=== PATIENT | female | born 1970 | race Caucasian/White ===

== ENCOUNTER → 2017-09-04 13:16 | Outpatient (CLI) | payer OTHER, SELFPAY ==
[2017-09-05 14:29] LABS: HPV Reflexed? NOT INDICATED
== END ==
PROVIDERS: Visit Provider Obstetrics & Gynecology
DX: Z12.4 Encounter for screening for malignant neoplasm of cervix (principal)
CPT/HCPCS: 88175; G0145

== ENCOUNTER → 2017-11-07 07:23 | Outpatient (CLI) | payer OTHER, SELFPAY ==
--- NOTE | 2017-11-07 07:27 | BI_ITS ---
MAMMOGRAPHY - BILATERAL SCREENING REASON FOR EXAM: Female, 47 years old. Routine annual screening examination. PERTINENT HISTORY: Mother with breast cancer. TECHNIQUE: Digital bilateral breast melinda (3D mammographic acquisition) in the CC and MLO projections. 2-D mediolateral oblique (MLO) and craniocaudad (CC) views of both breasts were obtained. CAD: Full Field Digital Mammography with Computer Added Detection was performed. COMPARISON: Comparison is made with prior study dated February 28, 2017 and May 27, 2015. FINDINGS: Breast Composition: The breasts are heterogeneously dense, which may obscure small masses. There are no dominant masses or suspicious calcifications. Stable benign-appearing bilateral axillary lymph nodes. No other significant abnormalities are identified. There has been no significant change since the prior study. BI/SCREENING MAMM (CAD), BILAT IMPRESSION: Stable bilateral screening mammogram. Yearly follow-up mammogram recommended. (A) ASSESSMENT CATEGORY: BIRADS Category 2: Benign. A letter regarding these results will be sent to the patient by the facility within 30 days. Approximately 10% of breast cancers are not detected by mammography. A normal mammogram should not delay biopsy of a clinically suspicious abnormality. [id number] Electronically Signed: Anil Davison MD at 9:08 EDT Tel [phone], Service support ,
== END ==
PROVIDERS: Family Provider Internal Medicine; PCP Internal Medicine; Visit Provider Obstetrics & Gynecology
DX: Z12.31 Encounter for screening mammogram for malignant neoplasm of breast (principal)
CPT/HCPCS: 77063; 77067

== ENCOUNTER 2018-07-05 08:26 | Emergency (ER) | payer OTHER, SELFPAY ==
--- NOTE | 2018-07-05 08:28 | NURSING ---
NO OLD EKGS
[2018-07-05 08:29] VITALS: BP 191/97; PULSE 76; RESP 23; TEMP 36.7; O2SAT 97; BMI 41.1
--- NOTE | 2018-07-05 08:40 | EKG12_ITS ---
Test Reason : PALPATIONS Blood Pressure : / mmHG Vent. Rate : 076 BPM Atrial Rate : 076 BPM P-R Int : 158 ms QRS Dur : 084 ms QT Int : 416 ms P-R-T Axes : 054 008 014 degrees QTc Int : 468 ms Sinus rhythm with occasional Premature ventricular complexes Otherwise normal ECG Confirmed by OSCAR HAYS, ELIUD ([id number]), greeting card editor DEBBY GUTIÉRREZ ([id number]) on 07/09/2018 3:39:04 PM Referred By: JARON Confirmed By:ELIUD MOORE MD
[2018-07-05 09:06] LABS: Anion Gap 9 (5-15); BUN 14 mg/dL (7-18); Calcium,Total 8.5 mg/dL (8.5-10.1); Chloride 104 mmol/L (98-107); Creatinine, Serum 0.78 mg/dL (0.55-1.02); EST Glomerular Filtration Rate 84 mL/min (>60); Est Glom Filt Rate - Afr Amer 102 mL/min (>60); Estimated Creatinine Clearance 76.99 ml/min; Glucose 108 mg/dL (74-106); Sodium Level 140 mmol/L (136-145)
--- NOTE | 2018-07-05 10:16 | ED.DCSUM_ITS ---
- ER Visit Summary Date of Service: 07/05/18 Chief Complaint: Fluttering in chest History of Present Illness: The patient is a 48 F who presents because of fluttering sensation in her chest. There is been present intermittently for the past week. She presents because she is noticing a fluttering more frequently. She reports similar episode 20 years ago and had a Holter monitor at that time which was unremarkable. She has had multiple echocardiograms of her heart which were read as negative. She may drink 1 caffeinated beverage a day. She has no other symptoms i.e. fever, chills or night sweats. She denies weight gain or weight loss. She denies heat or cold intolerance. She denies chest pain, pressure, tightness or heaviness. There is no pleuritic or positional component. This is not related to food. Please read written note for complete detail Physical Examination: Vital signs noted and blood pressure is elevated 191/97 per BMI is 41.2. HEENT exam is unremarkable. Heart tones normal with no murmur, gallop or rub. Occasional ectopic beat noted and monitor reveals a monofocal ventricular premature beat. Patient is aware majority of time she has a premature ventricular beat. There is no runs of bigeminy, trigeminy, couplets triplets etc. Lungs are clear to auscultation with room air bilaterally. There is no reducible chest pain. Abdomen soft nontender. There is no asymmetry, swelling, discoloration, leg vein distention, palpable cords or tenderness along the distribution of the deep venous system. Neuro exam is nonfocal. Test Results: EKG sinus rhythm with occasional premature ventricular complexes noted. MD interval, QRS duration, QT interval and axis are normal. Ventricular rate is 76. Electronic panel is unremarkable. Emergency Department Course and Treatment: Patient was placed on a monitor. No abnormality other than unifocal ventricular premature beats were noted during her 1.5-hour stay. Treatment Plan: Information and premature ventricular beats Disposition: Discharged home with spouse in stable condition Impression: Unifocal premature ventricular beats Hypertension and known hypertensive patient, asymptomatic Anxiousness self-reported This note was generated with [employer] dictation software. It may contain incorrect words, spelling, and punctuation that were not noted in review of the chart prior to signing ED Disposition - Plan for ED Patient: Disposition: Home or Assisted Living Chief Complaint: Palpitations Instructions: Premature Ventricular Contractions Referrals: Noemí,Luiza, DO [Primary Care Provider] - 1-2 Weeks Additional Instructions: Since her blood pressure is higher than normal you should have your blood pressure reassessed in 1-2 weeks by your primary care physician.
[2018-07-05 10:40] VITALS: BP 163/101; PULSE 58; RESP 12; O2SAT 95
--- OUTSIDE RECORDS SUMMARY | 2018-08-30 03:24 | XMS RPT_ITS | Continuity of Care Document ---
:1970 Author Organization [facility] Address [address] [facility] [address] [place] [address] Phone Care Team Providers Name Role Phone Luiza Dowd DO Unavailable Juancarlos Fitzpatrick Unavailable Bobo Mayers Unavailable Micheal Springer MD Unavailable CINDY Holley Unavailable Unavailable Sotero Araya Unavailable Unavailable Shasta PHILLIPS Bella Unavailable Elayne Henry LPN Unavailable Unavailable Abeba Holt Unavailable Unavailable Unavailable Unavailable Problems Name Dates Details Abnormal pulmonary function test (R94.2, 794.2) Comments: ? pulmonary hypertension vs asthma vs allergy Status: Active Abnormal pulmonary function test (R94.2, 794.2) Status: Active Acute bilateral low back pain without sciatica (M54.5, 724.2) Status: Active Acute sinusitis (J01.90, 461.9) Comments: still think viral at this point. will try adding steriod nasal spray to open up and help drain keep on mucinex and netti pot. if not better or signs and symptoms of bacterial by end of week get atb Status: Active ALLERGIC RHINITIS DUE TO OTHER ALLERGEN (J30.89, 477.8) Status: Active Allergic rhinitis due to other allergen (J30.89, 477.8) Comments: stable Status: Active Annual Medicare Physical WITH abnormal findings (Renamed from Encounter for general adult medical examination with abnormal findings) (Z00.01, V70.0) Comments: filled out papers Status: Active Annual physical exam (Z00.00, V70.0) Status: Active Arrhythmia (I49.9, 427.9) Comments: stable Status: Active ARRHYTHMIA, NOS (427.9) Status: Active Benign essential hypertension (I10, 401.1) Status: Active BMI 40.0-44.9, adult (Z68.41, V85.41) Status: Active Bronchitis (J40, 490) Status: Active Bronchitis with bronchospasm (466.0) Status: Active Cough (R05, 786.2) Comments: improved but tickly cough continues Status: Active Cough (R05, 786.2) Status: Active Endometriosis Comments: bx Status: Active GERD (gastroesophageal reflux disease) (K21.9, 530.81) Status: Active Hyperglycemia (R73.9, 790.29) Status: Active Hypertension (I10, 401.9) Status: Active Low HDL (under 40) (E78.6, 272.5) Status: Active Non morbid obesity, unspecified obesity type (E66.9, 278.00) Status: Active Non-smoker (Z78.9, V49.89) Status: Active orthoscopic bilatteral Status: Active Other cardiac sounds (R01.2, 785.3) Status: Active Palpitations (R00.2, 785.1) Status: Active PHARYNGITIS, ACUTE (462.) (462) Status: Active Physical exam (Z00.00, V70.9) Status: Active Pityriasis rosea (L42, 696.3) Status: Active Reflux gastritis (K29.60, 535.40) Comments: on dexilant Status: Active Stress reaction, emotional (F43.9, 308.0) Status: Active tubal occulusion (Renamed from Tubal Ligation) Status: Active Wheezing (R06.2, 786.07) Status: Active Medications Name Dates Details Bystolic 5 MG Oral Tablet 1 (one) Tablet qd for 0 days Quantity: 30 {Tablet} Refills: 5 Ordered:15-Jan-2018 Faby Dowd DO, DO, Kathleen Start : 15-Jan-2018 Active Dexilant 60 MG Oral Capsule Delayed Release [address] daily for 0 days Quantity: 30 {Capsule} Refills: 11 Ordered:26-Mar-2018 Noemí FOSS LuizaNoemí Luiza Start : 26-Mar-2018 Active FLONASE ALLERGY RELIEF, 50MCG/ACT (Nasal Suspension) 1 (one) puff qd for 360 days Quantity: 1 {Container} Refills: 6 Ordered:19-Jan-2016 Noemí FOSS GildaSanti Luiza Start : 19-Jan-2016 Active PROVENTIL HFA, 108 (90 Base)MCG/ACT (Inhalation Aerosol Solution) 2 (two) Puff(s) tid prn for 0 days Quantity: 1 {Inhaler} Refills: 0 Ordered:07-Nov-2016 Abeba Holley LPN Start : 24-Feb-2015 Active JOANN-D ALLERGY & CONGESTION, 180-240MG (Oral Tablet Extended Release 24 Hour) 1 Tablet ER 24HR daily prn for 0 days Quantity: 30 {Tablet_ER_24HR} Refills: 0 Ordered:04-Sep-2012 Abeba Holley LPN Start : 27-Jun-2011 End : 04-Sep-2012 Inactive ASMANEX 14 METERED DOSES, 220MCG/INH (Inhalation Aerosol Powder Breath Activated) 2 (two) Puff bid for 0 days Quantity: 2 {Inhaler} Refills: 0 Ordered:01-Sep-[address] Start : 13-Mar-2014 End : 01-Sep-2014 Inactive AUGMENTIN, 875-125MG (Oral Tablet) 1 Tablet Twice daily for 0 days Quantity: 20 {Tablet} Refills: 0 Ordered:27-Jun-2011 Sena Lester LPN Start : 04-Jan-2011 End : 27-Jun-2011 Inactive BACITRACIN-POLYMYXIN B (Ophthalmic Ointment) 1/2 (one half) Ointment qid for 7 days Quantity: 1 {Ointment} Refills: 0 Ordered:10-Jun-2007 Sena Lester LPN Start : 10-Jun-2007 End : 11-Jul-2007 Inactive Comments:Apply ointment 1/2 inch 2-4 times per day for 5 days both eyes Biaxin XL Pac 500 MG Oral Tablet Extended Release 24 Hour 2 (two) Tablet ER 24HR daily for 10 days Quantity: 20 {Tablet} Refills: 0 Ordered:21-Jun-2016 Zuleyma Vegas CNP Start : 21-Jun-2016 End : 01-Jul-2016 Inactive Comments:will call if need this void after 30 days Bleph-10 10 % Ophthalmic Solution 1-2 Metric Drop q 2-3h until improving then tid for 7 days Quantity: 1 {Bottle} Refills: 0 Ordered:21-Jun-2016 Zuleyma Vegas CNP Start : 21-Jun-2016 End : 28-Jun-2016 Inactive CLARITIN, 10MG (Oral Tablet) 1 (one) Tablet daily for 0 days Quantity: 30 {Tablet} Refills: 0 Ordered:24-Feb-2015 Abeba Holley LPN Start : 01-Sep-2014 End : 24-Feb-2015 Inactive Delsym 30 MG/5ML Oral Suspension Extended Release 1 Liquid ER q12hrs for 0 days Quantity: 6 {Fluid_Ounce} Refills: 0 Ordered:26-Sep-2016 Abeba Holley LPN Start : 21-Jun-2016 End : 26-Sep-2016 Inactive FLONASE, 50MCG/ACT (Nasal Suspension) 2 (two) Puff Puff daily for 0 days Quantity: 1 {Inhaler} Refills: 0 Ordered:01-Sep-[address] Start : 20-Feb-2014 End : 01-Sep-2014 Inactive LEVOFLOXACIN, 500MG (Oral Tablet) 1 (one) Tablet daily for 7 days Quantity: 7 {Tablet} Refills: 0 Ordered:20-Feb-2014 Zuleyma Vegas CNP Start : 20-Feb-2014 End : 27-Feb-2014 Inactive Metaxalone 800 MG Oral Tablet 1 (one) Tablet tid prn for 0 days Quantity: 21 {Tablet} Refills: 0 Ordered:07-Nov-2016 Abeba Holley LPN Start : 26-Sep-2016 End : 07-Nov-2016 Inactive MUCINEX DM, 30-600MG (Oral Tablet Extended Release 12 Hour) tad Tablet ER 12HR BID for 0 days Refills: 0 Ordered:03-Sep-2008 Abeba Holley LPN Start : 03-Sep-2008 End : 30-Sep-2008 Inactive NASACORT AQ, 55MCG/ACT (Nasal Aerosol Solution) 2 (two) Aerosol Soln DAILY for 0 days Quantity: 1 {Aerosol_Soln} Refills: 0 Ordered:03-Apr-2008 Abeba Holley LPN Start : 03-Apr-2008 End : 22-Jun-2009 Inactive OMNARIS, 50MCG/ACT (Nasal Suspension) 2 (two) Suspension qd for 10 days Quantity: 1 {Suspension} Refills: 0 Ordered:07-Dec-2009 Faby Dowd DO, DO, Kathleen Start : 02-Nov-2009 End : 12-Nov-2009 Inactive PredniSONE 10 MG Oral Tablet 1 Tablet bid for 3 days Quantity: 6 {Tablet} Refills: 0 Ordered:24-Nov-2016 Shasta PHILLIPSZuleyma E Start : 24-Nov-2016 End : 27-Nov-2016 Inactive Comments:with food Pyridium 200 MG Oral Tablet 1 (one) Tablet Tablet q8 hr prn for 0 days Quantity: 10 {Tablet} Refills: 0 Ordered:26-Sep-2016 Abeba Holley LPN Start : 18-May-2016 End : 26-Sep-2016 Inactive SYMBICORT, 160-4.5MCG/ACT (Inhalation Aerosol) 1 (one) Aerosol bid for 0 days Quantity: 1 {Each} Refills: 0 Ordered:24-Feb-2015 Abeba Holley LPN Start : 01-Sep-2014 End : 24-Feb-2015 Inactive TESSALON PERLES, 100MG (Oral Capsule) 1 (one) Capsule tid for 0 days Quantity: 30 {Capsule} Refills: 0 Ordered:11-Jul-2007 Abeba Holley LPN Start : 11-Jul-2007 End : 30-Sep-2007 Inactive ATENOLOL, 25MG (Oral Tablet) 1 Tablet BID for 0 days Quantity: 180 {Tablet} Refills: 3 Ordered:14-Oct-2009 Faby Dowd DO, DO, Kathleen Start : 14-Oct-2009 End : 14-Oct-2009 Discontinued Delsym Cgh/Chest Johan DM Child 5-100 MG/5ML Oral Liquid 1 (one) Liquid q12hr for 0 days Quantity: 1 {Bottle} Refills: 0 Ordered:19-Dec-2016 Elayne Henry LPN Start : 24-Nov-2016 End : 19-Dec-2016 Discontinued KAPIDEX, 60MG (Oral Capsule Delayed Release) 1 (one) Capsule DR Daily for 0 days Quantity: 90 {Capsule_DR} Refills: 3 Ordered:19-Jul-2010 Sandie Lorenzo RN Start : 22-Jun-2009 End : 19-Jul-2010 Discontinued Comments:This order discontinued per [facility]. Macrobid 100 MG Oral Capsule 1 (one) Capsule bid for 0 days Quantity: 20 {Capsule} Refills: 0 Ordered:21-Jun-2016 Slarb BIAS CUT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 VERTICAL, Elayne Start : 18-May-2016 End : 21-Jun-2016 Discontinued ProAir HFA 108 (90 Base) MCG/ACT Inhalation Aerosol Solution 2 (two) Puff tid prn for 0 days Quantity: 1 {Inhaler} Refills: 3 Ordered:19-Dec-2016 Slarb BIAS CUT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 VERTICAL, Elayne Start : 24-Nov-2016 End : 19-Dec-2016 Discontinued Zithromax Z-Andrea 250 MG Oral Tablet 1 (one) Tablet TAD for 0 days Quantity: 1 {Package} Refills: 0 Ordered:19-Dec-2016 Slarb BIAS CUT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 VERTICAL, Elayne Start : 24-Nov-2016 End : 19-Dec-2016 Discontinued Allergies and Adverse Reactions Name Dates Details Codeine/Codeine Derivatives (Allergy) Status: Active Comments: Nausea Past Medical History Name Dates Details Abnormal urine (R82.90, 791.9) Status: Inactive as of 07-Nov-2016 Acute conjunctivitis (Renamed from Conjunctivitis, acute) (H10.30, 372.00) Status: Inactive as of 07-Nov-2016 Allergic rhinitis (J30.9, 477.9) Status: Inactive as of 31-Dec-2008 Bronchitis (J40, 490) Status: Inactive as of 31-Dec-2008 Cough (R05, 786.2) Status: Inactive as of 26-Mar-2015 Dry Eye, Unspecified (375.15) Status: Inactive as of 31-Dec-2008 Eye redness (H57.89, 379.93) Status: Inactive as of 07-Nov-2016 Hematuria (R31.9, 599.70) Status: Inactive as of 07-Nov-2016 Hyperglyceridemia (E78.1, 272.1) Status: Resolved as of 14-Aug-2011 Mild persistent asthmatic bronchitis with exacerbation (J45.31, 493.02) Comments: not sound bacterial. will start inhaler and give atb if get into bacterial signs and symptoms short course of predniosne Status: Inactive as of 07-Nov-2016 Muscle spasm of back (M62.830, 724.8) Status: Resolved as of 07-Nov-2016 Palpitations (R00.2, 785.1) Status: Resolved as of 02-Nov-2009 Serous conjunctivitis, unspecified laterality (H10.239, 372.01) Status: Inactive as of 31-Dec-2008 Sinus congestion (R09.81, 478.19) Status: Inactive as of 04-Sep-2012 Sore throat (J02.9, 462) Status: Inactive as of 04-Sep-2012 Tension headache (G44.209, 307.81) Comments: massage rx written Status: Inactive as of 04-Sep-2012 Throat pain (R07.0, 784.1) Status: Inactive as of 31-Dec-2008 Visual changes (H53.9, 368.9) Status: Inactive as of 26-Mar-2015 Procedures Date Value Details 05-Jul-2018 Emergency Department Summary Result: Comments: See Note; NOTES: [facility] Medical Records Department [address] [place] [address] Emergency Department Summary 07/05/18 1012 MR#: [id number] Acct: [id number] Name: TAMAR ROSA Rep #: [id number] : 1970 48 From: Ubaldo Owens MD PCP: Luiza Dowd DO Status: REG ER - ER Visit Summary Date of Service: 07/05/18 Chief Complaint: Fluttering in chest History of Present Illness: The patient is a 48 F who presents because of fluttering sensation in her chest. There is been present intermittently for the past week. She presents because she is noticing a flutt ering more frequently. She reports similar episode 20 years ago and had a Holter monitor at that time which was unremarkable. She has had multiple echocardiograms of her heart which were read as negativ e. She may drink 1 caffeinated beverage a day. She has no other symptoms i.e. fever, chills or night sweats. She denies weight gain or weight loss. She denies heat or cold intolerance. She denies chest pain, pressure, tightness or heaviness. There is no pleuritic or positional component. This is not related to food. Please read written note for complete detail Physical Examination: Vital signs noted and blood pressure is elevated 191/97 per BMI is 41.2. HEENT exam is unremarkable. Heart tones normal with no murmur, gallop or rub. Occasional ectopic beat noted and monitor reveals a monofocal ventric ular premature beat. Patient is aware majority of time she has a premature ventricular beat. There is no runs of bigeminy, trigeminy, couplets triplets etc. Lungs are clear to auscultation with room ai r bilaterally. There is no reducible chest pain. Abdomen soft nontender. There is no asymmetry, swelling, discoloration, leg vein distention, palpable cords or tenderness along the distribution of the d eep venous system. Neuro exam is nonfocal. Test Results: EKG sinus rhythm with occasional premature ventricular complexes noted. DC interval, QRS duration, QT interval and axis are normal. Ventricular rate is 76. Electronic panel is unremarkable. Emergency Department Course and Treatment: Patient was placed on a monitor. No abnormality other than unifocal ventricular premature beats were noted durin g her 1.5-hour stay. Treatment Plan: Information and premature ventricular beats Disposition: Discharged home with spouse in stable condition Impression: Unifocal premature ventricular beats Hyperten kay and known hypertensive patient, asymptomatic Anxiousness self-reported This note was generated with Fanzo dictation software. It may contain incorrect words, spelling, and punctuation that were not noted in review of the chart prior to signing ED Disposition - Plan for ED Patient: Disposition: Home or Assisted Living Chief Complaint: Palpitations Instructions: Premature Ventricular Contrac tions Referrals: Luiza Dowd DO [Primary Care Provider] - 1-2 Weeks Additional Instructions: Since her blood pressure is higher than normal you should have your blood pressure reassessed in 1-2 wee ks by your primary care physician. What to do if you have Problems For any increased pain, shortness of breath, bleeding, nausea or vomiting, chest pain, or any unexpected problems, contact your [facility] Care Provider. Call Doctors [facility] ([phone]) or report to the closest Emergency Room. Call 911 if necessary. 07/05/18 1017 <Electronically signed by Ubaldo Owens MD> Date ____ Ubaldo Diallo Signature (If Indicated): Date CC: Luiza Noemí 07-Nov-2017 SCREENING MAMM (CAD), BILAT Result: Comments: See Note; NOTES: [facility] Imaging Services [address] [place] [address] SCREENING MAMM (CAD), BILAT MR#: [id number] Acct: [id number] Name: TAMAR ROSA Rep #: [id number] : 1970 F 47 From: Anil Davison MD PCP: Luiza Dowd DO Status: REG CLI Study: SCREENING MAMM (CAD), BILAT Date of Exam: 11/07/17 Exam# [id number] Ordering Dr: Bailey Cummins MD MAMMOGRAPHY - BILATERAL SCREENING REASON FOR EXAM: Female, 47 years old. Routine annual screening examination. PERTINENT HISTORY: Mother with breast cancer. TECHNIQUE: Digital bilateral breast allyson o (3D mammographic acquisition) in the CC and MLO projections. 2-D mediolateral oblique (MLO) and craniocaudad (CC) views of both breasts were obtained. CAD: Full Field Digital Mammography with Computer Added Detection was performed. COMPARISON: Comparison is made with prior study dated February 28, 2017 and May 27, 2015. FINDINGS: Breast Composition: The breasts are heterogeneously dense, which may obscure small masses. There are no dominant masses or suspicious calcifications. Stable benign-appearing bilateral axillary lymph nodes. No other significant abnor malities are identified. There has been no significant change since the prior study. BI/SCREENING MAMM (CAD), BILAT IMPRESSION: Stable bilateral screening mammogram. Yearly follow-up mammogram recommended. (A) ASSESSMENT CATEGORY: BIRADS Category 2: Benign. A letter regarding these results will be sent to th e patient by the facility within 30 days. Approximately 10% of breast cancers are not detected by mammography. A normal mammogram should not delay biopsy of a clinically suspicious abnormality. [id number] Electronically Signed: Anil Davison MD at 9:08 EDT Tel [phone], Service support , CC: Bailey Cummins MD; Luiza Dowd DO Innovation Analyst: Signed 04-Sep-2017 Massage Therapy Evaluation Result: Comments: See Note; NOTES: [facility] Physical Therapy [facility] 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 She was referred for massotherapy evaluation with a holden gnosis of tension HAs. She reports the issue is chronic. Stress and work are contributing factors. Activities of daily living are not affected. She also reports occasional low back pain. Medications: B ystolic, Dexilart, FLonase, Asmanex Goals: Decrease RICH Decrease Muscle Tension Decrease Back Pain Her first treatment consisted of a one hour massage to the upper body focusing on the neck shoulders a nd back. The patient did have significant muscle tension throughout the upper body as well as knots in the trapezius and rhomboids. She responded well to treatment and reported a decrease in tension an d muscle ache after therapy. I plan to see her 1 time per month or as needed for a total of 10 one hour sessions of massage. Carmelita Tucker LMT <Electronically signed by Carmelita Tucker &am p;#62; 09/04/17 1258 CC: Luiza Dowd DO JM Signed For Medicare only, by signing this I certify the plan of care. Physicians Signature Date 03-Sep-2017 Discharge Instruction Result: Comments: See Note; NOTES: [facility] Medical Records Department [address] [place] [address] Discharge Instruction 09/03/172034 MR#: [id number] Acct: [id number] Name: Merline ROSA Rep #: [id number] : 1970 47 From: Lance Gutiérrez DO PCP: Luiza Dowd DO Status: PRE ER ED Disposition - Plan for ED Patient: Chief Complaint: Occup Expose Instructions: ED Body Fluid Exp HC Worker Referrals: Luiza Dowd DO [Primary Care Provider] - [facility] [GROUP OF PHYSICIANS] - 3-5 Days What to do if you have Problems For any increased pain, shortness of breath, b leeding, nausea or vomiting, chest pain, or any unexpected problems, contact your Primary Care Provider. Call [facility] ([phone]) or report to the closest Emergency Room. Call 911 if necessa ry. 09/03/172036 <Electronically signed by Lance Gutiérrez DO> Date Lance Gutiérrez DO Cosigner Signature (If Indicated): Date CC: Luiza Dowd DO 03-Sep-2017 Emergency Department Summary Result: Comments: See Note; NOTES: [facility] Medical Records Department [address] [place] [address] Emergency Department Summary 09/03/172031 MR#: [id number] Acct: [id number] Name: TAMAR ROSA Rep #: [id number] : 1970 47 From: Lance Gutiérrez DO PCP: Luiza Dowd DO Status: PRE ER - ER Visit Summary Date of Service: 09/03/17 Chief Complaint: [The fluid exposure] Hist ory of Present Illness: The patient is a 47 F [presents to the emergency department with complaint of possible body fluid exposure. Patient was working with patient going to a stat and had her right hand which was gloved inside the woman's vagina. When the patient pulled the handout it was noted that she had an abrasion to her volar wrist and some vaginal fluid and Betadine adjacent to the a cheyenne as well. Patient denies any other complaints. Patient up-to-date immunizations. The source patient is known. Source patient is not known to have any infectious diseases.] Physical Examination: [ARIAN NT-PERRLA, EOMI. Cranial nerves II through XII grossly intact. TMs clear. Mucous membranes moist. No adenopathy. Cardiovascular-regular rate and rhythm without murmur or ectopy Lungs-clear to ausculta tion, chest wall stable without crepitus or subcu emphysema Abdomen-normoactive bowel sounds, soft, nontender, no rebound or rigidity, no peritoneal signs. Extremities-intact 4, normal range of motion , normal pulses, atraumatic]. Right wrist-over the volar mid wrist patient has a superficial 2 mm abrasion. 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 It may contain incorrect words, spelling, and punctuation that were not noted in review of the chart prior to signing ED Disposition - Plan for ED Patient: Chief Complaint: Occup Expose Referrals: Luiza Dowd DO [Primary Care Provider] - What to do if you have Problems For any increased pain, shortness of breath, bleeding, nausea or vomiting, chest pain, or any unexpected problems, contact your Primary Care Provider. [facility] Doctors Registry ([phone]) or report to the closest Emergency Room. Call 911 if necessary. 09/03/172034 <Electronically signed by Lance Gutiérrez DO> Date Lance Gutiérrez DO Cosigner Signature (If Indicated): Date CC: Luiza Dowd DO 23-Jul-2017 Discharge Summary Result: Comments: See Note; NOTES: [facility] Medical Records Department [address] [place] [address] Discharge Summary 07/19/17 1117 MR#: [id number] Acct: [id number] Name: TAMAR ROSA Rep #: [id number] : 1970 47 From: Carmelita Tucker PCP: Luiza Dowd DO Status: REG RCR Y Location: [facility] Massage Therapy Discharge Summary: This patient was seen for massotherapy evaluation on: 08/31/16 Diagnosis: Tension Headaches The patient had 10 sessions of massotherapy. The goals for treatment were met. She reported decreased headaches and muscle tension. At this time I am disch arging the patient from our care at the [facility]. 07/23/17 1049 <Electronically signed by Carmelita Tucker > Date Carmelita maxwell Cosigner Signature (if applicable): Date CC: Carmelita Dowd DO Signed 14-Dec-2016 Pulmonary Function Report Comp Result: Comments: See Note; NOTES: [facility] Pulmonary Services/Neurology [address] [place] [address] Pulmonary Function Test (Comp) MR#: [id number] Acct: [id number] Name: LUIS ALBERTO ROSA Rep #: [id number] : 1970 46 From: Lauro Calderon DO Referring Dr: Zuleyma Vegas Status: REG CLI Ordering Dr: Zuleyma Vegas Date: 12/12/16 Location: [facility] Sex: F C DATE OF SERVICE: 12/12/2016 INTR ODUCTION: The patient is a 46-year-old female currently being seen by Samaria Vegas NP that presents for pulmonary function testing secondary to a diagnosis of wheezing. Respiratory therapy report s good patient effort and reports no other concerns. Bronchodilators were used during testing. INTERPRETATION: Forced expiration spirometry demonstrates no evidence of a large airways obstructive venti latory defect. There was no significant response to aerosolized bronchodilators, based on strict ATS criteria. Spirograms are of good quality and plateau normally. The respiratory flow volume loop revea ls decreased expiratory flow rates at high lung volumes consistent with small airways obstruction. Body plethysmography was performed and revealed that the patient's TLC is at the lower limits of normal . There is a corresponding decrease in ERV, which may be secondary to a body habitus effect. Airway resistance is normal. Diffusing capacity by single breath CO is mildly reduced at 69% of predicted. I MPRESSION: These pulmonary function studies demonstrate the presence of an isolated mild reduction in diffusing capacity, which may be reflective of an underlying pulmonary vascular disorder, such as pu lmonary hypertension. If there is a clinical concern for asthma, a methacholine challenge can be ordered. There are no previous pulmonary function studies available for comparison. Clinical correlation is recommended. DO Davon Lagunas C: Referring Provider T: YAW JOB: [id number] 12/14/16 0829 <Electronically signed by Lauro Calderon DO> Date Lauro Calderon DO CC: Zuleyma Vegas; Lauro Calderon D.O.; Luiza Noemí FOSS Date Dictated: 12/13/16846 Date Transcribed: 12/13/16846 Innovation Analyst: Signed 31-Aug-2016 SCREENING MAMM (CAD), BILAT Result: Comments: See Note; NOTES: [facility] Imaging Services [address] [place] [address] Verdana 4d SCREENING MAMM (CAD), BILAT MR#: [id number] Acct: [id number] Name: TAMAR ROSA Rep #: [id number] : 1970 F 46 From: Anil Davison MD PCP: Luiza Dowd DO Status: REG CLI Study: SCREENING MAMM (CAD), BILAT Date of Exam: 08/31/16 Exam# [id number] Ordering Dr: Bailey Barrientos MD MAMMOGRAPHY - BILATERAL SCREENING REASON FOR EXAM: Female, 46 years old. Routine annual screening examination. PERTINENT HISTORY: Mother with breast cancer. TECHNIQUE: Digital bilateral breast melinda (3D mammographic acquisition) in the CC and MLO projections. 2-D mediolateral oblique (MLO) and craniocaudad (CC) views of both breasts were obtained. CAD: Full Field Digital Mammography wi th Computer Added Detection was performed. COMPARISON: Comparison is made with prior examination dated May 21, 2015 and May 20, 2014. FINDINGS: Breast Twilight sition: The breasts are heterogeneously dense, which may obscure small masses. There are no dominant masses or suspicious calcifications. No other significant abnormalities are identified. There has b een no significant change since the prior study. HPBI/SCREENING MAMM (CAD), BILAT IMPRESSION: Stable bilateral screening mammogram. Yearly follow -up mammogram recommended. (A) ASSESSMENT CATEGORY: BIRADS Category 1: Negative. A letter regarding these results will be sent to the patient by the facility within 30 days. Approximately 10% of breast cancers are not detected by mammography. A normal mammogram should not delay biopsy of a clinically suspicious abnormality. [id number] Electronically Signed: Carlos Davison MD at 10:16 EST Tel [phone], Service support [phone], CC: Bailey Cummins MD; Luiza Dowd DO Innovation Analyst: Signed 03-Sep-2015 Inital Evaluation - PT Result: Comments: See Note; NOTES: [facility] 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 Dowd with a diagnosis of tension headaches. She presents today with symptoms of pain in the back of her neck. She reports that the pain is at a level 4 of 10. The symptoms have been present for a while, duration with 1-2 headaches per week. The symptoms commence d due to stress work related. Tamar rates her overall health to be in good condition with no limitations during her daily activities. She is currently taking Bystolic and Dexilant medications. OBJEC TIVE: Upon palpation, the muscle tissue was very hard. The first treatment consisted of upper body deep tissue massage. I focused on the temporalis, suboccipital, levator, scalene, upper trapezium, r homboid, cervical and thoracic paraspinals and pectorals. Trigger point therapy and neck stretches were performed. ASSESSMENT: Muscle tension was very high when starting massage, the left side was w orse than the right. The most tenderness point is where the neck and shoulders come together. The stress level can be very high at times. It took a while for the muscle to release but once the trigge r points in the left upper trapezium released, the pain decreased. I feel Tamar is a great candidate for massotherapy at this time. PLAN: The plan of care was reviewed with the patient. The patient is to be seen on a regular basis for a 1-hour sessions of massotherapy combined with heat or cold packs and neck stretches at home. Elayne Kauffman LMT T: YAW JOB: [id number] <Electronic ally signed by Elayne Kauffman > 09/03/15 1032 CC: Signed For Medicare only, by signing this I certify the plan of care. Physicians Signature Date 05-Aug-2015 PT Discharge Summary Result: Comments: See Note; NOTES: [facility] [address] [place] [address] Fax [facility] MR#: [id number] Acct: [id number] Name: TAMAR ROSA Rep #: [id number] : 1970 45 From: Carmelita Tucker Referring Dr.: Luiza Dowd DO Status: DIS RCR Eval Da te: Discharge Date: 07/21/15 DATE OF SERVICE: REFERRING PHYSICIAN: Luiza Dowd D.O. This patient was seen for massotherapy evaluation on August 26, 2014 with a diagnosis of muscle tensi on and headaches. She was treated with 10 sessions of deep tissue massage to the upper body, focusing on the neck and shoulders. Throughout treatment, she reported decrease in pain and muscle tension. At this time, I am discharging the patient from our care at the [facility] facility. Carmelita Tucker LMT T: YAW JOB: [id number] <Electronically signed by Carmelita Tucker > 0739 CC: Luiza Dowd DO Signed 27-May-2015 Breast Limited Unilateral Result: Comments: See Note; NOTES: [facility] Imaging Services [address] [place] [address] Kaitlin 4d Breast Limited Unilateral MR#: [id number] Acct: [id number] Name: TAMAR DAVIS Rep #: [id number] : 1970 F 45 From: Anil Davison MD PCP: Luiza Dowd DO Status: REG CLI Study: Breast Limited Unilateral Date of Exam: 05/27/15 Exam# [id number] [facility] Dr: Bailey Cummins MD STUDY: ULTRASOUND BREAST - LEFT REASON FOR EXAM: Female, 45 years old. Abnormal screening mammogram. TECHNIQUE: Axial and longitudinal images of the LEFT breast were pe rformed with a high resolution ultrasound transducer. COMPARISON: Comparison is made with prior mammogram dated May 27, 2015 and May 21, 2015. FINDINGS: LEFT Breast: The upper outer quadrant of the left breast was examined. There is homogeneous fibroglandular tissue. No solid or cystic mass lesion is seen. IMP RESSION: Unremarkable ultrasound of the upper outer quadrant of the left breast. ASSESSMENT CATEGORY: BIRADS Category 1: Negative. A letter regarding these resul ts will be sent to the patient by the facility within 30 days. Electronically Signed: Anil Davison MD at 15:03 EST Tel [phone], Service support [phone], CC: Bailey Cummins MD; Luiza Dowd DO Innovation Analyst: Signed 27-May-2015 Unilat Lt Diag Digital AND CAD Result: Comments: See Note; NOTES: [facility] Imaging Services [address] [place] [address] Verdana 4d Unilat Lt Diag Digital AND CAD MR#: [id number] Acct: [id number] Na me: TAMAR ROSA Rep #: [id number] : 1970 F 45 From: Dre Hoffman MD PCP: Luiza Dowd DO Status: REG CLI Study: Unilat Lt Diag Digital AND CAD Date of Exam: 05/27/15 Exam# [id number] O rdering Dr: Bailey Cummins MD MAMMOGRAPHY - UNILATERAL DIAGNOSTIC: LEFT BREAST REASON FOR EXAM: Female, 45 years old. Asymmetric density in the superior aspect of the left breast PERTINENT HIST ORY: FAM HX CA IN MOTHER AGE 60 TECHNIQUE: Digital examination. Mediolateral oblique (MLO) and craniocaudad (CC) views of the breast were obtained. CAD: CAD was not performed on this study. COMPAR DELMER: May 20, 2014. FINDINGS: Breast Composition: The described density in the left breast dispersed with compression. There is no abnormal mass. No othe r significant abnormalities are identified. IMPRESSION: Stable unilateral diagnostic mammogram. One year follow-up recommended. (A) ASSESSMENT CATEGORY: BIRADS Category 2: Benign. A letter regarding these results will be sent to the patient by the facility within 30 days. Approximately 10% of breast cancers are not de tected by mammography. A normal mammogram should not delay biopsy of a clinically suspicious abnormality. Electronically Signed: Memo Hoffman MD at 15:04 EDT Tel , Servi ce support [phone], CC: Bailey Cummins MD; Luiza Dowd DO Innovation Analyst: Signed 27-May-2015 Unilat Lt Diag Digital AND CAD Result: Comments: See Note; NOTES: [facility] Imaging Services [address] [place] [address] Verdana 4d Unilat Lt Diag Digital AND CAD MR#: [id number] Acct: [id number] Na me: TAMAR ROSA Rep #: [id number] : 1970 F 45 From: Dre Hoffman MD PCP: Luiza Dowd DO Status: REG CLI Study: Unilat Lt Diag Digital AND CAD Date of Exam: 05/27/15 Exam# [id number] O ering Dr: Bailey Cummins MD MAMMOGRAPHY - UNILATERAL DIAGNOSTIC: LEFT BREAST REASON FOR EXAM: Female, 45 years old. Asymmetric density in the superior aspect of the left breast PERTINENT HIST ORY: FAM HX CA IN MOTHER AGE 60 TECHNIQUE: Digital examination. Mediolateral oblique (MLO) and craniocaudad (CC) views of the breast were obtained. CAD: CAD was not performed on this study. COMPAR DELMER: May 20, 2014. FINDINGS: Breast Composition: The described density in the left breast dispersed with compression. There is no abnormal mass. No othe r significant abnormalities are identified. IMPRESSION: Stable unilateral diagnostic mammogram. One year follow-up recommended. (A) ASSESSMENT CATEGORY: BIRADS Category 2: Benign. A letter regarding these results will be sent to the patient by the facility within 30 days. Approximately 10% of breast cancers are not de tected by mammography. A normal mammogram should not delay biopsy of a clinically suspicious abnormality. Electronically Signed: Memo Hoffman MD at 15:04 EDT Tel , Servi ce support [phone], CC: Bailey Cummins MD; Luiza Dowd DO Innovation Analyst: Signed 27-May-2015 Unilat Lt Diag Digital AND CAD Result: Comments: See Note; NOTES: [facility] Imaging Services [address] [address] Verdana 4d Unilat Lt Diag Digital AND CAD MR#: [id number] Acct: [id number] Na me: TAMAR ROSA Rep #: [id number] : 1970 F 45 From: Dre Hoffman MD PCP: Luiza Dowd DO Status: REG CLI Study: Unilat Lt Diag Digital AND CAD Date of Exam: 05/27/15 Exam# [id number] [facility] Dr: Bailey Cummins MD MAMMOGRAPHY - UNILATERAL DIAGNOSTIC: LEFT BREAST REASON FOR EXAM: Female, 45 years old. Asymmetric density in the superior aspect of the left breast PERTINENT HIST ORY: FAM HX CA IN MOTHER AGE 60 TECHNIQUE: Digital examination. Mediolateral oblique (MLO) and craniocaudad (CC) views of the breast were obtained. CAD: CAD was not performed on this study. COMPAR DELMER: May 20, 2014. FINDINGS: Breast Composition: The described density in the left breast dispersed with compression. There is no abnormal mass. No othe r significant abnormalities are identified. IMPRESSION: Stable unilateral diagnostic mammogram. One year follow-up recommended. (A) ASSESSMENT CATEGORY: BIRADS Category 2: Benign. A letter regarding these results will be sent to the patient by the facility within 30 days. Approximately 10% of breast cancers are not de tected by mammography. A normal mammogram should not delay biopsy of a clinically suspicious abnormality. Electronically Signed: Memo Hoffman MD at 15:04 EDT Tel , Servi ce support [phone], CC: Bailey Cummins MD; Luiza Dowd DO Innovation Analyst: Signed 27-May-2015 Unilat Lt Diag Digital AND CAD Result: Comments: See Note; NOTES: [facility] Imaging Services [address] [place] [address] Verdana 4d Unilat Lt Diag Digital AND CAD MR#: [id number] Acct: [id number] Na me: SHELLEYTAMAR Galicia Rep #: [id number] : 1970 F 45 From: Dre Hoffman MD PCP: Luiza Dowd DO Status: REG CLI Study: Unilat Lt Diag Digital AND CAD Date of Exam: 05/27/15 Exam# [id number] O rdering Dr: Bailey Cummins MD MAMMOGRAPHY - UNILATERAL DIAGNOSTIC: LEFT BREAST REASON FOR EXAM: Female, 45 years old. Asymmetric density in the superior aspect of the left breast PERTINENT HIST ORY: FAM HX CA IN MOTHER AGE 60 TECHNIQUE: Digital examination. Mediolateral oblique (MLO) and craniocaudad (CC) views of the breast were obtained. CAD: CAD was not performed on this study. COMPAR DELMER: May 20, 2014. FINDINGS: Breast Composition: The described density in the left breast dispersed with compression. There is no abnormal mass. No othe r significant abnormalities are identified. IMPRESSION: Stable unilateral diagnostic mammogram. One year follow-up recommended. (A) ASSESSMENT CATEGORY: BIRADS Category 2: Benign. A letter regarding these results will be sent to the patient by the facility within 30 days. Approximately 10% of breast cancers are not de tected by mammography. A normal mammogram should not delay biopsy of a clinically suspicious abnormality. Electronically Signed: Memo Hoffman MD at 15:04 EDT Tel , Servi ce support [phone], CC: Bailey Cummins MD; Luiza Dowd DO Innovation Analyst: Signed 27-May-2015 Unilat Lt Diag Digital AND CAD Result: Comments: See Note; NOTES: [facility] Imaging Services [address] [place] [address] Verdana 4d Unilat Lt Diag Digital AND CAD MR#: [id number] Acct: [id number] Na me: TAMAR ROSA Rep #: [id number] : 1970 F 45 From: Dre Hoffman MD PCP: Luiza Dowd DO Status: REG CLI Study: Unilat Lt Diag Digital AND CAD Date of Exam: 05/27/15 Exam# [id number] [facility] Dr: Bailey Cummins MD MAMMOGRAPHY - UNILATERAL DIAGNOSTIC: LEFT BREAST REASON FOR EXAM: Female, 45 years old. Asymmetric density in the superior aspect of the left breast PERTINENT HIST ORY: FAM HX CA IN MOTHER AGE 60 TECHNIQUE: Digital examination. Mediolateral oblique (MLO) and craniocaudad (CC) views of the breast were obtained. CAD: CAD was not performed on this study. COMPAR DELMER: May 20, 2014. FINDINGS: Breast Composition: The described density in the left breast dispersed with compression. There is no abnormal mass. No othe r significant abnormalities are identified. IMPRESSION: Stable unilateral diagnostic mammogram. One year follow-up recommended. (A) ASSESSMENT CATEGORY: BIRADS Category 2: Benign. A letter regarding these results will be sent to the patient by the facility within 30 days. Approximately 10% of breast cancers are not de tected by mammography. A normal mammogram should not delay biopsy of a clinically suspicious abnormality. Electronically Signed: Memo Hoffman MD at 15:04 EDT Tel , Servi ce support [phone], CC: Bailey Cummins MD; Luiza Dowd DO Innovation Analyst: Signed 21-May-2015 Bilat Scrn Digital AND CAD Result: Comments: See Note; NOTES: [facility] Imaging Services [address] [address] Verdana 4d Bilat Scrn Digital AND CAD MR#: [id number] Acct: [id number] Name: TAMAR ROSA Rep #: [id number] : 1970 F 45 From: Dre Hoffman MD PCP: Luiza Dowd DO Status: REG CLI Study: Bilat Scrn Digital AND CAD Date of Exam: 05/21/15 Exam# [id number] Ordering Dr: Bailey Cummins MD MAMMOGRAPHY - BILATERAL SCREENING REASON FOR EXAM: Female, 45 years old. Routine annual screening examination. PERTINENT HISTORY: NO PROBLEMS, NO MOLES, FAM HX CA IN MOTHE R AGE 60 TECHNIQUE: Digital examination. Mediolateral oblique (MLO) and craniocaudad (CC) views of both breasts were obtained. CAD: CAD was performed on this study. COMPARISON: May 20, 2014 an d May 14, 2013 and May 06, 2012. FINDINGS: Breast Composition: The breasts are heterogeneously dense, which may obscure small masses. There is an asymmet dinh density in the superior aspect of the left breast was tagged by the CAD system for which further evaluation by spot compression views and ultrasound would be recommended. No other significant ab normalities are identified. IMPRESSION: Further imaging evaluation recommended, as described above. (E) ASSESSMENT CATEGOR Y: BIRADS Category 0: Incomplete. Need additional imaging evaluation. A letter regarding these results will be sent to the patient by the facility within 30 days. Approximately 10% of breast cancer s are not detected by mammography. A normal mammogram should not delay biopsy of a clinically suspicious abnormality. Electronically Signed: Memo Hoffman MD at 14:42 EDT Tel , Service support [phone], CC: Bailey Cummins MD; Luiza Dowd DO Innovation Analyst: Signed 02-Sep-2014 Inital Evaluation - PT Result: Comments: See Note; NOTES: [facility] [address] [place] [address]. [address] [place], [place] [address] Fax REHABILITATION SERVICES INITIAL EVALUATION MR#: [id number] Acct: [id number] Name: TAMAR ROSA Rep #: [id number] : 1970 44 From: Carmelita Tucker Referring Dr.: Luiza Dowd DO Status: REG RCR Insurance: [facility] [employer] Eval Date: DATE OF SERVICE: 08/26/2014 REFERRING PHYSICIAN: Dr. Dowd. 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 She was referred to [facility] facility for massotherapy evaluation by Dr. Dowd with a diagnosis of muscle tension and headache. She presents today with symptoms of tensio n and aching throughout her neck and shoulders. She reports experiencing 3-5 tension headaches per week. She describes the pain as a tension or aching. The symptoms have been present for many years a nd are fairly constant. They commenced due to no apparent reasons. She rates her overall health to be in good condition with no limitations during daily living activities. MEDICATIONS: Bystolic an d Dexilant. Her goals for treatment are to decrease the frequency and intensity of her headaches, decreased muscle tension and promote relaxation. OBJECTIVE: Upon examination, I found moderate te nsion throughout the neck, shoulders and interscapular areas with knots throughout the paraspinals, trapezius and rhomboids. Her first treatment consisted of a 1-hour deep tissue massage to the upper body. ASSESSMENT: I was able to achieve moderate releases and the patient reported a decrease in muscle tension after treatment. I feel that she is a good candidate for massage at this time. We have had much success treating her symptoms in the past. PLAN: The plan of care was reviewed with the patient. She is to be seen on an as- needed basis for a total of 10 one-hour sessions of deep ti ssue massage focusing on her neck , shoulders and upper back. Carmelita Tucker LMT T: YAW JOB: [id number] <Electronically signed by Carmelita Tucker > 09/02/14 1307 CC: DD: Signed For Medicare only, by signing this I certify the plan of care. Physicians Signature Date 20-May-2014 Bilat Scrn Digital & CAD Result: Comments: See Note; NOTES: [facility] Services [address] [place] [address] Breast Imaging Report MR#: [id number] Acct: [id number] Name: TAMAR ROSA Rep #: [id number] : 1970 F 44 From: Dontae Durbin PCP: Luiza Dowd DO Status: REG CLI Exam# [id number] Ordering Dr: Bailey Cummins MD MAMMOGRAPHY - BILATERAL SCREENING REASON FOR EXAM: Female , 44 years old. Routine annual screening examination. PERTINENT HISTORY: Mother with breast cancer. TECHNIQUE: Digital examination. Mediolateral oblique (MLO) and craniocaudad (CC) views of both b reasts were obtained. CAD: CAD was performed on this study. COMPARISON: 05/14/2013 FINDINGS: Breast Composition: The breasts are heterogeneously dense, which m ay obscure small masses. There is a stable density in outer right breast. There are no dominant masses or suspicious calcifications. No other significant abnormalities are identified. There has bee n no significant change since the prior study. IMPRESSION: Stable bilateral screening mammogram. Yearly follow-up recommended. (A) ASSESSMENT CATEGORY: BIRADS Category 2: Benign finding(s). A letter regarding these results will be sent to the patient by the facility within 30 days. Approximately 10% of breast cancers a re not detected by mammography. A normal mammogram should not delay biopsy of a clinically suspicious abnormality. Electronically Signed: Mandy Durbin MD at 20:20 EDT Tel , Service support [phone], CC: Bailey Cummins MD; Luiza Dowd DO Innovation Analyst: Signed 20-Feb-2014 Spirometry ([id number]) Result: 05-Aug-2013 PT Discharge Summary Result: Comments: See Note; NOTES: [facility] [address] [place], [place] [address] Fax REHABILITATION SERVICES DISCHARGE SUMMARY MR#: [id number] Acct: [id number] Name: TAMAR ROSA Rep #: [id number] : 1970 43 From: Lori Christopher Referring : Luiza Dowd DO Status: DIS RCR Eval Date: Discha rge Date: 06/05/13 DATE OF SERVICE: REFERRING PHYSICIAN: Dr. Luiza Dowd This patient was seen for massotherapy evaluation on September 30, 2012 with a diagnosis of headaches and muscle t ension. She was treated with 7 sessions of deep tissue massage to the upper body. She did report a decrease in frequency and intensity of headaches as well as a decrease in muscle tension throughout therapy. At this time, I am discharging the patient from our care at the [facility] facility. Carmelita Christopher LMT T: [facility] JOB: [id number] <Electronically signed by Lori Christopher &#62 ; 08/05/13 0736 CC: * Signed Family History Unknown Family Member Name Dates Details Breast Cancer Comments: Mother 10-11 Status: Active Social History Name Dates Details No Drug Use Status: Active Non Drinker/No Alcohol Use Status: Active Non Smoker/No Tobacco Use Status: Active Tobacco use: Never smoker. Status: Active Smoking Status Name Dates Details Never smoker Vital Signs Date Test Result Details :07 Temperature 96.8 f Pulse 70 /min Comments: Pattern: Regular Respiration Rate 18 /min Comments: Pattern: Unlabored O2 SAT 97 % Comments: Room air BP Systolic 156 mm[Hg] Comments: Patient Position: Sitting; Cuff Location: Left Arm; Cuff Size: Standard BP Diastolic 86 mm[Hg] Comments: Patient Position: Sitting; Cuff Location: Left Arm; Cuff Size: Standard Weight 249.125 lb Height 64 in Body Mass Index Calculated 42.76 kg/m2 Body Surface Area Calculated 2.15 m2 [id number] Pulse 72 /min Comments: Pattern: Regular Respiration Rate 18 /min Comments: Pattern: Unlabored O2 SAT 98 % Comments: Room air BP Systolic 120 mm[Hg] Comments: Patient Position: Sitting; Cuff Location: Left Arm; Cuff Size: Large BP Diastolic 78 mm[Hg] Comments: Patient Position: Sitting; Cuff Location: Left Arm; Cuff Size: Large Weight 249.125 lb Height 64 in Body Mass Index Calculated 42.76 kg/m2 Body Surface Area Calculated 2.15 m2 :05 Temperature 97.7 f Pulse 88 /min Comments: Pattern: Regular Respiration Rate 16 /min Comments: Pattern: Unlabored O2 SAT 96 % Comments: Room air BP Systolic 124 mm[Hg] Comments: Patient Position: Sitting; Cuff Location: Left Arm; Cuff Size: Standard BP Diastolic 82 mm[Hg] Comments: Patient Position: Sitting; Cuff Location: Left Arm; Cuff Size: Standard Weight 253 lb Height 64 in Body Mass Index Calculated 43.43 kg/m2 Body Surface Area Calculated 2.16 m2 [id number]:15 Temperature 97.1 f Comments: Method: Oral Pulse 79 /min Comments: Pattern: Regular Respiration Rate 16 /min Comments: Pattern: Unlabored O2 SAT 98 % Comments: Room air BP Systolic 136 mm[Hg] Comments: Patient Position: Sitting; Cuff Location: Left Arm; Cuff Size: Standard BP Diastolic 84 mm[Hg] Comments: Patient Position: Sitting; Cuff Location: Left Arm; Cuff Size: Standard Weight 251.375 lb Height 64 in Body Mass Index Calculated 43.15 kg/m2 Body Surface Area Calculated 2.16 m2 :37 Pulse 78 /min Comments: Pattern: Regular Respiration Rate 18 /min Comments: Pattern: Unlabored O2 SAT 97 % Comments: Room air BP Systolic 136 mm[Hg] Comments: Patient Position: Sitting; Cuff Location: Left Arm; Cuff Size: Large BP Diastolic 82 mm[Hg] Comments: Patient Position: Sitting; Cuff Location: Left Arm; Cuff Size: Large Weight 251.375 lb Height 64 in Body Mass Index Calculated 43.15 kg/m2 Body Surface Area Calculated 2.16 m2 :16 Pulse 76 /min Comments: Pattern: Regular O2 SAT 98 % Comments: Room air BP Systolic 138 mm[Hg] Comments: Patient Position: Sitting; Cuff Location: Left Arm; Cuff Size: Large BP Diastolic 84 mm[Hg] Comments: Patient Position: Sitting; Cuff Location: Left Arm; Cuff Size: Large Weight 251 lb Height 64 in Body Mass Index Calculated 43.08 kg/m2 Body Surface Area Calculated 2.15 m2 :13 Temperature 98.2 f Pulse 76 /min Comments: Pattern: Regular Respiration Rate 16 /min Comments: Pattern: Unlabored O2 SAT 98 % Comments: Room air BP Systolic 126 mm[Hg] Comments: Patient Position: Sitting; Cuff Location: Left Arm; Cuff Size: Standard BP Diastolic 82 mm[Hg] Comments: Patient Position: Sitting; Cuff Location: Left Arm; Cuff Size: Standard Weight 250.375 lb Height 64 in Body Mass Index Calculated 42.98 kg/m2 Body Surface Area Calculated 2.15 m2 :39 Temperature 98.1 f Pulse 62 /min Comments: Pattern: Regular Respiration Rate 16 /min Comments: Pattern: Unlabored O2 SAT 97 % Comments: Room air BP Systolic 124 mm[Hg] Comments: Patient Position: Sitting; Cuff Location: Left Arm; Cuff Size: Standard BP Diastolic 82 mm[Hg] Comments: Patient Position: Sitting; Cuff Location: Left Arm; Cuff Size: Standard Weight 250.375 lb Height 64 in Body Mass Index Calculated 42.98 kg/m2 Body Surface Area Calculated 2.15 m2 :01 Pulse 66 /min Comments: Pattern: Regular Respiration Rate 18 /min Comments: Pattern: Unlabored O2 SAT 96 % Comments: Room air BP Systolic 128 mm[Hg] Comments: Patient Position: Sitting; Cuff Location: Left Arm; Cuff Size: Large BP Diastolic 82 mm[Hg] Comments: Patient Position: Sitting; Cuff Location: Left Arm; Cuff Size: Large Weight 250.375 lb Height 64 in Body Mass Index Calculated 42.98 kg/m2 Body Surface Area Calculated 2.15 m2 :27 Pulse 77 /min Comments: Pattern: Regular O2 SAT 97 % Comments: Room air BP Systolic 120 mm[Hg] Comments: Patient Position: Sitting; Cuff Location: Left Arm; Cuff Size: Large BP Diastolic 80 mm[Hg] Comments: Patient Position: Sitting; Cuff Location: Left Arm; Cuff Size: Large Weight 245.375 lb Height 64 in Body Mass Index Calculated 42.12 kg/m2 Body Surface Area Calculated 2.13 m2 :52 Pulse 68 /min Comments: Pattern: Regular Respiration Rate 18 /min Comments: Pattern: Unlabored O2 SAT 98 % Comments: Room air BP Systolic 138 mm[Hg] Comments: Patient Position: Sitting; Cuff Location: Left Arm; Cuff Size: Large BP Diastolic 86 mm[Hg] Comments: Patient Position: Sitting; Cuff Location: Left Arm; Cuff Size: Large Weight 244.25 lb Height 64 in Body Mass Index Calculated 41.92 kg/m2 Body Surface Area Calculated 2.13 m2 :46 Temperature 98.1 f Comments: Method: Temporal Pulse 65 /min Comments: Pattern: Regular Respiration Rate 16 /min Comments: Pattern: Unlabored O2 SAT 97 % Comments: Room air BP Systolic 136 mm[Hg] Comments: Patient Position: Sitting; Cuff Location: Left Arm; Cuff Size: Standard BP Diastolic 88 mm[Hg] Comments: Patient Position: Sitting; Cuff Location: Left Arm; Cuff Size: Standard Weight 244 lb Height 64 in Body Mass Index Calculated 41.88 kg/m2 Body Surface Area Calculated 2.13 m2 :22 Temperature 97.2 f Comments: Method: Oral Pulse 74 /min Comments: Pattern: Regular Respiration Rate 16 /min O2 SAT 98 % Comments: Room air BP Systolic 142 mm[Hg] Comments: Patient Position: Sitting; Cuff Location: Left Arm; Cuff Size: Standard BP Diastolic 74 mm[Hg] Comments: Patient Position: Sitting; Cuff Location: Left Arm; Cuff Size: Standard Weight 244 lb Height 64 in Body Mass Index Calculated 41.88 kg/m2 Body Surface Area Calculated 2.13 m2 :45 Temperature 98.2 f Comments: Method: Temporal Pulse 72 /min Comments: Pattern: Regular Respiration Rate 16 /min Comments: Pattern: Unlabored O2 SAT 98 % Comments: Room air BP Systolic 128 mm[Hg] Comments: Patient Position: Sitting; Cuff Location: Left Arm; Cuff Size: Standard BP Diastolic 76 mm[Hg] Comments: Patient Position: Sitting; Cuff Location: Left Arm; Cuff Size: Standard Weight 240.1875 lb Height 64 in Body Mass Index Calculated 41.23 kg/m2 Body Surface Area Calculated 2.11 m2 :35 Temperature 98.1 f Pulse 72 /min Comments: Pattern: Regular Respiration Rate 18 /min Comments: Pattern: Unlabored BP Systolic 126 mm[Hg] Comments: Patient Position: Sitting; Cuff Location: Left Arm; Cuff Size: Standard BP Diastolic 78 mm[Hg] Comments: Patient Position: Sitting; Cuff Location: Left Arm; Cuff Size: Standard Weight 240.1875 lb Height 64 in Body Mass Index Calculated 41.23 kg/m2 Body Surface Area Calculated 2.11 m2 :35 Temperature 98.9 f Comments: Method: Oral Pulse 72 /min Comments: Pattern: Regular Respiration Rate 20 /min Comments: Pattern: Unlabored BP Systolic 122 mm[Hg] Comments: Patient Position: Sitting; Cuff Location: Left Arm; Cuff Size: Large BP Diastolic 80 mm[Hg] Comments: Patient Position: Sitting; Cuff Location: Left Arm; Cuff Size: Large Weight 240.1875 lb Height 64 in Body Mass Index Calculated 41.23 kg/m2 Body Surface Area Calculated 2.11 m2 :45 Temperature 98.2 f Comments: Method: Oral Pulse 68 /min Comments: Pattern: Regular Respiration Rate 16 /min Comments: Pattern: Unlabored BP Systolic 122 mm[Hg] Comments: Patient Position: Sitting; Cuff Location: Left Arm; Cuff Size: Large BP Diastolic 82 mm[Hg] Comments: Patient Position: Sitting; Cuff Location: Left Arm; Cuff Size: Large Weight 227 lb Height 64 in Body Mass Index Calculated 38.96 kg/m2 Body Surface Area Calculated 2.06 m2 :47 Temperature 97.8 f Comments: Method: Oral Pulse 76 /min Comments: Pattern: Regular O2 SAT 98 % Comments: Room air BP Systolic 118 mm[Hg] Comments: Patient Position: Sitting; Cuff Location: Left Arm; Cuff Size: Standard BP Diastolic 80 mm[Hg] Comments: Patient Position: Sitting; Cuff Location: Left Arm; Cuff Size: Standard Weight 221 lb Height 64 in Body Mass Index Calculated 37.93 kg/m2 Body Surface Area Calculated 2.04 m2 :28 Weight 221 lb Height 64 in Body Mass Index Calculated 37.93 kg/m2 Body Surface Area Calculated 2.04 m2 :24 Temperature 96.9 f Comments: Method: Oral Pulse 66 /min Comments: Pattern: Regular Respiration Rate 16 /min Comments: Pattern: Unlabored BP Systolic 124 mm[Hg] Comments: Patient Position: Sitting; Cuff Location: Left Arm; Cuff Size: Standard BP Diastolic 80 mm[Hg] Comments: Patient Position: Sitting; Cuff Location: Left Arm; Cuff Size: Standard :55 Temperature 100 f Comments: Method: Oral Pulse 80 /min Comments: Pattern: Regular Respiration Rate 18 /min Comments: Pattern: Unlabored BP Systolic 122 mm[Hg] Comments: Patient Position: Sitting; Cuff Location: Left Arm; Cuff Size: Large BP Diastolic 84 mm[Hg] Comments: Patient Position: Sitting; Cuff Location: Left Arm; Cuff Size: Large Weight 227.1875 lb Height 64 in Body Mass Index Calculated 39 kg/m2 Body Surface Area Calculated 2.07 m2 :10 Pulse 60 /min Comments: Pattern: Regular Respiration Rate 20 /min Comments: Pattern: Unlabored BP Systolic 132 mm[Hg] Comments: Patient Position: Sitting; Cuff Location: Left Arm; Cuff Size: Large BP Diastolic 80 mm[Hg] Comments: Patient Position: Sitting; Cuff Location: Left Arm; Cuff Size: Large Weight 227.1875 lb Height 64 in Body Mass Index Calculated 39 kg/m2 Body Surface Area Calculated 2.07 m2 :09 BP Systolic 122 mm[Hg] Comments: Patient Position: Sitting; Cuff Location: Right Arm; Cuff Size: Standard BP Diastolic 80 mm[Hg] Comments: Patient Position: Sitting; Cuff Location: Right Arm; Cuff Size: Standard :59 Pulse 72 /min Comments: Pattern: Regular Respiration Rate 20 /min Comments: Pattern: Unlabored BP Systolic 136 mm[Hg] Comments: Patient Position: Sitting; Cuff Location: Left Arm; Cuff Size: Large BP Diastolic 78 mm[Hg] Comments: Patient Position: Sitting; Cuff Location: Left Arm; Cuff Size: Large Weight 228.375 lb Height 64 in Body Mass Index Calculated 39.2 kg/m2 Body Surface Area Calculated 2.07 m2 :24 Pulse 64 /min Comments: Pattern: Regular Respiration Rate 20 /min Comments: Pattern: Unlabored BP Systolic 122 mm[Hg] Comments: Patient Position: Sitting; Cuff Location: Left Arm; Cuff Size: Large BP Diastolic 80 mm[Hg] Comments: Patient Position: Sitting; Cuff Location: Left Arm; Cuff Size: Large Weight 227 lb Height 64 in Body Mass Index Calculated 38.96 kg/m2 Body Surface Area Calculated 2.06 m2 :36 Pulse 64 /min Comments: Pattern: Regular Respiration Rate 18 /min Comments: Pattern: Unlabored BP Systolic 126 mm[Hg] Comments: Patient Position: Sitting; Cuff Location: Left Arm; Cuff Size: Large BP Diastolic 78 mm[Hg] Comments: Patient Position: Sitting; Cuff Location: Left Arm; Cuff Size: Large :33 Pulse 64 /min Comments: Pattern: Regular Respiration Rate 20 /min Comments: Pattern: Unlabored BP Systolic 120 mm[Hg] Comments: Patient Position: Sitting; Cuff Location: Left Arm; Cuff Size: Large BP Diastolic 88 mm[Hg] Comments: Patient Position: Sitting; Cuff Location: Left Arm; Cuff Size: Large Weight 227 lb Height 64 in Body Mass Index Calculated 38.96 kg/m2 Body Surface Area Calculated 2.06 m2 Head Circumference 0.00 cm :51 Pulse 60 /min Comments: Pattern: Regular Respiration Rate 18 /min Comments: Pattern: Unlabored BP Systolic 122 mm[Hg] Comments: Patient Position: Sitting; Cuff Location: Left Arm; Cuff Size: Large BP Diastolic 80 mm[Hg] Comments: Patient Position: Sitting; Cuff Location: Left Arm; Cuff Size: Large Weight 227.5625 lb Height 64 in Body Mass Index Calculated 39.06 kg/m2 Body Surface Area Calculated 2.07 m2 Head Circumference 0.00 cm :26 Pulse 72 /min Comments: Pattern: Regular Respiration Rate 20 /min Comments: Pattern: Unlabored BP Systolic 128 mm[Hg] Comments: Patient Position: Sitting; Cuff Location: Left Arm; Cuff Size: Large BP Diastolic 78 mm[Hg] Comments: Patient Position: Sitting; Cuff Location: Left Arm; Cuff Size: Large Weight 227.5625 lb Height 64 in Body Mass Index Calculated 39.06 kg/m2 Body Surface Area Calculated 2.07 m2 Head Circumference 0.00 cm :55 Temperature 98.1 f Comments: Method: Oral Pulse 72 /min Comments: Pattern: Regular Respiration Rate 18 /min Comments: Pattern: Unlabored BP Systolic 124 mm[Hg] Comments: Patient Position: Sitting; Cuff Location: Left Arm; Cuff Size: Large BP Diastolic 86 mm[Hg] Comments: Patient Position: Sitting; Cuff Location: Left Arm; Cuff Size: Large Weight 220.0625 lb Height 64 in Body Mass Index Calculated 37.77 kg/m2 Body Surface Area Calculated 2.04 m2 Head Circumference 0.00 cm :00 Pulse 60 /min Comments: Pattern: Regular Respiration Rate 20 /min Comments: Pattern: Unlabored BP Systolic 118 mm[Hg] Comments: Patient Position: Sitting; Cuff Location: Left Arm; Cuff Size: Standard BP Diastolic 68 mm[Hg] Comments: Patient Position: Sitting; Cuff Location: Left Arm; Cuff Size: Standard Weight 220.0625 lb Height 64 in Body Mass Index Calculated 37.77 kg/m2 Body Surface Area Calculated 2.04 m2 Head Circumference 0.00 cm :29 Temperature 97.4 f Comments: Method: Oral Pulse 80 /min Comments: Pattern: Regular Respiration Rate 20 /min Comments: Pattern: Unlabored BP Systolic 122 mm[Hg] Comments: Patient Position: Sitting; Cuff Location: Right Arm; Cuff Size: Large BP Diastolic 80 mm[Hg] Comments: Patient Position: Sitting; Cuff Location: Right Arm; Cuff Size: Large Weight 224.0625 lb Height 64 in Body Mass Index Calculated 38.46 kg/m2 Body Surface Area Calculated 2.05 m2 Head Circumference 0.00 cm :08 BP Systolic 122 mm[Hg] Comments: Patient Position: Sitting; Cuff Location: Left Arm; Cuff Size: Standard BP Diastolic 84 mm[Hg] Comments: Patient Position: Sitting; Cuff Location: Left Arm; Cuff Size: Standard Weight 0 lb Height 0 in Head Circumference 0.00 cm :11 Pulse 64 /min Comments: Pattern: Regular Respiration Rate 20 /min Comments: Pattern: Unlabored BP Systolic 142 mm[Hg] Comments: Patient Position: Sitting; Cuff Location: Left Arm; Cuff Size: Large BP Diastolic 88 mm[Hg] Comments: Patient Position: Sitting; Cuff Location: Left Arm; Cuff Size: Large Weight 224.0625 lb Height 64 in Body Mass Index Calculated 38.46 kg/m2 Body Surface Area Calculated 2.05 m2 Head Circumference 0.00 cm :05 Temperature 98.3 f Comments: Method: Oral Pulse 77 /min Comments: Pattern: Regular Respiration Rate 18 /min Comments: Pattern: Unlabored O2 SAT 98 % Comments: Room air BP Systolic 142 mm[Hg] Comments: Patient Position: Sitting; Cuff Location: Left Arm; Cuff Size: Standard BP Diastolic 82 mm[Hg] Comments: Patient Position: Sitting; Cuff Location: Left Arm; Cuff Size: Standard Weight 226.3125 lb Height 64 in Body Mass Index Calculated 38.85 kg/m2 Body Surface Area Calculated 2.06 m2 Head Circumference 0.00 cm :11 Temperature 97.8 f Comments: Method: Oral Pulse 70 /min Comments: Pattern: Regular Respiration Rate 17 /min Comments: Pattern: Unlabored BP Systolic 132 mm[Hg] Comments: Patient Position: Sitting; Cuff Location: Left Arm; Cuff Size: Standard BP Diastolic 80 mm[Hg] Comments: Patient Position: Sitting; Cuff Location: Left Arm; Cuff Size: Standard Weight 226.3125 lb Height 64 in Body Mass Index Calculated 38.85 kg/m2 Body Surface Area Calculated 2.06 m2 Head Circumference 0.00 cm :05 Temperature 98.1 f Comments: Method: Oral Pulse 72 /min Comments: Pattern: Regular Respiration Rate 18 /min Comments: Pattern: Unlabored BP Systolic 140 mm[Hg] Comments: Patient Position: Sitting; Cuff Location: Left Arm; Cuff Size: Large BP Diastolic 88 mm[Hg] Comments: Patient Position: Sitting; Cuff Location: Left Arm; Cuff Size: Large Weight 0 lb Height 0 in Head Circumference 0.00 cm :35 Temperature 98.4 f Comments: Method: Oral Respiration Rate 16 /min Comments: Pattern: Unlabored BP Systolic 126 mm[Hg] Comments: Patient Position: Sitting; Cuff Location: Left Arm; Cuff Size: Standard BP Diastolic 82 mm[Hg] Comments: Patient Position: Sitting; Cuff Location: Left Arm; Cuff Size: Standard Weight 226.3125 lb Height 64 in Body Mass Index Calculated 38.85 kg/m2 Body Surface Area Calculated 2.06 m2 Head Circumference 0.00 cm Results Date Description Value Details [id number] Basic Metabolic Profile (BMP) Comments: [facility] [id number] [place], [place], [id number] GAP 9 (Normal) Range: 5-15 CO2 27.0 mmol/L (Normal) Range: 21.0-32.0 CL 104 mmol/L (Normal) Range: 98-107 K 4.0 mmol/L (Normal) Range: 3.5-5.1 NA 140 mmol/L (Normal) Range: 136-145 CA 8.5 mg/dL (Normal) Range: 8.5-10.1 BUN/CRE 18.0 {RATIO} (Normal) Range: 10-20 Estimated CRCL 76.99 ml/min (Normal) EST GFR - AA 102 mL/min (Normal) Comments: GFR Calc EST GFR 84 mL/min (Normal) Comments: Non- GFR Calc CREAT,SERUM 0.78 mg/dL (Normal) Range: 0.55-1.02 Comments: The validity of the calculated GFR AND GFRAA in patients over70 years has not been determined. Clinical correlation isessential. BUN 14 mg/dL (Normal) Range: 7-18 GLU 108 mg/dL (Abnormal) Range: 74-106 Comments: Fasting Glucose result from 100 to 125 mg/dLsuggests IMPAIRED HOMEOSTASIS per A.D.A. criteria.Please note revised GLUCOSE reference range [id number]/02/2018. [id number] CBC, Employee Comments: [facility] [id number] [place], [place], [id number] Absolute Lymph 1.64 {X10_3/ul} (Normal) Range: 0.83-4.51 Absolute Neut 4.7 {X10_3/uL} (Normal) Range: 2.0-7.7 BASO% 0.6 % (Normal) Range: 0-1 EO% 1.7 % (Normal) Range: 0-5 MONO% 7.9 % (Normal) Range: 0-10 LY% 23.3 % (Normal) Range: 19-41 NEUT% 66.4 % (Normal) Range: 47-70 MPV 11.2 fL (Normal) Range: 6.2-12.0 PLT 345 K/mm3 (Normal) Range: 150-450 RDW SD 43.1 fL (Normal) Range: 35.1-43.9 RDW CV 13.9 % (Normal) Range: 11.6-14.6 MCHC 31.8 {g/gl} (Abnormal) Range: 32-36 MCH 27.5 pg (Normal) Range: 27.0-32.0 MCV 86.5 fL (Normal) Range: 81-99 HCT 39.0 % (Normal) Range: 37-47 HGB 12.4 g/dL (Normal) Range: 12.0-15.0 RBC 4.51 {M/mm3} (Normal) Range: 4.2-5.4 WBC 7.1 K/mm3 (Normal) Range: 4.4-11.0 [id number] Employee Profile Comments: [facility] [id number] [place], [address] LDH 148 U/L (Normal) Range: 84-246 VLDL 30 mg/dL (Normal) Range: 5-40 LDL 86 mg/dL (Normal) Range: 0-130 CHOL:HDL 3.80 (Normal) HDL 42 mg/dL (Normal) Comments: The drugs N-Acetylcysteine and Metamizole may falselydepress this assay. Reference Range HDL <40 mg/dL Low HDL Cholesterol HDL >or= 60 mg/dL High HDL Cholesterol GAP 6 (Normal) Range: 5-15 CO2 28.0 mmol/L (Normal) Range: 21.0-32.0 CL 104 mmol/L (Normal) Range: 98-107 K 4.2 mmol/L (Normal) Range: 3.5-5.1 NA 138 mmol/L (Normal) Range: 136-145 TRIG 150 mg/dL (Normal) Comments: The drugs N-Acetylcysteine and Metamizole may falselydepress this assay.Serum Triglycerides Reference Interval Normal <150 mg/dL Borderline high 150 - 199 mg/dL High 200 - 499 mg/dL Very High > or = 500 mg/dL CHOL 158 mg/dL (Normal) Comments: <200 mg/dL Desirable 200-240 mg/dL Borderline >240 mg/dL High Risk D BILI 0.08 mg/dL (Normal) Range: 0.00-0.30 T BILI 0.40 mg/dL (Normal) Range: 0.20-1.00 ALT 36 U/L (Normal) Range: 13-56 ALK P 95 U/L (Normal) Range: 45-117 AST 26 U/L (Normal) Range: 15-37 PHOS 2.3 mg/dL (Abnormal) Range: 2.5-4.9 CA 8.5 mg/dL (Normal) Range: 8.5-10.1 A/G 0.8 {RATIO} (Abnormal) Range: 0.9-2.4 GLOB 4.0 g/dL (Normal) Range: 2.2-4.2 ALB 3.4 g/dL (Normal) Range: 3.2-5.0 T PROT 7.4 g/dL (Normal) Range: 6.4-8.2 URIC 4.7 mg/dL (Normal) Range: 2.6-6.0 Comments: The drugs N-Acetylcysteine and Metamizole may falselydepress this assay. BUN/CRE 12.3 {RATIO} (Normal) Range: 10-20 EST GFR - AA 110 mL/min (Normal) Comments: GFR Calc EST GFR 91 mL/min (Normal) Comments: Non- GFR Calc CREAT,SERUM 0.73 mg/dL (Normal) Range: 0.55-1.02 Comments: The validity of the calculated GFR AND GFRAA in patients over70 years has not been determined. Clinical correlation isessential. BUN 9 mg/dL (Normal) Range: 7-18 GLU 76 mg/dL (Normal) Range: 74-106 Comments: Please note revised GLUCOSE reference range /02/2018. [id number] Nicotine Urine Drug Screen Comments: [facility] [id number] [place], [place], [id number] COT DRG SCREEN Negative (Normal) Comments: Cotinine is the first-stage metabolite of Nicotine. TO BE CONFIRMED (Normal) Comments: CONFIRMATORY TESTING FOR ALL POSITIVE URINE DRUG SCREENRESULTS WILL ONLY BE SENT OUT UPON PHYSICIAN ORDER.The results of Urine Drug Screen methods provide onlypreliminary analytical test results. A more specificalternate chemical method must be used in order to obtain aconfirmed analytical result. Gas chromatography/massspectrometery (GC/MS) is the preferred confirmatory method.Clinical consideration and professional judgement should beapplied to any drug of abuse test result, particularly whenpreliminary positive results are used. [id number] Urinalysis, Employee Comments: [facility] [id number] [place], [place], [id number] LEUK ESTERASE Negative /ul (Normal) OCCULT BLOOD-UR Negative /ul (Normal) NITRITE UR Negative (Normal) UROBILI Normal mg/dL (Normal) PROT DIPSTX Negative mg/dL (Normal) pH UR 7.0 (Normal) Range: 5.0 - 8.0 SP.GR. DIPSTX 1.010 (Normal) Range: 1.002-1.030 KETONE UR Negative mg/dL (Normal) BILIRUBIN URINE Negative mg/dL (Normal) GLUCOSE, UR Normal mg/dL (Normal) CLARITY Clear (Normal) COLOR Yellow (Normal) [id number] Hep B Surface Antibodies EMP Comments: [facility] (refer to report for specific site)refer to report for address and phone number Hep B Oleg AB Reactive (Normal) Comments: Non Reactive: Inconsistent with immunity, less than 10 mIU/mL Reactive: Consistent with immunity, greater than 9.9 mIU/mL [id number] Hepatitis B Surface Ag Comments: [facility] (refer to report for specific site)refer to report for address and phone number HB SURF AG Negative (Normal) Comments: Performed at: [address] [id number] Director: Alejo Andre PhD, Phone: [phone] [id number] Hepatitis C Antibodies Comments: [facility] (refer to report for specific site)refer to report for address and phone number HEP C AB <0.1 {s/co_ratio} (Normal) Range: 0.0-0.9 Comments: Negative: < 0.8 Indeterminate: 0.8 - 0.9 Positive: > 0.9 The CDC recommends that a positive HCV antibody result be followed up with a HCV Nucleic Acid Amplification test (722529). [id number] HIV - [facility] Non-Reactive (Normal) Comments: [facility] [id number] [place], [place], [phone] CBC-Complete Blood Cnt No Diff Comments: [facility] [id number] [place], [place], [address] MPV 10.7 fL (Normal) Range: 6.2-12.0 PLT 363 K/mm3 (Normal) Range: 150-450 RDW SD 44.3 fL (Abnormal) Range: 35.1-43.9 RDW CV 13.8 % (Normal) Range: 11.6-14.6 MCHC 31.6 {g/gl} (Abnormal) Range: 32-36 MCH 27.9 pg (Normal) Range: 27.0-32.0 MCV 88.1 fL (Normal) Range: 81-99 HCT 37.0 % (Normal) Range: 37-47 HGB 11.7 g/dL (Abnormal) Range: 12.0-15.0 RBC 4.20 {M/mm3} (Normal) Range: 4.2-5.4 WBC 7.8 K/mm3 (Normal) Range: 4.4-11.0 :07 HgA1C , Office ([id number]) HgA1C , Office 5.2 % (Normal) Range: 4.6 - 7.1 [id number] CBC, Employee Comments: [facility] [id number] [place], [place], [id number] Absolute Lymph 1.64 {X10_3/ul} (Normal) Range: 0.83-4.51 Absolute Neut 5.5 {X10_3/uL} (Normal) Range: 2.0-7.7 BASO% 0.5 % (Normal) Range: 0-1 EO% 1.4 % (Normal) Range: 0-5 MONO% 7.1 % (Normal) Range: 0-10 LY% 20.8 % (Normal) Range: 19-41 NEUT% 70.1 % (Abnormal) Range: 47-70 MPV 11.2 fL (Normal) Range: 6.2-12.0 PLT 304 K/mm3 (Normal) Range: 150-450 RDW SD 44.2 fL (Abnormal) Range: 35.1-43.9 RDW CV 14.1 % (Normal) Range: 11.6-14.6 MCHC 31.7 {g/gl} (Abnormal) Range: 32-36 MCH 27.6 pg (Normal) Range: 27.0-32.0 MCV 87.2 fL (Normal) Range: 81-99 HCT 38.2 % (Normal) Range: 37-47 HGB 12.1 g/dL (Normal) Range: 12.0-15.0 RBC 4.38 {M/mm3} (Normal) Range: 4.2-5.4 WBC 7.9 K/mm3 (Normal) Range: 4.4-11.0 [id number] Employee Profile Comments: [facility] [id number] [place], [address] LDH 104 U/L (Normal) Range: 84-246 VLDL 28 mg/dL (Normal) Range: 5-40 LDL 86 mg/dL (Normal) Range: 0-130 CHOL:HDL 3.80 (Normal) HDL 40 mg/dL (Normal) Comments: The drugs N-Acetylcysteine and Metamizole may falsely deressthis assay. Reference Range HDL <40 mg/dL Low HDL Cholesterol HDL >or= 60 mg/dL High HDL Cholesterol GAP 8 (Normal) Range: 5-15 CO2 27.0 mmol/L (Normal) Range: 21.0-32.0 CL 101 mmol/L (Normal) Range: 98-107 K 4.1 mmol/L (Normal) Range: 3.5-5.1 NA 136 mmol/L (Normal) Range: 136-145 TRIG 138 mg/dL (Normal) Comments: The drugs N-Acetylcysteine and Metamizole may falsely deressthis assay.Serum Triglycerides Reference Interval Normal <150 mg/dL Borderline high 150 - 199 mg/dL High 200 - 499 mg/dL Very High > or = 500 mg/dL CHOL 154 mg/dL (Normal) Comments: <200 mg/dL Desirable 200-240 mg/dL Borderline >240 mg/dL High Risk D BILI 0.07 mg/dL (Normal) Range: 0.00-0.30 T BILI 0.50 mg/dL (Normal) Range: 0.20-1.00 ALT 23 U/L (Normal) Range: 12-78 ALK P 100 U/L (Normal) Range: 45-117 AST 16 U/L (Normal) Range: 15-37 PHOS 2.4 mg/dL (Abnormal) Range: 2.5-4.9 CA 8.7 mg/dL (Normal) Range: 8.5-10.1 A/G 1.0 {RATIO} (Normal) Range: 0.9-2.4 GLOB 3.7 g/dL (Abnormal) Range: 2.3-3.5 ALB 3.7 g/dL (Normal) Range: 3.4-5.0 T PROT 7.4 g/dL (Normal) Range: 6.4-8.2 URIC 4.7 mg/dL (Normal) Range: 2.6-6.0 Comments: The drugs N-Acetylcysteine and Metamizole may falsely deressthis assay. BUN/CRE 16.8 {RATIO} (Normal) Range: 10-20 EST GFR - AA 126 mL/min (Normal) Comments: GFR Calc EST GFR 104 mL/min (Normal) Comments: Non- GFR Calc CREAT,SERUM 0.65 mg/dL (Normal) Range: 0.55-1.02 Comments: The validity of the calculated GFR AND GFRAA in patients over70 years has not been determined. Clinical correlation isessential. BUN 11 mg/dL (Normal) Range: 7-18 GLU 81 mg/dL (Normal) Range: 70-110 [id number] Microalb:Creat Ratio,Random UR Comments: [facility] [id number] [place], [address] MALB:CREAT 4.0 {mg/g_CRE} (Normal) MICROALBUMIN,UR 10.7 mg/L (Normal) UR CREAT 265.00 mg/dL (Normal) [id number] Nicotine Urine Drug Screen Comments: [facility] [id number] [place] [address], [id number] COT DRG SCREEN Negative (Normal) Comments: Cotinine is the first-stage metabolite of Nicotine. TO BE CONFIRMED (Normal) Comments: CONFIRMATORY TESTING FOR ALL POSITIVE URINE DRUG SCREENRESULTS WILL ONLY BE SENT OUT UPON PHYSICIAN ORDER.The results of Urine Drug Screen methods provide onlypreliminary analytical test results. A more specificalternate chemical method must be used in order to obtain aconfirmed analytical result. Gas chromatography/massspectrometery (GC/MS) is the preferred confirmatory method.Clinical consideration and professional judgement should beapplied to any drug of abuse test result, particularly whenpreliminary positive results are used. [id number]-Mma-[id number]:32 Thyroid Stim Hormone (TSH) Comments: [address], [id number] TSH 3.17 {uIU/mL} (Normal) Range: 0.358-3.74 :32 Urinalysis, Employee Comments: How was Urine Obtained? CLEAN [facility] [id number] [place] [address], [id number] LEUK ESTERASE 25 /ul (Abnormal) OCCULT BLOOD-UR 10 /ul (Abnormal) NITRITE UR Negative (Normal) UROBILI Normal mg/dL (Normal) PROT DIPSTX Negative mg/dL (Normal) pH UR 5.0 (Normal) Range: 5.0 - 8.0 SP.GR. DIPSTX 1.020 (Normal) Range: 1.002-1.030 KETONE UR Negative mg/dL (Normal) BILIRUBIN URINE Negative mg/dL (Normal) GLUCOSE, UR Normal mg/dL (Normal) CLARITY Sl. Cloudy (Normal) COLOR Yellow (Normal) 57-Lhj-015614:03 URINE OLIVIA CULTURE-LORY COL Comments: PATIENT NOT FASTINGPERFORMED BY: LabCoMat[facility] Medical and Educational CenterHeyryi2454 [facility] [id number] Information: SRC:UR COUNT (02405) Antimicrobial MIHEAD (Normal) Comments: S = Susceptible; I = Intermediate; R = Resistant P = Positive; N = Negative MICS are expressed in micrograms per mL Antibiotic RSLT#1 RSLT#2 RS Susceptibility LT#3 RSLT#4Amoxicillin/Clavulanic Acid SAmpicillin SCefepime SCeftriaxone SCefuroxime SCephalothin SCiprofloxacin SErtapenem SGentamicin SImipenem SLevofloxacin SNitrofurantoin SPipera cillin STetracycline STobramycin STrimethoprim/Sulfa S Result 1 Escherichia coli Comments: 25,000-50,000 colony forming units per mL (Abnormal) Urine Final report Culture,Comprehensive (Abnormal) 46-Hdg-[id number]:39 Urinalysis, Office (60315) UA - LEUKOCYTE ESTERASE Moderate (Abnormal) UA - NITRITE Negative (Normal) URINE UROBILINGN LORY TIMED Normal mg/dL (Normal) UA - PROTEIN 100 mg/dL (Normal) UA - PH 7.0 (Normal) UA - BLOOD ++ (Abnormal) UA - SPECIFIC GRAVITY 1.010 (Normal) UA - KETONES Negative mg/dL (Normal) UA - BILIRUBIN Negative (Normal) UA - GLUCOSE Negative (Normal) 53-Rgt-084310:10 CBC, Employee Comments: [facility] [address] [place], [address] Absolute Lymph 1.56 {X10_3/ul} (Normal) Range: 0.83-4.51 Absolute Neut 4.2 {X10_3/uL} (Normal) Range: 2.0-7.7 BASO% 0.5 % (Normal) Range: 0-1 EO% 1.4 % (Normal) Range: 0-5 MONO% 7.5 % (Normal) Range: 0-10 LY% 24.4 % (Normal) Range: 19-41 NEUT% 66.0 % (Normal) Range: 47-70 MPV 11.4 fL (Normal) Range: 6.2-12.0 PLT 311 K/mm3 (Normal) Range: 150-450 RDW SD 42.8 fL (Normal) Range: 35.1-43.9 RDW CV 13.8 % (Normal) Range: 11.6-14.6 MCHC 32.5 {g/gl} (Normal) Range: 32-36 MCH 28.3 pg (Normal) Range: 27.0-32.0 MCV 87.0 fL (Normal) Range: 81-99 HCT 38.1 % (Normal) Range: 37-47 HGB 12.4 g/dL (Normal) Range: 12.0-15.0 RBC 4.38 {M/mm3} (Normal) Range: 4.2-5.4 WBC 6.4 K/mm3 (Normal) Range: 4.4-11.0 46-Yts-126995:10 Employee Profile Comments: [facility] [address] [place], [place], [id number] LDH 130 U/L (Normal) Range: 84-246 VLDL 24 mg/dL (Normal) Range: 5-40 LDL 105 mg/dL (Normal) Range: 0-130 CHOL:HDL 4.10 (Normal) HDL 41 mg/dL (Normal) Comments: Reference Range HDL <40 mg/dL Low HDL Cholesterol HDL >or= 60 mg/dL High HDL Cholesterol GAP 9 (Normal) Range: 5-15 CO2 25.0 mmol/L (Normal) Range: 21.0-32.0 CL 106 mmol/L (Normal) Range: 98-107 K 3.9 mmol/L (Normal) Range: 3.5-5.1 NA 140 mmol/L (Normal) Range: 136-145 TRIG 120 mg/dL (Normal) Comments: Serum Triglycerides Reference Interval Normal <150 mg/dL Borderline high 150 - 199 mg/dL High 200 - 499 mg/dL Very High > or = 500 mg/dL CHOL 170 mg/dL (Normal) Comments: <200 mg/dL Desirable 200-240 mg/dL Borderline >240 mg/dL High Risk D BILI 0.08 mg/dL (Normal) Range: 0.00-0.30 T BILI 0.40 mg/dL (Normal) Range: 0.20-1.00 ALT 27 U/L (Normal) Range: 12-78 ALK P 101 U/L (Normal) Range: 50-136 AST 16 U/L (Normal) Range: 15-37 PHOS 2.4 mg/dL (Abnormal) Range: 2.5-4.9 CA 8.2 mg/dL (Abnormal) Range: 8.5-10.1 A/G 1.0 {RATIO} (Normal) Range: 0.9-2.4 GLOB 3.5 g/dL (Normal) Range: 2.3-3.5 ALB 3.6 g/dL (Normal) Range: 3.4-5.0 T PROT 7.1 g/dL (Normal) Range: 6.4-8.2 URIC 4.0 mg/dL (Normal) Range: 2.6-6.0 BUN/CRE 16.4 {RATIO} (Normal) Range: 10-20 EST GFR - AA 122 mL/min (Normal) Comments: GFR Calc EST GFR 101 mL/min (Normal) Comments: Non- GFR Calc CREAT,SERUM 0.67 mg/dL (Normal) Range: 0.55-1.20 Comments: The validity of the calculated GFR AND GFRAA in patients over70 years has not been determined. Clinical correlation isessential. BUN 11 mg/dL (Normal) Range: 7-18 GLU 76 mg/dL (Normal) Range: 70-110 82-Kia-087390:10 Nicotine Urine Drug Screen Comments: [facility] [address] [facility]. [place], [place], [id number] COT DRG SCREEN Negative (Normal) Comments: Cotinine is the first-stage metabolite of Nicotine. TO BE CONFIRMED (Normal) Comments: CONFIRMATORY TESTING FOR ALL POSITIVE URINE DRUG SCREENRESULTS WILL ONLY BE SENT OUT UPON PHYSICIAN ORDER.The results of Urine Drug Screen methods provide onlypreliminary analytical test results. A more specificalternate chemical method must be used in order to obtain aconfirmed analytical result. Gas chromatography/massspectrometery (GC/MS) is the preferred confirmatory method.Clinical consideration and professional judgement should beapplied to any drug of abuse test result, particularly whenpreliminary positive results are used. 90-Jji-601224:10 Urinalysis, Employee Comments: [facility] [address] [facility]. [place], [place], [id number] LEUK ESTERASE 25 /ul (Abnormal) OCCULT BLOOD-UR Negative /ul (Normal) NITRITE UR Negative (Normal) UROBILI Normal mg/dL (Normal) PROT DIPSTX Negative mg/dL (Normal) pH UR 6.0 (Normal) Range: 5.0 - 8.0 SP.GR. DIPSTX 1.015 (Normal) Range: 1.002-1.030 KETONE UR Negative mg/dL (Normal) BILIRUBIN URINE Negative mg/dL (Normal) GLUCOSE, UR Normal mg/dL (Normal) CLARITY Clear (Normal) COLOR Yellow (Normal) 5-Byx-923586:13 CBC, Employee Comments: Test performed at:[facility] [address] [place] [address] Absolute Lymph 1.37 {X10_3/ul} (Normal) Range: 0.83-4.51 Absolute Neut 4.1 {X10_3/uL} (Normal) Range: 2.0-7.7 BASO% 0.6 % (Normal) Range: 0-1 EO% 1.8 % (Normal) Range: 0-5 MONO% 8.8 % (Normal) Range: 0-10 LY% 22.2 % (Normal) Range: 19-41 NEUT% 66.6 % (Normal) Range: 47-70 MPV 11.3 fL (Normal) Range: 6.2-12.0 PLT 352 K/mm3 (Normal) Range: 150-450 RDW SD 43.8 fL (Normal) Range: 35.1-43.9 RDW CV 13.6 % (Normal) Range: 11.6-14.6 MCHC 31.3 {g/gl} (Abnormal) Range: 32-36 MCH 27.5 pg (Normal) Range: 27.0-32.0 MCV 87.9 fL (Normal) Range: 81-99 HCT 39.3 % (Normal) Range: 37-47 HGB 12.3 g/dL (Normal) Range: 12.0-15.0 RBC 4.47 {M/mm3} (Normal) Range: 4.2-5.4 WBC 6.2 K/mm3 (Normal) Range: 4.4-11.0 7-Cij-184056:13 Employee Profile Comments: Test performed at:[facility] [address] [place], [place] [address] ; ordered by ina stoll LDH 111 U/L (Normal) Range: 87-241 VLDL 28 mg/dL (Normal) Range: 5-40 LDL 102 mg/dL (Normal) Range: 0-130 HDLEMP 32 mg/dL (Abnormal) Comments: Reference Range HDL <40 mg/dL Low HDL Cholesterol HDL >or= 60 mg/dL High HDL Cholesterol HDL 32 mg/dL (Abnormal) Comments: Reference Range HDL <40 mg/dL Low HDL Cholesterol HDL >or= 60 mg/dL High HDL Cholesterol GAP 7 (Normal) Range: 5-15 CO2 27.0 mmol/L (Normal) Range: 21.0-32.0 CL 105 mmol/L (Normal) Range: 98-107 K 4.0 mmol/L (Normal) Range: 3.5-5.1 NA 139 mmol/L (Normal) Range: 136-145 TRIG 142 mg/dL (Normal) Range: 0-199 Comments: Serum Triglycerides Reference Interval Normal <150 mg/dL Borderline high 150 - 199 mg/dL High 200 - 499 mg/dL Very High > or = 500 mg/dL CHOL 162 mg/dL (Normal) Comments: <200 mg/dL Desirable 200-240 mg/dL Borderline >240 mg/dL High Risk D BILI < 0.05 mg/dL (Normal) Range: 0.00-0.30 T BILI 0.30 mg/dL (Normal) Range: 0.20-1.00 ALT 27 U/L (Normal) Range: 12-78 ALK P 101 U/L (Normal) Range: 50-136 AST 15 U/L (Normal) Range: 15-37 PHOS 2.3 mg/dL (Abnormal) Range: 2.5-4.9 CA 8.4 mg/dL (Abnormal) Range: 8.5-10.1 A/G 1.0 {RATIO} (Normal) Range: 0.9-2.4 GLOB 3.7 g/dL (Normal) Range: 2.7-4.2 ALB 3.6 g/dL (Normal) Range: 3.4-5.0 T PROT 7.3 g/dL (Normal) Range: 6.4-8.2 URIC 4.3 mg/dL (Normal) Range: 2.6-6.0 BUN/CRE 16.3 {RATIO} (Normal) Range: 10-20 EST GFR - AA 101 mL/min (Normal) EST GFR 83 mL/min (Normal) CREAT,SERUM 0.8 mg/dL (Normal) Range: 0.6-1.0 BUN 13 mg/dL (Normal) Range: 7-18 GLU 78 mg/dL (Normal) Range: 70-110 4-Gep-833013:13 Urinalysis, Employee Comments: Test performed at:[facility] [address] [place] [address] LEUK ESTERASE Negative /ul (Normal) OCCULT BLOOD-UR Negative /ul (Normal) NITRITE UR Negative (Normal) UROBILI Normal mg/dL (Normal) PROT DIPSTX Negative mg/dL (Normal) pH UR 6.0 (Normal) Range: 5.0 - 8.0 SP.GR. DIPSTX 1.015 (Normal) Range: 1.002-1.030 KETONE UR Negative mg/dL (Normal) BILIRUBIN URINE Negative mg/dL (Normal) GLUCOSE, UR Normal mg/dL (Normal) CLARITY Clear (Normal) COLOR Yellow (Normal) 6-Uow-515131:05 PAPIG5 Comments: CYTOLOGY INFORMATION:- CLINICAL INFORMATION:- DATE LMP/MENOPAUSE: 2011- COLLECTION VIAL: Thin Prep Vial- VINEYARDIST SOURCE: CERVICAL/ENDOCERVICAL- COLLECTION TECHNIQUE: BRUSH/SPATULASpecimen Comment: [id number] Comment: No. of containers..01 CYTYC Thin Prep Vial tHPVRFLX Comment (Normal) Comments: The HPV DNA reflex criteria were not met with this specimenresult therefore, no HPV testing was performed.Performed at: [address] [id number] Director: Yassine Mathews MD, Phone: [phone] [facility] Comment (Normal) Comments: The Pap smear is a screening test designed to aid in thedetection of premalignant and malignant conditions of theuterine cervix. It is not a diagnostic procedure andshould not be used as the sole means of detecting cervicalcancer. Both false-positive and false-negative reports dooccur. tCOM2 . (Normal) tPAPIGTM Comment (Normal) Comments: This liquid based ThinPrep(R) pap test was screened withthe use of an image guided system. tPERFORM Comment (Normal) Comments: Ariana Victoria, Reconsignment Clerk (ASCP) tADEQ Comment (Normal) Comments: Satisfactory for evaluation. Endocervical and/or squamous metaplasticcells (endocervical component) are present. tDIAG Comment (Normal) Comments: NEGATIVE FOR INTRAEPITHELIAL LESION AND MALIGNANCY. 10-Mar-20149:32 CBCEM ALC 1.27 {X10_3/ul} (Normal) Range: 0.83-4.51 ANC 4.5 {X10_3/uL} (Normal) Range: 2.0-7.7 tB% 0.6 % (Normal) Range: 0-1 tE% 0.9 % (Normal) Range: 0-5 tM% 9.1 % (Normal) Range: 0-10 tL% 19.6 % (Normal) Range: 19-41 tN% 69.6 % (Normal) Range: 47-70 MPV 11.4 fL (Normal) Range: 6.2-12.0 PLT 271 K/mm3 (Normal) Range: 150-450 RDWSD 44.0 fL (Abnormal) Range: 35.1-43.9 RDWCV 13.8 % (Normal) Range: 11.6-14.6 MCHC 32.1 {g/gl} (Normal) Range: 32-36 MCH 27.9 pg (Normal) Range: 27.0-32.0 MCV 87.0 fL (Normal) Range: 81-99 HCT 37.4 % (Normal) Range: 37-47 HGB 12.0 g/dL (Normal) Range: 12.0-15.0 RBC 4.30 {M/mm3} (Normal) Range: 4.2-5.4 WBC 6.5 K/mm3 (Normal) Range: 4.4-11.0 10-Mar-20149:32 EMP Comments: CC: LDH 172 U/L (Normal) Range: 87-241 VLDL 34 mg/dL (Normal) Range: 5-40 LDL 84 mg/dL (Normal) Range: 0-130 HDLEMP 32 mg/dL (Abnormal) Comments: Reference RangeHDL <40 mg/dL Low HDL CholesterolHDL >or= 60 mg/dL High HDL Cholesterol HDL 32 mg/dL (Abnormal) Comments: Reference RangeHDL <40 mg/dL Low HDL CholesterolHDL >or= 60 mg/dL High HDL Cholesterol GAP 6 (Normal) Range: 5-15 CO2 28.0 mmol/L (Normal) Range: 21.0-32.0 CL 103 mmol/L (Normal) Range: 98-107 K 3.8 mmol/L (Normal) Range: 3.5-5.1 NA 137 mmol/L (Normal) Range: 136-145 TRIG 168 mg/dL (Normal) Range: 0-199 Comments: Serum Triglycerides Reference IntervalNormal <150 mg/dLBorderline high 150 - 199 mg/dLHigh 200 - 499 mg/ dLVery High > or = 500 mg/dL CHOL 150 mg/dL (Normal) Comments: <200 mg/dL [id number] mg/dL Borderline>240 mg/dL High Risk BID 0.08 mg/dL (Normal) Range: 0.00-0.30 BIT 0.50 mg/dL (Normal) Range: 0.00-1.00 ALT 30 U/L (Normal) Range: 12-78 ALK 90 U/L (Normal) Range: 45-117 AST 21 U/L (Normal) Range: 15-37 PHOS 2.3 mg/dL (Abnormal) Range: 2.5-4.9 CA 8.8 mg/dL (Normal) Range: 8.5-10.1 AG 0.9 {RATIO} (Normal) Range: 0.9-2.4 GLOB 3.7 g/dL (Normal) Range: 2.7-4.2 ALB 3.5 g/dL (Normal) Range: 3.4-5.0 TPROT 7.2 g/dL (Normal) Range: 6.4-8.2 URIC 4.2 mg/dL (Normal) Range: 2.6-6.0 BC 14.3 {RATIO} (Normal) Range: 10-20 GFRAA 119 mL/min (Normal) GFR 98 mL/min (Normal) CREAT 0.7 mg/dL (Normal) Range: 0.6-1.0 BUN 10 mg/dL (Normal) Range: 7-18 GLU 75 mg/dL (Normal) Range: 70-110 10-Mar-20149:32 UAEM EILEEN Negative /ul (Normal) CLEOPATRA Negative (Normal) UOB Negative /ul (Normal) uPROTU Negative mg/dL (Normal) UROBU Normal mg/dL (Normal) RANDA 6.0 (Normal) Range: 5.0 - 8.0 KETU Negative mg/dL (Normal) SGU 1.010 (Normal) Range: 1.002-1.030 BILIU Negative mg/dL (Normal) GLUR Normal mg/dL (Normal) UCLAR Clear (Normal) UCOL Yellow (Normal) 8-Dkc-907072:44 Rapid Strep Test, Office (26649) Comments: positive Rapid Strep Test, Office Positive (Normal) 24-Lqn-61553:40 LQDPAP [id number] Comments: CYTOLOGY INFORMATION:- CLINICAL INFORMATION:- DATE LMP/MENOPAUSE: 169027 LMP- COLLECTION VIAL: Thin Prep Vial- VINEYARDIST SOURCE: CERVICAL/ENDOCERVICAL- COLLECTION TECHNIQUE: BRUSH/SPATULA COMM . (Normal) PAPSMR Comment (Normal) Comments: The Pap smear is a screening test designed to aid in thedetection of premalignant and malignant conditions of theuterine cervix. It is not a diagnostic procedure andshould not be used as the sole means of detecting cervicalcancer. Both false-positive and false-negative reports dooccur..The HPV DNA reflex criteria were not met with this specimenresult therefore, no HPV testing was performed..Performe d at: [facility] [id number] Director: Trevor Mathews MD DIAGN Comment (Normal) Comments: NEGATIVE FOR INTRAEPITHELIAL LESION AND MALIGNANCY.Satisfactory for evaluation. Endocervical and/or squamous metaplasticcells (endocervical component) are present.Catina Hill, Reconsignment Clerk (ASCP)T his liquid based ThinPrep(R) pap test was screened withthe use of an image guided system. 15-Hpq-173935:09 TSH (89626) Comments: PATIENT NOT FASTINGClinical Information: [id number] PERFORMED BY: [facility]CoMat[facility] Educational CenterHfbnte7198 [facility] [id number] TSH 2.700 {uIU/mL} (Normal) Range: 0.450-4.500 45-Ioy-64111:32 CBC, EMPLOYEE HCT 39.6 % (Normal) Range: 37-47 HGB 13.8 g/dL (Normal) Range: 12.0-16.0 MCH 31.0 pg (Normal) Range: 27.0-32.0 MCHC 34.9 g/dL (Normal) Range: 32-36 MCV 89.0 fL (Normal) Range: 81-99 MPV 9.6 fL (Normal) Range: 6.5-12.0 PLT 288 K/mm3 (Normal) Range: 150-450 RBC 4.45 {M/mm3} (Normal) Range: 4.2-5.4 RDW 13.4 % (Normal) Range: 11.6-14.6 WBC 6.1 K/mm3 (Normal) Range: 4.4-11.0 :32 EMP PROF A/G 1.1 {RATIO} (Normal) Range: 0.9-2.4 ALB 3.9 g/dL (Normal) Range: 3.4-5.0 ALK P 98 U/L (Normal) Range: 50-136 AST 17 U/L (Normal) Range: 15-37 BUN 12 mg/dL (Normal) Range: 7-18 BUN/CRE 15.0 {RATIO} (Normal) Range: 10-20 CA 8.5 mg/dL (Normal) Range: 8.5-10.1 CHOL 156 mg/dL (Normal) Comments: <200 mg/dL Desirable 200-240 mg/dL Borderline >240 mg/dL High Risk CREAT,SERUM 0.8 mg/dL (Normal) Range: 0.6-1.0 EST GFR 86 mL/min (Normal) EST GFR - AA 104 mL/min (Normal) Comments: ESTIMATED GLOMERULAR FILTRATION RATE The National Kidney Foundation (NKF) guidelines forChronic kidney disease (CKD) recommends all laboratoriesestimate the level of glomerular filtration ra te (GFR)in p atients from age 18 - 70 years of age.The eGFR for patient's is the eGFRmultiplied by 1.212. [facility] Laboratory uses the abbreviated Modification of Diet inRenal Disease (MDRD) study equati on to calculate the eGFR.The Estimated GFR equation is not applicable for patients<18 years of age or patients >70 years of age.The following conditions may alter the eGFR calculationresult: extre mes in body size, severe malnutrition orobesity, skeletal muscle disease, paraplegia, quadriplegia,vegetarian diet, , certain drug therapy and rapidlychanging kidney function. Association o f GFR and Staging of Kidney Disease*GFR (mL/min) With Kidney Disease W/O Kidney Disease>/= 90 Stage One Afkxfr26 - 89 Stage Two Suspect Decreased GFR30 - 59 Stage Three Stage Three15 - 29 Stage Four Stage Four< 15 or Dialysis Stage Five Stage Five *Each stage assumes the associ ated GFR level has been ineffect for at least three months.Additional studies & clinical assessments are indicated toconclude diagnosis of Chronic Kidney Disease (CKD). GLOB 3.6 g/dL (Normal) Range: 2.7-4.2 GLU 78 mg/dL (Normal) Range: 70-110 HDL 34 mg/dL (Abnormal) Comments: Reference Range HDL <40 mg/dL Low HDL Cholesterol HDL >or= 60 mg/dL High HDL Cholesterol LDH 94 U/L (Abnormal) Range: 100-190 LDL 96 mg/dL (Normal) Range: 0-130 PHOS 2.4 mg/dL (Abnormal) Range: 2.5-4.9 T BILI 0.40 mg/dL (Normal) Range: 0.00-1.00 T PROT 7.5 g/dL (Normal) Range: 6.4-8.2 TRIG 129 mg/dL (Normal) Comments: Serum Triglycerides Reference Interval Normal <150 mg/dL Borderline high 150 - 199 mg/dL High 200 - 499 mg/dL Very High > or = 500 mg/dL URIC 4.9 mg/dL (Normal) Range: 2.6-6.0 VLDL 26 mg/dL (Normal) Range: 5-40 :32 EMP URINALYSIS BILIRUBIN URINE SeeNote (Normal) Comments: Result: NEGATIVE CLARITY CLOUDY (Normal) COLOR SeeNote (Normal) Comments: Result: DARK YELLOW GLUCOSE, UR SeeNote (Normal) Comments: Result: NEGATIVE KETONE UR SeeNote mg/dL (Normal) Comments: Result: NEGATIVE LEUK ESTERASE SeeNote (Normal) Comments: Result: NEGATIVE NITRITE UR SeeNote (Normal) Comments: Result: NEGATIVE OCCULT BLOOD-UR SeeNote (Normal) Comments: Result: NEGATIVE pH UR 5.5 (Normal) Range: 5.0-8.0 PROT DIPSTX TRACE (Normal) SP.GR. DIPSTX >=1.030 (Normal) Range: 1.002-1.030 UROBILI 0.2 EU/dl (Normal) Range: 0.2 - 1.0 :20 HDL 34 mg/dL (Abnormal) Comments: Reference Range HDL <40 mg/dL Low HDL Cholesterol HDL >or= 60 mg/dL High HDL Cholesterol :20 TRIG 112 mg/dL (Normal) Comments: Serum Triglycerides Reference Interval Normal <150 mg/dL Borderline high 150 - 199 mg/dL High 200 - 499 mg/dL Very High > or = 500 mg/dL 20-Aph-071627:45 Upper Respiratory Culture Comments: Clinical Information: SRC:TH PERFORMED BY: [facility] [address] [place] [id number] Result 1 BETAGA (Normal) Comments: Beta hemolytic Streptococcus, group AHeavy growthPenicillin continues to be the drug of choice for infectionscaused by beta hemolytic streptococci in groups A,B,C and G.No penicillin resistance has been described among theseorganisms and surveillance for emerging resistance is notrecommended. (JOB Haney. Clinical Microbiology Newsletter,1993; RAAD Avila et al. Diagnostic Microbiology andInfectious Disease, January,.) Upper Respiratory Culture Final report (Normal) :31 Rapid Strep Test, Office (70173) Rapid Strep Test, Office Negative (Normal) :22 CBC, EMPLOYEE HCT 40.9 % (Normal) Range: 37-47 HGB 14.1 g/dL (Normal) Range: 12.0-16.0 MCH 30.9 pg (Normal) Range: 27.0-32.0 MCHC 34.6 g/dL (Normal) Range: 32-36 MCV 89.5 fL (Normal) Range: 81-99 MPV 9.2 fL (Normal) Range: 6.5-12.0 PLT 330 K/mm3 (Normal) Range: 150-450 RBC 4.57 {M/mm3} (Normal) Range: 4.2-5.4 RDW 13.1 % (Normal) Range: 11.6-14.6 WBC 8.3 K/mm3 (Normal) Range: 4.4-11.0 :22 EMP PROF A/G 1.1 {RATIO} (Normal) Range: 0.9-2.4 ALB 4.0 g/dL (Normal) Range: 3.4-5.0 ALK P 85 U/L (Normal) Range: 50-136 AST 20 U/L (Normal) Range: 15-37 BUN 12 mg/dL (Normal) Range: 7-18 BUN/CRE 13.3 {RATIO} (Normal) Range: 10-20 CA 8.8 mg/dL (Normal) Range: 8.5-10.1 CHOL 162 mg/dL (Normal) Comments: <200 mg/dL Desirable 200-240 mg/dL Borderline >240 mg/dL High Risk CREAT,SERUM 0.9 mg/dL (Normal) Range: 0.6-1.0 GLOB 3.6 g/dL (Normal) Range: 2.7-4.2 Comments: Please Note Reference Interval Change GLU 78 mg/dL (Normal) Range: 70-110 HDL 36 mg/dL (Normal) Comments: Reference Range HDL <40 mg/dL Low HDL Cholesterol HDL >or= 60 mg/dL High HDL Cholesterol LDH 111 U/L (Normal) Range: 100-190 LDL 88 mg/dL (Normal) Range: 0-130 PHOS 2.8 mg/dL (Normal) Range: 2.5-4.9 T BILI 0.43 mg/dL (Normal) Range: 0.00-1.00 T PROT 7.6 g/dL (Normal) Range: 6.4-8.2 TRIG 192 mg/dL (Normal) Comments: Serum Triglycerides Reference Interval Normal <150 mg/dL Borderline high 150 - 199 mg/dL High 200 - 499 mg/dL Very High > or = 500 mg/dL URIC 5.5 mg/dL (Normal) Range: 2.6-6.0 VLDL 38 mg/dL (Normal) Range: 5-40 11-Sep-20079:22 EMP URINALYSIS BILIRUBIN URINE SeeNote (Normal) Comments: Result: NEGATIVE CLARITY SeeNote (Normal) Comments: Result: SL CLOUDY COLOR YELLOW (Normal) GLUCOSE, UR SeeNote (Normal) Comments: Result: NEGATIVE KETONE UR SeeNote mg/dL (Normal) Comments: Result: NEGATIVE LEUK ESTERASE SeeNote (Normal) Comments: Result: NEGATIVE NITRITE UR SeeNote (Normal) Comments: Result: NEGATIVE OCCULT BLOOD-UR SeeNote (Normal) Comments: Result: NEGATIVE pH UR 6.5 (Normal) Range: 5.0-8.0 PROT DIPSTX SeeNote (Normal) Comments: Result: NEGATIVE SP.GR. DIPSTX 1.015 (Normal) Range: 1.002-1.030 UROBILI 0.2 EU/dl (Normal) Range: 0.2 - 1.0 Plan of Care Name Dates Details Instructions Benign essential hypertension : Follow up in 2 weeks Indication: Benign essential hypertension Benign essential hypertension : Diet, Exercise, and Wt loss Indication: Benign essential hypertension Benign essential hypertension : HTN/CAD Red Flags Indication: Benign essential hypertension Palpitations : *palpitation discusssion Indication: Palpitations Non-smoker : Eprescribed prescriptions (G8553) Indication: Non-smoker Physical exam : Reviewed Lab Indication: Physical exam Non-smoker : Follow up if no improvement or if symptoms worsen Indication: Non-smoker Abnormal pulmonary function test : Reviewed Diagnostic Tests Indication: Abnormal pulmonary function test Cough : Eprescribed prescriptions (G8553) Indication: Cough BMI 40.0-44.9, adult : Follow up if no improvement or if symptoms worsen Indication: BMI 40.0-44.9, adult ALLERGIC RHINITIS DUE TO OTHER ALLERGEN : Allergy proofing Indication: ALLERGIC RHINITIS DUE TO OTHER ALLERGEN ALLERGIC RHINITIS DUE TO OTHER ALLERGEN : Allergy control Indication: ALLERGIC RHINITIS DUE TO OTHER ALLERGEN ALLERGIC RHINITIS DUE TO OTHER ALLERGEN : *URI Symptoms Indication: ALLERGIC RHINITIS DUE TO OTHER ALLERGEN BMI 40.0-44.9, adult : Eprescribed prescriptions (G8553) Indication: BMI 40.0-44.9, adult Benign essential hypertension : Follow up in 6 months Indication: Benign essential hypertension GERD (gastroesophageal reflux disease) : GERD Education Indication: GERD (gastroesophageal reflux disease) Benign essential hypertension : HTN/CAD Red Flags Indication: Benign essential hypertension Benign essential hypertension : Diet, Exercise, and Wt loss Indication: Benign essential hypertension GERD (gastroesophageal reflux disease) : Follow up in 4 weeks- fu on acv and gen med Indication: GERD (gastroesophageal reflux disease) GERD (gastroesophageal reflux disease) : GERD Education Indication: GERD (gastroesophageal reflux disease) BMI 40.0-44.9, adult : Eprescribed prescriptions (G8553) Indication: BMI 40.0-44.9, adult Acute conjunctivitis (Renamed from Conjunctivitis, acute) : Follow up if no improvement or if symptoms worsen Indication: Acute conjunctivitis (Renamed from Conjunctivitis, acute) Acute conjunctivitis (Renamed from Conjunctivitis, acute) : *Conjunctivitis Education Indication: Acute conjunctivitis (Renamed from Conjunctivitis, acute) Cough : Eprescribed prescriptions (G8553) Indication: Cough Hematuria : Eprescribed prescriptions (G8553) Indication: Hematuria Benign essential hypertension : Follow up in 5-6 months- gen med Indication: Benign essential hypertension Low HDL (under 40) : Eprescribed prescriptions (G8553) Indication: Low HDL (under 40) Annual Medicare Physical WITH abnormal findings (Renamed from Encounter for general adult medical examination with abnormal findings) : Reviewed Lab Indication: Annual Medicare Physical WITH abnormal findings (Renamed from Encounter for general adult medical examination with abnormal findings) Benign essential hypertension : Eprescribed prescriptions (G8553) Indication: Benign essential hypertension Benign essential hypertension : HTN/CAD Red Flags Indication: Benign essential hypertension Benign essential hypertension : Reviewed Lab Indication: Benign essential hypertension Benign essential hypertension : Follow up in 6 months Indication: Benign essential hypertension GERD (gastroesophageal reflux disease) : GERD Education Indication: GERD (gastroesophageal reflux disease) Benign essential hypertension : Reviewed Lab:from employee lab Indication: Benign essential hypertension Benign essential hypertension : High Blood Pressure (Essential Hypertension) *: cardiovascular health Indication: Benign essential hypertension ALLERGIC RHINITIS DUE TO OTHER ALLERGEN : Eprescribed prescriptions (G8553) Indication: ALLERGIC RHINITIS DUE TO OTHER ALLERGEN Annual physical exam : Reviewed Lab Indication: Annual physical exam Cough : Cough Medicines, Nonprescription: cough up mucous Indication: Cough Cough : Eprescribed prescriptions (G8553) Indication: Cough ALLERGIC RHINITIS DUE TO OTHER ALLERGEN : Follow up if no improvement or if symptoms worsen Indication: ALLERGIC RHINITIS DUE TO OTHER ALLERGEN ALLERGIC RHINITIS DUE TO OTHER ALLERGEN : Allergy proofing Indication: ALLERGIC RHINITIS DUE TO OTHER ALLERGEN ALLERGIC RHINITIS DUE TO OTHER ALLERGEN : Allergy control Indication: ALLERGIC RHINITIS DUE TO OTHER ALLERGEN ALLERGIC RHINITIS DUE TO OTHER ALLERGEN : *URI Symptoms Indication: ALLERGIC RHINITIS DUE TO OTHER ALLERGEN Wheezing : Follow up in 3 weeks Indication: Wheezing Mild persistent asthmatic bronchitis with exacerbation : Eprescribed prescriptions (G8553) Indication: Mild persistent asthmatic bronchitis with exacerbation Benign essential hypertension : HTN/CAD Red Flags Indication: Benign essential hypertension Non morbid obesity, unspecified obesity type : Diet, Exercise, and Wt loss Indication: Non morbid obesity, unspecified obesity type Benign essential hypertension : Follow up in 6 months Indication: Benign essential hypertension Benign essential hypertension : Continue Current Prescription(s) Indication: Benign essential hypertension GERD (gastroesophageal reflux disease) : GERD Education Indication: GERD (gastroesophageal reflux disease) Benign essential hypertension : Reviewed Lab Indication: Benign essential hypertension Benign essential hypertension : Follow up in 6 months Indication: Benign essential hypertension Non morbid obesity, unspecified obesity type : Diet, Exercise, and Wt loss Indication: Non morbid obesity, unspecified obesity type Hyperglyceridemia : Cholesterol mgmt Indication: Hyperglyceridemia Hyperglyceridemia : *Cholesterol - Nonprescription Treatment Indication: Hyperglyceridemia GERD (gastroesophageal reflux disease) : GERD Education Indication: GERD (gastroesophageal reflux disease) Benign essential hypertension : HTN/CAD Red Flags Indication: Benign essential hypertension Benign essential hypertension : Diet, Exercise, and Wt loss Indication: Benign essential hypertension Wheezing : Follow up as needed Indication: Wheezing Allergic rhinitis due to other allergen : Allergy proofing Indication: Allergic rhinitis due to other allergen Allergic rhinitis due to other allergen : Allergy control Indication: Allergic rhinitis due to other allergen Allergic rhinitis due to other allergen : *URI Symptoms Indication: Allergic rhinitis due to other allergen Acute sinusitis : *URI Treatment Indication: Acute sinusitis Acute sinusitis : *URI Symptoms Indication: Acute sinusitis Acute sinusitis : *Antibiotic Usage Education - Female Indication: Acute sinusitis Benign essential hypertension : Continue Current Prescription(s) Indication: Benign essential hypertension Benign essential hypertension : Diet, Exercise, and Wt loss Indication: Benign essential hypertension Benign essential hypertension : HTN/CAD Red Flags Indication: Benign essential hypertension Benign essential hypertension : HTN/CAD Red Flags Indication: Benign essential hypertension Benign essential hypertension : Diet, Exercise, and Wt loss Indication: Benign essential hypertension Benign essential hypertension : FOLLOW UP IN 19-20 days Indication: Benign essential hypertension Non morbid obesity, unspecified obesity type : Diet, Exercise, and Wt loss Indication: Non morbid obesity, unspecified obesity type GERD (gastroesophageal reflux disease) : GERD Education Indication: GERD (gastroesophageal reflux disease) Palpitations : Reviewed Lab Indication: Palpitations Palpitations : Reviewed Diagnostic Tests Indication: Palpitations Palpitations : *palpitation discusssion Indication: Palpitations GERD (gastroesophageal reflux disease) : GERD Education Indication: GERD (gastroesophageal reflux disease) Hyperglyceridemia : Diet, Exercise, and Wt loss Indication: Hyperglyceridemia Benign essential hypertension : Reviewed Lab Indication: Benign essential hypertension Benign essential hypertension : Continue Current Prescription(s) Indication: Benign essential hypertension Hyperglyceridemia : CHOLESTEROL MGMT. Indication: Hyperglyceridemia Hyperglyceridemia : Cholesterol - Nonprescription Treatment Indication: Hyperglyceridemia Benign essential hypertension : Diet, Exercise, and Wt loss Indication: Benign essential hypertension Benign essential hypertension : HTN/CAD Red Flags Indication: Benign essential hypertension Benign essential hypertension : Diet, Exercise, and Wt loss Indication: Benign essential hypertension Low HDL (under 40) : Diet and Exercise Indication: Low HDL (under 40) Benign essential hypertension : Continue Current Prescription(s) Indication: Benign essential hypertension Benign essential hypertension : Continue Current Prescription(s) Indication: Benign essential hypertension Benign essential hypertension : HTN/CAD Red Flags Indication: Benign essential hypertension Hyperglyceridemia : Diet, Exercise, and Wt loss Indication: Hyperglyceridemia Throat pain : Sore throat: diagnosis and treatment Indication: Throat pain Hypertension : FOLLOW UP IN 6 MONTHS Indication: Hypertension Hypertension : Reviewed Lab Indication: Hypertension Hypertension : HTN/CAD Red Flags Indication: Hypertension Hyperglyceridemia : Diet, Exercise, and Wt loss Indication: Hyperglyceridemia Low HDL (under 40) : Diet, Exercise, and Wt loss Indication: Low HDL (under 40) Hypertension : FOLLOW UP NEEDED Indication: Hypertension Bronchitis : *Antibiotic Usage Education - Female Indication: Bronchitis Bronchitis : *URI Symptoms Indication: Bronchitis Bronchitis : *URI Treatment Indication: Bronchitis Hypertension : HTN/CAD Red Flags Indication: Hypertension Planned Observations CBC W/AUTO DIFF WBC ([id number])Indication: Benign essential hypertension On: [id number] Request METABOLIC PANEL, COMPREHENSIVE ([id number])Indication: Palpitations On: 2-Wiz-754677:22 Request TSH ([id number])Indication: Palpitations On: 3-Mne-092627:22 Request MICROALBUMIN: CREATININE RATIO ([id number]) AND ([id number])Indication: Benign essential hypertension On: 03-Pdy-370708:53 Request TSH (THYROID STIMULATING HORMONE) ([id number])Indication: Arrhythmia On: 75-Yvx-511592:52 Request Sputum Culture ([id number])Indication: Cough On: 27-Zvd-82115:53 Request OLIVIA CULTURE-OTHER ([id number])Indication: Sore throat On: 4-Zkd-794092:43 Request OLIVIA CULTURE-OTHER ([id number])Indication: Throat pain On: 74-Gal-71785:31 Request Comments: throat cx Triglycerides ([id number])Indication: Hyperglyceridemia On: 96-Owo-097365:00 Request HDL Cholesterol-Direct ([id number])Indication: Low HDL (under 40) On: 07-Rsq-493266:00 Request Planned Procedures EXERCISE STRESS TEST ([id number])By: On: 08-Jul-2018 Intent Abeba Holt Holter Moniter ([id number])By: Jonathon On: 08-Jul-2018 Intent Abeba Comments: 24 Hour EKG ([id number])By: Abeba Holt On: 08-Jul-2018 Intent Comments: Sinus Rhythm- HR 68 PFT - CompleteBy: Zuleyma Vegas CNP On: 24-Nov-2016 Intent Spirometry ([id number])By: Shasta PHILLIPS, On: 24-Nov-2016 Intent Zuleyma Tamayo Comments: normal Aerosol Treatment ([id number])By: Shasta On: 24-Nov-2016 Intent Zuleyma PHILLIPS ELECTROCARDIOGRAM, COMPLETE (ECG) On: 07-Nov-2016 Intent ([id number])By: Luiza Dowd DO Comments: nsr no acute chg Luiza Dowd DO COMP EYE EXAMINATION, ESTAB PATIENT On: 21-Jun-2016 Intent ([id number])By: Zuleyma Vegas CNP EKG ([id number])By: Luiza Dowd DO On: 26-Mar-2015 Intent Luiza Dowd DO Comments: nsr no acute chg Solu -Medrol Injection, 125 mg On: 04-Aug-2013 Intent ([id number])By: Zuleyma Vegas CNP Comments: Lot: [id number]: 12/2015Amt: 125mgRoute: IMSite: RUOQ GlutealGiven by: CINDY Kerr Aerosol Treatment ([id number])By: Shasta On: 04-Aug-2013 Intent Zuleyma PHILLIPS Eprescribed prescriptions On: 04-Aug-2013 Intent (G8553)By: Zuleyma Vegas CNP EKG ([id number])By: Luiza Dowd DO On: 14-Aug-2011 Intent Luiza Dowd DO Comments: no acute chg nsr - good Aerosol Treatment ([id number])By: Shasta On: 27-Jun-2011 Intent Zuleyma PHILLIPS EKG ([id number])By: Abeba Holley On: 14-Oct-2009 Intent [employer]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 [employer] Comments: nsr no acute changes Echo CompleteBy: Noemí FOSS, On: 22-Jun-2009 Intent Luiza Marinelli DO Holter Moniter ([id number])By: Noemí On: 22-Jun-2009 Intent Luiza FOSS DO, Kathleen Comments: 48 hour EKG ([id number])By: Luiza Dowd DO On: 22-Jun-2009 Intent Luiza Dowd DO Comments: nsr no acute changesno pvc EKG ([id number])By: Luiza Dowd DO On: 30-Sep-2008 Intent Luiza Dowd DO Comments: stable EKG ([id number])By: Luiza Dowd DO On: 30-Sep-2007 Intent Luiza Dowd DO Comments: done-awnsr noacute ischemic changes Aerosol Treatment ([id number])By: Shasta On: 11-Jul-2007 Intent Zuleyma PHILLIPS COMP EYE EXAMINATION, ESTAB PATIENT On: 10-Jun-2007 Intent ([id number])By: Sena Lester LPN Comments: [facility] Crx- 20/30 OD 20/40 OS 20/25 OU EKG ([id number])By: Luiza Dowd DO On: 14-Sep-2006 Intent Luiza Dowd DO Comments: nsr no acute ischemic changes Planned Medications INJECTION, METHYLPREDNISOLONE SODIUM SUCCINATE, UP TO 125 MG Ordered: 04-Aug-2013 Pending Zuleyma Vegas CNP Instructions Name Dates Details Non-smoker : How to access health information online Indication: Non-smoker Non-smoker : How to access health information online - Detail Indication: Non-smoker Palpitations : Patient Instructions Indication: Palpitations Non-smoker : How to access health information online Indication: Non-smoker Non-smoker : How to access health information online - Detail Indication: Non-smoker Non-smoker : Patient Instructions Indication: Non-smoker Cough : How to access health information online Indication: Cough Cough : How to access health information online - Detail Indication: Cough Cough : How to access health information online - Detail Indication: Cough Cough : Patient Instructions Indication: Cough BMI 40.0-44.9, adult : How to access health information online Indication: BMI 40.0-44.9, adult BMI 40.0-44.9, adult : How to access health information online - Detail Indication: BMI 40.0-44.9, adult BMI 40.0-44.9, adult : Patient Instructions Indication: BMI 40.0-44.9, adult Non-smoker : How to access health information online Indication: Non-smoker Non-smoker : How to access health information online - Detail Indication: Non-smoker Non-smoker : Patient Instructions Indication: Non-smoker BMI 40.0-44.9, adult : How to access health information online Indication: BMI 40.0-44.9, adult BMI 40.0-44.9, adult : Patient Instructions Indication: BMI 40.0-44.9, adult Cough : How to access health information online Indication: Cough Cough : How to access health information online - Detail Indication: Cough Cough : Patient Instructions Indication: Cough Hematuria : How to access health information online Indication: Hematuria Hematuria : How to access health information online - Detail Indication: Hematuria Hematuria : Patient Instructions Indication: Hematuria Low HDL (under 40) : How to access health information online Indication: Low HDL (under 40) Low HDL (under 40) : How to access health information online - Detail Indication: Low HDL (under 40) Low HDL (under 40) : Patient Instructions Indication: Low HDL (under 40) Benign essential hypertension : How to access health information online Indication: Benign essential hypertension Benign essential hypertension : How to access health information online - Detail Indication: Benign essential hypertension Benign essential hypertension : Patient Instructions Indication: Benign essential hypertension Annual physical exam : Patient Instructions Indication: Annual physical exam Cough : How to access health information online Indication: Cough Cough : How to access health information online - Detail Indication: Cough Cough : Patient Instructions Indication: Cough Mild persistent asthmatic bronchitis with exacerbation : Patient Instructions Indication: Mild persistent asthmatic bronchitis with exacerbation Bronchitis with bronchospasm : Patient Instructions Indication: Bronchitis with bronchospasm Encounters Office Visit On: 08-Jul-2018 14:07 Encounter Reason: Follow up ER - Reason for hospitalization note: (heart palps and high BP). Patient has been compliant with instructions. Current medication use: no side effects. The patient does not feel well. Patient End: 08-Jul-2018 14:59 sleeps 7 hours per night. Note for Follow up ER: Symptoms started about 1 week ago with heart palpiations and elevated blood pressure. ??Heart palpitations were more frequent. [place] them more frequentl y and didn't feel right-so went to ER 4 days ago. Blood pressure has also been elevated. BP during the weekend was 150-160's/90's. Feel the heart palpitations usually when sitting or lying down. No CP, SOB, extreme thirst, urination, cold or hot sensitivites. ?Has had heart palpitations before and wore holter monitor and echo-which all came back negative. May be due to stress with the holidays, an d homelife. Maybe 1 coke a day, occassional claribel throughout the day.Encounter Diagnosis: BMI 40.0-44.9, adult, Non-smoker, Benign essential hypertension (401.1), Palpitations [facility] Office Visit On: 27-Dec-2017 10:23 Encounter Reason: Physical female exam - Last seen more than 1 year ago. General health: feels well with minor complaints, has good energy level and is sleeping well. The patient's appetite is normal. Nutrition: normal/a End: 27-Dec-2017 11:07 dequate. Sleeps on average 6 hours per night. Normal bowel and bladder habits. Safety measures include appropriate use of safety belts and home smoke detectors. There are no current emotional problems. screening, mammography (spring) and screening, Pap smear (Aug 23).Encounter Diagnosis: BMI 40.0-44.9, adult, Non-smoker, Physical exam [facility] Phone Encounter On: 06-Dec-2017 10:07 Encounter Diagnosis: Abnormal pulmonary function test End: 06-Dec-2017 11:07 [facility] Phone Encounter On: 22-Dec-2016 10:20 Encounter Diagnosis: Abnormal pulmonary function test End: 22-Dec-2016 10:21 [facility] Office Visit On: 19-Dec-2016 7:31 Encounter Reason: Follow up, Diagnostic Procedure Results - Diagnostic tests include PFTS. Date: (12/14/16).Encounter Diagnosis: BMI 40.0-44.9, adult, Non-smoker, Cough, Abnormal pulmonary function test, Reflux gastritis End: 19-Dec-2016 8:35 [facility] Office Visit On: 24-Nov-2016 13:14 Encounter Reason: Cough - Symptoms include cough, wheezing and runny nose, while symptoms do not include stuffy nose or sore throat (in the beginning but has since resolved). The cough is described as moist and non-produ End: 24-Nov-2016 14:20 ctive. Cough onset was week(s) ago. The cough occurs constantly. Symptoms are described as unchanged. Associated symptoms include postnasal drainage, noisy breathing and headache. Current treatment incl udes beta-agonist bronchodilators. Note for Cough: Coughing more feeling better, more uri symtoms Encounter Diagnosis: Non-smoker, BMI 40.0-44.9, adult, Cough, Wheezing (786.07), ALLERGIC RHINITIS DUE TO OTHER ALLERGEN, Bronchitis [facility] Office Visit On: 07-Nov-2016 8:36 Encounter Reason: Follow up tests - Date: (10/13/16 labs)., [ADDITIONAL REASON] Follow up for chronic medical issues - The patient feels well with minor complai End: 07-Nov-2016 9:36 nts, has good energy level and is sleeping well. Patient has been compliant with instructions. Current medication use: no side effects and compliant with dosing regimen. Patient sleeps 7 hours per night . Nutrition: balanced diet and supplemental vitamins. The medical issues the patient is following up for include All identified problems below, gastric reflux and high blood pressure. Encounter Diagnosis: BMI 40.0-44.9, adult, Non-smoker, Benign essential hypertension (401.1), GERD (gastroesophageal reflux disease), Muscle spasm of back, Arrhythmia, Hyperglycemia [facility] Lab Order On: 13-Oct-2016 15:51 Encounter Diagnosis: Arrhythmia, Benign essential hypertension (401.1) End: 13-Oct-2016 15:54 [facility] Office Visit On: 26-Sep-2016 10:15 Encounter Reason: Back Pain - This condition occurred without any known injury. The injury involved the mid back. This occurred 2 week(s) ago. Symptoms include back pain.Encounter Diagnosis: Non-smoker, BMI 40.0-44.9, adult, Muscle spasm of back, End: 26-Sep-2016 12:38 GERD (gastroesophageal reflux disease), Stress reaction, emotional [facility] Office Visit On: 21-Jun-2016 8:08 Encounter Reason: Eye Discharge - Symptoms include eye pain, eye redness, eye itching, eye irritation and lid crusting. Symptoms are located in the left eye. The symptoms occur intermittently., End: 21-Jun-2016 8:30 [ADDITIONAL REASON] Cold Symptoms - Symptoms include dry cough and headache. The patient describes this as worsening. Note for Cold symptoms: 5 days of cold symptoms, drainage cough Encounter Diagnosis: Non-smoker, BMI 40.0-44.9, adult, Cough, Eye redness, Acute conjunctivitis (Renamed from Conjunctivitis, acute) [facility] Office Visit On: 18-May-2016 11:37 Encounter Reason: Hematuria - Symptoms include bright red urine, urgency, frequency and flank pain. Onset was sudden 1 day(s) ago (hematuria started today). The episodes last for 1 week. The patient describes this as worsening.Encounter Diagnosis: End: 18-May-2016 12:04 Hematuria, Abnormal urine, Acute bilateral low back pain without sciatica [facility] Office Visit On: 19-Jan-2016 7:57 Encounter Reason: Physical female exam - Last seen between 6-12 months ago. General health: feels well with no complaints, has good energy level and is sleeping well. The patient's appetite is normal. Nutrition: normal/a End: 19-Jan-2016 13:20 dequate. Sleeps on average 6 hours per night. Normal bowel and bladder habits. Safety measures include appropriate use of safety belts and home smoke detectors. There are no current emotional problems.Encounter Diagnosis: Non-smoker, BMI 40.0-44.9, adult, GERD (gastroesophageal reflux disease), Benign essential hypertension (401.1), ALLERGIC RHINITIS DUE TO OTHER ALLERGEN, Annual Medicare Physical WITH abnormal findings (Renamed from Encounter for general adult medical ex amination with abnormal findings), Low HDL (under 40) [facility] Office Visit On: 26-Mar-2015 10:23 Encounter Reason: Follow up for chronic medical issues - The patient feels well with minor complaints, has good energy level and is sleeping well. Patient has been compliant with instructions. Current medication use: no End: 26-Mar-2015 13:12 side effects and compliant with dosing regimen. Patient sleeps 7 hours per night. Nutrition: balanced diet and no supplemental vitamins & iron. The medical issues the patient is following up for inc lude All identified problems below, gastric reflux and high blood pressure.Encounter Diagnosis: Gerd (530.81), Benign essential hypertension (401.1), Allergic rhinitis due to other allergen (477.8) [facility] Office Visit On: 24-Feb-2015 11:46 Encounter Reason: Physical female exam - Last seen between 6-12 months ago. General health: feels well with minor complaints, has good energy level and is sleeping well. The patient's appetite is normal. Nutrition: seth End: 24-Feb-2015 12:28 l/adequate. Exercises 2 days per week. Sleeps on average 6 hours per night. Normal bowel and bladder habits. Safety measures include appropriate use of safety belts and home smoke detectors. There are n o current emotional problems. screening, mammography (05/19) and screening, Pap smear (04/19).Encounter Diagnosis: ALLERGIC RHINITIS DUE TO OTHER ALLERGEN, Annual physical exam [facility] Office Visit On: 01-Sep-2014 10:43 Encounter Reason: Cough - The onset of the cough has been 1 weeks. The cough is characterized as dry. The cough occurs all the time. The symptoms have been associated with runny nose and wheezing.Encounter Diagnosis: Cough, End: 01-Sep-2014 11:19 Mild persistent asthmatic bronchitis with exacerbation [facility] Office Visit On: 13-Mar-2014 10:04 Encounter Reason: Follow up acute care visit - The patient feeling better since last seen and improving. Patient has been compliant with instructions. Current medication use: no side effects, compliant with dosing regime End: 13-Mar-2014 10:51 n and considered effective by patient. The medical issues the patient is following up for include All identified problems below and other (wheezing, cough).Encounter Diagnosis: Mild persistent asthmatic bronchitis with exacerbation, Gerd (530.81), ALLERGIC RHINITIS DUE TO OTHER ALLERGEN [facility] Office Visit On: 20-Feb-2014 13:44 Encounter Diagnosis: Cough (786.2), Wheezing (786.07), Mild persistent asthmatic bronchitis with exacerbation End: 20-Feb-2014 14:20 [facility] Office Visit On: 04-Aug-2013 9:29 Encounter Reason: Cough - Symptoms include cough, wheezing and myalgias, while symptoms do not include fever or runny nose. The cough is described as moist. Cough onset was sudden 5 week(s) ago. There is no known event t End: 04-Aug-2013 12:15 hat preceded symptom onset. The cough occurs constantly. The episodes last for 5 days. Symptoms are described as moderate in severity and worsening.Encounter Diagnosis: Bronchitis with bronchospasm (466.0), Cough (786.2), Wheezing (786.07) [facility] Office Visit On: 04-Sep-2012 13:31 Encounter Reason: Follow up for chronic medical issues - The patient feels well with minor complaints, has good energy level and is sleeping poorly. Patient has been compliant with instructions. Current medication use: n End: 04-Sep-2012 17:14 o side effects and compliant with dosing regimen. Patient sleeps 6 hours per night. Nutrition: balanced diet and supplemental vitamins. The medical issues the patient is following up for include All identified problems below and high blood pressure. Encounter Diagnosis: Benign essential hypertension (401.1), Gerd (530.81), Low HDL (272.5), Obesity, unspecified (278.00) [facility] Office Visit On: 14-Aug-2011 9:43 Encounter Reason: Follow up for chronic medical issues - The patient feels well with minor complaints (wheezing). Patient has been compliant with instructions. Current medication use: no side effects, compliant with dosi End: 14-Aug-2011 11:33 ng regimen and considered effective by patient. Patient sleeps 6 hours per night. Impact of disease: emotional impact-mild. Nutrition: balanced diet and supplemental vitamins. The medical issues the pat ient is following up for include gastric reflux, high blood pressure and high cholesterol.Encounter Diagnosis: Benign essential hypertension (401.1), Gerd (530.81), Hypertriglycerides (272.1), Obesity, unspecified (278.00), Headache, tension (307.81) [facility] Office Visit On: 27-Jun-2011 10:34 Encounter Reason: Cough - The onset of the cough has been sudden. The cough is characterized as dry. The cough occurs all the time. The symptoms are aggravated by supine posture. The symptoms have been associated with h End: 27-Jun-2011 11:00 oarseness, sore throat and wheezing.Encounter Diagnosis: Cough (786.2), Wheezing (786.07), Allergic rhinitis due to other allergen (477.8) [facility] Office Visit On: 04-Jan-2011 11:24 Encounter Reason: Sinus pain - The pain has been occurring in a persistent pattern for 5 days. The course has been constant.Encounter Diagnosis: Acute sinusitis (461.9) End: 04-Jan-2011 11:49 [facility] Office Visit On: 12-Oct-2010 11:43 Encounter Reason: Sore throat - The onset of the sore throat has been sudden and has been occurring in a persistent pattern for 5 days. The course has been unchanged. The symptoms have been associated with difficulty in End: 12-Oct-2010 12:08 swallowing, ear pain, fever, post-nasal drip and swelling of neck glands, while the symptoms have not been associated with cough.Encounter Diagnosis: SORE THROAT, STREPTOCOCCAL (034.0) [facility] Office Visit On: 19-Jul-2010 10:44 Encounter Diagnosis: Gerd (530.81) End: 19-Jul-2010 10:48 [facility] Office Visit On: 13-Dec-2009 11:05 Encounter Reason: Follow up Hypertension - The symptoms have been associated with hypertension w/ prior and obesity, while the symptoms have not been associated with excessive caffeine intake or family history of hypertension. End: 13-Dec-2009 11:43 Encounter Diagnosis: Benign essential hypertension (401.1) [facility] Office Visit On: 02-Nov-2009 8:59 Encounter Reason: Follow up Meds - The patient feels well with minor complaints ,has good energy level and is sleeping well. Patient has been compliant with instructions. Current medication use: no side effects and compl End: 02-Nov-2009 10:43 iant with dosing regimen. Patient sleeps 7 hours per night. Nutrition: balanced diet. Encounter Diagnosis: Benign essential hypertension (401.1), Palpitations (785.1), Sinus congestion (478.19) [facility] Office Visit On: 14-Oct-2009 11:22 Encounter Reason: Palpitations - Initial presentation was month(s) ago. Presentation included a rapid heartbeat. This problem has not been previously treated. The last clinic visit was 1 day(s) ago (this am). No changes End: 14-Oct-2009 11:51 in management were made at the last visit. Symptoms include palpitations and rapid heartbeat. Onset was sudden. Encounter Diagnosis: Palpitations (785.1), Benign essential hypertension (401.1) [facility] Visit On: 31-Aug-2009 11:32 Encounter Reason: Rash - The onset of the rash has been gradual and has been occurring in an intermittent pattern for months. The course has been recurrent. The rash is characterized as red and raised above the skin. The End: 31-Aug-2009 11:48 rash was first seen on the abdomen (left upper abdomen and 1 lower left abdomen). It spread to the trunk and the upper extremity. There has been no associated alopecia ,anorexia ,chills ,fatigue ,fever ,itching ,kidney disease ,liver disease ,loss of sensation ,lymphadenopathy ,malaise ,mucous membrane lesions ,nail changes ,pain or weight loss. Encounter Diagnosis: Pityriasis rosea (696.3) [facility] Visit On: 15-Jul-2009 9:32 Encounter Reason: Follow up, Diagnostic Procedure Results - Diagnostic tests include other (holotr 07-06-09) and ECHO (07-07-09). Encounter Diagnosis: Palpitations (785.1), ARRHYTHMIA, NOS (427.9), Gerd (530.81), Headache, tension (307.81), End: 15-Jul-2009 10:21 Obesity, unspecified (278.00) [facility] Office Visit On: 22-Jun-2009 9:39 Encounter Reason: Follow up for chronic medical issues - The patient feels well with minor complaints. Patient has been compliant with instructions. Current medication use: no side effects. Patient sleeps 8 hours per nig End: 22-Jun-2009 11:35 ht. Impact of disease: emotional impact-mild. Nutrition: inappropriate diet. The medical issues the patient is following up for include gastric reflux (worse lately -- doiing otc zantac this summer then prilosec it worked but package said only do fof 14 day ). , [ADDITIONAL REASON] Heartburn - The onset of the heartburn has been sudden and has been occurring in a persistent pattern for 3 months. The course has been constant. The heartburn is characterized as burning ,pressure and pain. The heartburn is described as being located in the upper epigastrium. The heartburn does not radiate. The symptoms are not aggravated by large meals. The symptoms are relieved by antacids. The symptoms have been associated with indigestion, while the symptoms have not been as sociated with excessive smoking ,nausea or vomiting. , [ADDITIONAL REASON] Palpitations - The onset of the palpitations has been sudden and they have been occurring in an intermittent (heart racing then done -- yesterday it was off and on all day) pattern for 2 weeks. The course has been recurrent. The palpitations are characterized as short bursts of rap id beating. There have been no precipitating factors. The symptoms have no aggravating factors. The symptoms are relieved by rest. The symptoms have been associated with dyspnea, while the symptoms have not been associated with chest pain or fever. , [ADDITIONAL REASON] Follow up, Laboratory Test Results - Date: (06-10-09 scanned in). Encounter Diagnosis: Benign essential hypertension (401.1), Palpitations (785.1), SYMPTOMS INVOLVING CARDIOVASCULAR SYSTEM; OTHER ABNORMAL HEART SOUNDS (785.3), Gerd (530.81), Low HDL (272.5), Hypertriglycerides (272.1) [facility] Office Visit On: 30-Sep-2008 9:12 Encounter Reason: Follow up for chronic medical issues - The patient feels well with minor complaints ,has good energy level and is sleeping well. Patient has been compliant with instructions. Current medication use: no End: 30-Sep-2008 13:22 side effects and compliant with dosing regimen. Patient sleeps 7 hours per night. Nutrition: balanced diet and supplemental vitamins. The medical issues the patient is following up for include All identified problems below and high blood pressure. Encounter Diagnosis: Benign essential hypertension (401.1), Low HDL (272.5), Hypertriglycerides (272.1), Headache, tension (307.81) [facility] Visit On: 03-Sep-2008 8:55 Encounter Reason: Cough - The onset of the cough has been sudden and 1 weeks. The cough is characterized as dry. The amount of sputum produced is scanty. The cough occurs all the time. The symptoms are aggravated by supi End: 03-Sep-2008 9:17 ne posture and particular position, but not by meals. The symptoms have been associated with headache ,hoarseness ,runny nose and wheezing. Encounter Diagnosis: BRONCHITIS, NOT SPECIFIED ACUTE OR CHRONIC (490.), Low HDL (272.5), Benign essential hypertension (401.1) [facility] Office Visit On: 03-Apr-2008 9:58 Encounter Reason: Follow up for chronic medical issues - The patient feels well with no complaints ,has good energy level and is sleeping well. Patient has been compliant with instructions. Current medication use: no jess End: 03-Apr-2008 10:38 e effects and compliant with dosing regimen. Patient sleeps 7 hours per night. Nutrition: balanced diet and supplemental vitamins. The medical issues the patient is following up for include All identifi ed problems below and high blood pressure. blood pressure range :. Encounter Diagnosis: Benign essential hypertension (401.1), Hypertriglycerides (272.1), Low HDL (272.5), Allergic rhinitis (477.9) [facility] Visit On: 01-Jan-2008 9:27 Encounter Reason: Sore throat - The onset of the sore throat has been sudden and has been occurring in a persistent pattern for 3 days. The course has been unchanged. The symptoms have been associated with foreign body s End: 01-Jan-2008 10:09 ensation in throat ,chills ,cough ,difficulty in swallowing ,ear pain ,fever and swelling of neck glands, while the symptoms have not been associated with runny nose or sinus pain. Encounter Diagnosis: SYMPTOMS INVOLVING HEAD AND NECK; THROAT PAIN (784.1) [facility] Office Visit On: 30-Sep-2007 9:58 Encounter Reason: Follow up for chronic medical issues - The patient feels well with minor complaints (some h/a) ,has good energy level and is sleeping well. Patient has been compliant with instructions. Current medicati End: 30-Sep-2007 11:23 on use: no side effects and compliant with dosing regimen. Patient sleeps 7 hours per night. Nutrition: balanced diet and supplemental vitamins. The medical issues the patient is following up for includ e All identified problems below ,high blood pressure and other (h/a). Encounter Diagnosis: Hypertension (401.0), Headache, tension (307.81), Hypertriglycerides (272.1), Low HDL (272.5) [facility] Visit On: 11-Jul-2007 8:02 Encounter Reason: Sinusitis/ - The duration of the symptoms are 2 weeks The course has been worsening. The sinusitis/ has no relieving factors. Associated features include The symptoms have been associated with cough and End: 11-Jul-2007 9:39 sore throat (resolved), while the symptoms have not been associated with ear pain ,nasal discharge/stuffy nose ,purulent discharge from ear ,purulent nasal discharge ,red eyes ,sinus pain ,swollen lymp h glands or teeth pain. No previous evaluations were reported. none reported. Encounter Diagnosis: BRONCHITIS, NOT SPECIFIED ACUTE OR CHRONIC (490.), Hypertension (401.0) [facility] Office Visit On: 10-Jun-2007 9:34 Encounter Reason: Eye pain - The onset of the pain has been sudden and has been occurring in an intermittent pattern for 1 weeks. The course has been recurrent. The pain is described as moderate. Note for Eye pain: did End: 10-Jun-2007 11:20 see (OD)- feels sensitive- no releif with glasses- was given [place] with contacts, does see objects one on top of another- does have blurry vision, denies itching, d oes have redness OU - did also get FLU shot, did have another recation to inj before, is photophobicFeels like double vision. Her eye doctor saw her last Sunday, with minimal changes. He gave her eye d rops. Rodriguez. New contacts today. Still with dry cloudy vision.Encounter Diagnosis: Acute Conjuctivitis (372.01), Unspecified Diagnosis, Dry Eye, Unspecified (375.15), Visual Change (443.9) [facility] Office Visit On: 25-Sep-2006 10:05 [facility] End: 25-Sep-2006 10:40 Office Visit On: 14-Sep-2006 8:27 Encounter Reason: Follow up Meds - The patient feels well with minor complaints (cold). Patient has been compliant with instructions. Current medication use: no side effects ,compliant with dosing regimen and considered End: 14-Sep-2006 12:04 effective by patient. Patient sleeps 7 hours per night. Nutrition: balanced diet. , [ADDITIONAL REASON] Follow up Hypertension - The patient has experienced follow up hypertension for 3 years. The symptoms have been associated with hypertension w/ prior and use of nasal decongestants (took a cold pill yesterday), while the symptoms have not been associated with anxiety ,exc essive caffeine intake ,family history of hypertension ,kidney disease ,sleep apnea symptoms ,use of oral contraceptives or use of steroids. blood pressure range :. , [ADDITIONAL REASON] Headache/ - The onset of the headache/ has been variable and has been occurring in an intermittent pattern for days. The course has been recurrent. The headache/ is characterized as tightness (back of head and up head aroun front and tight--massage therapy helps alot last yr --requesting order for massage again). Encounter Diagnosis: Hypertension (401.0), Headache, tension (307.81) [facility] Jose Rosa; yassine guarantor
--- OUTSIDE RECORDS SUMMARY | 2018-08-30 03:25 | XMS RPT_ITS | Continuity of Care Document ---
:1970 Author Organization [facility] Address [address] [facility] [address] [place] [address] Phone Care Team Providers Name Role Phone Luiza Dowd DO Unavailable Juancarlos Fitzpatrick Unavailable Bobo Mayers Unavailable Micheal Springer MD Unavailable CINDY Holley Unavailable Unavailable Sotero Araya Unavailable Unavailable Shasta PHILLIPSZuleyma E Unavailable Elayne Henry LPN Unavailable Unavailable Unavailable Unavailable Problems Name Dates [...] Quantity: 30 {Capsule} Refills: 11 Ordered:26-Mar-2018 Noemí DOFaby DO Luiza Start : 26-Mar-2018 Active FLONASE ALLERGY RELIEF, 50MCG/ACT (Nasal Suspension) 1 (one) puff qd for 360 days Quantity: 1 {Container} Refills: 6 Ordered:19-Jan-2016 Noemí FOSSFaby DO Luiza Start : 19-Jan-2016 Active PROVENTIL HFA, [...] days Quantity: 6 {Tablet} Refills: 0 Ordered:24-Nov-2016 Francescahanna ALANZuleyma Start : 24-Nov-2016 End : 27-Nov-2016 Inactive [...] days Quantity: 90 {Capsule_DR} Refills: 3 Ordered:19-Jul-2010 Mast Sandie SOLER Start : 22-Jun-2009 End : 19-Jul-2010 Discontinued Comments:This order discontinued per [employer]. Macrobid 100 MG Oral Capsule 1 (one) Capsule bid for 0 days Quantity: 20 {Capsule} Refills: 0 Ordered:21-Jun-2016 Elaine ADMITTING MANAGERDarian Matiasa Start : 18-May-2016 End : 21-Jun-2016 Discontinued ProAir HFA 108 (90 Base) MCG/ACT Inhalation Aerosol Solution 2 (two) Puff tid prn for 0 days Quantity: 1 {Inhaler} Refills: 3 Ordered:19-Dec-2016 Slarb ADMITTING MANAGERDariana Start : 24-Nov-2016 End : 19-Dec-2016 Discontinued Zithromax Z-Andrea 250 MG Oral Tablet 1 (one) Tablet TAD for 0 days Quantity: 1 {Package} Refills: 0 Ordered:19-Dec-2016 Darian Henry LPNa Start : 24-Nov-2016 End : 19-Dec-2016 Discontinued [...] as of 26-Mar-2015 Procedures Date Value Details 09-Jul-2018 12 Lead Electrocardiogram Result: Comments: See Note; NOTES: [facility] Cardiovascular Services [address] [place] [address] 12 Lead EKG 07/05/18 0831 MR#: [id number] Acct: [id number] Name: TAMAR ROSA Rep #: [id number] : 1970 48 From: Corona Moore MD Attending Dr: Status: DEP ER Ordering Dr: Ubaldo wOens MD Date: 07/05/18 Location: ED Sex: F C Admitted: Test Reason : PALPATIONS Blood Pressure : / mmHG Vent. Rate : 076 BPM Atrial Rate : 076 BPM P-R Int : 158 ms QRS Dur : 084 ms QT Int : 416 ms P-R-T Axes : 054 008 014 degrees QTc Int : 468 ms Sinus rhythm with occasional Premature ventri cular complexes Otherwise normal ECG Confirmed by OSCAR HAYS, CORONA ([id number]), newspaper photo editor DEBBY GUTIÉRREZ ([id number]) on 07/09/2018 3:39:04 PM Referred By: Confirmed By:CORONA MOORE MD 07/09/18 1539 Date ____ Corona Moore MD CC: Luiza Dowd DO; Ubaldo Owens MD Signed 05-Jul-2018 Emergency Department Summary Result: Comments: See Note; NOTES: [facility] Medical Records Department [address] [place] [address] Emergency Department Summary 07/05/18 1012 MR#: [id number] Acct: [id number] Name: TAMAR ROSA Rep #: [id number] : 1970 48 From: Ubaldo Owens MD [...] rhythm with occasional premature ventricular complexes noted. NE interval, QRS duration, QT interval and axis are normal. Ventricular rate is 76. Electronic panel is unremarkable. Emergency Department Course and Treatment: Patient was placed on a monitor. No abnormality other than unifocal ventricular premature beats were noted susana g her 1.5-hour stay. Treatment Plan: Information and premature ventricular beats Disposition: Discharged home with spouse in stable condition Impression: Unifocal premature ventricular beats Hyperten kay and known hypertensive patient, asymptomatic Anxiousness self-reported This note was generated with Sellsy dictation software. It may contain incorrect words, [...] pain, or any unexpected problems, contact your [facility] Care Provider. Call Doctors Registry ([phone]) or report to the closest Emergency Room. Call 911 if necessary. 07/05/18 1017 <Electronically signed by Ubaldo Owens MD> Date ____ Ubaldo Owens MD Cosigner Signature (If Indicated): Date CC: Luiza Dowd DO 07-Nov-2017 SCREENING MAMM (CAD), BILAT Result: Comments: See Note; NOTES: [facility] Imaging Services [address] [place] [address] SCREENING MAMM (CAD), BILAT MR#: [id number] Acct: [id number] Name: TAMAR ROSA Frida Rep #: [id number] : 1970 F 47 From: Anil Davison MD PCP: Luiza Dowd DO Status: REG CLI Study: SCREENING MAMM (CAD), BILAT Date of Exam: 11/07/17 Exam# [id number] Ordering Dr: Bailey Cummins MD MAMMOGRAPHY - [...] delay biopsy of a clinically suspicious abnormality. [id number] Electronically Signed: Anil Davison MD at 9:08 EDT Tel [phone], Service support , CC: Bailey Cummins MD; Luiza Dowd DO Supervisor Steffen House: Signed 04-Sep-2017 Massage Therapy Evaluation Result: Comments: See Note; NOTES: [facility] 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 She was [...] p;#62; 09/04/17 1258 CC: Luiza Dowd DO Signed For Medicare only, by signing this I certify the plan of care. Physicians Signature Date 03-Sep-2017 Discharge Instruction Result: Comments: See Note; NOTES: [facility] Medical Records Department [address] [place] [address] Discharge Instruction 09/03/172034 MR#: [id number] Acct: [id number] Name: Merline ROSA Rep #: [id number] : 1970 47 From: Lacne Gutiérrez DO PCP: Luiza Dowd DO Status: [...] your Primary Care Provider. Call [facility] ([phone]) or report to the closest Emergency Room. Call 911 if necessa ry. 09/03/172036 <Electronically signed by Lance Gutiérrez DO> Date Lance Gutiérrez DO Cosigner Signature (If Indicated): Date CC: Luiza Dowd DO 03-Sep-2017 Emergency Department Summary Result: Comments: See Note; NOTES: [facility] Medical Records Department [address] [place] [address] Emergency Department Summary 09/03/172031 MR#: [id number] Acct: [id number] Name: TAMAR ROSA Rep #: [id number] : 1970 47 From: Lnace Gutiérrez DO PCP: Luiza Dowd DO Status: [...] healthcare worker] This note was generated with Sellsy dictation software. It may contain incorrect words, [...] unexpected problems, contact your Primary Care Provider. [facility] Doctors [facility] ([phone]) or report to the closest Emergency Room. Call 911 if necessary. 09/03/172034 <Electronically signed by Lance Gutiérrez DO> Date Lance Gutiérrez DO Cosigner Signature (If Indicated): Date CC: Luiza Dowd DO 23-Jul-2017 Discharge Summary Result: Comments: See Note; NOTES: [facility] Medical Records Department [address] [place] [address] Discharge Summary 07/19/17 1117 MR#: [id number] Acct: [id number] Name: TAMAR ROSA Rep #: [id number] : 1970 47 From: Carmelita Tucker PCP: Luiza Dodw DO Status: REG RCR Y Location: [facility] Massage Therapy Discharge Summary: This patient was seen for massotherapy evaluation on: 08/31/16 Diagnosis: Tension Headaches The patient had 10 sessions of massotherapy. The goals for treatment were met. She reported decreased headaches and muscle tension. At this time I am disch arging the patient from our care at the [facility]. 07/23/17 1049 <Electronically signed by Carmelita Tucker > Date Carmelita maxwell Cosigner Signature (if applicable): Date CC: Carmelita Tucker; Luiza Dowd DO Signed 14-Dec-2016 Pulmonary Function Report Comp Result: Comments: See Note; NOTES: [facility] Pulmonary Services/Neurology [address] [place] [address] Pulmonary Function Test (Comp) MR#: [id number] Acct: [id number] Name: LUIS ALBERTO ROSA Rep #: [id number] : 1970 46 From: Lauro Calderon DO Referring Dr: Zuleyma Vegas Status: REG CLI Ordering Dr: Zuleyma Vegas Date: 12/12/16 Location: [facility] Sex: F C DATE OF SERVICE: 12/12/2016 [...] [place] C: Referring Provider T: YAW JOB: [id number] 12/14/16 0829 <Electronically signed by Lauro Calderon DO> Date Lauro Calderon DO CC: Zuleyma Vegas; Lauro Calderon D.O.; Luiza Dowd DO Date Dictated: 12/13/1647 Date Transcribed: 12/13/16846 Supervisor Steffen House: Signed 31-Aug-2016 SCREENING MAMM (CAD), BILAT Result: Comments: See Note; NOTES: [facility] Imaging Services [address] [place] [address] Verdana 4d SCREENING MAMM (CAD), BILAT MR#: [id number] Acct: [id number] Name: TAMAR ROSA Rep #: [id number] : 1970 F 46 From: Anil Davison MD PCP: Luiza Dowd DO Status: [facility] CLI Study: SCREENING MAMM (CAD), BILAT Date of Exam: 08/31/16 Exam# [id number] Ordering Dr: Bailey Barrientos MD MAMMOGRAPHY - [...] 2015 and May 20, 2014. FINDINGS: Breast [facility] sition: The breasts are heterogeneously dense, which [...] delay biopsy of a clinically suspicious abnormality. [id number] Electronically Signed: Carlos Davison MD at 10:16 EST Tel [phone], Service support [phone], CC: Bailey Cummins MD; Luiza Dowd DO Supervisor Ste[facility] House: Signed 03-Sep-2015 Inital Evaluation - PT Result: Comments: See Note; NOTES: [facility] [address] [place] [address]. 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 Elayne Kauffman LMT T: YAW JOB: [id number] <Electronic ally signed by Elayne Kauffman > 09/03/15 1032 CC: Signed For Medicare only, by signing this I certify the plan of care. Physicians Signature Date 05-Aug-2015 PT Discharge Summary Result: Comments: See Note; NOTES: [facility] [address] [place] [address] Fax REHABILITATION SE RVICES DISCHARGE SUMMARY MR#: [id number] Acct: [id number] Name: TAMAR ROSA Rep #: [id number] : 1970 45 From: Carmelita Tucker Referring [...] the patient from our care at the [facility] facility. Carmelita Tucker LMT T: NTS JOB: [id number] <Electronically signed by Carmelita Tucker > 0739 CC: Luiza Dowd DO Signed 27-May-2015 Breast Limited Unilateral Result: Comments: See Note; NOTES: [facility] Imaging Services [address] [place] [address] Verdana 4d Breast Limited Unilateral MR#: [id number] Acct: [id number] Name: TAMAR DAVIS Rep #: [id number] : 1970 F 45 From: Anil Davison MD PCP: Luiza Dowd DO Status: REG CLI Study: Breast Limited Unilateral Date of Exam: 05/27/15 Exam# [id number] Jose Manuel hilton Dr: Bailey Cummins MD STUDY: ULTRASOUND BREAST [...] Anil Davison MD at 15:03 EST Tel [phone], Service support [phone], CC: Bailey Cummins MD; Luiza Dowd DO Supervisor [facility] House: Signed 27-May-2015 Unilat Lt Diag Digital AND CAD Result: Comments: See Note; NOTES: [facility] Imaging Services [address] [place] [address] Verdana 4d Unilat Lt Diag Digital AND CAD MR#: [id number] Acct: [id number] Na me: TAMAR ROSA Rep #: [id number] : 1970 F 45 From: Dre Hoffman MD PCP: Luiza Dowd DO Status: REG CLI Study: Unilat Lt Diag Digital AND CAD Date of Exam: 05/27/15 Exam# [id number] O rdering Dr: Bailey Cummins MD MAMMOGRAPHY [...] 15:04 EDT Tel , Servi ce support [phone], CC: Bailey Cummins MD; Luiza Dowd DO Supervisor [facility]: Signed 27-May-2015 Unilat Lt Diag Digital AND CAD Result: Comments: See Note; NOTES: [facility] Imaging Services [address] [place] [address] Verdana 4d Unilat Lt Diag Digital AND CAD MR#: [id number] Acct: [id number] Na me: TAMAR ROSA Rep #: [id number] : 1970 F 45 From: Dre Hoffman MD PCP: Luiza Dowd DO Status: REG CLI Study: Unilat Lt Diag Digital AND CAD Date of Exam: 05/27/15 Exam# [id number] O rdering Dr: Bailey Cummins MD MAMMOGRAPHY [...] 15:04 EDT Tel , Servi ce support [phone], CC: Bailey Cummins MD; Luiza Dowd DO Supervisor Ste[facility] House: Signed 27-May-2015 Unilat Lt Diag Digital AND CAD Result: Comments: See Note; NOTES: [facility] Imaging Services [address] [place] [address] Verdana 4d Unilat Lt Diag Digital AND CAD MR#: [id number] Acct: [id number] Na me: TAMAR ROSA Rep #: [id number] : 1970 F 45 From: Dre Hoffman MD PCP: Luiza Dowd DO Status: REG CLI Study: Unilat Lt Diag Digital AND CAD Date of Exam: 05/27/15 Exam# [id number] [facility] Dr: Bailey Cummins MD MAMMOGRAPHY - UNILATERAL [...] 15:04 EDT Tel , Servi ce support [phone], CC: Bailey Cummins MD; Luiza Dowd DO Supervisor [facility]: Signed 27-May-2015 Unilat Lt Diag Digital AND CAD Result: Comments: See Note; NOTES: [facility] Imaging Services [address] [place] [address] Verdana 4d Unilat Lt Diag Digital AND CAD MR#: [id number] Acct: [id number] Na me: TAMAR ROSA Rep #: [id number] : 1970 F 45 From: Dre Hoffman MD PCP: Luiza Dowd DO Status: REG CLI Study: Unilat Lt Diag Digital AND CAD Date of Exam: 05/27/15 Exam# [id number] O ering Dr: Bailey Cummins MD MAMMOGRAPHY [...] 15:04 EDT Tel , Servi ce support [phone], CC: Bailey Cummins MD; Luiza Dowd DO Supervisor [facility] House: Signed 27-May-2015 Unilat Lt Diag Digital AND CAD Result: Comments: See Note; NOTES: [facility] Imaging Services [address] [place] [address] Verdana 4d Unilat Lt Diag Digital AND CAD MR#: [id number] Acct: [id number] Na me: TAMAR ROSA Rep #: [id number] : 1970 F 45 From: Dre Hoffman MD PCP: Luiza Dowd DO Status: REG CLI Study: Unilat Lt Diag Digital AND CAD Date of Exam: 05/27/15 Exam# [id number] O [facility] Dr: Bailey Cummins MD MAMMOGRAPHY - UNILATERAL [...] 15:04 EDT Tel , Servi ce support [phone], CC: Bailey Cummins MD; Luiza Dowd DO Supervisor Steffen House: Signed 21-May-2015 Bilat Scrn Digital AND CAD Result: Comments: See Note; NOTES: [facility] Imaging Services [address] [place] [address] Verdana 4d Bilat Scrn Digital AND CAD MR#: [id number] Acct: [id number] Name: TAMAR ROSA Rep #: [id number] : 1970 F 45 From: Dre Hoffman MD PCP: Luiza Dowd DO Status: REG CLI Study: [place] Digital AND CAD Date of Exam: 05/21/15 Exam# [id number] Ordering Dr: Bailey Cummins MD MAMMOGRAPHY - [...] at 14:42 EDT Tel , Service support [phone], CC: Bailey Cummins MD; Luiza Dowd DO Supervisor Ste[facility] House: Signed 02-Sep-2014 Inital Evaluation - PT Result: Comments: See Note; NOTES: [facility] [address] [place] [address] Fax REHABILITATION SERVICES INITIAL EVALUATION MR#: [id number] Acct: [id number] Name: TAMAR ROSA Rep #: [id number] : 1970 44 From: Carmelita Tucker Referring Dr.: Luiza Dowd DO Status: REG RCR Insurance: [facility] Eval Date: DATE OF SERVICE: 08/26/2014 REFERRING PHYSICIAN: Dr. Dowd. 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 She was referred to [facility] facility for massotherapy evaluation by Dr. Dowd [...] back. Carmelita Tucker LMT T: YAW JOB: [id number] <Electronically signed by Carmelita Tucker > 09/02/14 1307 CC: DD: Signed For Medicare only, by signing this I certify the plan of care. Physicians Signature Date 20-May-2014 [place] Digital & CAD Result: Comments: See Note; NOTES: [facility] Imaging Services [address] [place] [address] Breast Imaging Report MR#: [id number] Acct: [id number] Name: TAMAR ROSA Rep #: [id number] : 1970 F 44 From: Dontae Durbin PCP: Luiza Dowd DO Status: REG CLI Exam# [id number] Ordering Dr: Bailey Cummins MD MAMMOGRAPHY - [...] at 20:20 EDT Tel , Service support [phone], CC: Bailey Cummins MD; Luiza Dowd DO Supervisor Steffen House: Signed 20-Feb-2014 Spirometry ([id number]) Result: 05-Aug-2013 PT Discharge Summary Result: Comments: See Note; NOTES: [facility] Physical Therapy [address] [place] [address] Fax REHABILITATION SERVICES DISCHARGE SUMMARY MR#: [id number] Acct: [id number] Name: TAMAR ROSA Rep #: [id number] : 1970 43 From: Lori Christopher Referring Dr.: Luiza Dowd DO Status: DIS [...] the patient from our care at the [facility] facility. Carmelita Christopher, BENI T: NTS JOB: [id number] <Electronically signed by Lori Christopher &#62 ; 08/05/13 0736 CC: * Signed Family History Unknown Family Member Name Dates Details Breast Cancer Comments: Mother 308 Status: Active Social History Name Dates Details No Drug Use Status: Active Non Drinker/No Alcohol Use Status: Active Non Smoker/No Tobacco Use Status: Active Tobacco use: Never smoker. Status: Active Smoking Status Name Dates Details Never smoker Vital Signs Date Test Result Details 0-Aiu-019463:07 Temperature 96.8 f Pulse 70 /min Comments: [...] kg/m2 Body Surface Area Calculated 2.15 m2 37-Vuy-953160:23 Pulse 72 /min Comments: Pattern: Regular Respiration [...] kg/m2 Body Surface Area Calculated 2.16 m2 32-Aku-021838:15 Temperature 97.1 f Comments: Method: Oral Pulse [...] kg/m2 Body Surface Area Calculated 2.16 m2 76-Mrk-343535:16 Pulse 76 /min Comments: Pattern: Regular O2 [...] Calculated 2.04 m2 Head Circumference 0.00 cm 56-Olm-591031:00 Pulse 60 /min Comments: Pattern: Regular Respiration [...] Calculated 2.04 m2 Head Circumference 0.00 cm : Temperature 97.4 f Comments: Method: Oral Pulse [...] Calculated 2.05 m2 Head Circumference 0.00 cm : Temperature 98.3 f Comments: Method: Oral Pulse [...] 0.00 cm Results Date Description Value Details :43 CBC W/Diff, Automated Comments: [facility] [address] [place], [place], [id number] Absolute Lymph 2.01 {X10_3/ul} (Normal) Range: 0.83-4.51 Absolute Neut 6.9 {X10_3/uL} (Normal) Range: 2.0-7.7 IM GRAN % 0.100 % (Normal) Range: 0.0-0.9 Comments: IG% - Immature Granulocytes (promyelocytes, myelocytes andmetamyelocytes) > 1% indicates that a LEFT SHIFT is Present. BASO% 0.4 % (Normal) Range: 0-1 EO% 1.3 % (Normal) Range: 0-5 MONO% 6.7 % (Normal) Range: 0-10 LY% 20.7 % (Normal) Range: 19-41 NEUT% 70.8 % (Abnormal) Range: 47-70 MPV 10.9 fL (Normal) Range: 6.2-12.0 PLT 333 K/mm3 (Normal) Range: 150-450 RDW SD 42.5 fL (Normal) Range: 35.1-43.9 RDW CV 13.7 % (Normal) Range: 11.6-14.6 MCHC 31.9 {g/gl} (Abnormal) Range: 32-36 MCH 27.6 pg (Normal) Range: 27.0-32.0 MCV 86.7 fL (Normal) Range: 81-99 HCT 38.6 % (Normal) Range: 37-47 HGB 12.3 g/dL (Normal) Range: 12.0-15.0 RBC 4.45 {M/mm3} (Normal) Range: 4.2-5.4 WBC 9.7 K/mm3 (Normal) Range: 4.4-11.0 9-Evq-359371:43 Comprehensive Metabolic Profil Comments: [facility] [address] [place], [address] GAP 8 (Normal) Range: 5-15 CO2 28.0 mmol/L (Normal) Range: 21.0-32.0 CL 106 mmol/L (Normal) Range: 98-107 K 4.1 mmol/L (Normal) Range: 3.5-5.1 NA 142 mmol/L (Normal) Range: 136-145 T BILI 0.20 mg/dL (Normal) Range: 0.20-1.00 ALT 24 U/L (Normal) Range: 13-56 ALK P 121 U/L (Abnormal) Range: 45-117 AST 15 U/L (Normal) Range: 15-37 CA 8.7 mg/dL (Normal) Range: 8.5-10.1 A/G 0.9 {RATIO} (Normal) Range: 0.9-2.4 GLOB 3.9 g/dL (Normal) Range: 2.2-4.2 ALB 3.6 g/dL (Normal) Range: 3.2-5.0 T PROT 7.5 g/dL (Normal) Range: 6.4-8.2 BUN/CRE 18.3 {RATIO} (Normal) Range: 10-20 EST GFR - AA 89 mL/min (Normal) Comments: GFR Calc EST GFR 74 mL/min (Normal) Comments: Non- GFR Calc CREAT,SERUM 0.87 mg/dL (Normal) Range: 0.55-1.02 Comments: The validity of the calculated GFR AND GFRAA in patients over70 years has not been determined. Clinical correlation isessential. BUN 16 mg/dL (Normal) Range: 7-18 GLU 98 mg/dL (Normal) Range: 74-106 Comments: Please note revised GLUCOSE reference range hbyktppwy43/02/2018. 0-Vdd-493999:43 Thyroid Stim Hormone (TSH) Comments: [facility] [address] [place], [address] TSH 3.56 {uIU/mL} (Normal) Range: 0.358-3.74 08-Zoz-45003:48 Basic Metabolic Profile (BMP) Comments: [facility] [address] [place], [address] GAP 9 (Normal) Range: 5-15 CO2 27.0 [...] A.D.A. criteria.Please note revised GLUCOSE reference range aaoluxnvn62/02/2018. 9-Dyr-839976:02 CBC, Employee Comments: [facility] [address] [place], [place], [id number] Absolute Lymph 1.64 {X10_3/ul} (Normal) Range: 0.83-4.51 [...] 4.2-5.4 WBC 7.1 K/mm3 (Normal) Range: 4.4-11.0 6-Qnr-534580:02 Employee Profile Comments: [facility] [address] [place], [place], [id number] LDH 148 U/L (Normal) Range: 84-246 VLDL [...] Comments: Please note revised GLUCOSE reference range obdxfsvsu42/02/2018. 7-Fcr-516964:02 Nicotine Urine Drug Screen Comments: [facility] [address] [place], [place], [id number] COT DRG SCREEN Negative (Normal) Comments: Cotinine [...] result, particularly whenpreliminary positive results are used. 6-Dfu-458164:02 Urinalysis, Employee Comments: [facility] [address] [place], [place], [id number] LEUK ESTERASE Negative /ul (Normal) OCCULT BLOOD-UR Negative /ul (Normal) NITRITE UR Negative (Normal) UROBILI Normal mg/dL (Normal) PROT DIPSTX Negative mg/dL (Normal) pH UR 7.0 (Normal) Range: 5.0 - 8.0 SP.GR. DIPSTX 1.010 (Normal) Range: 1.002-1.030 KETONE UR Negative mg/dL (Normal) BILIRUBIN URINE Negative mg/dL (Normal) GLUCOSE, UR Normal mg/dL (Normal) CLARITY Clear (Normal) COLOR Yellow (Normal) 40-Pkf-938240:15 Hep B Surface Antibodies EMP Comments: [facility] (refer to report for specific site)refer to report for address and phone number Hep B Oleg AB Reactive (Normal) Comments: Non Reactive: Inconsistent with immunity, less than 10 mIU/mL Reactive: Consistent with immunity, greater than 9.9 mIU/mL 88-Vye-391825:15 Hepatitis B Surface Ag Comments: [facility] (refer to report for specific site)refer to report for address and phone number HB SURF AG Negative (Normal) Comments: Performed at: - [facility] [address] [id number] Director: Alejo Andre PhD, Phone: [phone] 25-Jmi-309264:15 Hepatitis C Antibodies Comments: [facility] (refer to report for specific site)refer to report for address and phone number HEP C AB <0.1 {s/co_ratio} (Normal) Range: 0.0-0.9 Comments: Negative: < 0.8 Indeterminate: 0.8 - 0.9 Positive: > 0.9 The CDC recommends that a positive HCV antibody result be followed up with a HCV Nucleic Acid Amplification test (140063). 51-Led-232209:15 HIV - [facility] Non-Reactive (Normal) Comments: [facility] [address] [place] [address], [phone] 91-Tzn-766879:48 CBC-Complete Blood Cnt No Diff Comments: [facility] [address] [place], [place], [address] MPV 10.7 fL (Normal) Range: 6.2-12.0 PLT [...] (Normal) Range: 4.4-11.0 :07 HgA1C , Office (69972) HgA1C , Office 5.2 % (Normal) Range: 4.6 - 7.1 59-Inn-702528:32 CBC, Employee Comments: [facility] [address] [place], [place], [address] Absolute Lymph 1.64 {X10_3/ul} (Normal) Range: 0.83-4.51 [...] 4.2-5.4 WBC 7.9 K/mm3 (Normal) Range: 4.4-11.0 53-Exm-937133:32 Employee Profile Comments: [facility] [address] [place], [place], [id number] LDH 104 U/L (Normal) Range: 84-246 VLDL [...] 7-18 GLU 81 mg/dL (Normal) Range: 70-110 82-Zbq-356116:32 Microalb:Creat Ratio,Random UR Comments: [facility] [address] [facility] [place], [address] MALB:CREAT 4.0 {mg/g_CRE} (Normal) MICROALBUMIN,UR 10.7 mg/L (Normal) UR CREAT 265.00 mg/dL (Normal) :32 Nicotine Urine Drug Screen Comments: [address] [place], [place], [id number] COT DRG SCREEN Negative (Normal) Comments: Cotinine [...] result, particularly whenpreliminary positive results are used. :32 Thyroid Stim Hormone (TSH) Comments: [facility] [address] [place], [place], [id number] TSH 3.17 {uIU/mL} (Normal) Range: 0.358-3.74 :32 Urinalysis, Employee Comments: How was Urine Obtained? CLEAN [facility] [address] [facility] [address]. [place], [place], [id number] LEUK ESTERASE 25 /ul (Abnormal) OCCULT BLOOD-UR 10 /ul (Abnormal) NITRITE UR Negative (Normal) UROBILI Normal mg/dL (Normal) PROT DIPSTX Negative mg/dL (Normal) pH UR 5.0 (Normal) Range: 5.0 - 8.0 SP.GR. DIPSTX 1.020 (Normal) Range: 1.002-1.030 KETONE UR Negative mg/dL (Normal) BILIRUBIN URINE Negative mg/dL (Normal) GLUCOSE, UR Normal mg/dL (Normal) CLARITY Sl. Cloudy (Normal) COLOR Yellow (Normal) 40-Tkj-821877:03 URINE OLIVIA CULTURE-LORY COL Comments: PATIENT NOT FASTINGPERFORMED BY: [facility] [id number] [facility] [id number] Information: SRC:UR COUNT (16360) Antimicrobial MIHEAD (Normal) Comments: S = Susceptible; [...] mL (Abnormal) Urine Final report Culture,Comprehensive (Abnormal) 16-Jjt-966642:39 Urinalysis, Office (32647) UA - LEUKOCYTE ESTERASE Moderate (Abnormal) UA - NITRITE Negative (Normal) URINE UROBILINGN LORY TIMED Normal mg/dL (Normal) UA - PROTEIN 100 mg/dL (Normal) UA - PH 7.0 (Normal) UA - BLOOD ++ (Abnormal) UA - SPECIFIC GRAVITY 1.010 (Normal) UA - KETONES Negative mg/dL (Normal) UA - BILIRUBIN Negative (Normal) UA - GLUCOSE Negative (Normal) 03-Axc-295259:10 CBC, Employee Comments: [facility] [address] [place], [place], [id number] Absolute Lymph 1.56 {X10_3/ul} (Normal) Range: 0.83-4.51 [...] 4.2-5.4 WBC 6.4 K/mm3 (Normal) Range: 4.4-11.0 17-Znb-508011:10 Employee Profile Comments: [facility] [address] [place], [place], [address] LDH 130 U/L (Normal) Range: 84-246 VLDL [...] 7-18 GLU 76 mg/dL (Normal) Range: 70-110 16-Vsz-552183:10 Nicotine Urine Drug Screen Comments: [facility] [address] [place], [place], [address] COT DRG SCREEN Negative (Normal) Comments: Cotinine [...] result, particularly whenpreliminary positive results are used. 59-Gya-004552:10 Urinalysis, Employee Comments: [facility] [address] [place], [address] LEUK ESTERASE 25 /ul (Abnormal) OCCULT BLOOD-UR Negative /ul (Normal) NITRITE UR Negative (Normal) UROBILI Normal mg/dL (Normal) PROT DIPSTX Negative mg/dL (Normal) pH UR 6.0 (Normal) Range: 5.0 - 8.0 SP.GR. DIPSTX 1.015 (Normal) Range: 1.002-1.030 KETONE UR Negative mg/dL (Normal) BILIRUBIN URINE Negative mg/dL (Normal) GLUCOSE, UR Normal mg/dL (Normal) CLARITY Clear (Normal) COLOR Yellow (Normal) 9-Tzj-754561:13 CBC, Employee Comments: Test performed at:[facility] [address] [place], [place] [address] Absolute Lymph 1.37 {X10_3/ul} (Normal) Range: 0.83-4.51 [...] 4.2-5.4 WBC 6.2 K/mm3 (Normal) Range: 4.4-11.0 3-Gac-421190:13 Employee Profile Comments: Test performed at:[facility] [address] [place], [place] [address] ; ordered by ina stoll LDH 111 [...] 7-18 GLU 78 mg/dL (Normal) Range: 70-110 2-Izw-968503:13 Urinalysis, Employee Comments: Test performed at:[facility] [address]izz[address] [place], [place] [id number] LEUK ESTERASE Negative /ul (Normal) OCCULT BLOOD-UR Negative /ul (Normal) NITRITE UR Negative (Normal) UROBILI Normal mg/dL (Normal) PROT DIPSTX Negative mg/dL (Normal) pH UR 6.0 (Normal) Range: 5.0 - 8.0 SP.GR. DIPSTX 1.015 (Normal) Range: 1.002-1.030 KETONE UR Negative mg/dL (Normal) BILIRUBIN URINE Negative mg/dL (Normal) GLUCOSE, UR Normal mg/dL (Normal) CLARITY Clear (Normal) COLOR Yellow (Normal) 5-Auv-558538:05 PAPIG5 Comments: CYTOLOGY INFORMATION:- CLINICAL INFORMATION:- DATE LMP/MENOPAUSE: ABLATION 2011- COLLECTION VIAL: Thin Prep Vial- PROFESSIONAL PROGRAMMER ANALYST SOURCE: CERVICAL/ENDOCERVICAL- COLLECTION TECHNIQUE: BRUSH/SPATULASpecimen Comment: [id number] Comment: No. of containers..01 CYTYC Thin Prep Vial tHPVRFLX Comment (Normal) Comments: The HPV DNA reflex criteria were not met with this specimenresult therefore, no HPV testing was performed.Performed at: [address] [place] [id number] Director: Yassine Mathews MD, Phone: [phone] [facility] Comment (Normal) Comments: The Pap [...] system. tPERFORM Comment (Normal) Comments: Ariana Victoria, Military Technician (ASCP) tADEQ Comment (Normal) Comments: Satisfactory for [...] CHOL 150 mg/dL (Normal) Comments: <200 mg/dL Dslyukwxu102-510 mg/dL Borderline>240 mg/dL High Risk BID 0.08 [...] 7-18 GLU 75 mg/dL (Normal) Range: 70-110 :32 UAEM EILEEN Negative /ul (Normal) CLEOPATRA Negative (Normal) UOB Negative /ul (Normal) uPROTU Negative mg/dL (Normal) UROBU Normal mg/dL (Normal) RANDA 6.0 (Normal) Range: 5.0 - 8.0 KETU Negative mg/dL (Normal) SGU 1.010 (Normal) Range: 1.002-1.030 BILIU Negative mg/dL (Normal) GLUR Normal mg/dL (Normal) UCLAR Clear (Normal) UCOL Yellow (Normal) 1-Pom-239211:44 Rapid Strep Test, Office (05971) Comments: positive Rapid Strep Test, Office Positive (Normal) 17-Lgd-95555:40 LQDPAP [id number] Comments: CYTOLOGY INFORMATION:- CLINICAL INFORMATION:- DATE LMP/MENOPAUSE: 271227 LMP- COLLECTION VIAL: Thin Prep Vial- PROFESSIONAL PROGRAMMER ANALYST SOURCE: CERVICAL/ENDOCERVICAL- COLLECTION TECHNIQUE: BRUSH/SPATULA COMM . [...] no HPV testing was performed..Performe d at: [facility] - [facility] [id number] Director: Trevor Mathews MD DIAGN Comment (Normal) Comments: NEGATIVE FOR INTRAEPITHELIAL LESION AND MALIGNANCY.Satisfactory for evaluation. Endocervical and/or squamous metaplasticcells (endocervical component) are present.Catina Hill, Military Technician (ASCP)T his liquid based ThinPrep(R) pap test was screened withthe use of an image guided system. :09 TSH (45283) Comments: PATIENT NOT FASTINGClinical Information: [id number] PERFORMED BY: [facility] [place] [id number] [facility] [id number] TSH 2.700 {uIU/mL} (Normal) Range: 0.450-4.500 :32 CBC, EMPLOYEE HCT 39.6 % (Normal) Range: [...] for patient's is the eGFRmultiplied by 1.212. [facility] Laboratory uses the abbreviated Modification of [...] Disease W/O Kidney Disease>/= 90 Stage One Citiaq23 - 89 Stage Two Suspect Decreased GFR30 [...] 2.6-6.0 VLDL 26 mg/dL (Normal) Range: 5-40 13-Rvu-82300:32 EMP URINALYSIS BILIRUBIN URINE SeeNote (Normal) Comments: [...] Very High > or = 500 mg/dL 22-Bpt-974398:45 Upper Respiratory Culture Comments: Clinical Information: SRC:TH PERFORMED BY: [facility]99 [facility] [id number] Result 1 BETAGA (Normal) Comments: Beta hemolytic [...] report (Normal) :31 Rapid Strep Test, Office (41719) Rapid Strep Test, Office Negative (Normal) :22 [...] 2.6-6.0 VLDL 38 mg/dL (Normal) Range: 5-40 :22 EMP URINALYSIS BILIRUBIN URINE SeeNote (Normal) Comments: [...] Hypertension Planned Observations CBC W/AUTO DIFF WBC (15490)Indication: Benign essential hypertension On: :24 Request METABOLIC PANEL, COMPREHENSIVE (09134)Indication: Palpitations On: 4-Giy-184804:22 Request TSH (94792)Indication: Palpitations On: 7-Cpa-936292:22 Request MICROALBUMIN: CREATININE RATIO (61503) AND (13585)Indication: Benign essential hypertension On: 46-Vnw-912847:53 Request TSH (THYROID STIMULATING HORMONE) (25691)Indication: Arrhythmia On: 26-Cfp-302459:52 Request Sputum Culture (84235)Indication: Cough On: 32-Zko-03983:53 Request OLIVIA CULTURE-OTHER (00074)Indication: Sore throat On: 1-Lfr-800772:43 Request OLIVIA CULTURE-OTHER (88178)Indication: Throat pain On: 68-Neh-10618:31 Request Comments: throat cx Triglycerides (73911)Indication: Hyperglyceridemia On: 95-Dvg-053101:00 Request HDL Cholesterol-Direct (30669)Indication: Low HDL (under 40) On: 72-Ywn-750839:00 Request Planned Encounters Medical; 1 Week FU - On: 22-Jul-2018 9:00 [facility] Abeba Holt Planned Procedures APPLICATION OF 24 HOUR HOLTER On: 09-Jul-2018 Intent MONITOR (68215)By: Abeba Holt EXERCISE STRESS TEST (11653)By: On: 08-Jul-2018 Intent Abeba Holt Holter Moniter (19811)By: Jonathon, On: 08-Jul-2018 Intent Abeba Comments: 24 Hour EKG (85682)By: Abeba Holt On: 08-Jul-2018 Intent Comments: Sinus Rhythm- HR 68 PFT - CompleteBy: Zuleyma Vegas CNP On: 24-Nov-2016 Intent Spirometry (63131)By: Shasta PHILLIPS, On: 24-Nov-2016 Intent Zuleyma Tamayo Comments: normal Aerosol Treatment (89070)By: Shasta On: 24-Nov-2016 Intent Zuleyma PHILLIPS ELECTROCARDIOGRAM, COMPLETE (ECG) On: 07-Nov-2016 Intent (10095)By: Luiza Dowd DO Comments: nsr no acute chg Luiza Dowd DO COMP EYE EXAMINATION, ESTAB PATIENT On: 21-Jun-2016 Intent (14053)By: Zuleyma Vegas CNP EKG (90787)By: Luiza Dowd DO On: 26-Mar-2015 Intent Luiza Dowd DO Comments: nsr no acute chg Solu -Medrol Injection, 125 mg On: 04-Aug-2013 Intent (J2930)By: Zuleyma Vegas CNP Comments: Lot: [id number]: 12/2015Amt: 125mgRoute: IMSite: RUOQ GlutealGiven by: CINDY Kerr Aerosol Treatment (86591)By: Shasta On: 04-Aug-2013 Intent Zuleyma PHILLIPS Eprescribed prescriptions On: 04-Aug-2013 Intent (G8553)By: Zuleyma Vegas CNP EKG (05140)By: Luiza Dowd DO On: 14-Aug-2011 Intent Luiza Dowd DO Comments: no acute chg nsr - good Aerosol Treatment (72329)By: Shasta On: 27-Jun-2011 Intent Zuleyma PHILLIPS EKG (06229)By: Abeba Holley On: 14-Oct-2009 Intent CINDY Comments: nsr no acute changes Echo CompleteBy: Noemí FOSS, On: 22-Jun-2009 Intent Luiza Marinelli DO Holter Moniter (24137)By: Noemí On: 22-Jun-2009 Intent Luiza FOSS DO, Kathleen Comments: 48 hour EKG (72366)By: Luiza Dowd DO On: 22-Jun-2009 Intent Luiza Dowd DO Comments: nsr no acute changesno pvc EKG (18742)By: Luiza Dowd DO On: 30-Sep-2008 Intent Luiza Dowd DO Comments: stable EKG (74406)By: Luiza Dowd DO On: 30-Sep-2007 Intent Luiza Dowd DO Comments: done-awnsr noacute ischemic changes Aerosol Treatment (14152)By: Shasta On: 11-Jul-2007 Intent Zuleyma PHILLIPS COMP EYE EXAMINATION, ESTAB PATIENT On: 10-Jun-2007 Intent (58199)By: Sena Lester LPN Comments: VA Crx- 20/30 OD 20/40 OS 20/25 OU EKG (05185)By: Luiza Dowd DO On: 14-Sep-2006 Intent Luiza [...] Patient Instructions Indication: Bronchitis with bronchospasm Encounters Annotation/Addendum On: 09-Jul-2018 13:32 Encounter Diagnosis: Palpitations End: 09-Jul-2018 13:36 [facility] Office Visit On: 08-Jul-2018 14:07 Encounter Reason: [...] blood pressure. ??Heart palpitations were more frequent. [place] them more frequentl y and didn't feel [...] changes. He gave her eye d rops. Jennifer. New contacts today. Still with dry cloudy [...] tension (307.81) [facility] RehabilitationTamar Rosa; a guarantor
--- OUTSIDE RECORDS SUMMARY | 2018-08-30 03:26 | XMS RPT_ITS | Continuity of Care Document ---
:1970 Author Organization [facility] Address [address] [place] [address] Phone Care Team Providers Name Role Phone [...] Quantity: 1 {Ointment} Refills: 0 Ordered:10-Jun-2007 Sena Lesetr LPN Start : 10-Jun-2007 End : 11-Jul-2007 [...] Quantity: 20 {Capsule} Refills: 0 Ordered:21-Jun-2016 Elaine MANAGER ALLIANCEDarian Matiasa Start : 18-May-2016 End : 21-Jun-2016 Discontinued ProAir HFA 108 (90 Base) MCG/ACT Inhalation Aerosol Solution 2 (two) Puff tid prn for 0 days Quantity: 1 {Inhaler} Refills: 3 Ordered:19-Dec-2016 Slarb MANAGER ALLIANCEDariana Start : 24-Nov-2016 End : 19-Dec-2016 Discontinued [...] Lead Electrocardiogram Result: Comments: See Note; NOTES: [facility] Cardiovascular Services [address] [place] [address] 12 Lead EKG 07/05/18 0831 MR#: [id number] Acct: [id number] Name: TAMAR ROSA Rep #: [id number] : 1970 48 From: Corona Moore MD Attending Dr: Status: DEP ER Ordering Dr: Ubaldo Owens MD Date: 07/05/18 Location: ED Sex: F [...] normal ECG Confirmed by [employer], CORONA ([id number]), desk editor DEBBY GUTIRÉREZ ([id number]) on 07/09/2018 3:39:04 PM Referred By: Confirmed By:CORONA MOORE MD 07/09/18 1539 Date ____ Corona Moore MD CC: Luiza Dowd DO; Ubaldo Owens MD Signed 05-Jul-2018 Emergency Department Summary Result: Comments: See Note; NOTES: [facility] Medical Records Department [address] [place] [address] Emergency Department Summary 07/05/18 1012 MR#: [id number] Acct: [id number] Name: TAMAR ROSA Rep #: [id number] : 1970 48 From: Ubaldo Owens MD [...] rhythm with occasional premature ventricular complexes noted. SD interval, QRS duration, QT interval and axis [...] Anxiousness self-reported This note was generated with Remitly dictation software. It may contain incorrect words, [...] pain, or any unexpected problems, contact your [facility] Care Provider. Call [facility] ([phone]) or report to the closest Emergency Room. Call 911 if necessary. 07/05/18 1017 <Electronically signed by Ubaldo Owens MD> Date ____ Ubaldo Owens MD Cosigner Signature (If Indicated): Date CC: Luiza Dowd DO 07-Nov-2017 SCREENING MAMM (CAD), BILAT Result: Comments: See Note; NOTES: [facility] Imaging Services [address] [place] [address] SCREENING MAMM (CAD), BILAT MR#: [id number] Acct: [id number] Name: TAMAR ROSA Frida Rep #: [id number] : 1970 F 47 From: Anil Davison MD PCP: Luiza Dowd DO Status: REG CLI Study: SCREENING MAMM (CAD), BILAT Date of Exam: 11/07/17 Exam# [id number] Ordering Dr: Bailey Cummins MD MAMMOGRAPHY - [...] delay biopsy of a clinically suspicious abnormality. [id number] Electronically Signed: Anil Davison MD at 9:08 EDT Tel [phone], Service support , CC: Bailey Cummins MD; Luiza Dowd DO Client Services Representative: Signed 04-Sep-2017 Massage Therapy Evaluation Result: Comments: See Note; NOTES: [facility] 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 She was referred [...] Discharge Instruction Result: Comments: See Note; NOTES: [facility] Medical Records Department [address] [place] [address] Discharge Instruction 09/03/172034 MR#: [id number] Acct: [id number] Name: Merline ROSA Rep #: [id number] : 1970 47 From: Lance Gutiérrez DO [...] your Primary Care Provider. Call [facility] ([phone]) or report to the closest Emergency Room. Call 911 if necessa ry. 09/03/172036 <Electronically signed by Lance Gutiérrez DO> Date Lance Gutiérrez DO Cosigner Signature (If Indicated): Date CC: Luiza Dowd DO 03-Sep-2017 Emergency Department Summary Result: Comments: See Note; NOTES: [facility] Medical Records Department [address] [place] [address] Emergency Department Summary 09/03/172031 MR#: [id number] Acct: [id number] Name: TAMAR ROSA Rep #: [id number] : 1970 47 From: Lance Gutiérrez DO [...] healthcare worker] This note was generated with Remitly dictation software. It may contain incorrect words, [...] unexpected problems, contact your Primary Care Provider. [facility] Doctors Registry ([phone]) or report to the closest Emergency Room. Call 911 if necessary. 09/03/172034 <Electronically signed by Lance Gutiérrez DO> Date Lance Gutiérrez DO Cosigner Signature (If Indicated): Date CC: Luiza Dowd DO 23-Jul-2017 Discharge Summary Result: Comments: See Note; NOTES: [facility] Medical Records Department [address] [place] [address] Discharge Summary 07/19/17 1117 MR#: [id number] Acct: [id number] Name: TAMAR ROSA Rep #: [id number] : 1970 47 From: Carmelita Tucker PCP: [...] the patient from our care at the [facility]. 07/23/17 1049 <Electronically signed by Carmelita Tucker > Date Carmelita maxwell Cosigner Signature (if applicable): Date CC: Carmelita Tucker; Luiza Dowd DO Signed 14-Dec-2016 Pulmonary Function Report Comp Result: Comments: See Note; NOTES: [facility] Pulmonary Services/Neurology [address] [place] [address] Pulmonary Function Test (Comp) MR#: [id number] Acct: [id number] Name: LUIS ALBERTO ROSA Rep #: [id number] : 1970 46 From: Lauro Calderon DO Referring Dr: Zuleyma Vegas Status: REG CLI Ordering Dr: Zuleyma Vegas Date: 12/12/16 Location: [facility] Sex: F C DATE OF SERVICE: 12/12/2016 [...] [place] C: Referring Provider T: YAW JOB: [id number] 12/14/16 0829 <Electronically signed by Lauro Calderon DO> Date Lauro Calderon DO CC: Zuleyma Vegas; Lauro Calderon D.O.; Luiza Dowd DO Date Dictated: 12/13/1647 Date Transcribed: 12/13/16846 Client Services Representative: Signed 31-Aug-2016 SCREENING MAMM (CAD), BILAT Result: Comments: See Note; NOTES: [facility] Imaging Services [address] [place] [address] Verdana 4d SCREENING MAMM (CAD), BILAT MR#: [id number] Acct: [id number] Name: TAMAR ROSA Rep #: [id number] : 1970 F 46 From: Anil Davison MD PCP: Luiza Dowd DO Status: [facility] CLI Study: SCREENING MAMM (CAD), BILAT Date of Exam: 08/31/16 Exam# [id number] Ordering Dr: Bailey Barrientos MD MAMMOGRAPHY - BILATERAL SCREENING REASON FOR EXAM: Female, 46 years old. Routine annual screening examination. PERTINENT HISTORY: Mother with breast cancer. TECHNIQUE: Digital bilateral breast melinad (3D mammographic acquisition) in the CC and MLO projections. 2-D mediolateral oblique (MLO) and craniocaudad (CC) views of both breasts were obtained. CAD: Full Field Digital Mammography wi th Computer Added Detection was performed. COMPARISON: Comparison is made with prior examination dated May 21, 2015 and May 20, 2014. FINDINGS: Breast [place] sition: The breasts are heterogeneously dense, which [...] delay biopsy of a clinically suspicious abnormality. [id number] Electronically Signed: Carlos Davison MD at 10:16 EST Tel [phone], Service support [phone], CC: Bailey Cummins MD; Luiza Dowd DO Client Services Representative: Signed 03-Sep-2015 Inital Evaluation - PT Result: Comments: See Note; NOTES: [facility] [address] [place] [address]. 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 Elayne Kauffman LMT T: YAW JOB: [id number] <Electronic ally signed by Elayne Kauffman > 09/03/15 1032 CC: Signed For Medicare only, by signing this I certify the plan of care. Physicians Signature Date 05-Aug-2015 PT Discharge Summary Result: Comments: See Note; NOTES: [facility] [address] [place] [address] Fax REHABILITATION SE RVICES DISCHARGE SUMMARY MR#: [id number] Acct: [id number] Name: TAMAR ROSA Rep #: [id number] : 1970 45 From: Carmelita Tucker Referring [...] from our care at the [facility] facility. Carmelita Tucker LMT T: NTS JOB: [id number] <Electronically signed by Carmelita Tucker > 0739 CC: Luiza Dowd DO Signed 27-May-2015 Breast Limited Unilateral Result: Comments: See Note; NOTES: [facility] Imaging Services [address] [place] [address] Verdana 4d Breast Limited Unilateral MR#: [id number] Acct: [id number] Name: TAMAR DAVIS Rep #: [id number] : 1970 F 45 From: Anil Davison MD PCP: Luiza Dowd DO Status: REG CLI Study: Breast Limited Unilateral Date of Exam: 05/27/15 Exam# [id number] Jose Manuel hilton Dr: Bailey Cummins MD [...] Anil Davison MD at 15:03 EST Tel [phone], Service support [phone], CC: Bailey Cummins MD; Luiza Dowd DO Client Services Representative: Signed 27-May-2015 Unilat Lt Diag Digital AND CAD Result: Comments: See Note; NOTES: [facility] Imaging Services [address] [place] [address] Verdana 4d Unilat Lt Diag Digital AND CAD MR#: [id number] Acct: [id number] Na me: TAMAR ROSA Rep #: [id number] : 1970 F 45 From: Dre Hoffman MD PCP: Luiza Dowd DO Status: REG CLI Study: Unilat Lt Diag Digital AND CAD Date of Exam: 05/27/15 Exam# [id number] O rdering Dr: Bailey Cummins MD MAMMOGRAPHY [...] 15:04 EDT Tel , Servi ce support [phone], CC: Bailey Cummins MD; Luiza Dowd DO Client Services Representative: Signed 27-May-2015 Unilat Lt Diag Digital AND CAD Result: Comments: See Note; NOTES: [facility] Imaging Services [address] [place] [address] Verdana 4d Unilat Lt Diag Digital AND CAD MR#: [id number] Acct: [id number] Na me: TAMAR ROSA Rep #: [id number] : 1970 F 45 From: Dre Hoffman MD PCP: Luiza Dowd DO Status: REG CLI Study: Unilat Lt Diag Digital AND CAD Date of Exam: 05/27/15 Exam# [id number] O rdering Dr: Bailey Cummins MD MAMMOGRAPHY [...] 15:04 EDT Tel , Servi ce support [phone], CC: Bailey Cummins MD; Luiza Dowd DO Client Services Representative: Signed 27-May-2015 Unilat Lt Diag Digital AND CAD Result: Comments: See Note; NOTES: [facility] Imaging Services [address] [place] [address] Verdana 4d Unilat Lt Diag Digital AND CAD MR#: [id number] Acct: [id number] Na me: TAMAR ROSA Rep #: [id number] : 1970 F 45 From: Dre Hoffman MD PCP: Luiza Dowd DO Status: REG CLI Study: Unilat Lt Diag Digital AND CAD Date of Exam: 05/27/15 Exam# [id number] [facility] Dr: Bailey Cummins MD MAMMOGRAPHY - [...] 15:04 EDT Tel , Servi ce support [phone], CC: Bailey Cummins MD; Luiza Dowd DO Client Services Representative: Signed 27-May-2015 Unilat Lt Diag Digital AND CAD Result: Comments: See Note; NOTES: [facility] Imaging Services [address] [place] [address] Verdana 4d Unilat Lt Diag Digital AND CAD MR#: [id number] Acct: [id number] Na me: TAMAR ROSA Rep #: [id number] : 1970 F 45 From: Dre Hoffman MD PCP: Luiza Dowd DO Status: REG CLI Study: Unilat Lt Diag Digital AND CAD Date of Exam: 05/27/15 Exam# [id number] O ering Dr: Bailey Cummins MD MAMMOGRAPHY [...] 15:04 EDT Tel , Servi ce support [phone], CC: Bailey Cummins MD; Luiza Dowd DO Client Services Representative: Signed 27-May-2015 Unilat Lt Diag Digital AND CAD Result: Comments: See Note; NOTES: [facility] Imaging Services [address] [place] [address] Verdana 4d Unilat Lt Diag Digital AND CAD MR#: [id number] Acct: [id number] Na me: TAMAR ROSA Rep #: [id number] : 1970 F 45 From: Dre Hoffman MD PCP: Luiza Dowd DO Status: REG CLI Study: Unilat Lt Diag Digital AND CAD Date of Exam: 05/27/15 Exam# [id number] O [facility] Dr: Bailey Cummins MD MAMMOGRAPHY - [...] 15:04 EDT Tel , Servi ce support [phone], CC: Bailey Cummins MD; Luiza Dowd DO Client Services Representative: Signed 21-May-2015 Bilat Scrn Digital AND CAD Result: Comments: See Note; NOTES: [facility] Imaging Services [address] [place] [address] Verdana 4d Bilat Scrn Digital AND CAD MR#: [id number] Acct: [id number] Name: TAMAR ROSA Rep #: [id number] : 1970 F 45 From: Dre Hoffman MD PCP: Luiza Dowd DO Status: REG CLI Study: [place] Digital AND CAD Date of Exam: 05/21/15 Exam# [id number] Ordering Dr: Bailey Cummins MD MAMMOGRAPHY - [...] at 14:42 EDT Tel , Service support [phone], CC: Bailey Cummins MD; Luiza Dowd DO Client Services Representative: Signed 02-Sep-2014 Inital Evaluation - PT Result: Comments: See Note; NOTES: [facility] [address] [place] [address] Fax REHABILITATION SERVICES INITIAL EVALUATION MR#: [id number] Acct: [id number] Name: TAMAR ROSA Rep #: [id number] : 1970 44 From: Carmelita Tucker Referring Dr.: Luiza Dowd DO Status: REG RCR Insurance: [facility] Eval Date: DATE OF SERVICE: 08/26/2014 REFERRING PHYSICIAN: Dr. Dowd. 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 She was referred to [facility] facility for massotherapy evaluation by Dr. Dowd [...] back. Carmelita Tucker LMT T: YAW JOB: [id number] <Electronically signed by Carmelita Tucker > 09/02/14 1307 CC: DD: Signed For Medicare only, by signing this I certify the plan of care. Physicians Signature Date 20-May-2014 [place] Digital & CAD Result: Comments: See Note; NOTES: [facility] Imaging Services [address] [place] [address] Breast Imaging Report MR#: [id number] Acct: [id number] Name: TAMAR ROSA Rep #: [id number] : 1970 F 44 From: Dontae Durbin PCP: Luiza Dowd DO Status: REG CLI Exam# [id number] Ordering Dr: Bailey Cummins MD MAMMOGRAPHY - [...] at 20:20 EDT Tel , Service support [phone], CC: Bailey Cummins MD; Luiza Dowd DO Client Services Representative: Signed 20-Feb-2014 Spirometry (61123) Result: 05-Aug-2013 PT Discharge Summary Result: Comments: See Note; NOTES: [facility] [address] [place] [address] Fax REHABILITATION SERVICES DISCHARGE SUMMARY MR#: [id number] Acct: [id number] Name: TAMAR ROSA Rep #: [id number] : 1970 43 From: Lori Christopher Referring [...] from our care at the [facility] facility. Carmelita Christopher, BENI T: NTS JOB: [id number] <Electronically signed by Lori Christopher &#62 ; [...] smoker Vital Signs Date Test Result Details 1-Wbf-538391:07 Temperature 96.8 f Pulse 70 /min Comments: [...] kg/m2 Body Surface Area Calculated 2.15 m2 38-Lzm-334407:23 Pulse 72 /min Comments: Pattern: Regular Respiration [...] kg/m2 Body Surface Area Calculated 2.16 m2 49-Jxa-346261:15 Temperature 97.1 f Comments: Method: Oral Pulse [...] kg/m2 Body Surface Area Calculated 2.16 m2 92-Qtr-435439:16 Pulse 76 /min Comments: Pattern: Regular O2 [...] Calculated 2.04 m2 Head Circumference 0.00 cm 74-Dup-448762:00 Pulse 60 /min Comments: Pattern: Regular Respiration [...] Value Details :43 CBC W/Diff, Automated Comments: [facility] [address] [place], [place], [address] Absolute Lymph 2.01 {X10_3/ul} (Normal) Range: 0.83-4.51 [...] 4.2-5.4 WBC 9.7 K/mm3 (Normal) Range: 4.4-11.0 6-Pxe-207148:43 Comprehensive Metabolic Profil Comments: [facility] [address] [place], [address] GAP 8 (Normal) Range: 5-15 CO2 28.0 [...] Comments: Please note revised GLUCOSE reference range wdjmlazie20/02/2018. 9-Bvz-002812:43 Thyroid Stim Hormone (TSH) Comments: [facility] [address] [place], [address] TSH 3.56 {uIU/mL} (Normal) Range: 0.358-3.74 88-Vxd-96956:48 Basic Metabolic Profile (BMP) Comments: [facility] [address] [place], [address] GAP 9 (Normal) Range: 5-15 CO2 27.0 [...] A.D.A. criteria.Please note revised GLUCOSE reference range /02/2018. 7-Bes-063038:02 CBC, Employee Comments: [facility] [address] [place], [place], [address] Absolute Lymph 1.64 {X10_3/ul} (Normal) Range: 0.83-4.51 [...] 4.2-5.4 WBC 7.1 K/mm3 (Normal) Range: 4.4-11.0 4-Jab-578482:02 Employee Profile Comments: [facility] [address] [place], [place], [address] LDH 148 U/L (Normal) Range: 84-246 VLDL [...] Comments: Please note revised GLUCOSE reference range rstbmqzzu17/02/2018. 2-Scy-186283:02 Nicotine Urine Drug Screen Comments: [facility] [address] [place], [place], [address] COT DRG SCREEN Negative (Normal) Comments: Cotinine [...] result, particularly whenpreliminary positive results are used. 4-Fjh-167665:02 Urinalysis, Employee Comments: [facility] [address] [place], [place], [address] LEUK ESTERASE Negative /ul (Normal) OCCULT BLOOD-UR Negative /ul (Normal) NITRITE UR Negative (Normal) UROBILI Normal mg/dL (Normal) PROT DIPSTX Negative mg/dL (Normal) pH UR 7.0 (Normal) Range: 5.0 - 8.0 SP.GR. DIPSTX 1.010 (Normal) Range: 1.002-1.030 KETONE UR Negative mg/dL (Normal) BILIRUBIN URINE Negative mg/dL (Normal) GLUCOSE, UR Normal mg/dL (Normal) CLARITY Clear (Normal) COLOR Yellow (Normal) 16-Wzb-575880:15 Hep B Surface Antibodies EMP Comments: [facility] (refer to report for specific site)refer to report for address and phone number Hep B Oleg AB Reactive (Normal) Comments: Non Reactive: Inconsistent with immunity, less than 10 mIU/mL Reactive: Consistent with immunity, greater than 9.9 mIU/mL 95-Ons-215799:15 Hepatitis B Surface Ag Comments: [facility] (refer to report for specific site)refer to report for address and phone number HB SURF AG Negative (Normal) Comments: Performed at: - [facility] [address] [id number] Director: Alejo Andre PhD, Phone: [phone] 79-Pkb-367304:15 Hepatitis C Antibodies Comments: [facility] (refer to report for specific site)refer to report for address and phone number HEP C AB <0.1 {s/co_ratio} (Normal) Range: 0.0-0.9 Comments: Negative: < 0.8 Indeterminate: 0.8 - 0.9 Positive: > 0.9 The CDC recommends that a positive HCV antibody result be followed up with a HCV Nucleic Acid Amplification test (706908). 83-Sla-934577:15 HIV - [facility] Non-Reactive (Normal) Comments: [facility] [address] [place] [address], [id number] 76-Otp-579073:48 CBC-Complete Blood Cnt No Diff Comments: [facility] [address] [place], [place], [address] MPV 10.7 fL (Normal) Range: 6.2-12.0 PLT [...] (Normal) Range: 4.4-11.0 :07 HgA1C , Office (02216) HgA1C , Office 5.2 % (Normal) Range: 4.6 - 7.1 72-Cmw-929926:32 CBC, Employee Comments: [facility] [address] [place], [place], [address] Absolute Lymph 1.64 {X10_3/ul} (Normal) Range: 0.83-4.51 [...] 4.2-5.4 WBC 7.9 K/mm3 (Normal) Range: 4.4-11.0 00-Bgp-579809:32 Employee Profile Comments: [facility] [address] [place], [place], [address] LDH 104 U/L (Normal) Range: 84-246 VLDL [...] 7-18 GLU 81 mg/dL (Normal) Range: 70-110 78-Zqh-650424:32 Microalb:Creat Ratio,Random UR Comments: [facility] [address] [facility] [place], [address] MALB:CREAT 4.0 {mg/g_CRE} (Normal) MICROALBUMIN,UR 10.7 mg/L (Normal) UR CREAT 265.00 mg/dL (Normal) :32 Nicotine Urine Drug Screen Comments: [address] [place], [place], [address] COT DRG SCREEN Negative (Normal) Comments: Cotinine [...] used. :32 Thyroid Stim Hormone (TSH) Comments: [facility] [address] [place], [place], [address] TSH 3.17 {uIU/mL} (Normal) Range: 0.358-3.74 :32 Urinalysis, Employee Comments: How was Urine Obtained? CLEAN [facility] [address] [facility] [address] [place], [place], [address] LEUK ESTERASE 25 /ul (Abnormal) OCCULT BLOOD-UR 10 /ul (Abnormal) NITRITE UR Negative (Normal) UROBILI Normal mg/dL (Normal) PROT DIPSTX Negative mg/dL (Normal) pH UR 5.0 (Normal) Range: 5.0 - 8.0 SP.GR. DIPSTX 1.020 (Normal) Range: 1.002-1.030 KETONE UR Negative mg/dL (Normal) BILIRUBIN URINE Negative mg/dL (Normal) GLUCOSE, UR Normal mg/dL (Normal) CLARITY Sl. Cloudy (Normal) COLOR Yellow (Normal) 95-Mbb-656024:03 URINE OLIVIA CULTURE-LORY COL Comments: PATIENT NOT FASTINGPERFORMED BY: [facility] [address] [facility] [id number] Information: SRC:UR COUNT (05551) Antimicrobial MIHEAD (Normal) Comments: S = Susceptible; [...] mL (Abnormal) Urine Final report Culture,Comprehensive (Abnormal) 39-Ygm-933592:39 Urinalysis, Office (53205) UA - LEUKOCYTE ESTERASE Moderate (Abnormal) UA - NITRITE Negative (Normal) URINE UROBILINGN LORY TIMED Normal mg/dL (Normal) UA - PROTEIN 100 mg/dL (Normal) UA - PH 7.0 (Normal) UA - BLOOD ++ (Abnormal) UA - SPECIFIC GRAVITY 1.010 (Normal) UA - KETONES Negative mg/dL (Normal) UA - BILIRUBIN Negative (Normal) UA - GLUCOSE Negative (Normal) 94-Ggh-318599:10 CBC, Employee Comments: [facility] [address] [place], [place], [address] Absolute Lymph 1.56 {X10_3/ul} (Normal) Range: 0.83-4.51 [...] 4.2-5.4 WBC 6.4 K/mm3 (Normal) Range: 4.4-11.0 12-Eos-842133:10 Employee Profile Comments: [facility] [address] [place], [place], [address] LDH 130 U/L (Normal) Range: 84-246 VLDL [...] 7-18 GLU 76 mg/dL (Normal) Range: 70-110 75-Vaq-763285:10 Nicotine Urine Drug Screen Comments: [facility] [address] [place], [place], [address] COT DRG SCREEN Negative (Normal) Comments: Cotinine [...] result, particularly whenpreliminary positive results are used. 42-Fhm-554415:10 Urinalysis, Employee Comments: [facility] [address] [place], [address] LEUK ESTERASE 25 /ul (Abnormal) OCCULT BLOOD-UR Negative /ul (Normal) NITRITE UR Negative (Normal) UROBILI Normal mg/dL (Normal) PROT DIPSTX Negative mg/dL (Normal) pH UR 6.0 (Normal) Range: 5.0 - 8.0 SP.GR. DIPSTX 1.015 (Normal) Range: 1.002-1.030 KETONE UR Negative mg/dL (Normal) BILIRUBIN URINE Negative mg/dL (Normal) GLUCOSE, UR Normal mg/dL (Normal) CLARITY Clear (Normal) COLOR Yellow (Normal) 0-Asw-245963:13 CBC, Employee Comments: Test performed at:[facility] [address] [place], [place] [address] Absolute Lymph 1.37 {X10_3/ul} (Normal) Range: 0.83-4.51 [...] 4.2-5.4 WBC 6.2 K/mm3 (Normal) Range: 4.4-11.0 0-Cpr-609439:13 Employee Profile Comments: Test performed at:[facility] [address] [place], [place] [address] ; ordered by ina stoll LDH 111 [...] 7-18 GLU 78 mg/dL (Normal) Range: 70-110 9-Gmm-690961:13 Urinalysis, Employee Comments: Test performed at:[facility] [address] [place], [place] [address] LEUK ESTERASE Negative /ul (Normal) OCCULT BLOOD-UR Negative /ul (Normal) NITRITE UR Negative (Normal) UROBILI Normal mg/dL (Normal) PROT DIPSTX Negative mg/dL (Normal) pH UR 6.0 (Normal) Range: 5.0 - 8.0 SP.GR. DIPSTX 1.015 (Normal) Range: 1.002-1.030 KETONE UR Negative mg/dL (Normal) BILIRUBIN URINE Negative mg/dL (Normal) GLUCOSE, UR Normal mg/dL (Normal) CLARITY Clear (Normal) COLOR Yellow (Normal) 6-Oeg-194525:05 PAPIG5 Comments: CYTOLOGY INFORMATION:- CLINICAL INFORMATION:- DATE LMP/MENOPAUSE: ABLATION 2011- COLLECTION VIAL: Thin Prep Vial- RESEARCH ASSOCIATE SOURCE: CERVICAL/ENDOCERVICAL- COLLECTION TECHNIQUE: BRUSH/SPATULASpecimen Comment: [id number] Comment: No. of containers..01 CYTYC Thin Prep Vial tHPVRFLX Comment (Normal) Comments: The HPV DNA reflex criteria were not met with this specimenresult therefore, no HPV testing was performed.Performed at: [address] [place] [id number] Director: Yassine Mathews MD, Phone: [phone] [facility] Comment (Normal) Comments: The Pap [...] system. tPERFORM Comment (Normal) Comments: Ariana Victoria, Reading Teacher (ASCP) tADEQ Comment (Normal) Comments: Satisfactory for [...] CHOL 150 mg/dL (Normal) Comments: <200 mg/dL Gpuoodfpi548-897 mg/dL Borderline>240 mg/dL High Risk BID 0.08 [...] (Normal) UCLAR Clear (Normal) UCOL Yellow (Normal) 8-Nop-468154:44 Rapid Strep Test, Office (80064) Comments: positive Rapid Strep Test, Office Positive (Normal) 97-Cnc-63325:40 LQDPAP [id number] Comments: CYTOLOGY INFORMATION:- CLINICAL INFORMATION:- DATE LMP/MENOPAUSE: 950358 LMP- COLLECTION VIAL: Thin Prep Vial- RESEARCH ASSOCIATE SOURCE: CERVICAL/ENDOCERVICAL- COLLECTION TECHNIQUE: BRUSH/SPATULA COMM . [...] testing was performed..Performe d at: WB - [facility] [id number] Director: Trevor Mathews MD DIAGN Comment (Normal) Comments: NEGATIVE FOR INTRAEPITHELIAL LESION AND MALIGNANCY.Satisfactory for evaluation. Endocervical and/or squamous metaplasticcells (endocervical component) are present.Catina Hill, Reading Teacher (ASCP)T his liquid based ThinPrep(R) pap test was screened withthe use of an image guided system. :09 TSH (31171) Comments: PATIENT NOT FASTINGClinical Information: [id number] PERFORMED BY: [facility] [id number] [facility] [id number] TSH 2.700 {uIU/mL} (Normal) Range: 0.450-4.500 :32 [...] for patient's is the eGFRmultiplied by 1.212. [facility] Laboratory uses the abbreviated Modification of Diet [...] Disease W/O Kidney Disease>/= 90 Stage One Zyeqoa24 - 89 Stage Two Suspect Decreased GFR30 [...] 2.6-6.0 VLDL 26 mg/dL (Normal) Range: 5-40 91-Ppu-14597:32 EMP URINALYSIS BILIRUBIN URINE SeeNote (Normal) Comments: [...] Very High > or = 500 mg/dL 15-Rjr-145720:45 Upper Respiratory Culture Comments: Clinical Information: SRC:TH PERFORMED BY: [id number] [id number] Result 1 BETAGA (Normal) Comments: Beta hemolytic [...] report (Normal) :31 Rapid Strep Test, Office (03776) Rapid Strep Test, Office Negative (Normal) :22 [...] Hypertension Planned Observations CBC W/AUTO DIFF WBC (57689)Indication: Benign essential hypertension On: :24 Request METABOLIC PANEL, COMPREHENSIVE (04528)Indication: Palpitations On: 6-Gwx-995170:22 Request TSH (88077)Indication: Palpitations On: 2-Kku-101154:22 Request MICROALBUMIN: CREATININE RATIO (77292) AND (93338)Indication: Benign essential hypertension On: 38-Ldo-369625:53 Request TSH (THYROID STIMULATING HORMONE) ([id number])Indication: Arrhythmia On: 84-Nbb-944395:52 Request Sputum Culture (60263)Indication: Cough On: 60-Ism-57543:53 Request OLIVIA CULTURE-OTHER (18553)Indication: Sore throat On: 8-Gsx-147913:43 Request OLIVIA CULTURE-OTHER ([id number])Indication: Throat pain On: 63-Wyx-07309:31 Request Comments: throat cx Triglycerides (61993)Indication: Hyperglyceridemia On: 40-Szp-074709:00 Request HDL Cholesterol-Direct (17464)Indication: Low HDL (under 40) On: 96-Spz-722768:00 Request Planned Encounters Medical; 1 Week FU - On: 22-Jul-2018 9:00 [facility] Abeba Holt Planned Procedures APPLICATION OF 24 HOUR HOLTER On: 09-Jul-2018 Intent MONITOR ([id number])By: Abeba Holt EXERCISE STRESS TEST (68889)By: On: 08-Jul-2018 Intent Abeba Holt Holter Moniter (56451)By: Jonathon, On: 08-Jul-2018 Intent Abeba Comments: 24 Hour EKG (82421)By: Abeba Holt On: 08-Jul-2018 Intent Comments: Sinus Rhythm- HR 68 PFT - CompleteBy: Zuleyma Vegas CNP On: 24-Nov-2016 Intent Spirometry (78649)By: Shasta PHILLIPS, On: 24-Nov-2016 Intent Zuleyma Tamayo Comments: normal Aerosol Treatment (48999)By: Shasta On: 24-Nov-2016 Intent Zuleyma PHILLIPS ELECTROCARDIOGRAM, COMPLETE (ECG) On: 07-Nov-2016 Intent (28936)By: Luiza Dowd DO Comments: nsr no acute chg Luiza Dowd DO COMP EYE EXAMINATION, ESTAB PATIENT On: 21-Jun-2016 Intent (87997)By: Zuleyma Vegas CNP EKG (09062)By: Luiza Dowd DO On: 26-Mar-2015 Intent Luiza Dowd DO Comments: nsr no acute chg Solu -Medrol Injection, 125 mg On: 04-Aug-2013 Intent ([id number])By: Zuleyma Vegas CNP Comments: Lot: [id number]: 12/2015Amt: 125mgRoute: IMSite: RUOQ GlutealGiven by: CINDY Kerr Aerosol Treatment (85933)By: Shasta On: 04-Aug-2013 Intent Zuleyma PHILLIPS Eprescribed prescriptions On: 04-Aug-2013 Intent (G8553)By: Zuleyma Vegas CNP EKG (52239)By: Luiza Dowd DO On: 14-Aug-2011 Intent Luiza Dowd DO Comments: no acute chg nsr - good Aerosol Treatment (60457)By: Shasta On: 27-Jun-2011 Intent Zuleyma PHILLIPS EKG (64767)By: Abeba Holley On: 14-Oct-2009 Intent CINDY Comments: nsr no acute changes Echo CompleteBy: Noemí FOSS, On: 22-Jun-2009 Intent Luiza Marinelli DO Holter Moniter (54763)By: Noemí On: 22-Jun-2009 Intent Luiza FOSS DO, Kathleen Comments: 48 hour EKG (15831)By: Luiza Dowd DO On: 22-Jun-2009 Intent Luiza Dowd DO Comments: nsr no acute changesno pvc EKG (98212)By: Luiza Dowd DO On: 30-Sep-2008 Intent Luiza Dowd DO Comments: stable EKG (80317)By: Luiza Dowd DO On: 30-Sep-2007 Intent Luiza Dowd DO Comments: done-awnsr noacute ischemic changes Aerosol Treatment (35465)By: Shasta On: 11-Jul-2007 Intent Zuleyma PHILLIPS COMP EYE EXAMINATION, ESTAB PATIENT On: 10-Jun-2007 Intent (34889)By: Sena Lester LPN Comments: VA Crx- 20/30 OD 20/40 OS 20/25 OU EKG (31859)By: Luiza Dowd DO On: 14-Sep-2006 Intent Luiza [...] blood pressure. ??Heart palpitations were more frequent. [place] them more frequentl y and didn't feel [...] tension (307.81) [facility]Care [facility] SystemTamar Rosa; a guarantor
--- OUTSIDE RECORDS SUMMARY | 2018-08-30 03:27 | XMS RPT_ITS | Continuity of Care Document ---
:1970 Author Organization [facility] Address [address] [place] [address] Phone Care Team Providers Name Role Phone [...] Oral Tablet 1 (one) Tablet qd for 30 days Quantity: 30 {Tablet} Refills: 5 Ordered:15-Jul-2018 Faby Dowd DO, DO, Kathleen Start : 15-Jul-2018 Active Dexilant 60 MG Oral Capsule Delayed [...] Quantity: 20 {Capsule} Refills: 0 Ordered:21-Jun-2016 Elaine TROUT FARMERDarian Matiasa Start : 18-May-2016 End : 21-Jun-2016 Discontinued ProAir HFA 108 (90 Base) MCG/ACT Inhalation Aerosol Solution 2 (two) Puff tid prn for 0 days Quantity: 1 {Inhaler} Refills: 3 Ordered:19-Dec-2016 Slarb TROUT FARMERDariana Start : 24-Nov-2016 End : 19-Dec-2016 Discontinued [...] Lead Electrocardiogram Result: Comments: See Note; NOTES: [facility] Cardiovascular Services [address] [place] [address] 12 Lead EKG 07/05/18 0831 MR#: [id number] Acct: [id number] Name: TAMAR ROSA Rep #: [id number] : 1970 48 From: Corona Moore MD [...] normal ECG Confirmed by [place] [place], CORONA ([id number]), sound editor DEBBY GUTIÉRREZ ([id number]) on 07/09/2018 3:39:04 PM Referred By: Confirmed By:CORONA MOORE MD 07/09/18 1539 Date ____ Corona Moore MD CC: Luiza Dowd DO; Ubaldo Owens MD Signed 05-Jul-2018 Emergency Department Summary Result: Comments: See Note; NOTES: [facility] Medical Records Department [address] [place] [address] Emergency Department Summary 07/05/18 1012 MR#: [id number] Acct: [id number] Name: TAMAR ROSA Rep #: [id number] : 1970 48 From: Ubaldo Owens MD [...] rhythm with occasional premature ventricular complexes noted. OK interval, QRS duration, QT interval and axis [...] Anxiousness self-reported This note was generated with SurgeryEdu dictation software. It may contain incorrect words, [...] pain, or any unexpected problems, contact your [facility] Care Provider. Call [facility] ([phone]) or report to the closest Emergency Room. Call 911 if necessary. 07/05/18 1017 <Electronically signed by Ubaldo Owens MD> Date ____ Ubaldo Owens MD Cosigner Signature (If Indicated): Date CC: Luiza Dowd DO 07-Nov-2017 SCREENING MAMM (CAD), BILAT Result: Comments: See Note; NOTES: [facility] Imaging Services [address] [place] [address] SCREENING MAMM (CAD), BILAT MR#: [id number] Acct: [id number] Name: TAMAR ROSA Frida Rep #: [id number] : 1970 F 47 From: Anil Davison MD PCP: Luiza Dowd DO Status: REG CLI Study: SCREENING MAMM (CAD), BILAT Date of Exam: 11/07/17 Exam# [id number] Ordering Dr: Bailey Cummins MD MAMMOGRAPHY - [...] delay biopsy of a clinically suspicious abnormality. [id number] Electronically Signed: Anil Davison MD at 9:08 EDT Tel [phone], Service support , CC: Bailey Cummins MD; Luiza Dowd DO Automated Process Operator: Signed 04-Sep-2017 Massage Therapy Evaluation Result: Comments: See Note; NOTES: [facility] 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 She was [...] Discharge Instruction Result: Comments: See Note; NOTES: [facility] Medical Records Department [address] [place] [address] Discharge Instruction 09/03/172034 MR#: [id number] Acct: [id number] Name: Merline ROSA Rep #: [id number] : 1970 47 From: Lance Gutiérrez DO [...] your Primary Care Provider. Call [facility] ([phone]) or report to the closest Emergency Room. Call 911 if necessa ry. 09/03/172036 <Electronically signed by Lance Gutiérrez DO> Date Lance Gutiérrez DO Cosigner Signature (If Indicated): Date CC: Luiza Dowd DO 03-Sep-2017 Emergency Department Summary Result: Comments: See Note; NOTES: [facility] Medical Records Department [address] [place] [address] Emergency Department Summary 09/03/172031 MR#: [id number] Acct: [id number] Name: TAMAR ROSA Rep #: [id number] : 1970 47 From: Lance Gutiérrez DO [...] healthcare worker] This note was generated with SurgeryEdu dictation software. It may contain incorrect words, [...] unexpected problems, contact your Primary Care Provider. [facility] Doctors Registry ([phone]) or report to the closest Emergency Room. Call 911 if necessary. 09/03/172034 <Electronically signed by Lance Gutiérrez DO> Date Lance Gutiérrez DO Cosigner Signature (If Indicated): Date CC: Luiza Dowd DO 23-Jul-2017 Discharge Summary Result: Comments: See Note; NOTES: [facility] Medical Records Department [address] [place] [address] Discharge Summary 07/19/17 1117 MR#: [id number] Acct: [id number] Name: TAMAR ROSA Rep #: [id number] : 1970 47 From: Carmelita Tucker PCP: [...] the patient from our care at the [facility]. 07/23/17 1049 <Electronically signed by Carmelita Tucker > Date Carmelita maxwell Cosigner Signature (if applicable): Date CC: Carmelita Tucker; Luiza Dowd DO Signed 14-Dec-2016 Pulmonary Function Report Comp Result: Comments: See Note; NOTES: [facility] Pulmonary Services/Neurology [address] [place] [address] Pulmonary Function Test (Comp) MR#: [id number] Acct: [id number] Name: LUIS ALBERTO ROSA Rep #: [id number] : 1970 46 From: Lauro Calderon DO Referring Dr: Zuleyma Vegas Status: REG CLI Ordering Dr: Zuleyma Vegas Date: 12/12/16 Location: [facility] Sex: F C DATE OF SERVICE: [...] [place] C: Referring Provider T: YAW JOB: [id number] 12/14/16 0829 <Electronically signed by Lauro Calderon DO> Date Lauro Calderon DO CC: Zuleyma Vegas; Lauro Calderon D.O.; Luiza Dowd DO Date Dictated: 12/13/1647 Date Transcribed: 12/13/16846 Automated Process Operator: Signed 31-Aug-2016 SCREENING MAMM (CAD), BILAT Result: Comments: See Note; NOTES: [facility] Imaging Services [address] [place] [address] Verdana 4d SCREENING MAMM (CAD), BILAT MR#: [id number] Acct: [id number] Name: TAMAR ROSA Rep #: [id number] : 1970 F 46 From: Anil Davison MD PCP: Luiza Dowd DO Status: [facility] CLI Study: SCREENING MAMM (CAD), BILAT Date of Exam: 08/31/16 Exam# [id number] Ordering Dr: Bailey Barrientos MD MAMMOGRAPHY - [...] 2015 and May 20, 2014. FINDINGS: Breast [place] sition: The breasts are heterogeneously dense, which [...] delay biopsy of a clinically suspicious abnormality. [id number] Electronically Signed: Carlos Davison MD at 10:16 EST Tel [phone], Service support [phone], CC: Bailey Cummins MD; Luiza Dowd DO Automated Process Operator: Signed 03-Sep-2015 Inital Evaluation - PT Result: Comments: See Note; NOTES: [facility] [address] [place] [address]. 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, and was referred to [facility] for a massotherapy [...] home. Elayne Kauffman LMT T: YAW JOB: [id number] <Electronic ally signed by Elayne Kauffman > 09/03/15 1032 CC: Signed For Medicare only, by signing this I certify the plan of care. Physicians Signature Date 05-Aug-2015 PT Discharge Summary Result: Comments: See Note; NOTES: [facility] [address] [place] [address] Fax REHABILITATION SE RVICES DISCHARGE SUMMARY MR#: [id number] Acct: [id number] Name: TAMAR ROSA Rep #: [id number] : 1970 45 From: Carmelita Tucker Referring [...] the patient from our care at the [facility] facility. Carmelita Tucker LMT T: NTS JOB: [id number] <Electronically signed by Carmelita Tucker > 0739 CC: Luiza Dowd DO Signed 27-May-2015 Breast Limited Unilateral Result: Comments: See Note; NOTES: [facility] Imaging Services [address] [place] [address] Verdana 4d Breast Limited Unilateral MR#: [id number] Acct: [id number] Name: TAMAR DAVIS Rep #: [id number] : 1970 F 45 From: Anil Davison MD PCP: Luiza Dowd DO Status: REG CLI Study: Breast Limited Unilateral Date of Exam: 05/27/15 Exam# [id number] Jose Manuel hilton Dr: Bailey Cummins MD [...] Anil Davison MD at 15:03 EST Tel [phone], Service support [phone], CC: Bailey Cummins MD; Luiza Dowd DO Automated Process Operator: Signed 27-May-2015 Unilat Lt Diag Digital AND CAD Result: Comments: See Note; NOTES: [facility] Imaging Services [address] [place] [address] Verdana 4d Unilat Lt Diag Digital AND CAD MR#: [id number] Acct: [id number] Na me: TAMAR ROSA Rep #: [id number] : 1970 F 45 From: Dre Hoffman MD PCP: Luiza Dowd DO Status: REG CLI Study: Unilat Lt Diag Digital AND CAD Date of Exam: 05/27/15 Exam# [id number] O rdering Dr: Bailey Cummins MD MAMMOGRAPHY [...] 15:04 EDT Tel , Servi ce support [phone], CC: Bailey Cummins MD; Luiza Dowd DO Automated Process Operator: Signed 27-May-2015 Unilat Lt Diag Digital AND CAD Result: Comments: See Note; NOTES: [facility] Imaging Services [address] [place] [address] Verdana 4d Unilat Lt Diag Digital AND CAD MR#: [id number] Acct: [id number] Na me: TAMAR ROSA Rep #: [id number] : 1970 F 45 From: Dre Hoffman MD PCP: Luiza Dowd DO Status: REG CLI Study: Unilat Lt Diag Digital AND CAD Date of Exam: 05/27/15 Exam# [id number] O rdering Dr: Bailey Cummins MD MAMMOGRAPHY [...] 15:04 EDT Tel , Servi ce support [phone], CC: Bailey Cummins MD; Luiza Dowd DO Automated Process Operator: Signed 27-May-2015 Unilat Lt Diag Digital AND CAD Result: Comments: See Note; NOTES: [facility] Imaging Services [address] [place] [address] Verdana 4d Unilat Lt Diag Digital AND CAD MR#: [id number] Acct: [id number] Na me: TAMAR ROSA Rep #: [id number] : 1970 F 45 From: Dre Hoffman MD PCP: Luiza Dowd DO Status: REG CLI Study: Unilat Lt Diag Digital AND CAD Date of Exam: 05/27/15 Exam# [id number] [facility] Dr: Bailey Cummins MD MAMMOGRAPHY - UNILATERAL [...] 15:04 EDT Tel , Servi ce support [phone], CC: Bailey Cummins MD; Luiza Dowd DO Automated Process Operator: Signed 27-May-2015 Unilat Lt Diag Digital AND CAD Result: Comments: See Note; NOTES: [facility] Imaging Services [address] [place] [address] Verdana 4d Unilat Lt Diag Digital AND CAD MR#: [id number] Acct: [id number] Na me: TAMAR ROSA Rep #: [id number] : 1970 F 45 From: Dre Hoffman MD PCP: Luiza Dowd DO Status: REG CLI Study: Unilat Lt Diag Digital AND CAD Date of Exam: 05/27/15 Exam# [id number] O ering Dr: Bailey Cummins MD MAMMOGRAPHY [...] 15:04 EDT Tel , Servi ce support [phone], CC: Bailey Cummins MD; Luiza Dowd DO Automated Process Operator: Signed 27-May-2015 Unilat Lt Diag Digital AND CAD Result: Comments: See Note; NOTES: [facility] Imaging Services [address] [place] [address] Verdana 4d Unilat Lt Diag Digital AND CAD MR#: [id number] Acct: [id number] Na me: TAMAR ROSA Rep #: [id number] : 1970 F 45 From: Dre Hoffman MD PCP: Luiza Dowd DO Status: REG CLI Study: Unilat Lt Diag Digital AND CAD Date of Exam: 05/27/15 Exam# [id number] O [facility] Dr: Bailey Cummins MD MAMMOGRAPHY - [...] 15:04 EDT Tel , Servi ce support [phone], CC: Bailey Cummins MD; Luiza Dowd DO Automated Process Operator: Signed 21-May-2015 Bilat Scrn Digital AND CAD Result: Comments: See Note; NOTES: [facility] Imaging Services [address] [place] [address] Verdana 4d Bilat Scrn Digital AND CAD MR#: [id number] Acct: [id number] Name: TAMAR ROSA Rep #: [id number] : 1970 F 45 From: Dre Hoffman MD PCP: Luiza Dowd DO Status: REG CLI Study: [place] Digital AND CAD Date of Exam: 05/21/15 Exam# [id number] Ordering Dr: Bailey Cummins MD MAMMOGRAPHY - [...] at 14:42 EDT Tel , Service support [phone], CC: Bailey Cummins MD; Luiza Dowd DO Automated Process Operator: Signed 02-Sep-2014 Inital Evaluation - PT Result: Comments: See Note; NOTES: [facility] [address] [place] [address] Fax REHABILITATION SERVICES INITIAL EVALUATION MR#: [id number] Acct: [id number] Name: TAMAR ROSA Rep #: [id number] : 1970 44 From: Carmelita Tucker Referring Dr.: Luiza Dowd DO Status: REG RCR Insurance: [facility] Eval Date: DATE OF SERVICE: 08/26/2014 REFERRING PHYSICIAN: Dr. Dowd. 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 She was referred to [facility] facility for massotherapy evaluation by Dr. Dowd [...] back. Carmelita Tucker LMT T: YAW JOB: [id number] <Electronically signed by Carmelita Tucker > 09/02/14 1307 CC: DD: Signed For Medicare only, by signing this I certify the plan of care. Physicians Signature Date 20-May-2014 [place] Digital & CAD Result: Comments: See Note; NOTES: [facility] Imaging Services [address] [place] [address] Breast Imaging Report MR#: [id number] Acct: [id number] Name: TAMAR ROSA Rep #: [id number] : 1970 F 44 From: Dontae Durbin PCP: Luiza Dowd DO Status: REG CLI Exam# [id number] Ordering Dr: Bailey Cummins MD MAMMOGRAPHY - [...] at 20:20 EDT Tel , Service support [phone], CC: Bailey Cummins MD; Luiza Dowd DO Automated Process Operator: Signed 20-Feb-2014 Spirometry (24367) Result: 05-Aug-2013 PT Discharge Summary Result: Comments: See Note; NOTES: [facility] [address] [place] [address] Fax REHABILITATION SERVICES DISCHARGE SUMMARY MR#: [id number] Acct: [id number] Name: TAMAR ROSA Rep #: [id number] : 1970 43 From: Lori Christopher Referring [...] the patient from our care at the [facility] facility. Carmelita Christopher, BENI T: NTS JOB: [id number] <Electronically signed by Lori Christopher &#62 ; [...] smoker Vital Signs Date Test Result Details 7-Wyd-417752:07 Temperature 96.8 f Pulse 70 /min Comments: [...] kg/m2 Body Surface Area Calculated 2.15 m2 82-Yxp-567110:23 Pulse 72 /min Comments: Pattern: Regular Respiration [...] kg/m2 Body Surface Area Calculated 2.16 m2 04-Qak-546100:15 Temperature 97.1 f Comments: Method: Oral Pulse [...] kg/m2 Body Surface Area Calculated 2.16 m2 12-Tfv-908663:16 Pulse 76 /min Comments: Pattern: Regular O2 [...] Calculated 2.04 m2 Head Circumference 0.00 cm 33-Rtr-172310:00 Pulse 60 /min Comments: Pattern: Regular Respiration [...] Value Details :43 CBC W/Diff, Automated Comments: [facility] [address] [place], [place], [address] Absolute Lymph 2.01 {X10_3/ul} (Normal) Range: 0.83-4.51 [...] 4.2-5.4 WBC 9.7 K/mm3 (Normal) Range: 4.4-11.0 7-Dbe-681952:43 Comprehensive Metabolic Profil Comments: [facility] [address] [place], [address] GAP 8 (Normal) Range: 5-15 CO2 28.0 [...] Comments: Please note revised GLUCOSE reference range ikwzbutks53/02/2018. 1-Ygw-152512:43 Thyroid Stim Hormone (TSH) Comments: [facility] [address] [place], [address] TSH 3.56 {uIU/mL} (Normal) Range: 0.358-3.74 58-Uun-91876:48 Basic Metabolic Profile (BMP) Comments: [facility] [address] [place], [address] GAP 9 (Normal) Range: 5-15 CO2 27.0 [...] criteria.Please note revised GLUCOSE reference range /02/2018. 0-Jjf-137501:02 CBC, Employee Comments: [facility] [address] [place], [place], [address] Absolute Lymph 1.64 {X10_3/ul} (Normal) Range: 0.83-4.51 [...] 4.2-5.4 WBC 7.1 K/mm3 (Normal) Range: 4.4-11.0 8-Qso-030881:02 Employee Profile Comments: [facility] [address] [place], [place], [address] LDH 148 U/L (Normal) Range: 84-246 VLDL [...] Comments: Please note revised GLUCOSE reference range gmkxilbjk33/02/2018. 8-Nox-431127:02 Nicotine Urine Drug Screen Comments: [facility] [address] [place], [place], [address] COT DRG SCREEN Negative (Normal) Comments: Cotinine [...] result, particularly whenpreliminary positive results are used. 3-Akq-367731:02 Urinalysis, Employee Comments: [facility] [address] [place], [place], [address] LEUK ESTERASE Negative /ul (Normal) OCCULT BLOOD-UR Negative /ul (Normal) NITRITE UR Negative (Normal) UROBILI Normal mg/dL (Normal) PROT DIPSTX Negative mg/dL (Normal) pH UR 7.0 (Normal) Range: 5.0 - 8.0 SP.GR. DIPSTX 1.010 (Normal) Range: 1.002-1.030 KETONE UR Negative mg/dL (Normal) BILIRUBIN URINE Negative mg/dL (Normal) GLUCOSE, UR Normal mg/dL (Normal) CLARITY Clear (Normal) COLOR Yellow (Normal) 78-Xrs-265065:15 Hep B Surface Antibodies EMP Comments: [facility] (refer to report for specific site)refer to report for address and phone number Hep B Oleg AB Reactive (Normal) Comments: Non Reactive: Inconsistent with immunity, less than 10 mIU/mL Reactive: Consistent with immunity, greater than 9.9 mIU/mL 18-Fga-511458:15 Hepatitis B Surface Ag Comments: [facility] (refer to report for specific site)refer to report for address and phone number HB SURF AG Negative (Normal) Comments: Performed at: - [facility] [address] [id number] Director: Alejo Andre PhD, Phone: [phone] 49-Lck-257004:15 Hepatitis C Antibodies Comments: [facility] (refer to report for specific site)refer to report for address and phone number HEP C AB <0.1 {s/co_ratio} (Normal) Range: 0.0-0.9 Comments: Negative: < 0.8 Indeterminate: 0.8 - 0.9 Positive: > 0.9 The CDC recommends that a positive HCV antibody result be followed up with a HCV Nucleic Acid Amplification test (984812). 74-Hku-234268:15 HIV - [facility] Non-Reactive (Normal) Comments: [facility] [address] [place] [address], [id number] 04-Kfr-286472:48 CBC-Complete Blood Cnt No Diff Comments: [facility] [address] [place], [place], [address] MPV 10.7 fL (Normal) Range: 6.2-12.0 PLT [...] (Normal) Range: 4.4-11.0 :07 HgA1C , Office (86529) HgA1C , Office 5.2 % (Normal) Range: 4.6 - 7.1 29-Vki-186480:32 CBC, Employee Comments: [facility] [address] [place], [place], [address] Absolute Lymph 1.64 {X10_3/ul} (Normal) Range: 0.83-4.51 [...] 4.2-5.4 WBC 7.9 K/mm3 (Normal) Range: 4.4-11.0 94-Kys-339819:32 Employee Profile Comments: [facility] [address] [place], [place], [address] LDH 104 U/L (Normal) Range: 84-246 VLDL [...] 7-18 GLU 81 mg/dL (Normal) Range: 70-110 64-Php-187809:32 Microalb:Creat Ratio,Random UR Comments: [facility] [address] [facility], [address] MALB:CREAT 4.0 {mg/g_CRE} (Normal) MICROALBUMIN,UR 10.7 mg/L (Normal) UR CREAT 265.00 mg/dL (Normal) :32 Nicotine Urine Drug Screen Comments: [address] [place], [place], [address] COT DRG SCREEN Negative (Normal) Comments: Cotinine [...] used. :32 Thyroid Stim Hormone (TSH) Comments: [facility] [address] [place], [place], [address] TSH 3.17 {uIU/mL} (Normal) Range: 0.358-3.74 :32 Urinalysis, Employee Comments: How was Urine Obtained? CLEAN [facility] [address] [facility] [address] [place], [place], [address] LEUK ESTERASE 25 /ul (Abnormal) OCCULT BLOOD-UR 10 /ul (Abnormal) NITRITE UR Negative (Normal) UROBILI Normal mg/dL (Normal) PROT DIPSTX Negative mg/dL (Normal) pH UR 5.0 (Normal) Range: 5.0 - 8.0 SP.GR. DIPSTX 1.020 (Normal) Range: 1.002-1.030 KETONE UR Negative mg/dL (Normal) BILIRUBIN URINE Negative mg/dL (Normal) GLUCOSE, UR Normal mg/dL (Normal) CLARITY Sl. Cloudy (Normal) COLOR Yellow (Normal) 54-Upw-051065:03 URINE OLIVIA CULTURE-LORY COL Comments: PATIENT NOT FASTINGPERFORMED BY: [facility] [address] [facility] [id number] Information: SRC:UR COUNT (36352) Antimicrobial MIHEAD (Normal) Comments: S = Susceptible; [...] mL (Abnormal) Urine Final report Culture,Comprehensive (Abnormal) 37-Duy-215495:39 Urinalysis, Office (68123) UA - LEUKOCYTE ESTERASE Moderate (Abnormal) UA - NITRITE Negative (Normal) URINE UROBILINGN LORY TIMED Normal mg/dL (Normal) UA - PROTEIN 100 mg/dL (Normal) UA - PH 7.0 (Normal) UA - BLOOD ++ (Abnormal) UA - SPECIFIC GRAVITY 1.010 (Normal) UA - KETONES Negative mg/dL (Normal) UA - BILIRUBIN Negative (Normal) UA - GLUCOSE Negative (Normal) 59-Qmd-632464:10 CBC, Employee Comments: [facility] [address] [place], [place], [address] Absolute Lymph 1.56 {X10_3/ul} (Normal) Range: 0.83-4.51 [...] 4.2-5.4 WBC 6.4 K/mm3 (Normal) Range: 4.4-11.0 02-Tjd-693367:10 Employee Profile Comments: [facility] [address], [place], [address] LDH 130 U/L (Normal) Range: 84-246 VLDL [...] 7-18 GLU 76 mg/dL (Normal) Range: 70-110 04-Drs-932214:10 Nicotine Urine Drug Screen Comments: [facility] [address] [place], [place], [address] COT DRG SCREEN Negative (Normal) Comments: Cotinine [...] result, particularly whenpreliminary positive results are used. 12-Bnx-127923:10 Urinalysis, Employee Comments: [facility] [address] [place], [address] LEUK ESTERASE 25 /ul (Abnormal) OCCULT BLOOD-UR Negative /ul (Normal) NITRITE UR Negative (Normal) UROBILI Normal mg/dL (Normal) PROT DIPSTX Negative mg/dL (Normal) pH UR 6.0 (Normal) Range: 5.0 - 8.0 SP.GR. DIPSTX 1.015 (Normal) Range: 1.002-1.030 KETONE UR Negative mg/dL (Normal) BILIRUBIN URINE Negative mg/dL (Normal) GLUCOSE, UR Normal mg/dL (Normal) CLARITY Clear (Normal) COLOR Yellow (Normal) 9-Ccm-248420:13 CBC, Employee Comments: Test performed at:[facility] [address] [place], [place] [address] Absolute Lymph 1.37 {X10_3/ul} (Normal) Range: 0.83-4.51 [...] 4.2-5.4 WBC 6.2 K/mm3 (Normal) Range: 4.4-11.0 5-Npu-379450:13 Employee Profile Comments: Test performed at:[facility] [address] [place], [place] [address] ; ordered by ina stoll LDH 111 [...] 7-18 GLU 78 mg/dL (Normal) Range: 70-110 7-Uhl-472106:13 Urinalysis, Employee Comments: Test performed at:[facility] [address] [place], [place] [address] LEUK ESTERASE Negative /ul (Normal) OCCULT BLOOD-UR Negative /ul (Normal) NITRITE UR Negative (Normal) UROBILI Normal mg/dL (Normal) PROT DIPSTX Negative mg/dL (Normal) pH UR 6.0 (Normal) Range: 5.0 - 8.0 SP.GR. DIPSTX 1.015 (Normal) Range: 1.002-1.030 KETONE UR Negative mg/dL (Normal) BILIRUBIN URINE Negative mg/dL (Normal) GLUCOSE, UR Normal mg/dL (Normal) CLARITY Clear (Normal) COLOR Yellow (Normal) 4-Yoy-379103:05 PAPIG5 Comments: CYTOLOGY INFORMATION:- CLINICAL INFORMATION:- DATE LMP/MENOPAUSE: ABLATION 2011- COLLECTION VIAL: Thin Prep Vial- SALES OPERATIONS SPECIALIST SOURCE: CERVICAL/ENDOCERVICAL- COLLECTION TECHNIQUE: BRUSH/SPATULASpecimen Comment: [id number] Comment: No. of containers..01 CYTYC Thin Prep Vial tHPVRFLX Comment (Normal) Comments: The HPV DNA reflex criteria were not met with this specimenresult therefore, no HPV testing was performed.Performed at: [address] [place] [id number] Director: Yassine Mathews MD, Phone: [phone] [facility] Comment (Normal) Comments: The Pap smear is [...] system. tPERFORM Comment (Normal) Comments: Ariana Victoria, Auto Mechanic Supervisor (ASCP) tADEQ Comment (Normal) Comments: Satisfactory for [...] CHOL 150 mg/dL (Normal) Comments: <200 mg/dL Agprnxcrf894-047 mg/dL Borderline>240 mg/dL High Risk BID 0.08 [...] (Normal) UCLAR Clear (Normal) UCOL Yellow (Normal) 9-Tnf-857396:44 Rapid Strep Test, Office (16053) Comments: positive Rapid Strep Test, Office Positive (Normal) 78-Juh-08629:40 LQDPAP [id number] Comments: CYTOLOGY INFORMATION:- CLINICAL INFORMATION:- DATE LMP/MENOPAUSE: [id number] LMP- COLLECTION VIAL: Thin Prep Vial- SALES OPERATIONS SPECIALIST SOURCE: CERVICAL/ENDOCERVICAL- COLLECTION TECHNIQUE: BRUSH/SPATULA COMM . [...] testing was performed..Performe d at: [facility] - [facility] [id number] Director: Trevor Mathews MD DIAGN Comment (Normal) Comments: NEGATIVE FOR INTRAEPITHELIAL LESION AND MALIGNANCY.Satisfactory for evaluation. Endocervical and/or squamous metaplasticcells (endocervical component) are present.Catina Hill, Auto Mechanic Supervisor (ASCP)T his liquid based ThinPrep(R) pap test was screened withthe use of an image guided system. :09 TSH ([id number]) Comments: PATIENT NOT FASTINGClinical Information: [id number] PERFORMED BY: [facility] [id number] [facility] [id number] TSH 2.700 {uIU/mL} (Normal) Range: 0.450-4.500 :32 [...] for patient's is the eGFRmultiplied by 1.212. [facility] Laboratory uses the abbreviated Modification of [...] Disease W/O Kidney Disease>/= 90 Stage One Flzsce28 - 89 Stage Two Suspect Decreased GFR30 [...] 2.6-6.0 VLDL 26 mg/dL (Normal) Range: 5-40 36-Qup-74804:32 EMP URINALYSIS BILIRUBIN URINE SeeNote (Normal) Comments: [...] Very High > or = 500 mg/dL 65-Rgy-538512:45 Upper Respiratory Culture Comments: Clinical Information: SRC:TH [facility]FORMED BY: [facility] [id number] Result 1 BETAGA (Normal) Comments: Beta hemolytic [...] report (Normal) :31 Rapid Strep Test, Office (74779) Rapid Strep Test, Office Negative (Normal) :22 [...] Hypertension Planned Observations CBC W/AUTO DIFF WBC (02696)Indication: Benign essential hypertension On: :24 Request METABOLIC PANEL, COMPREHENSIVE (19486)Indication: Palpitations On: 3-Nuo-632624:22 Request TSH (20872)Indication: Palpitations On: 7-Otv-486181:22 Request MICROALBUMIN: CREATININE RATIO (65647) AND (55057)Indication: Benign essential hypertension On: 67-Tib-459376:53 Request TSH (THYROID STIMULATING HORMONE) (53805)Indication: Arrhythmia On: 30-Wai-591647:52 Request Sputum Culture ([id number])Indication: Cough On: 99-Ryf-81865:53 Request OLIVIA CULTURE-OTHER ([id number])Indication: Sore throat On: 4-Bnv-357991:43 Request OLIVIA CULTURE-OTHER ([id number])Indication: Throat pain On: 55-Bjc-85898:31 Request Comments: throat cx Triglycerides (28633)Indication: Hyperglyceridemia On: 36-Fgp-293473:00 Request HDL Cholesterol-Direct (42471)Indication: Low HDL (under 40) On: 61-Cqx-628146:00 Request Planned Encounters Medical; 1 Week FU - On: 22-Jul-2018 9:00 [facility] Abeba Holt Planned Procedures APPLICATION OF 24 HOUR HOLTER On: 09-Jul-2018 Intent MONITOR (44519)By: Abeba Holt EXERCISE STRESS TEST (16884)By: On: 08-Jul-2018 Intent Abeba Holt Holter Moniter (49650)By: Jonathon, On: 08-Jul-2018 Intent Abeba Comments: 24 Hour EKG (51942)By: Abeba Holt On: 08-Jul-2018 Intent Comments: Sinus Rhythm- HR 68 PFT - CompleteBy: Zuleyma Vegas CNP On: 24-Nov-2016 Intent Spirometry (03685)By: Shasta PHILLIPS, On: 24-Nov-2016 Intent Zuleyma Tamayo Comments: normal Aerosol Treatment (22373)By: Shasta On: 24-Nov-2016 Intent Zuleyma PHILLIPS ELECTROCARDIOGRAM, COMPLETE (ECG) On: 07-Nov-2016 Intent (29700)By: Luiza Dowd DO Comments: nsr no acute chg Luiza Dowd DO COMP EYE EXAMINATION, ESTAB PATIENT On: 21-Jun-2016 Intent (35875)By: Zuleyma Vegas CNP EKG (42917)By: Luiza Dowd DO On: 26-Mar-2015 Intent Luiza Dowd DO Comments: nsr no acute chg Solu -Medrol Injection, 125 mg On: 04-Aug-2013 Intent (J2930)By: Zuleyma Vegas CNP Comments: Lot: [id number]: 12/2015Amt: 125mgRoute: IMSite: RUOQ GlutealGiven by: CINDY Kerr Aerosol Treatment (24158)By: Shasta On: 04-Aug-2013 Intent Zuleyma PHILLIPS Eprescribed prescriptions On: 04-Aug-2013 Intent (G8553)By: Zuleyma Vegas CNP EKG (06034)By: Luiza Dowd DO On: 14-Aug-2011 Intent Luiza Dowd DO Comments: no acute chg nsr - good Aerosol Treatment (98931)By: Shasta On: 27-Jun-2011 Intent Zuleyma PHILLIPS EKG (88833)By: Abeba Holley On: 14-Oct-2009 Intent CINDY Comments: nsr no acute changes Echo CompleteBy: Noemí FOSS, On: 22-Jun-2009 Intent uLiza Marinelli DO Holter Moniter ([id number])By: Noemí On: 22-Jun-2009 Intent Luiza FOSS DO, Kathleen Comments: 48 hour EKG (58715)By: Luiza Dowd DO On: 22-Jun-2009 Intent Luiza Dowd DO Comments: nsr no acute changesno pvc EKG (92274)By: Luiza Dowd DO On: 30-Sep-2008 Intent Luiza Dowd DO Comments: stable EKG (60437)By: Luiza Dowd DO On: 30-Sep-2007 Intent Luiza Dowd DO Comments: done-awnsr noacute ischemic changes Aerosol Treatment (30875)By: Shasta On: 11-Jul-2007 Intent Zuleyma PHILLIPS COMP EYE EXAMINATION, ESTAB PATIENT On: 10-Jun-2007 Intent (45268)By: Sena Lester LPN Comments: VA Crx- 20/30 OD 20/40 OS 20/25 OU EKG (99254)By: Luiza Dowd DO On: 14-Sep-2006 Intent Luiza [...] blood pressure. ??Heart palpitations were more frequent. Stanton them more frequentl y and didn't feel [...] tension (307.81) [facility] VinelandTamar Rosa; a guarantor
--- OUTSIDE RECORDS SUMMARY | 2018-08-30 03:28 | XMS RPT_ITS | Continuity of Care Document ---
:1970 Author Organization [facility] Address [address] [facility] [address] [place] [address] Phone Care Team Providers Name Role Phone Luiza Dowd DO Unavailable Juancarlos Fitzpatrick Unavailable Bobo Mayers Unavailable Micheal Springer MD Unavailable CINDY Holley Unavailable Unavailable Sotero Araya Unavailable Unavailable Shasta PHILLIPSZuleyma E Unavailable Abeba Holt Unavailable Unavailable Sladl WHITE, Elayne Unavailable Unavailable Unavailable Unavailable Problems Name Dates [...] 30 days Quantity: 30 {Tablet} Refills: 5 Ordered:22-Jul-2018 Abeba Holt Start : 22-Jul-2018 Active Dexilant 60 MG Oral Capsule Delayed Release [address] daily for 0 days Quantity: 30 {Capsule} Refills: 11 Ordered:26-Mar-2018 Noemí Faby FOSS DO, Kathleen Start : 26-Mar-2018 Active FLONASE ALLERGY RELIEF, 50MCG/ACT (Nasal Suspension) 1 (one) puff qd for 360 days Quantity: 1 {Container} Refills: 6 Ordered:19-Jan-2016 Noemí Faby FOSS DO, Kathleen Start : 19-Jan-2016 Active PROVENTIL HFA, 108 [...] days Quantity: 1 {Bottle} Refills: 0 Ordered:21-Jun-2016 Shasta PHILLIPSZuleyma Start : 21-Jun-2016 End : 28-Jun-2016 Inactive [...] days Quantity: 7 {Tablet} Refills: 0 Ordered:20-Feb-2014 Shasta PHILLIPSZuleyma Start : 20-Feb-2014 End : 27-Feb-2014 Inactive [...] Quantity: 20 {Capsule} Refills: 0 Ordered:21-Jun-2016 Elaine WHITEElayne Start : 18-May-2016 End : 21-Jun-2016 Discontinued ProAir HFA 108 (90 Base) MCG/ACT Inhalation Aerosol Solution 2 (two) Puff tid prn for 0 days Quantity: 1 {Inhaler} Refills: 3 Ordered:19-Dec-2016 Elaine WHITEElayne Start : 24-Nov-2016 End : 19-Dec-2016 Discontinued Zithromax Z-Andrea 250 MG Oral Tablet 1 (one) Tablet TAD for 0 days Quantity: 1 {Package} Refills: 0 Ordered:19-Dec-2016 Elaine WHITE Elayne Start : 24-Nov-2016 End : 19-Dec-2016 [...] as of 26-Mar-2015 Procedures Date Value Details 17-Jul-2018 Stress Report Result: Comments: See Note; NOTES: [facility] Cardiovascular Services [address] [place] [address] MR#: [id number] Acct: [id number] Name: TAMAR ROSA Frida Rep #: [id number] : 1969 48 From: Sree King MD Primary Care: Luiza Dowd DO Status: REG CLI Ordering Dr: Sex: F C Stress Test Report Treadmill EKG results: Resting EKG: Normal sinus rhythm, normal axis, seth l intervals, poor R wave progression across the precordium which may be secondary to lead misplacement. Treadmill EKG: The patient exercise according to a Juancarlos protocol for 3 minutes and 54 seconds ac hieving a maximum workload of 5.60 mets. Patient's heart rate was originally 64 beats a minute and kamari to maximum of 151 bpm which represents 87% of the maximal age-predicted heart rate. Resting blood pressure was 164/100, and kamari to maximum of 220/70. Exercise was stopped due to target heart rate achieved and dyspnea. During exercise the patient's heart rate increased as expected. During exercise the patient had subtle upsloping ST segment depression along the inferior lateral leads at peak exercise which resolved by about 1 minute into recovery. No arrhythmias noted. No anginal symptoms noted. Conclusions: Normal adequate treadmill EKG. Negative for ischemia by EKG criteria. No anginal symptoms noted. No arrhythmias noted. Baseline hypertension with hypertensive blood pressure response to ex ercise. Below average exercise capacity for age. Patient tolerated the procedure well. No complications. 07/17/18 1350 <Electronically signed by Sree King MD> Date Sree King MD CC: MOISE Hlot; Luiza Dowd DO Date Dictated: 07/17/18 1348 Date Transcribed: 07/17/18 1348 Refrigerator Cabinetmaker: Signed 09-Jul-2018 12 Lead Electrocardiogram Result: Comments: See Note; NOTES: [facility] Cardiovascular Services [address] [place] [address] 12 Lead EKG 07/05/18 0831 MR#: [id number] Acct: [id number] Name: TAMAR ROSA Rep #: [id number] : 1970 48 From: Corona Moore MD [...] normal ECG Confirmed by OSCAR HAYS, CORONA ([id number]), editorial writer DEBBY GUTIÉRREZ ([id number]) on 07/09/2018 3:39:04 PM Referred By: Confirmed By:CORONA MOORE MD 07/09/18 1539 Date ____ Corona Moore MD CC: Luiza Dowd DO; Ubaldo Owens MD Signed 05-Jul-2018 Emergency Department Summary Result: Comments: See Note; NOTES: [facility] Medical Records Department [address] [place] [address] Emergency Department Summary 07/05/18 1012 MR#: [id number] Acct: [id number] Name: TAMAR ROSA Rep #: [id number] : 1970 48 From: Ubaldo Owens MD [...] rhythm with occasional premature ventricular complexes noted. KY interval, QRS duration, QT interval and axis are normal. Ventricular rate is 76. Electronic panel is unremarkable. Emergency Department Course and Treatment: Patient was placed on a monitor. No abnormality other than unifocal ventricular premature beats were noted susana dean her 1.5-hour stay. Treatment Plan: Information and premature ventricular beats Disposition: Discharged home with spouse in stable condition Impression: Unifocal premature ventricular beats Hyperten kay and known hypertensive patient, asymptomatic Anxiousness self-reported This note was generated with Realius dictation software. It may contain incorrect words, [...] [facility] Care Provider. Call Doctors Registry ([phone]) or report to the closest Emergency Room. Call 911 if necessary. 07/05/18 1017 <Electronically signed by Ubaldo Owens MD> Date ____ Ubaldo Owens MD Cosigner Signature (If Indicated): Date CC: Luiza Dowd DO 07-Nov-2017 SCREENING MAMM (CAD), BILAT Result: Comments: See Note; NOTES: [facility] Imaging Services [address] [place] [address] SCREENING MAMM (CAD), BILAT MR#: [id number] Acct: [id number] Name: TAMAR ROSA Rep #: [id number] : 1970 F 47 From: Anil Davison MD PCP: Luiza Dowd DO Status: [facility] Study: SCREENING MAMM (CAD), BILAT Date of Exam: 11/07/17 Exam# [id number] Ordering Dr: Bailey Cummins MD MAMMOGRAPHY - [...] delay biopsy of a clinically suspicious abnormality. [id number] Electronically Signed: Anil Davison MD at 9:08 EDT Tel [phone], Service support , CC: Bailey Cummins MD; Luiza Dowd DO Refrigerator Cabinetmaker: Signed 04-Sep-2017 Massage Therapy Evaluation Result: Comments: See Note; NOTES: [facility] 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 She [...] Discharge Instruction Result: Comments: See Note; NOTES: [facility] Medical Records Department [address] [place] [address] Discharge Instruction 09/03/172034 MR#: [id number] Acct: [id number] Name: Merline ROSA Rep #: [id number] : 1970 47 From: Lance Gutiérrez DO PCP: Luiza Dowd DO Status: PRE ER ED Disposition - Plan for ED Patient: Chief Complaint: Occup Expose Instructions: ED Body Fluid Exp HC Worker Referrals: Noemí,Luiza, DO [Primary Care Provider] - [facility] [GROUP OF PHYSICIANS] - 3-5 Days What to do if you have Problems For any increased pain, shortness of breath, b leeding, nausea or vomiting, chest pain, or any unexpected problems, contact your Primary Care Provider. Call [facility] ([phone]) or report to the closest Emergency Room. Call 911 if necessa ry. 09/03/172036 <Electronically signed by Lance Gutiérrez DO> Date Lance Gutiérrez DO Cosigner Signature (If Indicated): Date CC: Luiza Dowd DO 03-Sep-2017 Emergency Department Summary Result: Comments: See Note; NOTES: [facility] Medical Records Department [address] [place] [address] Emergency Department Summary 09/03/172031 MR#: [id number] Acct: [id number] Name: TAMAR ROSA Rep #: [id number] : 1970 47 From: Lance Gutiérrez DO [...] healthcare worker] This note was generated with Realius dictation software. It may contain incorrect words, [...] unexpected problems, contact your Primary Care Provider. [facility] Doctors Registry ([phone]) or report to the closest Emergency Room. Call 911 if necessary. 09/03/172034 <Electronically signed by Lance Gutiérrez DO> Date Lance Gutiérrez DO Cosigner Signature (If Indicated): Date CC: Luiza Dowd DO 23-Jul-2017 Discharge Summary Result: Comments: See Note; NOTES: [facility] Medical Records Department [address] [place] [address] Discharge Summary 07/19/17 1117 MR#: [id number] Acct: [id number] Name: TAMAR ROSA Rep #: [id number] : 1970 47 From: Carmelita Tucker PCP: Luiza Dowd DO Status: REG RCR Y Location: [facility] Massage Therapy Discharge Summary: This patient was seen for massotherapy evaluation on: 08/31/16 Diagnosis: Tension Headaches The patient had 10 sessions of massotherapy. The goals for treatment were met. She reported decreased headaches and muscle tension. At this time I am disch arging the patient from our care at the [facility]. 07/23/17 1049 <Electronically signed by Carmelita Tucker > Date Carmelita maxwell Cosigner Signature (if applicable): Date CC: Carmelita Tucker; Luiza Dowd DO Signed 14-Dec-2016 Pulmonary Function Report Comp Result: Comments: See Note; NOTES: [facility] Pulmonary Services/Neurology [address] [place] [address] Pulmonary Function Test (Comp) MR#: [id number] Acct: [id number] Name: LUIS ALBERTO ROSA Rep #: [id number] : 1970 46 From: Lauro Calderon DO Referring Dr: Zuleyma Vegas Status: REG CLI Ordering Dr: Zuleyma Vegas Date: 12/12/16 Location: [facility] Sex: F C DATE OF [...] [place] C: Referring Provider T: YAW JOB: [id number] 12/14/16 0829 <Electronically signed by Lauro Calderon DO> Date Lauro Calderon DO CC: Zuleyma Vegas; Lauro Calderon D.O.; Luiza Dowd DO Date Dictated: 12/13/16846 Date Transcribed: 12/13/16846 Refrigerator Cabinetmaker: Signed 31-Aug-2016 SCREENING MAMM (CAD), BILAT Result: Comments: See Note; NOTES: [facility] Imaging Services [address] [place] [address] Verdana 4d SCREENING MAMM (CAD), BILAT MR#: [id number] Acct: [id number] Name: TAMAR ROSA Rep #: [id number] : 1970 F 46 From: Anil Davison MD PCP: Luiza Dowd DO Status: REG CLI Study: SCREENING MAMM (CAD), BILAT Date of Exam: 08/31/16 Exam# [id number] Ordering Dr: Bailey Barrientos MD MAMMOGRAPHY - [...] 2015 and May 20, 2014. FINDINGS: Breast [facility] [place] sition: The breasts are heterogeneously dense, which [...] delay biopsy of a clinically suspicious abnormality. [id number] Electronically Signed: Carlos Davison MD at 10:16 EST Tel [phone], Service support [phone], CC: Bailey Cummins MD; Luiza Dowd DO Refrigerator Cabinetmaker: Signed 03-Sep-2015 Inital Evaluation - PT Result: Comments: See Note; NOTES: [facility] Physical Therapy [facility] [address] [place] [address]. 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 Elayne Kauffman LMT T: YAW JOB: [id number] <Electronic ally signed by Elayne Kauffman > 09/03/15 1032 CC: Signed For Medicare only, by signing this I certify the plan of care. Physicians Signature Date 05-Aug-2015 PT Discharge Summary Result: Comments: See Note; NOTES: [facility] Physical Therapy [facility] [address] [place], [place] [address] Fax REHABILITATION SE RVICES DISCHARGE SUMMARY MR#: [id number] Acct: [id number] Name: TAMAR ROSA Rep #: [id number] : 1970 45 From: Carmelita Tucker Referring [...] the patient from our care at the [facility] facility. Carmelita Tucker LMT T: YAW JOB: [id number] <Electronically signed by Carmelita Tucker > 0739 CC: Luiza Dowd DO Signed 27-May-2015 Breast Limited Unilateral Result: Comments: See Note; NOTES: [facility] Imaging Services [address] [place] [address] Verdana 4d Breast Limited Unilateral MR#: [id number] Acct: [id number] Name: TAMAR DAVIS Rep #: [id number] : 1970 F 45 From: Anil Davison MD PCP: Luiza Dowd DO Status: REG CLI Study: Breast Limited Unilateral Date of Exam: 05/27/15 Exam# [id number] Jose Manuel hilton Dr: Bailey Cummins MD [...] Anil Davison MD at 15:03 EST Tel [phone], Service support [phone], CC: Bailey Cummins MD; Luiza Dowd DO Refrigerator Cabinetmaker: Signed 27-May-2015 Unilat Lt Diag Digital AND CAD Result: Comments: See Note; NOTES: [facility] Imaging Services [address] [place] [address] Verdana 4d Unilat Lt Diag Digital AND CAD MR#: [id number] Acct: [id number] Na me: TAMAR ROSA Rep #: [id number] : 1970 F 45 From: Dre Hoffman MD PCP: Luiza Dowd DO Status: REG CLI Study: Unilat Lt Diag Digital AND CAD Date of Exam: 05/27/15 Exam# [id number] O [facility] Dr: Bailey Cummins MD MAMMOGRAPHY - UNILATERAL [...] 15:04 EDT Tel , Servi ce support [phone], CC: Bailey Cummins MD; Luiza Dowd DO Refrigerator Cabinetmaker: Signed 27-May-2015 Unilat Lt Diag Digital AND CAD Result: Comments: See Note; NOTES: [facility] Imaging Services [address] [place] [address] Verdana 4d Unilat Lt Diag Digital AND CAD MR#: [id number] Acct: [id number] Na me: TAMAR ROSA Rep #: [id number] : 1970 F 45 From: Dre Hoffman MD PCP: Luiza Dowd DO Status: REG CLI Study: Unilat Lt Diag Digital AND CAD Date of Exam: 05/27/15 Exam# [id number] O [facility] Dr: Bailey Cummins MD MAMMOGRAPHY - UNILATERAL [...] 15:04 EDT Tel , Servi ce support [phone], CC: Bailey Cummins MD; Luiza Dowd DO Refrigerator Cabinetmaker: Signed 27-May-2015 Unilat Lt Diag Digital AND CAD Result: Comments: See Note; NOTES: [facility] Imaging Services [address] [place] [address] Verdana 4d Unilat Lt Diag Digital AND CAD MR#: [id number] Acct: [id number] Na me: TAMAR ROSA Rep #: [id number] : 1970 F 45 From: Dre Hoffman MD PCP: Luiza Dowd DO Status: REG CLI Study: Unilat Lt Diag Digital AND CAD Date of Exam: 05/27/15 Exam# [id number] O [facility] Dr: Bailey Cummins MD MAMMOGRAPHY - UNILATERAL [...] 15:04 EDT Tel , Servi ce support [phone], CC: Bailey Cummins MD; Luiza Dowd DO Refrigerator Cabinetmaker: Signed 27-May-2015 Unilat Lt Diag Digital AND CAD Result: Comments: See Note; NOTES: [facility] Imaging Services [address] [place] [address] Verdana 4d Unilat Lt Diag Digital AND CAD MR#: [id number] Acct: [id number] Na me: TAMAR ROSA Rep #: [id number] : 1970 F 45 From: Dre Hoffman MD PCP: Luiza Dowd DO Status: [facility] CLI Study: Unilat Lt Diag Digital AND CAD Date of Exam: 05/27/15 Exam# [id number] O rdering Dr: Bailey Cummins MD MAMMOGRAPHY [...] 15:04 EDT Tel , Servi ce support [phone], CC: Bailey Cummins MD; Luiza Dowd DO Refrigerator Cabinetmaker: Signed 27-May-2015 Unilat Lt Diag Digital AND CAD Result: Comments: See Note; NOTES: [facility] Imaging Services [address] [place] [address] Verdana 4d Unilat Lt Diag Digital AND CAD MR#: [id number] Acct: [id number] Na me: TAMAR ROSA Rep #: [id number] : 1970 F 45 From: Dre Hoffman MD PCP: Luiza Dowd DO Status: REG CLI Study: Unilat Lt Diag Digital AND CAD Date of Exam: 05/27/15 Exam# [id number] O rdering Dr: Bailey Cummins MD MAMMOGRAPHY [...] 15:04 EDT Tel , Servi ce support [phone], CC: Bailey Cummins MD; Luiza Dowd DO Refrigerator Cabinetmaker: Signed 21-May-2015 Bilat Scrn Digital AND CAD Result: Comments: See Note; NOTES: [facility] Imaging Services [address] [place] [address] Verdana 4d Bilat Scrn Digital AND CAD MR#: [id number] Acct: [id number] Name: TAMAR ROSA Rep #: [id number] : 1970 F 45 From: Dre Hoffman MD PCP: Luiza Dowd DO Status: REG CLI Study: Bilat Scrn Digital AND CAD Date of Exam: 05/21/15 Exam# [id number] Ordering Dr: Bailey Cummins MD MAMMOGRAPHY - BILATERAL SCREENING REASON FOR EXAM: Female, 45 years old. Routine annual screening examination. PERTINENT HISTORY: NO PROBLEMS, NO MOLES, FAM HX CA IN SUMMER R AGE 61 TECHNIQUE: Digital examination. Mediolateral [...] at 14:42 EDT Tel , Service support [phone], CC: Bailey Cummins MD; Luiza Dowd DO Refrigerator Cabinetmaker: Signed 02-Sep-2014 Inital Evaluation - PT Result: Comments: See Note; NOTES: [facility] Physical Therapy [facility] [address] [place] [address]. [address] [place], [place] [address] Fax REHABILITATION SERVICES INITIAL EVALUATION MR#: [id number] Acct: [id number] Name: TAMAR ROSA Rep #: [id number] : 1970 44 From: Carmelita Tucker Referring Dr.: Luiza Dowd DO Status: REG RCR Insurance: [facility] Eval Date: DATE OF SERVICE: 08/26/2014 REFERRING PHYSICIAN: Dr. Dowd. 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 She was referred to [facility] facility for massotherapy evaluation by [...] back. Carmelita Tucker LMT T: YAW JOB: [id number] <Electronically signed by Carmelita Tucker > 09/02/14 1307 CC: DD: Signed For Medicare only, by signing this I certify the plan of care. Physicians Signature Date 20-May-2014 Bilkonstantin Mcqueenn Digital & CAD Result: Comments: See Note; NOTES: [facility] Imaging Services [address] [place] [address] Breast Imaging Report MR#: [id number] Acct: [id number] Name: TAMAR ROSA Rep #: [id number] : 1970 F 44 From: Dontae Durbin PCP: Luiza Dowd DO Status: REG CLI Exam# [id number] Ordering Dr: Bailey Cummins MD MAMMOGRAPHY - [...] at 20:20 EDT Tel , Service support [phone], CC: Bailey Cummins MD; Luiza Dowd DO Refrigerator Cabinetmaker: Signed 20-Feb-2014 Spirometry ([id number]) Result: 05-Aug-2013 PT Discharge Summary Result: Comments: See Note; NOTES: [facility] [address] [place] [address] Fax REHABILITATION SERVICES DISCHARGE SUMMARY MR#: [id number] Acct: [id number] Name: TAMAR ROSA Rep #: [id number] : 1970 43 From: Lori Christopher Referring [...] the patient from our care at the [facility] facility. Carmelita Christopher LMT T: NTS JOB: [id number] <Electronically signed by Lori Christopher &#62 ; 08/05/13 0736 CC: * Signed Family History Unknown Family Member Name Dates Details Breast Cancer Comments: Mother 3-08 Status: Active Social History Name Dates Details No Drug Use Status: Active Non Drinker/No Alcohol Use Status: Active Non Smoker/No Tobacco Use Status: Active Tobacco use: Never smoker. Status: Active Smoking Status Name Dates Details Never smoker Vital Signs Date Test Result Details 36-Swp-48261:05 Temperature 97 f Comments: Method: Temporal Pulse 78 /min Comments: Pattern: Regular Respiration Rate 17 /min Comments: Pattern: Unlabored O2 SAT 97 % Comments: Room air BP Systolic 118 mm[Hg] Comments: Patient Position: Sitting; Cuff Location: Left Arm; Cuff Size: Standard BP Diastolic 76 mm[Hg] Comments: Patient Position: Sitting; Cuff Location: Left Arm; Cuff Size: Standard Weight 249.125 lb Height 64 in Body Mass Index Calculated 42.76 kg/m2 Body Surface Area Calculated 2.15 m2 :07 Temperature 96.8 f Pulse 70 /min [...] kg/m2 Body Surface Area Calculated 2.15 m2 54-Czh-049760:23 Pulse 72 /min Comments: Pattern: Regular Respiration [...] kg/m2 Body Surface Area Calculated 2.16 m2 :15 Temperature 97.1 f Comments: Method: Oral Pulse [...] kg/m2 Body Surface Area Calculated 2.07 m2 92-Rjn-424059:24 Pulse 64 /min Comments: Pattern: Regular Respiration [...] Calculated 2.04 m2 Head Circumference 0.00 cm 80-Odc-848686:00 Pulse 60 /min Comments: Pattern: Regular Respiration [...] 0.00 cm Results Date Description Value Details 9-Gkz-312549:43 CBC W/Diff, Automated Comments: [facility] [address] [place], [place], [id number] Absolute Lymph 2.01 {X10_3/ul} (Normal) Range: 0.83-4.51 [...] 4.2-5.4 WBC 9.7 K/mm3 (Normal) Range: 4.4-11.0 4-Vfp-023768:43 Comprehensive Metabolic Profil Comments: [facility] [address] [place], [place], [address] GAP 8 (Normal) Range: 5-15 CO2 28.0 [...] Comments: Please note revised GLUCOSE reference range xdhdgthap61/02/2018. 7-Xxy-421538:43 Thyroid Stim Hormone (TSH) Comments: [facility] [address] [place], [address] TSH 3.56 {uIU/mL} (Normal) Range: 0.358-3.74 63-Suq-45847:48 Basic Metabolic Profile (BMP) Comments: [facility] [address] [place], [address] GAP 9 (Normal) Range: 5-15 CO2 27.0 [...] A.D.A. criteria.Please note revised GLUCOSE reference range myievwtkh88/02/2018. 8-Kds-481504:02 CBC, Employee Comments: [facility] [address] [place], [address] Absolute Lymph 1.64 {X10_3/ul} (Normal) Range: 0.83-4.51 [...] 4.2-5.4 WBC 7.1 K/mm3 (Normal) Range: 4.4-11.0 7-Ujt-802743:02 Employee Profile Comments: [facility] [address] [place], [place], [address] LDH 148 U/L (Normal) Range: 84-246 VLDL [...] Comments: Please note revised GLUCOSE reference range gztiitdpw49/02/2018. 7-Lsn-224434:02 Nicotine Urine Drug Screen Comments: [facility] [address] [place], [place], [address] COT DRG SCREEN Negative (Normal) Comments: Cotinine [...] result, particularly whenpreliminary positive results are used. 6-Qzm-621271:02 Urinalysis, Employee Comments: [facility] [address] [place], [place], [address] LEUK ESTERASE Negative /ul (Normal) OCCULT BLOOD-UR Negative /ul (Normal) NITRITE UR Negative (Normal) UROBILI Normal mg/dL (Normal) PROT DIPSTX Negative mg/dL (Normal) pH UR 7.0 (Normal) Range: 5.0 - 8.0 SP.GR. DIPSTX 1.010 (Normal) Range: 1.002-1.030 KETONE UR Negative mg/dL (Normal) BILIRUBIN URINE Negative mg/dL (Normal) GLUCOSE, UR Normal mg/dL (Normal) CLARITY Clear (Normal) COLOR Yellow (Normal) 85-Nrf-545896:15 Hep B Surface Antibodies EMP Comments: [facility] (refer to report for specific site)refer to report for address and phone number Hep B Oleg AB Reactive (Normal) Comments: Non Reactive: Inconsistent with immunity, less than 10 mIU/mL Reactive: Consistent with immunity, greater than 9.9 mIU/mL 07-Jgu-348784:15 Hepatitis B Surface Ag Comments: [facility] (refer to report for specific site)refer to report for address and phone number HB SURF AG Negative (Normal) Comments: Performed at: [facility] [address] [id number] Director: Alejo Andre PhD, Phone: [phone] 13-Faq-354434:15 Hepatitis C Antibodies Comments: [facility] (refer to report for specific site)refer to report for address and phone number HEP C AB <0.1 {s/co_ratio} (Normal) Range: 0.0-0.9 Comments: Negative: < 0.8 Indeterminate: 0.8 - 0.9 Positive: > 0.9 The CDC recommends that a positive HCV antibody result be followed up with a HCV Nucleic Acid Amplification test (392076). 08-Xlw-870825:15 HIV - [facility] Non-Reactive (Normal) Comments: [facility] [address] [facility] [address] [place], [place], [address] 81-Jdj-963594:48 CBC-Complete Blood Cnt No Diff Comments: [facility] [address] [facility] [place], [place], [address] MPV 10.7 fL (Normal) Range: 6.2-12.0 PLT [...] (Normal) Range: 4.4-11.0 :07 HgA1C , Office (74760) HgA1C , Office 5.2 % (Normal) Range: 4.6 - 7.1 :32 CBC, Employee Comments: [facility] [address] [place], [address] Absolute Lymph 1.64 {X10_3/ul} (Normal) Range: 0.83-4.51 [...] 4.2-5.4 WBC 7.9 K/mm3 (Normal) Range: 4.4-11.0 61-Aax-729507:32 Employee Profile Comments: [facility] [address] [place], [address] LDH 104 U/L (Normal) Range: 84-246 VLDL [...] 7-18 GLU 81 mg/dL (Normal) Range: 70-110 :32 Microalb:Creat Ratio,Random UR Comments: [facility] [address] [facility] [place], [place], [id number] MALB:CREAT 4.0 {mg/g_CRE} (Normal) MICROALBUMIN,UR 10.7 mg/L (Normal) UR CREAT 265.00 mg/dL (Normal) :32 Nicotine Urine Drug Screen Comments: [facility] Irbbagdudq[address] [facility] [place], [place], [id number] COT DRG SCREEN Negative (Normal) Comments: Cotinine [...] used. :32 Thyroid Stim Hormone (TSH) Comments: [facility] F[address] [facility] [address] [place], [place], [id number] TSH 3.17 {uIU/mL} (Normal) Range: 0.358-3.74 :32 Urinalysis, Employee Comments: How was Urine Obtained? CLEAN [facility] [address] [place], [place], [id number] LEUK ESTERASE 25 /ul (Abnormal) OCCULT BLOOD-UR 10 /ul (Abnormal) NITRITE UR Negative (Normal) UROBILI Normal mg/dL (Normal) PROT DIPSTX Negative mg/dL (Normal) pH UR 5.0 (Normal) Range: 5.0 - 8.0 SP.GR. DIPSTX 1.020 (Normal) Range: 1.002-1.030 KETONE UR Negative mg/dL (Normal) BILIRUBIN URINE Negative mg/dL (Normal) GLUCOSE, UR Normal mg/dL (Normal) CLARITY Sl. Cloudy (Normal) COLOR Yellow (Normal) 69-Jkm-817686:03 URINE OLIVIA CULTURE-LORY COL Comments: PATIENT NOT FASTINGPERFORMED BY: [facility] [id number] [facility] [id number] Information: SRC:UR COUNT (19512) Antimicrobial MIHEAD (Normal) Comments: S = Susceptible; [...] mL (Abnormal) Urine Final report Culture,Comprehensive (Abnormal) 09-Xzk-901887:39 Urinalysis, Office (05640) UA - LEUKOCYTE ESTERASE Moderate (Abnormal) UA - NITRITE Negative (Normal) URINE UROBILINGN LORY TIMED Normal mg/dL (Normal) UA - PROTEIN 100 mg/dL (Normal) UA - PH 7.0 (Normal) UA - BLOOD ++ (Abnormal) UA - SPECIFIC GRAVITY 1.010 (Normal) UA - KETONES Negative mg/dL (Normal) UA - BILIRUBIN Negative (Normal) UA - GLUCOSE Negative (Normal) 42-Iki-742714:10 CBC, Employee Comments: [facility] [address] [place], [address] Absolute Lymph 1.56 {X10_3/ul} (Normal) Range: 0.83-4.51 [...] 4.2-5.4 WBC 6.4 K/mm3 (Normal) Range: 4.4-11.0 14-Vjk-114109:10 Employee Profile Comments: [facility] Hgmxdqsewq8646 [facility] [address] [place], [place], [id number] LDH 130 U/L (Normal) Range: 84-246 VLDL [...] 7-18 GLU 76 mg/dL (Normal) Range: 70-110 29-Odv-603621:10 Nicotine Urine Drug Screen Comments: [facility] [address] [place], [place], [id number] COT DRG SCREEN Negative (Normal) Comments: Cotinine [...] result, particularly whenpreliminary positive results are used. 61-Dii-700959:10 Urinalysis, Employee Comments: [facility] [address] [place], [address] LEUK ESTERASE 25 /ul (Abnormal) OCCULT BLOOD-UR Negative /ul (Normal) NITRITE UR Negative (Normal) UROBILI Normal mg/dL (Normal) PROT DIPSTX Negative mg/dL (Normal) pH UR 6.0 (Normal) Range: 5.0 - 8.0 SP.GR. DIPSTX 1.015 (Normal) Range: 1.002-1.030 KETONE UR Negative mg/dL (Normal) BILIRUBIN URINE Negative mg/dL (Normal) GLUCOSE, UR Normal mg/dL (Normal) CLARITY Clear (Normal) COLOR Yellow (Normal) 6-Nqc-584294:13 CBC, Employee Comments: Test performed at:[facility] [address] [place], [place] [address] Absolute Lymph 1.37 {X10_3/ul} (Normal) Range: 0.83-4.51 [...] 4.2-5.4 WBC 6.2 K/mm3 (Normal) Range: 4.4-11.0 7-Dms-980208:13 Employee Profile Comments: Test performed at:[facility] [address] [place], [place] [id number] ; ordered by ina stoll LDH 111 [...] 7-18 GLU 78 mg/dL (Normal) Range: 70-110 2-Aad-103015:13 Urinalysis, Employee Comments: Test performed at:[facility] F[address]seb[address]ette [place], [place] [id number] LEUK ESTERASE Negative /ul (Normal) OCCULT BLOOD-UR Negative /ul (Normal) NITRITE UR Negative (Normal) UROBILI Normal mg/dL (Normal) PROT DIPSTX Negative mg/dL (Normal) pH UR 6.0 (Normal) Range: 5.0 - 8.0 SP.GR. 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 of containers..01 CYTYC Thin Prep Vial tHPVRFLX Comment (Normal) Comments: The HPV DNA reflex criteria were not met with this specimenresult therefore, no HPV testing was performed.Performed at: [address] [place] [id number] Director: Yassine Mathews MD, Phone: [phone] tPAPSMR Comment (Normal) Comments: The Pap smear is [...] system. tPERFORM Comment (Normal) Comments: Ariana Victoria, Hostel Manager (ASCP) tADEQ Comment (Normal) Comments: Satisfactory for [...] CHOL 150 mg/dL (Normal) Comments: <200 mg/dL Enhijjykz594-286 mg/dL Borderline>240 mg/dL High Risk BID 0.08 [...] (Normal) UCLAR Clear (Normal) UCOL Yellow (Normal) 7-Gxq-661370:44 Rapid Strep Test, Office (65533) Comments: positive Rapid Strep Test, Office Positive (Normal) 78-Kgy-13910:40 LQDPAP [id number] Comments: CYTOLOGY INFORMATION:- CLINICAL INFORMATION:- DATE LMP/MENOPAUSE: 687414 LMP- COLLECTION VIAL: Thin Prep Vial- COATING AND EMBOSSING UNIT OPERATOR SOURCE: CERVICAL/ENDOCERVICAL- COLLECTION TECHNIQUE: BRUSH/SPATULA COMM . [...] testing was performed..Performe d at: [facility] - [facility] [address] [id number] Director: Trevor Mathews MD DIAGN Comment (Normal) Comments: NEGATIVE FOR INTRAEPITHELIAL LESION AND MALIGNANCY.Satisfactory for evaluation. Endocervical and/or squamous metaplasticcells (endocervical component) are present.Catina Hill, Hostel Manager (ASCP)T his liquid based ThinPrep(R) pap test was screened withthe use of an image guided system. 74-Dzc-276688:09 TSH (54535) Comments: PATIENT NOT FASTINGClinical Information: [id number] [facility]MED [facility]: [facility] [id number] TSH 2.700 {uIU/mL} (Normal) Range: 0.450-4.500 :32 [...] for patient's is the eGFRmultiplied by 1.212. [facility] Laboratory uses the abbreviated Modification [...] Disease W/O Kidney Disease>/= 90 Stage One Czppjk57 - 89 Stage Two Suspect Decreased GFR30 [...] 2.6-6.0 VLDL 26 mg/dL (Normal) Range: 5-40 64-Tja-93075:32 EMP URINALYSIS BILIRUBIN URINE SeeNote (Normal) Comments: [...] Very High > or = 500 mg/dL 67-Pcc-475468:45 Upper Respiratory Culture Comments: Clinical Information: SRC:TH PERFORMED BY: [facility] [id number] Result 1 BETAGA (Normal) Comments: Beta hemolytic [...] report (Normal) :31 Rapid Strep Test, Office (73690) Rapid Strep Test, Office Negative (Normal) :22 [...] Plan of Care Name Dates Details Instructions Palpitations : Follow up if no improvement or if symptoms worsen Indication: Palpitations Palpitations : Reviewed Lab Indication: Palpitations Palpitations : Reviewed Diagnostic Tests Indication: Palpitations BMI 40.0-44.9, adult : Eprescribed prescriptions (G8553) [...] Hypertension Planned Observations CBC W/AUTO DIFF WBC (48068)Indication: Benign essential hypertension On: 4-Ein-363403:24 Request METABOLIC PANEL, COMPREHENSIVE (79256)Indication: Palpitations On: 6-Vgf-952203:22 Request TSH (79247)Indication: Palpitations On: 3-Rlm-315030:22 Request MICROALBUMIN: CREATININE RATIO (45560) AND (39852)Indication: Benign essential hypertension On: 69-Uhg-151582:53 Request TSH (THYROID STIMULATING HORMONE) (28502)Indication: Arrhythmia On: 21-Jnp-196890:52 Request Sputum Culture (44266)Indication: Cough On: 67-Oum-71949:53 Request OLIVIA CULTURE-OTHER (59671)Indication: Sore throat On: 6-Wra-317501:43 Request OLIVIA CULTURE-OTHER (62315)Indication: Throat pain On: 70-Cwd-69282:31 Request Comments: throat cx Triglycerides (98933)Indication: Hyperglyceridemia On: 44-Wrx-168465:00 Request HDL Cholesterol-Direct (50832)Indication: Low HDL (under 40) On: 59-Boi-098791:00 Request Planned Procedures APPLICATION OF 24 HOUR HOLTER On: 09-Jul-2018 Intent MONITOR (86027)By: Abeba Holt EXERCISE STRESS TEST (85375)By: On: 08-Jul-2018 Intent Abeba Holt Holter Moniter (70546)By: Jonathon, On: 08-Jul-2018 Intent Abeba Comments: 24 Hour EKG (80767)By: Abeba Holt On: 08-Jul-2018 Intent Comments: Sinus Rhythm- HR 68 PFT - CompleteBy: Zuleyma Vegas CNP On: 24-Nov-2016 Intent Spirometry (50462)By: Shasta PHILLIPS, On: 24-Nov-2016 Intent Zuleyma Tamayo Comments: normal Aerosol Treatment (82845)By: Shasta On: 24-Nov-2016 Intent Zuleyma PHILLIPS ELECTROCARDIOGRAM, COMPLETE (ECG) On: 07-Nov-2016 Intent (94822)By: Luiza Dowd DO Comments: nsr no acute chg Luiza Dowd DO COMP EYE EXAMINATION, ESTAB PATIENT On: 21-Jun-2016 Intent (56016)By: Zuleyma Vegas CNP EKG (57685)By: Luiza Dowd DO On: 26-Mar-2015 Intent Luiza Dowd DO Comments: nsr no acute chg Solu -Medrol Injection, 125 mg On: 04-Aug-2013 Intent (J2930)By: Zuleyma Vegas CNP Comments: Lot: [id number]: 12/2015Amt: 125mgRoute: IMSite: RUOQ GlutealGiven by: CINDY Kerr Aerosol Treatment (60579)By: Shasta On: 04-Aug-2013 Intent Zuleyma PHILLIPS Eprescribed prescriptions On: 04-Aug-2013 Intent (G8553)By: Zuleyma Vegas CNP EKG (13598)By: Luiza Dowd DO On: 14-Aug-2011 Intent Luiza Dowd DO Comments: no acute chg nsr - good Aerosol Treatment (36775)By: Shasta On: 27-Jun-2011 Intent Zuleyam PHILLIPS EKG (81669)By: Abeba Holley On: 14-Oct-2009 Intent CINDY Comments: nsr no acute changes Echo CompleteBy: Noemí FOSS, On: 22-Jun-2009 Intent Luiza Marinelli DO Holter Moniter (90725)By: Noemí On: 22-Jun-2009 Luiza Ruano DO, DO, Kathleen Comments: 48 hour EKG (05668)By: Luiza Dowd DO On: 22-Jun-2009 Intent Luiza Dowd DO Comments: nsr no acute changesno pvc EKG (02482)By: Luiza Dowd DO On: 30-Sep-2008 Intent Luiza Dowd DO Comments: stable EKG (96872)By: Luiza Dowd DO On: 30-Sep-2007 Intent Luiza Dowd DO Comments: done-awnsr noacute ischemic changes Aerosol Treatment (41462)By: Shasta On: 11-Jul-2007 Intent Zuleyma PHILLIPS COMP EYE EXAMINATION, ESTAB PATIENT On: 10-Jun-2007 Intent (65383)By: Sena Lester LPN Comments: VA Crx- 20/30 OD 20/40 OS 20/25 OU EKG (06575)By: Luiza Dowd DO On: 14-Sep-2006 Intent Luiza Dowd DO Comments: nsr no acute ischemic changes Planned Medications INJECTION, METHYLPREDNISOLONE SODIUM SUCCINATE, UP TO 125 MG Ordered: 04-Aug-2013 Pending Zuleyma Vegas CNP Instructions Name Dates Details BMI 40.0-44.9, adult : How to access health information online Indication: BMI 40.0-44.9, adult BMI 40.0-44.9, adult : How to access health information online - Detail Indication: BMI 40.0-44.9, adult Benign essential hypertension : Patient Instructions Indication: Benign essential hypertension Non-smoker : How to access health information [...] Bronchitis with bronchospasm Encounters Office Visit On: 22-Jul-2018 9:04 Encounter Reason: Follow up ER - Reason for hospitalization note: (heart palps and high BP). Patient has been compliant with instructions. Current medication use: no side effects. The patient does not feel well. Patient End: 22-Jul-2018 10:30 sleeps 7 hours per night. Note for Follow up ER: Pt here for follow up-palpitations and elevated blood pressures. Has been taking blood pressures with wrist BP Cuff at home. Has been feeling better th e last week and has had a lot of stressors from last week but has not noticed any palpitations. BP has been slighly elevated-still taking 5mg of Bystolic. Pt stated that she thought she may need to do a sleep study that she had talked with Dr. Mayers about last year. She states that with the increase in BP, palpitations, weight, increased reflux-she thinks she should prob go ahead and schedule the sl eep study. Symptoms started about 1 week ago with heart palpiations and elevated blood pressure. ??Heart palpitations were more frequent. [place] them more frequently and didn't feel right-so went to ER 4 days ago. Blood pressure has also been elevated. BP during the weekend was 150-160's/90's. Feel the heart palpitations usually when sitting or lying down. ??No CP, SOB, extreme thirst, urination, cold o r hot sensitivites. ?Has had heart palpitations before and wore holter monitor and echo-which all came back negative. May be due to stress with the holidays, and ??homelife. Maybe 1 coke a day, occassional claribel throughout the day. Encounter Diagnosis: Non-smoker, BMI 40.0-44.9, adult, Benign essential hypertension (401.1), Palpitations [facility] Annotation/Addendum On: 09-Jul-2018 13:32 Encounter Diagnosis: Palpitations [...] blood pressure. ??Heart palpitations were more frequent. 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
--- OUTSIDE RECORDS SUMMARY | 2018-08-30 03:29 | XMS RPT_ITS ---
:1970 Author Organization [place] Support Name Relationship Address Phone PITAOUSER LULY/CODI Unavailable [address] + [place] [address] SHELLEY, DYLON Unavailable [address] + [place] [address] [facility] Unavailable [address] + [place] [address] HUMRICHOUSER, LULY/CODI Unavailable [address] + [place] [address] OPATZ, DYLON Unavailable [address] + [place] [address] [facility] Unavailable [address] + [place] [address] HUMRICHOUSER, LULY/CODI Unavailable [address] + [place] [address] OPAALICIA, DYLON Unavailable [address] + [place] [address] [facility] Unavailable [address] + [place] [address] HUMRICHOUSER, LULY/CODI Unavailable [address] + [place] [address] OPATZ, DYLON Unavailable [address] + [place] [address] [facility] Unavailable [address] + [place] [address] HUMRICHOUSER, LULY/CODI Unavailable [address] + [place] [address] OPAALICIA, DYLON Unavailable [address] + [place] [address] [facility] Unavailable [address] + [place] [address] HUMRICHOUSER, LULY/CODI Unavailable [address] + [place] [address] OPAALICIA, DYLON Unavailable [address] + [place] [address] [facility] Unavailable [address] + [place] [address] HUMRICHOUSER, LULY/CODI Unavailable [address] + [place] [address] OPATZ, DYLON Unavailable [address] + [place] [address] [facility] Unavailable [address] + [place] [address] HUMRICHOUSER, LULY/CODI Unavailable [address] + [place] [address] OPATZ, DYLON Unavailable [address] + [place] [address] [facility] Unavailable [address] + [place] [address] HUMRICHOUSER, LULY/CODI Unavailable [address] + [place] [address] OPATZ, DYLON Unavailable [address] + [place] [address] [facility] Unavailable [address] + [place] [address] Care Team Providers Name Role Phone Noemí DO, Luiza Attending Unavailable Noemí DO, Luiza Referring Unavailable Noemí DO, Luiza Consulting Unavailable Noemí, Luiza Primary Care Unavailable Jayla Gutiérrezus Attending Unavailable Bailey Cummins Attending Unavailable ASSESSMENT, HEALTH RISK Attending Unavailable ASSESSMENT, HEALTH RISK Referring Unavailable Noemí, Luiza Primary Care Unavailable Noemí, Luiza Primary Care Unavailable Ubaldo Owens Attending Unavailable Abeba Holt ANIMAL SHELTER CLERK-C Attending Unavailable Abeba Holt ANIMAL SHELTER CLERK-C Referring Unavailable Noemí, Luiza Primary Care Unavailable Abeba Holt ANIMAL SHELTER CLERK-C Attending Unavailable Abeba Holt ANIMAL SHELTER CLERK-C Referring Unavailable Noemí, Luiza Primary Care Unavailable Abeba Holt ANIMAL SHELTER CLERK-C Attending Unavailable Abeba Holt ANIMAL SHELTER CLERK-C Referring Unavailable Noemí, Luiza Primary Care Unavailable Noemí Luiza Attending Unavailable Noemí, Luiza Referring Unavailable Noemí Luiza Primary Care Unavailable Bailey Cummins Attending Unavailable Riya Dowdeen Primary Care Unavailable PROBLEMS PROBLEMS DATE TYPE CONDITION / CODE ATTENDING STATUS SOURCE 07/08/2018 Unknown G44.209 - Noemí, Active [place] Tension-type Luiza [facility] headache, Hospital unspecified, not Repository intractable / G44.209(ICD-10) 11/07/2017 Unknown Z12.31 - Bailey Cummins Active [place] Encounter for [facility] screening Hospital mammogram for Repository malignant neoplasm of breast / Z12.31(ICD-10) 09/04/2017 Unknown Z12.4 - Encounter Bailey Cummins Active [place] for screening for [facility] malignant Hospital neoplasm of Repository cervix / Z12.4(ICD-10) PROCEDURES PROCEDURES No Procedure Records FoundRESULTS RESULTS STRESS REPORT Observed: 07/17/2018 Status: F Source: [place] 1:50 PM [facility] [place] RE[facility] Cardiovascular Services [address] [place] [address] MR#: [id number] Acct: [id number] Name: GIO ROSA Rep #: [id number] : 1970 48 From: Sree King MD Primary Care: Luiza Dowd DO Status: REG CLI Ordering Dr: Sex: F C Stress Test Report Treadmill EKG results: Resting EKG: Normal sinus rhythm, normal axis, normal intervals, poor R wave progression across the precordium which may be secondary to lead misplacement. Treadmill EKG: The patient exercise according to a Juancarlos protocol for 3 minutes and 54 seconds achieving a maximum workload of 5.60 mets. Patient's [...] hypertension with hypertensive blood pressure response to exercise. Below average exercise capacity for age. Patient tolerated the procedure well. No complications. 07/17/18 1350 <Electronically signed by Sree King MD> Date Sree King MD CC: MOISE Holt; Luiza Dowd DO Date Dictated: 07/17/18 1348 Date Transcribed: 07/17/181347 Sanitor: Signed 12 LEAD ELECTROCARDIOGRAM Observed: 07/09/2018 Status: F Source: [place] 3:39 PM [facility] [place] [facility] Cardiovascular Services [address] [place] [address] 12 Lead EKG 07/05/18 0831 MR#: [id number] Acct: [id number] Name: GIO ROSA Rep #: [id number] : 1970 48 From: Corona Moore MD [...] 468 ms Sinus rhythm with occasional Premature ventricular complexes Otherwise normal ECG Confirmed by OSCAR AHYS, CORONA ([id number]), associate entertainment editor DEBBY GUTIÉRREZ ([id number]) on 07/09/2018 3:39:04 PM Referred By: Confirmed By:CORONA MOORE MD 07/09/18 1539 Date Corona Moore MD CC: Luiza Dowd DO; Ubaldo Owens MD Signed CBC W/DIFF, AUTOMATED Collected: 07/08/2018 Status: F Source: [place] 4:43 PM [facility] [facility]POS[facility] TYPE CODE TESTS RESULT OUT OF RANGE REFERENCE UNITS LAB L100.1000 4.4-11.0 K/mm3 Normal WBC 9.7 LAB L100.1200 4.2-5.4 M/mm3 Normal RBC 4.45 LAB L100.1300 12.0-15.0 g/dl Normal HGB 12.3 LAB L100.1400 37-47 % Normal HCT 38.6 LAB L100.1500 81-99 fL Normal MCV 86.7 LAB L100.1600 27.0-32.0 pg Normal MCH 27.6 LAB L100.1700 32-36 g/gl Low MCHC 31.9 LAB L100.1810 11.6-14.6 % Normal RDW CV 13.7 LAB L100.1820 35.1-43.9 fl Normal RDW SD 42.5 LAB L100.1900 150-450 K/mm3 Normal PLT 333 LAB L100.2000 6.2-12.0 fl Normal MPV 10.9 LAB L100.2100 47-70 % High NEUT% 70.8 LAB L100.2200 19-41 % Normal LY% 20.7 LAB L100.2300 0-10 % Normal MONO% 6.7 LAB L100.2400 0-5 % Normal EO% 1.3 LAB L100.2500 0-1 % Normal BASO% 0.4 LAB L100.2550 0.0-0.9 % Normal IM GRAN % 0.100 Result Comment: IG% - Immature Granulocytes (promyelocytes, myelocytes and metamyelocytes) > 1% indicates that a LEFT SHIFT is Present. LAB L100.2620 2.0-7.7 X10 3/uL Normal Absolute Neut 6.9 LAB L100.2720 0.83-4.51 X10 3/ul Normal Absolute Lymph 2.01 Performed By: #### L100.0100 #### [facility] [address] [place], [place], [address] COMPREHENSIVE METABOLIC Collected: 07/08/2018 Status: F [facility] TYPE CODE TESTS RESULT OUT OF RANGE REFERENCE UNITS LAB L501.0100 74-106 mg/dL Normal GLU 98 Result Comment: Please note revised GLUCOSE reference range effective 2017. LAB L501.1000 7-18 mg/dL Normal BUN 16 LAB L501.1100 0.55-1.02 mg/dL Normal CREAT,SERUM 0.87 Result Comment: The validity of the calculated GFR AND GFRAA in patients over 70 years has not been determined. Clinical correlation is essential. LAB L501.1110 >60 mL/min Normal EST GFR 74 Result Comment: Non- GFR Calc LAB L501.1115 >60 mL/min Normal EST GFR - AA 89 Result Comment: GFR Calc LAB L501.1300 10-20 RATIO Normal BUN/CRE 18.3 LAB L501.1500 6.4-8.2 g/dL T Normal PROT 7.5 LAB L501.1800 3.2-5.0 g/dL Normal ALB 3.6 LAB L501.1950 2.2-4.2 g/dL Normal GLOB 3.9 LAB L501.2000 0.9-2.4 RATIO Normal A/G 0.9 LAB L501.2200 8.5-10.1 mg/dL CA Normal 8.7 LAB L501.4100 15-37 U/L Normal AST 15 LAB L501.4305 45-117 U/L High ALK P 121 LAB L501.4405 13-56 U/L Normal ALT 24 LAB L501.4600 0.20-1.00 mg/dL T Normal BILI 0.20 LAB L501.5300 136-145 mmol/L NA Normal 142 LAB L501.5600 3.5-5.1 mmol/L K Normal 4.1 LAB L501.5900 98-107 mmol/L CL Normal 106 LAB L501.6100 21.0-32.0 mmol/L Normal CO2 28.0 LAB L501.6200 5-15 Normal GAP 8 Performed By: #### L500.4050, L501.9520 #### [facility] [address] [place], [address] THYROID STIM HORMONE Collected: 07/08/2018 Status: F Source: [place] ([place]) 4:43 PM [facility] REPOS[facility] TYPE CODE TESTS RESULT OUT OF RANGE REFERENCE UNITS LAB L501.9520 0.358-3.74 uIU/mL Normal TSH 3.56 Performed By: #### L500.4050, L501.9520 #### [facility] [address] [place], [address] EMERGENCY DEPARTMENT Observed: 07/05/2018 Status: F Source: [place] SUMMARY 10:17 AM [facility] [facility] Medical Records Department [address] [place] [address] Emergency Department Summary 07/05/18 1012 MR#: [id number] Acct: [id number] Name: GIO ROSA Rep #: [id number] : 1970 48 From: Ubaldo Oewns MD PCP: Luiza Dowd DO Status: REG ER - ER Visit Summary Date of Service: 07/05/18 Chief Complaint: Fluttering in chest History of Present Illness: The patient is a 48 F who presents because of fluttering sensation in her chest. There is been present intermittently for the past week. She presents because she is noticing a fluttering more frequently. She reports similar episode 20 years ago and had a Holter monitor at that time which was unremarkable. She has had multiple echocardiograms of her heart which were read as negative. She may drink 1 caffeinated beverage a [...] beat noted and monitor reveals a monofocal ventricular premature beat. Patient is aware majority of time she has a premature ventricular beat. There is no runs of bigeminy, trigeminy, couplets triplets etc. Lungs are clear to auscultation with room air bilaterally. There is no reducible chest pain. Abdomen soft nontender. There is no asymmetry, swelling, discoloration, leg vein distention, palpable cords or tenderness along the distribution of the deep venous system. Neuro exam is nonfocal. Test Results: EKG sinus rhythm with occasional premature ventricular complexes noted. WI interval, QRS duration, QT interval and axis are normal. Ventricular rate is 76. Electronic panel is unremarkable. Emergency Department Course and Treatment: Patient was placed on a monitor. No abnormality other than unifocal ventricular premature beats were noted during her 1.5-hour stay. Treatment Plan: Information and premature ventricular beats Disposition: Discharged home with spouse in stable condition Impression: Unifocal premature ventricular beats Hypertension and known hypertensive patient, asymptomatic Anxiousness self-reported This note was generated with Vatler dictation software. It may contain incorrect words, spelling, and punctuation that were not noted in review of the chart prior to signing ED Disposition - Plan for ED Patient: Disposition: Home or Assisted Living Chief Complaint: Palpitations Instructions: Premature Ventricular Contractions Referrals: Luiza Dowd DO [Primary Care Provider] - 1-2 Weeks Additional Instructions: Since her blood pressure is higher than normal you should have your blood pressure reassessed in 1-2 weeks by your primary care physician. What to do if you have Problems For any increased pain, shortness of breath, bleeding, nausea or vomiting, chest pain, or any unexpected problems, contact your Primary Care Provider. Call [facility] ([phone]) or report to the closest Emergency Room. Call 911 if necessary. 07/05/18 1017 <Electronically signed by Ubaldo Owens MD> Date Ubaldo Owens MD Cosigner Signature (If Indicated): Date CC: Luiza Dowd DO BASIC METABOLIC Collected: 07/05/2018 Status: F Source: [place] PROFILE (BMP) 8:48 AM [facility]POS[facility] TYPE CODE TESTS RESULT OUT OF RANGE REFERENCE UNITS LAB L501.0100 74-106 mg/dL High GLU 108 Result Comment: Fasting Glucose result from 100 to 125 mg/dL suggests IMPAIRED HOMEOSTASIS per A.D.A. criteria. Please note revised GLUCOSE reference range effective 2017. LAB L501.1000 7-18 mg/dL Normal BUN 14 LAB L501.1100 0.55-1.02 mg/dL Normal CREAT,SERUM 0.78 Result Comment: The validity of the calculated GFR AND GFRAA in patients over 70 years has not been determined. Clinical correlation is essential. LAB L501.1110 >60 mL/min Normal EST GFR 84 Result Comment: Non- GFR Calc LAB L501.1115 >60 mL/min Normal EST GFR - AA 102 Result Comment: GFR Calc LAB L501.1255 ml/min Normal Estimated CRCL 76.99 LAB L501.1300 10-20 RATIO Normal BUN/CRE 18.0 LAB L501.2200 8.5-10 mg/dL Normal .1 CA 8.5 LAB L501.5300 136-14 mmol/L Normal 5 NA 140 LAB L501.5600 3.5-5. mmol/L Normal 1 K 4.0 LAB L501.5900 98-107 mmol/L Normal CL 104 LAB L501.6100 21.0-3 mmol/L Normal 2.0 CO2 27.0 LAB L501.6200 5-15 Normal GAP 9 Performed By: #### L500.2500 #### [facility] [address] [place], [address] CBC, EMPLOYEE Collected: 12/11/2017 Status: F Source: [place] 10:02 AM [facility] TYPE CODE TESTS RESULT OUT OF RANGE REFERENCE UNITS LAB L100.1000 4.4-11.0 K/mm3 Normal WBC 7.1 LAB L100.1200 4.2-5.4 M/mm3 Normal RBC 4.51 LAB L100.1300 12.0-15.0 g/dl Normal HGB 12.4 LAB L100.1400 37-47 % Normal HCT 39.0 LAB L100.1500 81-99 fL Normal MCV 86.5 LAB L100.1600 27.0-32.0 pg Normal MCH 27.5 LAB L100.1700 32-36 g/gl Low MCHC 31.8 LAB L100.1810 11.6-14.6 % Normal RDW CV 13.9 LAB L100.1820 35.1-43.9 fl Normal RDW SD 43.1 LAB L100.1900 150-450 K/mm3 Normal PLT 345 LAB L100.2000 6.2-12.0 fl Normal MPV 11.2 LAB L100.2110 47-70 % Normal NEUT% 66.4 LAB L100.2210 19-41 % Normal LY% 23.3 LAB L100.2310 0-10 % Normal MONO% 7.9 LAB L100.2410 0-5 % Normal EO% 1.7 LAB L100.2510 0-1 % Normal BASO% 0.6 LAB L100.2620 2.0-7.7 X10 3/uL Normal Absolute Neut 4.7 LAB L100.2720 0.83-4.51 X10 3/ul Normal Absolute Lymph 1.64 Performed By: #### L100.0200 #### [facility] [address] [place], [place], [id number] URINALYSIS, EMPLOYEE Collected: 12/11/2017 Status: F Source: [place] 10:02 [facility] REPOSITORY TYPE CODE TESTS RESULT OUT OF RANGE REFERENCE UNITS LAB L400.3000 Yellow COLOR Normal Yellow LAB L400.3050 Clear Normal CLARITY Clear LAB L400.3200 Normal mg/dl Normal GLUCOSE, UR Normal LAB L400.3300 Negative mg/dL Normal BILIRUBIN URINE Negative LAB L400.3400 Negative mg/dl Normal KETONE UR Negative LAB L400.3465 1.002-1.030 Normal SP.GR. DIPSTX 1.010 LAB L400.3550 5.0 - 8.0 pH UR Normal 7.0 LAB L400.3600 Negative mg/dl PROT Normal DIPSTX Negative LAB L400.3700 Normal mg/dl Normal UROBILI Normal LAB L400.3750 Negative Normal NITRITE UR Negative LAB L400.3780 Negative /ul Normal OCCULT BLOOD-UR Negative LAB L400.3800 Negative /ul LEUK Normal ESTERASE Negative Performed By: #### L400.0100 #### [facility] [address] [facility]. [place], [place], [address] EMPLOYEE PROFILE Collected: 12/11/2017 Status: F Source: [place] 10:02 [facility] REPOSITORY TYPE CODE TESTS RESULT OUT OF RANGE REFERENCE UNITS LAB L501.0100 74-106 mg/dL Normal GLU 76 Result Comment: Please note revised GLUCOSE reference range effective 2017. LAB L501.1000 7-18 mg/dL Normal BUN 9 LAB L501.1100 0.55-1.02 mg/dL Normal CREAT,SERUM 0.73 Result Comment: The validity of the calculated GFR AND GFRAA in patients over 70 years has not been determined. Clinical correlation is essential. LAB L501.1110 >60 mL/min Normal EST GFR 91 Result Comment: Non- GFR Calc LAB L501.1115 >60 mL/min Normal EST GFR - AA 110 Result Comment: GFR Calc LAB L501.1300 10-20 RATIO Normal BUN/CRE 12.3 LAB L501.1400 2.6-6.0 mg/dL Normal URIC 4.7 Result Comment: The drugs N-Acetylcysteine and Metamizole may falsely depress this assay. LAB L501.1500 6.4-8.2 g/dL Normal T PROT 7.4 LAB L501.1800 3.2-5.0 g/dL Normal ALB 3.4 LAB L501.1950 2.2-4.2 g/dL Normal GLOB 4.0 LAB L501.2000 0.9-2.4 RATIO Low A/G 0.8 LAB L501.2200 8.5-10.1 mg/dL Normal CA 8.5 LAB L501.2300 2.5-4.9 mg/dL Low PHOS 2.3 LAB L501.4100 15-37 U/L Normal AST 26 LAB L501.4305 45-117 U/L Normal ALK P 95 LAB L501.4405 13-56 U/L Normal ALT 36 LAB L501.4600 0.20-1.00 mg/dL Normal T BILI 0.40 LAB L501.4700 0.00-0.30 mg/dL Normal D BILI 0.08 LAB L501.4900 200 mg/dL Normal CHOL 158 Result Comment: <200 mg/dL Desirable 200-240 mg/dL Borderline >240 mg/dL High Risk LAB L501.5000 mg/dL Normal TRIG 150 Result Comment: The drugs N-Acetylcysteine and Metamizole may falsely depress this assay. Serum Triglycerides Reference Interval Normal <150 mg/dL Borderline high 150 - 199 mg/dL High 200 - 499 mg/dL Very High > or = 500 mg/dL LAB L501.5300 136-145 mmol/L Normal NA 138 LAB L501.5600 3.5-5.1 mmol/L Normal K 4.2 LAB L501.5900 98-107 mmol/L Normal CL 104 LAB L501.6100 21.0-32.0 mmol/L Normal CO2 28.0 LAB L501.6200 5-15 Normal 6 GAP LAB L501.6400 mg/dL Normal HDL 42 Result Comment: The drugs N-Acetylcysteine and Metamizole may falsely depress this assay. Reference Range HDL <40 mg/dL Low HDL Cholesterol HDL >or= 60 mg/dL High HDL Cholesterol LAB L501.6475 Normal CHOL:HDL 3.80 LAB L501.6500 0-130 mg/dL Normal LDL 86 LAB L501.6600 5-40 mg/dL Normal VLDL 30 LAB L504.2610 84-246 U/L Normal LDH 148 Performed By: #### L500.2900 #### [facility] [address] [place], [address] NICOTINE URINE DRUG Collected: 12/11/2017 Status: F Source: [place] SCREEN 10:02 AM [facility] REPOSIT[facility] TYPE CODE TESTS RESULT OUT OF RANGE REFERENCE UNITS LAB L505.6250 TO BE Normal CONFIRMED Result Comment: CONFIRMATORY TESTING FOR ALL POSITIVE URINE DRUG SCREEN RESULTS WILL ONLY BE SENT OUT UPON PHYSICIAN ORDER. The results of Urine Drug Screen methods provide only preliminary analytical test results. A more specific alternate chemical method must be used in order to obtain a confirmed analytical result. Gas chromatography/mass spectrometery (GC/MS) is the preferred confirmatory method. Clinical consideration and professional judgement should be applied to any drug of abuse test result, particularly when preliminary positive results are used. LAB L505.6270 <200 ng/mL Normal COT DRG Negative SCREEN Result Comment: Cotinine is the first-stage metabolite of Nicotine. Performed By: #### L505.6240 #### [facility] [address] [facility] [place], [address] SCREENING MAMM (CAD), Observed: 11/07/2017 Status: F Source: [place] BILAT 7:27 AM [facility] REPOSIT[facility] Imaging Services [address] [place] [address] SCREENING MAMM (CAD), BILAT MR#: [id number] Acct: [id number] Name: GIO ROSA Rep #: [id number] : 1970 F 47 From: Anil [place] MD PCP: Luiza Dowd DO Status: [facility] Study: SCREENING MAMM (CAD), BILAT Date of Exam: 11/07/17 Exam# [id number] Ordering Dr: Bailey Cummins MD MAMMOGRAPHY - [...] bilateral axillary lymph nodes. No other significant abnormalities are identified. There has been no significant [...] delay biopsy of a clinically suspicious abnormality. [id number] Electronically Signed: Anil [place] MD at 9:08 EDT Tel [phone], Service support , CC: Bailey Cummins MD; Luiza Dowd DO Sanitor: Signed MASSAGE THERAPY Observed: 09/04/2017 Status: F Source: [place] EVALUATION 12:58 PM [facility] REPOSITORY [facility] Physical Therapy [facility] 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 She was referred for massotherapy evaluation with a diagnosis of tension HAs. She reports the issue is chronic. Stress and work are contributing factors. Activities of daily living are not affected. She also reports occasional low back pain. Medications: Bystolic, Dexilart, FLonase, Asmanex Goals: Decrease RICH Decrease Muscle Tension Decrease Back Pain Her first treatment consisted of a one hour massage to the upper body focusing on the neck shoulders and back. The patient did have significant muscle tension throughout the upper body as well as knots in the trapezius and rhomboids. She responded well to treatment and reported a decrease in tension and muscle ache after therapy. I plan to see her 1 time per month or as needed for a total of 10 one hour sessions of massage. Carmelita Tucker LMT <Electronically signed by Carmelita Tucker > 09/04/17 1258 CC: Luiza Dowd DO DANIELLE Signed For Medicare only, by signing this I certify the plan of care. Physicians Signature Date PAP IIraisG W/RFX HRHPV Collected: 09/04/2017 Status: F Source: [place] 9:00 AM [facility] REPOSIT[facility] Order Comment: CYTOLOGY INFORMATION: - CLINICAL INFORMATION: - DATE LMP/MENOPAUSE: 2011 LMP - COLLECTION VIAL: Thin Prep Vial - INSTRUMENT REPAIRER HELPER SOURCE: CERVICAL/ENDOCERVICAL - COLLECTION TECHNIQUE: BRUSH/SPATULA Specimen Comment: [id number] Specimen Comment: No. of containers..01 ThinPrep Vial TYPE CODE TESTS RESULT OUT OF RANGE REFERENCE UNITS LAB L7400.0800 . Normal DIAGN Comment Result Comment: NEGATIVE FOR INTRAEPITHELIAL LESION AND MALIGNANCY. LAB L7400.0900 . Normal ADEQ Comment Result Comment: Satisfactory for evaluation. Endocervical and/or squamous metaplastic cells (endocervical component) are present. LAB L7400.1400 . Normal PERFORM Comment Result Comment: Olayinka Cordero Real Estate Clerk (ASCP) LAB L7400.2575 . Normal TEST METHOD Comment Result Comment: This liquid based ThinPrep(R) pap test was screened with the use of an image guided system. LAB L7400.2600 . Normal . COMM LAB L7400.2700 . Normal PAPSMR Comment Result Comment: The Pap smear is a screening test designed to aid in the detection of premalignant and malignant conditions of the uterine cervix. It is not a diagnostic procedure and should not be used as the sole means of detecting cervical cancer. Both false-positive and false-negative reports do occur. LAB L7400.2800 . Normal HPV RFLX Comment Result Comment: The HPV DNA reflex criteria were not met with this specimen result therefore, no HPV testing was performed. Performed at: [facility] [address] [id number] Insurance Loss Assessor: Claudette Soto MD, Phone: [phone] Performed By: #### L7400.0350 #### [facility] (refer to report for specific site) refer to report for address and phone number DISCHARGE INSTRUCTION Observed: 09/03/2017 Status: F Source: [place] 8:37 PM [facility] RE[facility] Medical Records Department [address] [place] [address] Discharge Instruction 09/03/172034 MR#: [id number] Acct: [id number] Name: GIO ROSA Rep #: [id number] : 1970 47 From: Lance Gutiérrez DO [...] your Primary Care Provider. Call [facility] ([phone]) or report to the closest Emergency Room. Call 911 if necessary. 09/03/172036 <Electronically signed by Lance Gutiérrez DO> Date Lance Gutiérrez DO Cosigner Signature (If Indicated): Date CC: Luiza Dowd DO EMERGENCY DEPARTMENT Observed: 09/03/2017 Status: F Source: [place] SUMMARY 8:35 PM [facility] RE[facility]IT[facility] Medical Records Department [address] [place] [address] Emergency Department Summary 09/03/172031 MR#: [id number] Acct: [id number] Name: GIO ROSA Rep #: [id number] : 1970 47 From: Lance Gutiérrez DO PCP: Luiza Dowd DO Status: PRE ER - ER Visit Summary Date of Service: 09/03/17 Chief Complaint: [The fluid exposure] History of Present Illness: The patient is [...] vaginal fluid and Betadine adjacent to the area as well. Patient denies any other complaints. Patient up-to-date immunizations. The source patient is known. Source patient is not known to have any infectious diseases.] Physical Examination: [HEENT-PERRLA, EOMI. Cranial nerves II through XII grossly intact. TMs clear. Mucous membranes moist. No adenopathy. Cardiovascular-regular rate and rhythm without murmur or ectopy Lungs-clear to auscultation, chest wall stable without crepitus or subcu emphysema Abdomen-normoactive bowel sounds, soft, nontender, no rebound or rigidity, no peritoneal signs. Extremities-intact 4, normal range of motion, normal pulses, atraumatic]. Right wrist-over the volar mid wrist patient has a superficial 2 mm abrasion. 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 It may contain incorrect words, spelling, and punctuation that were not noted in review of the chart prior to signing ED Disposition - Plan for ED Patient: Chief Complaint: Occup Expose Referrals: Luiza Dowd, [Primary Care Provider] - What to do if you have Problems For any increased pain, shortness of breath, bleeding, nausea or vomiting, chest pain, or any unexpected problems, contact your Primary Care Provider. Call [facility] ([phone]) or report to the closest Emergency Room. Call 911 if necessary. 09/03/172034 <Electronically signed by Lance Gutiérrez DO> Date Lance Gutiérrez DO Cosigner Signature (If Indicated): Date CC: Luiza Dowd DO HIV - [facility] Collected: 09/03/2017 Status: F Source: DILSHAD 8:15 PM [facility] REPOSITORY TYPE CODE TESTS RESULT OUT OF RANGE REFERENCE UNITS LAB L3890.6005 Nonreactive Normal HIV - [facility] Non-Reactive Performed By: #### L3890.6005 #### [facility] [address] [place], [address] HEPATITIS B SURFACE Collected: 09/03/2017 Status: F Source: DILSHAD AG 8:15 PM [facility] REPOSITORY TYPE CODE TESTS RESULT OUT OF RANGE REFERENCE UNITS LAB L3100.0400 Negative Normal HB Negative SURF AG Result Comment: Performed at: [facility] [id number] Insurance Loss Assessor: Alejo Andre PhD, Phone: [phone] Performed By: #### L3100.0390, L3100.0537, L3100.0625 #### [facility] (refer to report for specific site) refer to report for address and phone number HEP B SURFACE Collected: 09/03/2017 Status: F Source: DILSHAD ANTIBODIES EMP 8:15 PM [facility] REPOSITORY TYPE CODE TESTS RESULT OUT OF RANGE REFERENCE UNITS LAB L3100.0537 . Normal Hep B Reactive Oleg AB Result Comment: Non Reactive: Inconsistent with immunity, less than 10 mIU/mL Reactive: Consistent with immunity, greater than 9.9 mIU/mL Performed By: #### L3100.0390, L3100.0537, L3100.0625 #### [facility] (refer to report for specific site) refer to report for address and phone number HEPATITIS C ANTIBODIES Collected: 09/03/2017 Status: F Source: DILSHAD 8:15 PM [facility] REPOSITORY TYPE CODE TESTS RESULT OUT OF RANGE REFERENCE UNITS LAB L3100.0650 0.0-0.9 s/co ratio Normal HEP C AB <0.1 Result Comment: Negative: < 0.8 Indeterminate: 0.8 - 0.9 Positive: > 0.9 The CDC recommends that a positive HCV antibody result be followed up with a HCV Nucleic Acid Amplification test (383249). Performed By: #### L3100.0390, L3100.0537, L3100.0625 #### [facility] (refer to report for specific site) refer to report for address and phone number ALLERGIES ALLERGIES DATE TYPE / CODE NAME / CODE REACTION SEVERITY SOURCE 09/03/2017 Drug codeine/F006 Nausea Unknown [facility] Allergy/4160 280605([facility] 38343(SNOMED M) Repository CT) ENCOUNTERS ENCOUNTERS ADMIT/DISCHARGE ACCOUNT ADMITTING ENCOUNTER LOCATION SOURCE NUMBER CLASS 07/17/2018 [id number] Ambulatory Dilshad Dilshad 4 [facility] ing:[facility]S Repository 07/16/2018 [id number] Ambulatory Dilshad Dilshad 5 [facility] ing:PSN Repository 07/09/2018 [id number] Ambulatory Building:[facility] OHIP Practices Repository 07/08/2018 [id number] Ambulatory Dilshad [place] 3 [facility] ing:MTLAB Repository 07/08/2018 [id number] Ambulatory Dilshad [place] 7 [facility] ing:MASS Repository 07/05/2018/ [id number] Emergency Dilshad Dilshad 8 4 [facility] ing:ED Repository 12/11/2017 [id number] Ambulatory Dilshad [place] 4 [facility] ing:MTLAB Repository 11/07/2017 [id number] Ambulatory Dilshad [place] 9 [facility] ing:OPBI Repository 09/04/2017 [id number] Ambulatory [place] Dilshad 3 [facility] ing:LABSPEC Repository 09/03/2017 [id number] Ambulatory Dilshad [place] 5 [facility] ing:EDREF Repository PAYERS PAYERS ENCOUNTER GUARANTOR PAYER SUBSCRIBER SOURCE 07/17/2018 GIO [id number] Primary Insurance:[facility] GIO Yung [facility] OPATZDOB: [facility] [id number] Hospital [address]Bfg: (330) Number: Repository [phone] () [id number] Date:4705-41-32[address] [address], [place] [address]JA: CHECK WEBSITE 07/17/2018 Secondary NOT GIVENUNK Dilshad Insurance:SELF PAY [facility] Number: Effective Repository Date:2018-07-09 07/16/2018 GIO [id number] Primary Insurance:[facility] [id number] Hospital [address]Lwd: (330) Number: Repository [phone] (HP) [id number] Date:9950-51-75JP [address] [address], [place] [address]LE: CHECK WEBSITE 07/16/2018 Secondary [facility] Insurance:SELF PAY [facility] Number: Effective Repository Date:2018-07-09 07/09/2018 Gio Galicia Primary Gio M OHIP Practices OpatzDOB: Insurance:Medical OpatzDOB: Repository [facility] [id number] [facility] Number: [place], [place] [id number] [place], [place] [address]Mqi: (330) Date:4636-44-55Bdrm [address]Hgm: Name:[facility] [phone] () (HP)Tel: [phone], [place] [phone] () [id number]: 07/09/2018 Secondary Gio Galicia OHIP Practices Insurance:CBCA/CCH, OpatzDOB: Repository [facility] Number: [id number] [facility] Date:2005-08-06 [place], [place] 0611-11-07Llhs [address]Jqu: Name:[facility] ~(3 [place], [place] 30 (HP) [address]PE: 07/08/2018 GIO Frida [id number] Primary Insurance:[facility] OPATZDOB: [facility] [id number] Hospital [address]Nsa: (330) Number: Repository [phone] (HP) [id number] Date:9320-74-98BT [address] [address], [place] [address]FP: CHECK WEBSITE 07/08/2018 Secondary NOT GIVENUNK [place] Insurance:SELF PAY [facility] Number: Effective Repository Date:2018-07-08 07/08/2018 GIO Galicia [id number] Primary Insurance:[facility] GIO Yung [facility] OPADOB: [facility] [id number] Hospital [address]Gdg: (330) Number: Repository [phone] () [id number] Date:4268-48-52FB [address] [address]UIRJMB, [place] [address]ZI: CHECK WEBSITE 07/08/2018 Secondary NOT GIVENUNK [place] Insurance:SELF PAY [facility] Number: Effective Repository Date:2017-08-23 07/05/2018 GIO Galicia [id number] Primary Insurance:[facility] [id number] Hospital [address]Tpp: (330) Number: Repository [phone] () [id number] Date:4694-86-35OB [address] [address]VTJXVCPW, [place] [address]WX: CHECK WEBSITE 07/05/2018 Secondary NOT GIVENUNK [place] Insurance:SELF PAY [facility] Number: Effective Repository Date:2018-07-05 12/11/2017 Gio Galicia [id number] Primary NOT GIVENUNK Dilshad Saba Insurance:SELF PAY [facility] [address]Kde: Number: Effective Repository [phone] Date:2017-12-11 () 11/07/2017 Gio M [id number] Primary Insurance:[facility] [id number] Hospital [address]Lcb: Number: Repository [phone] [id number] () Date:9362-04-65[address] [address]MIVDDHLTF, [place] [address]FS: CHECK WEBSITE 11/07/2017 Secondary NOT GIVENUNK Dilshad Insurance:SELF PAY [facility] Number: Effective Repository Date:2017-09-27 09/04/2017 Gio M [id number] Primary Insurance:[facility] Gio [facility]ung [facility] [id number] Hospital [address]Ikw: Number: Repository [phone] [id number] (HP) Date:5263-25-61LK [address] [address]FALCSU, [place] [address]OI: CHECK WEBSITE 09/04/2017 Secondary NOT GIVENCAIN Dilshad Insurance:SELF PAY [facility] Number: Effective Repository Date:2017-09-04 09/03/2017 Gio Galicia [id number] [facility] Dilshadyaneli Gomes Insurance:SELF PAY [facility] [address]Xuw: Number: Effective Repository [phone] Date:2017-09-03 ()
--- OUTSIDE RECORDS SUMMARY | 2018-08-30 03:29 | XMS RPT_ITS | Continuity of Care Document ---
:1970 Author Organization [facility] Address [address] [facility] [address] [place] [address] Phone Care Team Providers Name Role Phone Luiza Dowd DO Unavailable Juancarlos Fitzpatrick Unavailable Bobo Mayers Unavailable Michael Springer MD Unavailable CINDY Holley Unavailable Unavailable [...] days Quantity: 180 {Tablet} Refills: 3 Ordered:14-Oct-2009 Fayb Dowd DO, DO, Kathleen Start : 14-Oct-2009 [...] Stress Report Result: Comments: See Note; NOTES: [facility] Cardiovascular Services [address] [place] [address] MR#: [id number] Acct: [id number] Name: TAMAR ROSA Frida Rep #: [id number] : 1969 48 From: Sree King MD [...] Dictated: 07/17/18 1348 Date Transcribed: 07/17/18 1348 Glue Size Machine Operator: Signed 09-Jul-2018 12 Lead Electrocardiogram Result: Comments: See Note; NOTES: [facility] Cardiovascular Services [address] [place] [address] 12 Lead EKG 07/05/18 0831 MR#: [id number] Acct: [id number] Name: TAMAR ROSA Rep #: [id number] : 1970 48 From: Corona Moore MD [...] normal ECG Confirmed by [employer], CORONA ([id number]), photography editor DEBBY GUTIÉRREZ ([id number]) on 07/09/2018 3:39:04 PM Referred By: Confirmed By:CORONA MOORE MD 07/09/18 1539 Date ____ Corona Moore MD CC: Luiza Dowd DO; Ubaldo Owens MD Signed 05-Jul-2018 Emergency Department Summary Result: Comments: See Note; NOTES: [facility] Medical Records Department [address] [place] [address] Emergency Department Summary 07/05/18 1012 MR#: [id number] Acct: [id number] Name: TAMAR ROSA Rep #: [id number] : 1970 48 From: Ubaldo Owens MD [...] rhythm with occasional premature ventricular complexes noted. AL interval, QRS duration, QT interval and axis [...] Anxiousness self-reported This note was generated with RidePost dictation software. It may contain incorrect words, [...] Medical Center Care Provider. Call Doctors Registry ([phone]) or report to the closest Emergency Room. Call 911 if necessary. 07/05/18 1017 <Electronically signed by Ubaldo Owens MD> Date ____ Ubaldo Owens MD Cosigner Signature (If Indicated): Date CC: Luiza Dowd DO 07-Nov-2017 SCREENING MAMM (CAD), BILAT Result: Comments: See Note; NOTES: [facility] Imaging Services [address] [place] [address] SCREENING MAMM (CAD), BILAT MR#: [id number] Acct: [id number] Name: TAMAR ROSA Rep #: [id number] : 1970 F 47 From: Anil Davison MD PCP: Luiza Dowd DO Status: [facility] Study: SCREENING MAMM (CAD), BILAT Date of Exam: 11/07/17 Exam# [id number] Ordering Dr: Bailey Cummins MD MAMMOGRAPHY - [...] delay biopsy of a clinically suspicious abnormality. [id number] Electronically Signed: Anil Davison MD at 9:08 EDT Tel [phone], Service support , CC: Bailey Cummins MD; Luiza Dowd DO Glue Size Machine Operator: Signed 04-Sep-2017 Massage Therapy Evaluation Result: Comments: See Note; NOTES: 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 She was referred [...] Discharge Instruction Result: Comments: See Note; NOTES: [facility] Medical Records Department [address] [place] [address] Discharge Instruction 09/03/172034 MR#: [id number] Acct: [id number] Name: Merline ROSA Rep #: [id number] : 1970 47 From: Lance Gutiérrez DO [...] your Primary Care Provider. Call [facility] ([phone]) or report to the closest Emergency Room. Call 911 if necessa ry. 09/03/172036 <Electronically signed by Lance Gutiérrez DO> Date Lance Gutiérrez DO Cosigner Signature (If Indicated): Date CC: Luiza Dowd DO 03-Sep-2017 Emergency Department Summary Result: Comments: See Note; NOTES: [facility] Medical Records Department [address] [place] [address] Emergency Department Summary 09/03/172031 MR#: [id number] Acct: [id number] Name: TAMAR ROSA Rep #: [id number] : 1970 47 From: Lance Gutiérrez DO [...] healthcare worker] This note was generated with RidePost dictation software. It may contain incorrect words, [...] unexpected problems, contact your Primary Care Provider. [facility] Doctors Registry ([phone]) or report to the closest Emergency Room. Call 911 if necessary. 09/03/172034 <Electronically signed by Lance Gutiérrez DO> Date Lance Gutiérrez DO Cosigner Signature (If Indicated): Date CC: Luiza Dowd DO 23-Jul-2017 Discharge Summary Result: Comments: See Note; NOTES: [facility] Medical Records Department [address] [place] [address] Discharge Summary 07/19/17 1117 MR#: [id number] Acct: [id number] Name: TAMAR ROSA Rep #: [id number] : 1970 47 From: Caremlita Tucker PCP: Luiza Dowd DO Status: REG RCR Y Location: [facility] Massage Therapy Discharge Summary: This patient was seen for massotherapy evaluation on: 08/31/16 Diagnosis: Tension Headaches The patient had 10 sessions of massotherapy. The goals for treatment were met. She reported decreased headaches and muscle tension. At this time I am disch arging the patient from our care at the [facility]. 07/23/17 1049 <Electronically signed by Carmelita Tucker > Date Carmelita maxwell Cosigner Signature (if applicable): Date CC: Carmelita Tucker; Luiza Dowd DO Signed 14-Dec-2016 Pulmonary Function Report Comp Result: Comments: See Note; NOTES: [facility] Pulmonary Services/Neurology [address] [place] [address] Pulmonary Function Test (Comp) MR#: [id number] Acct: [id number] Name: LUIS ALBERTO ROSA Rep #: [id number] : 1970 46 From: Lauro Calderon DO Referring Dr: Zuleyma Vegas Status: REG CLI Ordering Dr: Zuleyma Vegas Date: 12/12/16 Location: [facility] Sex: F C DATE OF SERVICE: [...] [place] C: Referring Provider T: YAW JOB: [id number] 12/14/16 0829 <Electronically signed by Lauro Calderon DO> Date Lauro Calderon DO CC: Zuleyma Vegas; Lauro Calderon D.O.; Luiza Dowd DO Date Dictated: 12/13/16846 Date Transcribed: 12/13/16846 Glue Size Machine Operator: Signed 31-Aug-2016 SCREENING MAMM (CAD), BILAT Result: Comments: See Note; NOTES: [facility] Imaging Services [address] [place] [address] [address]d SCREENING MAMM (CAD), BILAT MR#: [id number] Acct: [id number] Name: TAMAR ROSA Rep #: [id number] : 1970 F 46 From: Anil Davison MD PCP: Luiza Dowd DO Status: REG CLI Study: SCREENING MAMM (CAD), BILAT Date of Exam: 08/31/16 Exam# [id number] Ordering Dr: Bailey Barrientos MD MAMMOGRAPHY - [...] 2015 and May 20, 2014. FINDINGS: Breast Cementon sition: The breasts are heterogeneously dense, which [...] delay biopsy of a clinically suspicious abnormality. [id number] Electronically Signed: Carlos Davison MD at 10:16 EST Tel [phone], Service support [phone], CC: Bailey Cummins MD; Luiza Dowd DO Glue Size Machine Operator: Signed 03-Sep-2015 Inital Evaluation - PT Result: Comments: See Note; NOTES: [facility] [address] [place] [address]. 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 Elayne Kauffman LMT T: YAW JOB: [id number] <Electronic ally signed by Elayne Kauffman > 09/03/15 1032 CC: Signed For Medicare only, by signing this I certify the plan of care. Physicians Signature Date 05-Aug-2015 PT Discharge Summary Result: Comments: See Note; NOTES: [facility] [address] [place], [place] [address] Fax REHABILITATION SE RVICES DISCHARGE SUMMARY MR#: [id number] Acct: [id number] Name: TAMAR ROSA Rep #: [id number] : 1970 45 From: Carmelita Tucker Referring [...] patient from our care at the [facility] facility. Carmelita Tucker LMT T: YAW JOB: [id number] <Electronically signed by Carmelita Tucker > 0739 CC: Luiza Dowd DO Signed 27-May-2015 Breast Limited Unilateral Result: Comments: See Note; NOTES: [facility] Imaging Services [address] [place] [address] Verdana 4d Breast Limited Unilateral MR#: [id number] Acct: [id number] Name: TAMAR DAVIS Rep #: [id number] : 1970 F 45 From: Anil Davison MD PCP: Luiza Dowd DO Status: REG CLI Study: Breast Limited Unilateral Date of Exam: 05/27/15 Exam# [id number] Jose Manuel hilton Dr: Bailey Cummins MD [...] Anil Davison MD at 15:03 EST Tel [phone], Service support [phone], CC: Bailey Cummins MD; Luiza Dowd DO Glue Size Machine Operator: Signed 27-May-2015 Unilat Lt Diag Digital AND CAD Result: Comments: See Note; NOTES: [facility] Imaging Services [address] [place] [address] Verdana 4d Unilat Lt Diag Digital AND CAD MR#: [id number] Acct: [id number] Na me: TAMAR ROSA Rep #: [id number] : 1970 F 45 From: Dre Hoffman MD PCP: Luiza Dowd DO Status: REG CLI Study: Unilat Lt Diag Digital AND CAD Date of Exam: 05/27/15 Exam# [id number] O [facility] Dr: Bailey Cummins MD MAMMOGRAPHY - [...] 15:04 EDT Tel , Servi ce support [phone], CC: Bailey Cummins MD; Luiza Dowd DO Glue Size Machine Operator: Signed 27-May-2015 Unilat Lt Diag Digital AND CAD Result: Comments: See Note; NOTES: [facility] Imaging Services [address] [place] [address] Verdana 4d Unilat Lt Diag Digital AND CAD MR#: [id number] Acct: [id number] Na me: TAMAR ROSA Rep #: [id number] : 1970 F 45 From: Dre Hoffman MD PCP: Luiza Dowd DO Status: REG CLI Study: Unilat Lt Diag Digital AND CAD Date of Exam: 05/27/15 Exam# [id number] O [facility] Dr: Bailey Cummins MD MAMMOGRAPHY - [...] 15:04 EDT Tel , Servi ce support [phone], CC: Bailey Cummins MD; Luiza Dowd DO Glue Size Machine Operator: Signed 27-May-2015 Unilat Lt Diag Digital AND CAD Result: Comments: See Note; NOTES: [facility] Imaging Services [address] [place] [address] Verdana 4d Unilat Lt Diag Digital AND CAD MR#: [id number] Acct: [id number] Na me: TAMAR ROSA Rep #: [id number] : 1970 F 45 From: Dre Hoffman MD PCP: Luiza Dowd DO Status: REG CLI Study: Unilat Lt Diag Digital AND CAD Date of Exam: 05/27/15 Exam# [id number] O [facility] Dr: Bailey Cummins MD MAMMOGRAPHY - [...] 15:04 EDT Tel , Servi ce support [phone], CC: Bailey Cummins MD; Luiza Dowd DO Glue Size Machine Operator: Signed 27-May-2015 Unilat Lt Diag Digital AND CAD Result: Comments: See Note; NOTES: [facility] Imaging Services [address] [place] [address] Verdana 4d Unilat Lt Diag Digital AND CAD MR#: [id number] Acct: [id number] Na me: TAMAR ROSA Rep #: [id number] : 1970 F 45 From: Dre Hoffman MD PCP: Luiza Dowd DO Status: [facility] CLI Study: Unilat Lt Diag Digital AND CAD Date of Exam: 05/27/15 Exam# [id number] O rdering Dr: Bailey Cummins MD MAMMOGRAPHY [...] 15:04 EDT Tel , Servi ce support [phone], CC: Bailey Cummins MD; Luiza Dowd DO Glue Size Machine Operator: Signed 27-May-2015 Unilat Lt Diag Digital AND CAD Result: Comments: See Note; NOTES: [facility] Imaging Services [address] [place] [address] Verdana 4d Unilat Lt Diag Digital AND CAD MR#: [id number] Acct: [id number] Na me: TAMAR ROSA Rep #: [id number] : 1970 F 45 From: Dre Hoffman MD PCP: Luiza Dowd DO Status: REG CLI Study: Unilat Lt Diag Digital AND CAD Date of Exam: 05/27/15 Exam# [id number] O rdering Dr: Bailey Cummins MD MAMMOGRAPHY [...] 15:04 EDT Tel , Servi ce support [phone], CC: Bailey Cummins MD; Luiza Dowd DO Glue Size Machine Operator: Signed 21-May-2015 Bilat Scrn Digital AND CAD Result: Comments: See Note; NOTES: [facility] Imaging Services [address] [place] [address] Verdana 4d Bilat Scrn Digital AND CAD MR#: [id number] Acct: [id number] Name: TAMAR ROSA Rep #: [id number] : 1970 F 45 From: Dre Hoffman MD PCP: Luiza Dowd DO Status: REG CLI Study: Bilat Scrn Digital AND CAD Date of Exam: 05/21/15 Exam# [id number] Ordering Dr: Bailey Cummins MD MAMMOGRAPHY - [...] at 14:42 EDT Tel , Service support [phone], CC: Bailey Cummins MD; Luiza Dowd DO Glue Size Machine Operator: Signed 02-Sep-2014 Inital Evaluation - PT Result: Comments: See Note; NOTES: [facility] [address] [place] [address]. [address] [place], [place] [address] Fax REHABILITATION SERVICES INITIAL EVALUATION MR#: [id number] Acct: [id number] Name: TAMAR ROSA Rep #: [id number] : 1970 44 From: Carmelita Tucker Referring Dr.: Luiza Dowd DO Status: REG RCR Insurance: ON LICENSE OF [facility] Eval Date: DATE OF SERVICE: 08/26/2014 REFERRING PHYSICIAN: Dr. Dowd. 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 She was referred to [facility] facility for massotherapy evaluation by Dr. Dowd [...] back. Carmelita Tucker LMT T: YAW JOB: [id number] <Electronically signed by Carmelita Tucker > 09/02/14 1307 CC: DD: Signed For Medicare only, by signing this I certify the plan of care. Physicians Signature Date 20-May-2014 Bilkonstantin Mcqueenn Digital & CAD Result: Comments: See Note; NOTES: [facility] Imaging Services [address] [place] [address] Breast Imaging Report MR#: [id number] Acct: [id number] Name: TAMAR ROSA Rep #: [id number] : 1970 F 44 From: Dontae Durbin PCP: Luiza Dowd DO Status: REG CLI Exam# [id number] Ordering Dr: Bailey Cummins MD MAMMOGRAPHY - [...] at 20:20 EDT Tel , Service support [phone], CC: Bailey Cummins MD; Luiza Dowd DO Glue Size Machine Operator: Signed 20-Feb-2014 Spirometry (90834) Result: 05-Aug-2013 PT Discharge Summary Result: Comments: See Note; NOTES: [facility] [address] [place] [address] Fax REHABILITATION SERVICES DISCHARGE SUMMARY MR#: [id number] Acct: [id number] Name: TAMAR ROSA Rep #: [id number] : 1970 43 From: Lori Christopher Referring [...] patient from our care at the [facility] facility. Carmelita Christopher LMT T: NTS JOB: [id number] <Electronically signed by Lori Christopher &#62 ; [...] smoker Vital Signs Date Test Result Details 02-Xie-69862:05 Temperature 97 f Comments: Method: Temporal Pulse [...] kg/m2 Body Surface Area Calculated 2.15 m2 35-Anj-729349:23 Pulse 72 /min Comments: Pattern: Regular Respiration [...] kg/m2 Body Surface Area Calculated 2.07 m2 82-Acb-868868:24 Pulse 64 /min Comments: Pattern: Regular Respiration [...] Calculated 2.04 m2 Head Circumference 0.00 cm 14-Ykf-314295:00 Pulse 60 /min Comments: Pattern: Regular Respiration [...] 0.00 cm Results Date Description Value Details 8-Urf-740828:43 CBC W/Diff, Automated Comments: [facility] [address] [place], [place], [address] Absolute Lymph 2.01 {X10_3/ul} (Normal) Range: 0.83-4.51 [...] 4.2-5.4 WBC 9.7 K/mm3 (Normal) Range: 4.4-11.0 4-Sub-761361:43 Comprehensive Metabolic Profil Comments: [facility] [address] [place], [place], [address] GAP 8 (Normal) Range: 5-15 CO2 28.0 [...] Comments: Please note revised GLUCOSE reference range ibbnnwijl00/02/2018. 6-Pwo-233941:43 Thyroid Stim Hormone (TSH) Comments: [facility] [address] [place], [address] TSH 3.56 {uIU/mL} (Normal) Range: 0.358-3.74 43-Woc-72257:48 Basic Metabolic Profile (BMP) Comments: [facility] [address] [place], [address] GAP 9 (Normal) Range: 5-15 CO2 27.0 [...] A.D.A. criteria.Please note revised GLUCOSE reference range ccessdurp19/02/2018. 7-Yue-779105:02 CBC, Employee Comments: [facility] [address] [place], [address] Absolute Lymph 1.64 {X10_3/ul} (Normal) Range: 0.83-4.51 [...] 4.2-5.4 WBC 7.1 K/mm3 (Normal) Range: 4.4-11.0 5-Kis-630383:02 Employee Profile Comments: [facility] [address] [place], [place], [address] LDH 148 U/L (Normal) Range: 84-246 VLDL [...] Comments: Please note revised GLUCOSE reference range cfmooztyi35/02/2018. 0-Hwu-247815:02 Nicotine Urine Drug Screen Comments: [facility] [address] [place], [place], [address] COT DRG SCREEN Negative (Normal) Comments: Cotinine [...] result, particularly whenpreliminary positive results are used. 6-Xno-428026:02 Urinalysis, Employee Comments: [facility] [address] [place], [place], [address] LEUK ESTERASE Negative /ul (Normal) OCCULT BLOOD-UR Negative /ul (Normal) NITRITE UR Negative (Normal) UROBILI Normal mg/dL (Normal) PROT DIPSTX Negative mg/dL (Normal) pH UR 7.0 (Normal) Range: 5.0 - 8.0 SP.GR. DIPSTX 1.010 (Normal) Range: 1.002-1.030 KETONE UR Negative mg/dL (Normal) BILIRUBIN URINE Negative mg/dL (Normal) GLUCOSE, UR Normal mg/dL (Normal) CLARITY Clear (Normal) COLOR Yellow (Normal) 98-Gpi-506993:15 Hep B Surface Antibodies EMP Comments: [facility] (refer to report for specific site)refer to report for address and phone number Hep B Oleg AB Reactive (Normal) Comments: Non Reactive: Inconsistent with immunity, less than 10 mIU/mL Reactive: Consistent with immunity, greater than 9.9 mIU/mL 03-Fpb-834701:15 Hepatitis B Surface Ag Comments: [facility] (refer to report for specific site)refer to report for address and phone number HB SURF AG Negative (Normal) Comments: Performed at: [facility] [address] [id number] Director: Alejo Andre PhD, Phone: [phone] 12-Rft-614128:15 Hepatitis C Antibodies Comments: [facility] (refer to report for specific site)refer to report for address and phone number HEP C AB <0.1 {s/co_ratio} (Normal) Range: 0.0-0.9 Comments: Negative: < 0.8 Indeterminate: 0.8 - 0.9 Positive: > 0.9 The CDC recommends that a positive HCV antibody result be followed up with a HCV Nucleic Acid Amplification test (962011). 18-Vvt-380839:15 HIV - [facility] Non-Reactive (Normal) Comments: [facility] [address] [place], [place], [address] 77-Pml-030005:48 CBC-Complete Blood Cnt No Diff Comments: [facility] [address] [facility] [address] [place], [place], [address] MPV 10.7 fL (Normal) Range: 6.2-12.0 PLT [...] (Normal) Range: 4.4-11.0 :07 HgA1C , Office (71089) HgA1C , Office 5.2 % (Normal) Range: 4.6 - 7.1 :32 CBC, Employee Comments: [facility] [address] [place], [address] Absolute Lymph 1.64 {X10_3/ul} (Normal) [...] 4.2-5.4 WBC 7.9 K/mm3 (Normal) Range: 4.4-11.0 70-Wzg-569937:32 Employee Profile Comments: [facility] [address] [place], [address] LDH 104 U/L (Normal) Range: 84-246 VLDL [...] Range: 70-110 :32 Microalb:Creat Ratio,Random UR Comments: [facility] [address] [facility] [place], [place], [address] MALB:CREAT 4.0 {mg/g_CRE} (Normal) MICROALBUMIN,UR 10.7 mg/L (Normal) UR CREAT 265.00 mg/dL (Normal) :32 Nicotine Urine Drug Screen Comments: [facility] [address] [facility] [place], [place], [address] COT DRG SCREEN Negative (Normal) Comments: Cotinine [...] used. :32 Thyroid Stim Hormone (TSH) Comments: [facility] [address] [place], [place], [address] TSH 3.17 {uIU/mL} (Normal) Range: 0.358-3.74 :32 Urinalysis, Employee Comments: How was Urine Obtained? CLEAN [facility] [address] [place], [place], [address] LEUK ESTERASE 25 /ul (Abnormal) OCCULT BLOOD-UR 10 /ul (Abnormal) NITRITE UR Negative (Normal) UROBILI Normal mg/dL (Normal) PROT DIPSTX Negative mg/dL (Normal) pH UR 5.0 (Normal) Range: 5.0 - 8.0 SP.GR. DIPSTX 1.020 (Normal) Range: 1.002-1.030 KETONE UR Negative mg/dL (Normal) BILIRUBIN URINE Negative mg/dL (Normal) GLUCOSE, UR Normal mg/dL (Normal) CLARITY Sl. Cloudy (Normal) COLOR Yellow (Normal) 51-Oww-734706:03 URINE OLIVIA CULTURE-LORY COL Comments: PATIENT NOT FASTINGPERFORMED BY: [facility] [address] [facility] [id number] Information: SRC:UR COUNT (64147) Antimicrobial MIHEAD (Normal) Comments: S = Susceptible; [...] mL (Abnormal) Urine Final report Culture,Comprehensive (Abnormal) 57-Phv-626736:39 Urinalysis, Office (17859) UA - LEUKOCYTE ESTERASE Moderate (Abnormal) UA - NITRITE Negative (Normal) URINE UROBILINGN LORY TIMED Normal mg/dL (Normal) UA - PROTEIN 100 mg/dL (Normal) UA - PH 7.0 (Normal) UA - BLOOD ++ (Abnormal) UA - SPECIFIC GRAVITY 1.010 (Normal) UA - KETONES Negative mg/dL (Normal) UA - BILIRUBIN Negative (Normal) UA - GLUCOSE Negative (Normal) 50-Pkm-655962:10 CBC, Employee Comments: [facility] [address] [place], [address] Absolute Lymph 1.56 {X10_3/ul} (Normal) [...] 4.2-5.4 WBC 6.4 K/mm3 (Normal) Range: 4.4-11.0 54-Qpu-586424:10 Employee Profile Comments: [facility] [address] [facility] [address] [place], [place], [address] LDH 130 U/L (Normal) Range: 84-246 VLDL [...] 7-18 GLU 76 mg/dL (Normal) Range: 70-110 36-Dan-087012:10 Nicotine Urine Drug Screen Comments: [facility] [address] [place], [place], [address] COT DRG SCREEN Negative (Normal) Comments: Cotinine [...] result, particularly whenpreliminary positive results are used. 21-Xuk-997183:10 Urinalysis, Employee Comments: [facility] [address] [place], [address] LEUK ESTERASE 25 /ul (Abnormal) OCCULT BLOOD-UR Negative /ul (Normal) NITRITE UR Negative (Normal) UROBILI Normal mg/dL (Normal) PROT DIPSTX Negative mg/dL (Normal) pH UR 6.0 (Normal) Range: 5.0 - 8.0 SP.GR. DIPSTX 1.015 (Normal) Range: 1.002-1.030 KETONE UR Negative mg/dL (Normal) BILIRUBIN URINE Negative mg/dL (Normal) GLUCOSE, UR Normal mg/dL (Normal) CLARITY Clear (Normal) COLOR Yellow (Normal) 5-Obz-074045:13 CBC, Employee Comments: Test performed at:[facility] [address] [place], [place] [address] Absolute Lymph 1.37 {X10_3/ul} (Normal) Range: 0.83-4.51 [...] 4.2-5.4 WBC 6.2 K/mm3 (Normal) Range: 4.4-11.0 0-Mkx-691009:13 Employee Profile Comments: Test performed at:[facility] [address] [place], [place] [address] ; ordered by ina stoll LDH 111 [...] 7-18 GLU 78 mg/dL (Normal) Range: 70-110 9-Tmo-616529:13 Urinalysis, Employee Comments: Test performed at:[facility] [address] [place], [place] [address] LEUK ESTERASE Negative /ul (Normal) OCCULT BLOOD-UR Negative /ul (Normal) NITRITE UR Negative (Normal) UROBILI Normal mg/dL (Normal) PROT DIPSTX Negative mg/dL (Normal) pH UR 6.0 (Normal) Range: 5.0 - 8.0 SP.GR. DIPSTX 1.015 (Normal) Range: 1.002-1.030 KETONE UR Negative mg/dL (Normal) BILIRUBIN URINE Negative mg/dL (Normal) GLUCOSE, UR Normal mg/dL (Normal) CLARITY Clear (Normal) COLOR Yellow (Normal) 2-Boq-427980:05 PAPIG5 Comments: CYTOLOGY INFORMATION:- CLINICAL INFORMATION:- DATE LMP/MENOPAUSE: ABLATION 2011- COLLECTION VIAL: Thin Prep Vial- HUSKER OPERATOR SOURCE: CERVICAL/ENDOCERVICAL- COLLECTION TECHNIQUE: BRUSH/SPATULASpecimen Comment: [id number] Comment: No. of containers..01 CYTYC Thin Prep Vial tHPVRFLX Comment (Normal) Comments: The HPV DNA reflex criteria were not met with this specimenresult therefore, no HPV testing was performed.Performed at: [address] [id number] Director: Yassine Mathews MD, Phone: [phone] tPAPSMR Comment (Normal) Comments: The Pap smear [...] system. tPERFORM Comment (Normal) Comments: Ariana Victoria, Display Director (ASCP) tADEQ Comment (Normal) Comments: Satisfactory for [...] CHOL 150 mg/dL (Normal) Comments: <200 mg/dL [id number] mg/dL Borderline>240 mg/dL High Risk BID 0.08 [...] (Normal) UCLAR Clear (Normal) UCOL Yellow (Normal) 0-Lua-387145:44 Rapid Strep Test, Office (50206) Comments: positive Rapid Strep Test, Office Positive (Normal) 98-Zne-94314:40 LQDPAP [id number] Comments: CYTOLOGY INFORMATION:- CLINICAL INFORMATION:- DATE LMP/MENOPAUSE: 651519 LMP- COLLECTION VIAL: Thin Prep Vial- HUSKER OPERATOR SOURCE: CERVICAL/ENDOCERVICAL- COLLECTION TECHNIQUE: BRUSH/SPATULA COMM [...] was performed..Performe d at: [place] - [facility] [address] [id number] Director: Trevor Mathews MD DIAGN Comment (Normal) Comments: NEGATIVE FOR INTRAEPITHELIAL LESION AND MALIGNANCY.Satisfactory for evaluation. Endocervical and/or squamous metaplasticcells (endocervical component) are present.Catina Hill, Display Director (ASCP)T his liquid based ThinPrep(R) pap test was screened withthe use of an image guided system. 55-Rtg-932364:09 TSH (10071) Comments: PATIENT NOT FASTINGClinical Information: [id number] PERFORMED BY: [facility] [id number] TSH 2.700 {uIU/mL} (Normal) Range: 0.450-4.500 :32 [...] for patient's is the eGFRmultiplied by 1.212. [facility] Laboratory uses the abbreviated Modification of Diet [...] Disease W/O Kidney Disease>/= 90 Stage One Qdsmgi87 - 89 Stage Two Suspect Decreased GFR30 [...] 2.6-6.0 VLDL 26 mg/dL (Normal) Range: 5-40 41-Vxz-00521:32 EMP URINALYSIS BILIRUBIN URINE SeeNote (Normal) Comments: [...] Very High > or = 500 mg/dL 84-Xsp-318746:45 Upper Respiratory Culture Comments: Clinical Information: SRC:TH [facility]FORMED BY: [facility] [id number] Result 1 BETAGA (Normal) Comments: Beta hemolytic [...] report (Normal) :31 Rapid Strep Test, Office (73438) Rapid Strep Test, Office Negative (Normal) :22 [...] Hypertension Planned Observations CBC W/AUTO DIFF WBC (85738)Indication: Benign essential hypertension On: 5-Zgb-818057:24 Request METABOLIC PANEL, COMPREHENSIVE (65988)Indication: Palpitations On: 9-Mjn-499667:22 Request TSH (16194)Indication: Palpitations On: 4-Huz-992555:22 Request MICROALBUMIN: CREATININE RATIO (38734) AND (39059)Indication: Benign essential hypertension On: 03-Ick-403757:53 Request TSH (THYROID STIMULATING HORMONE) (15101)Indication: Arrhythmia On: 17-Fer-767815:52 Request Sputum Culture (15993)Indication: Cough On: 14-Fhh-25904:53 Request OLIVIA CULTURE-OTHER (62578)Indication: Sore throat On: 2-Adi-084788:43 Request OLIVIA CULTURE-OTHER (96188)Indication: Throat pain On: 87-Jtz-47724:31 Request Comments: throat cx Triglycerides (69008)Indication: Hyperglyceridemia On: 24-Jcl-539683:00 Request HDL Cholesterol-Direct (97782)Indication: Low HDL (under 40) On: 23-Lzr-141684:00 Request Planned Procedures APPLICATION OF 24 HOUR HOLTER On: 09-Jul-2018 Intent MONITOR (54352)By: Abeba Holt EXERCISE STRESS TEST (00512)By: On: 08-Jul-2018 Intent Abeba Holt Holter Moniter (89920)By: Jonathon, On: 08-Jul-2018 Intent Abeba Comments: 24 Hour EKG (15473)By: Abeba Holt On: 08-Jul-2018 Intent Comments: Sinus Rhythm- HR 68 PFT - CompleteBy: Zuleyma Vegas CNP On: 24-Nov-2016 Intent Spirometry (86300)By: Shasta PHILLIPS, On: 24-Nov-2016 Intent Zuleyma Tamayo Comments: normal Aerosol Treatment (39685)By: Shasta On: 24-Nov-2016 Intent Zuleyma PHILLIPS ELECTROCARDIOGRAM, COMPLETE (ECG) On: 07-Nov-2016 Intent (66429)By: Luiza Dowd DO Comments: nsr no acute chg Luiza Dowd DO COMP EYE EXAMINATION, ESTAB PATIENT On: 21-Jun-2016 Intent (15434)By: Zuleyma Vegas CNP EKG (95207)By: Luiza Dowd DO On: 26-Mar-2015 Intent Luiza Dowd DO Comments: nsr no acute chg Solu -Medrol Injection, 125 mg On: 04-Aug-2013 Intent (J2930)By: Zuleyma Vegas CNP Comments: Lot: [id number]: 12/2015Amt: 125mgRoute: IMSite: RUOQ GlutealGiven by: CINDY Kerr Aerosol Treatment (31331)By: Shasta On: 04-Aug-2013 Intent Zuleyma PHILLIPS Eprescribed prescriptions On: 04-Aug-2013 Intent (G8553)By: Zuleyma Vegas CNP EKG (88025)By: Luiza Dowd DO On: 14-Aug-2011 Intent Luiza Dowd DO Comments: no acute chg nsr - good Aerosol Treatment (17493)By: Shasta On: 27-Jun-2011 Intent Zuleyma PHILLIPS EKG (11299)By: Abeba Holley On: 14-Oct-2009 Intent CINDY Comments: nsr no acute changes Echo CompleteBy: Noemí FOSS, On: 22-Jun-2009 Intent Luiza Marinelli DO Holter Moniter (77468)By: Noemí On: 22-Jun-2009 Luiza Ruano DO, DO, Kathleen Comments: 48 hour EKG (58270)By: Luiza Dowd DO On: 22-Jun-2009 Intent Luiza Dowd DO Comments: nsr no acute changesno pvc EKG (28223)By: Luiza Dowd DO On: 30-Sep-2008 Intent Luiza Dowd DO Comments: stable EKG (22115)By: Luiza Dowd DO On: 30-Sep-2007 Intent Luiza Dowd DO Comments: done-awnsr noacute ischemic changes Aerosol Treatment (98932)By: Shasta On: 11-Jul-2007 Intent Zuleyma PHILLIPS COMP EYE EXAMINATION, ESTAB PATIENT On: 10-Jun-2007 Intent (57359)By: Sena Lester LPN Comments: VA Crx- 20/30 OD 20/40 OS 20/25 OU EKG (68237)By: Luiza Dowd DO On: 14-Sep-2006 Intent Luiza [...] blood pressure. ??Heart palpitations were more frequent. [place] them more frequently and didn't feel right-so [...] blood pressure. ??Heart palpitations were more frequent. Hadley them more frequentl y and didn't feel [...] tension (307.81) [facility] [employer]; a guarantor
== END 2018-07-05 10:53 | disposition home or self-care (01) ==
PROVIDERS: Emergency Provider Emergency Medicine; Family Provider Internal Medicine; PCP Internal Medicine
DX: I49.3 Ventricular premature depolarization (principal); I10 Essential (primary) hypertension; E66.9 Obesity, unspecified; Z68.41 Body mass index [BMI] 40.0-44.9, adult; Z79.899 Other long term (current) drug therapy
CPT/HCPCS: 80048; 93005; 99284; A4216

== ENCOUNTER → 2018-07-08 16:38 | Outpatient (CLI) | payer OTHER, SELFPAY ==
[2018-07-05 08:29] VITALS: BMI 41.1
[2018-07-08 17:54] LABS: Absolute Lymphocyte Count 2.01 X10^3/ul (0.83-4.51); Absolute Neutrophil Count 6.9 X10^3/uL (2.0-7.7); Basophil# 0.04 X10^3/uL; Basophil% 0.4 % (0-1); Eosinophil# 0.13 X10^3/uL; Eosinophils% 1.3 % (0-5); Hematocrit 38.6 % (37-47); Hemoglobin 12.3 g/dl (12.0-15.0); Lymphocyte # 2.01 X10^3/ul (4.0); Lymphocyte % 20.7 % (19-41); Mean Corp Hgb Conc 31.9 g/gl (32-36); Mean Corpuscular Hgb 27.6 pg (27.0-32.0); Mean Corpuscular Volume 86.7 fL (81-99); Mean Platelet Vol. 10.9 fl (6.2-12.0); Monocyte# 0.65 X10^3/uL; Monocyte% 6.7 % (0-10); Neutrophil # 6.85 X10^3/uL (2.7-7.7); Neutrophil % 70.8 % (47-70); Platelet Count 333 K/mm3 (150-450); RBC Distribution Width CV 13.7 % (11.6-14.6); RBC Distribution Width SD 42.5 fl (35.1-43.9); Red Blood Count 4.45 M/mm3 (4.2-5.4); White Blood Count 9.7 K/mm3 (4.4-11.0)
[2018-07-08 17:55] LABS: POSITIVE COUNT NO; POSITIVE DIFFERENTIAL NO; POSITIVE MORPHOLOGY NO
[2018-07-08 18:12] LABS: ALB/GLOB Ratio 0.9 RATIO (0.9-2.4); AST(SGOT) 15 U/L (15-37); Alanine Aminotransfer ALT/SGPT 24 U/L (13-56); Albumin, Serum 3.6 g/dL (3.2-5.0); Alkaline Phosphatase 121 U/L (45-117); Anion Gap 8 (5-15); BUN 16 mg/dL (7-18); BUN/Creat Ratio 18.3 RATIO (10-20); Calcium,Total 8.7 mg/dL (8.5-10.1); Chloride 106 mmol/L (98-107); Creatinine, Serum 0.87 mg/dL (0.55-1.02); EST Glomerular Filtration Rate 74 mL/min (>60); Est Glom Filt Rate - Afr Amer 89 mL/min (>60); Globulin 3.9 g/dL (2.2-4.2); Glucose 98 mg/dL (74-106); Potassium 4.1 mmol/L (3.5-5.1); Protein, Total 7.5 g/dL (6.4-8.2); Sodium Level 142 mmol/L (136-145); Thyroid Stim Hormone (TSH) 3.56 uIU/mL (0.358-3.74)
== END ==
PROVIDERS: Family Provider Internal Medicine; PCP Internal Medicine; Referring Provider Nurse Practitioner Gerontology; Visit Provider Nurse Practitioner Gerontology
DX: I10 Essential (primary) hypertension (principal); R00.2 Palpitations
CPT/HCPCS: 36415; 80053; 84443; 85025

== ENCOUNTER → 2018-07-16 11:25 | Outpatient (CLI) | payer OTHER, SELFPAY ==
[2018-07-05 08:29] VITALS: BMI 41.1
--- OUTSIDE RECORDS SUMMARY | 2018-09-01 12:29 | XMS RPT_ITS | Continuity of Care Document ---
:1970 Author Organization [facility] Address [address] [place] [address] Phone Care Team Providers Name Role Phone [...] Quantity: 20 {Capsule} Refills: 0 Ordered:21-Jun-2016 Elaine FOOT DOCTORDarian Matiasa Start : 18-May-2016 End : 21-Jun-2016 Discontinued ProAir HFA 108 (90 Base) MCG/ACT Inhalation Aerosol Solution 2 (two) Puff tid prn for 0 days Quantity: 1 {Inhaler} Refills: 3 Ordered:19-Dec-2016 Slarb FOOT DOCTORDariana Start : 24-Nov-2016 End : 19-Dec-2016 Discontinued [...] Lead Electrocardiogram Result: Comments: See Note; NOTES: [facility] Cardiovascular Services [address] [place] [address] 12 Lead EKG 07/05/18 0831 MR#: [id number] Acct: [id number] Name: TAMAR ROSA Rep #: [id number] : 1970 48 From: Corona Moore MD [...] normal ECG Confirmed by OSCAR HAYS, CORONA ([id number]), technical writer and editor DEBBY GUTIÉRREZ ([id number]) on 07/09/2018 3:39:04 PM Referred By: Confirmed By:CORONA MOORE MD 07/09/18 1539 Date ____ Corona Moore MD CC: Luiza Dowd DO; Ubaldo Owens MD Signed 05-Jul-2018 Emergency Department Summary Result: Comments: See Note; NOTES: [facility] Medical Records Department [address] [place] [address] Emergency Department Summary 07/05/18 1012 MR#: [id number] Acct: [id number] Name: TAMAR ROSA Rep #: [id number] : 1970 48 From: Ubaldo Owens MD [...] rhythm with occasional premature ventricular complexes noted. NV interval, QRS duration, QT interval and axis [...] Anxiousness self-reported This note was generated with Ad Summos dictation software. It may contain incorrect words, [...] pain, or any unexpected problems, contact your [facility] Care Provider. Call [facility] ([phone]) or report to the closest Emergency Room. Call 911 if necessary. 07/05/18 1017 <Electronically signed by Ubaldo Owens MD> Date ____ Ubaldo Owens MD Cosigner Signature (If Indicated): Date CC: Luiza Dowd DO 07-Nov-2017 SCREENING MAMM (CAD), BILAT Result: Comments: See Note; NOTES: [facility] Imaging Services [address] [facility] [facility] [address] SCREENING MAMM (CAD), BILAT MR#: [id number] Acct: [id number] Name: TAMAR ROSA Frida Rep #: [id number] : 1970 F 47 From: Anil Davison MD PCP: Luiza Dowd DO Status: REG CLI Study: SCREENING MAMM (CAD), BILAT Date of Exam: 11/07/17 Exam# [id number] Ordering Dr: Bailey Cummins MD MAMMOGRAPHY - [...] delay biopsy of a clinically suspicious abnormality. [id number] Electronically Signed: Anil Davison MD at 9:08 EDT Tel [phone], Service support , CC: Bailey Cummins MD; Luiza Dowd DO Senior Oracle Soa Developer: Signed 04-Sep-2017 Massage Therapy Evaluation Result: Comments: See Note; NOTES: [facility] 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 She was [...] Discharge Instruction Result: Comments: See Note; NOTES: [facility] Medical Records Department [address] [place] [address] Discharge Instruction 09/03/172034 MR#: [id number] Acct: [id number] Name: Merline ROSA Rep #: [id number] : 1970 47 From: Lance Gutiérrez DO [...] your Primary Care Provider. Call [facility] ([phone]) or report to the closest Emergency Room. Call 911 if necessa ry. 09/03/172036 <Electronically signed by Lance Gutiérrez DO> Date Lance Gutiérrez DO Cosigner Signature (If Indicated): Date CC: Luiza Dowd DO 03-Sep-2017 Emergency Department Summary Result: Comments: See Note; NOTES: [facility] Medical Records Department [address] [place] [address] Emergency Department Summary 09/03/172031 MR#: [id number] Acct: [id number] Name: TAMAR ROSA Rep #: [id number] : 1970 47 From: Lance Gutiérrez DO [...] healthcare worker] This note was generated with Ad Summos dictation software. It may contain incorrect words, [...] unexpected problems, contact your Primary Care Provider. [facility] ([phone]) or report to the closest Emergency Room. Call 911 if necessary. 09/03/172034 <Electronically signed by Lance Gutiérrez DO> Date Lance Gutiérrez DO Cosigner Signature (If Indicated): Date CC: Luiza Dowd DO 23-Jul-2017 Discharge Summary Result: Comments: See Note; NOTES: [facility] Medical Records Department [address] [place] [address] Discharge Summary 07/19/17 1117 MR#: [id number] Acct: [id number] Name: TAMAR ROSA Rep #: [id number] : 1970 47 From: Carmelita Tucker PCP: [...] the patient from our care at the [facility]. 07/23/17 1049 <Electronically signed by Carmelita Tucker > Date Carmelita maxwell Cosigner Signature (if applicable): Date CC: Carmelita Tucker; Luiza Dowd DO Signed 14-Dec-2016 Pulmonary Function Report Comp Result: Comments: See Note; NOTES: [facility] Pulmonary Services/Neurology [address] [place] [address] Pulmonary Function Test (Comp) MR#: [id number] Acct: [id number] Name: LUIS ALBERTO ROSA Rep #: [id number] : 1970 46 From: Lauro Calderon DO Referring Dr: Zuleyma Vegas Status: REG CLI Ordering Dr: Zuleyma Vegas Date: 12/12/16 Location: [facility] Sex: F C DATE OF [...] [place] C: Referring Provider T: YAW JOB: [id number] 12/14/16 0829 <Electronically signed by Lauro Calderon DO> Date Lauro Calderon DO CC: Zuleyma Vegas; Lauro Calderon D.O.; Luiza Dowd DO Date Dictated: 12/13/1647 Date Transcribed: 12/13/16846 Senior Oracle Soa Developer: Signed 31-Aug-2016 SCREENING MAMM (CAD), BILAT Result: Comments: See Note; NOTES: [facility] Imaging Services [address] [place] [address] Verdana 4d SCREENING MAMM (CAD), BILAT MR#: [id number] Acct: [id number] Name: TAMAR ROSA Rep #: [id number] : 1970 F 46 From: Anil Davison MD PCP: Luiza Dowd DO Status: [facility] CLI Study: SCREENING MAMM (CAD), BILAT Date of Exam: 08/31/16 Exam# [id number] Ordering Dr: Bailey Barrientos MD MAMMOGRAPHY - [...] 2015 and May 20, 2014. FINDINGS: Breast [place] sition: The breasts are heterogeneously dense, which [...] delay biopsy of a clinically suspicious abnormality. [id number] Electronically Signed: Carlos Davison MD at 10:16 EST Tel [phone], Service support [phone], CC: Bailey Cummins MD; Luiza Dowd DO Senior Oracle Soa Developer: Signed 03-Sep-2015 Inital Evaluation - PT Result: Comments: See Note; NOTES: [facility] [address] [place] [address]. 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 Elayne Kauffman LMT T: YAW JOB: [id number] <Electronic ally signed by Elayne Kauffman > 09/03/15 1032 CC: Signed For Medicare only, by signing this I certify the plan of care. Physicians Signature Date 05-Aug-2015 PT Discharge Summary Result: Comments: See Note; NOTES: [facility] Physical [facility] [address] [place] [address] Fax REHABILITATION SE RVICES DISCHARGE SUMMARY MR#: [id number] Acct: [id number] Name: TAMAR ROSA Rep #: [id number] : 1970 45 From: Carmelita Tucker Referring [...] the patient from our care at the [facility] facility. Carmelita Tucker LMT T: NTS JOB: [id number] <Electronically signed by Carmelita Tucker > 0739 CC: Luiza Dowd DO Signed 27-May-2015 Breast Limited Unilateral Result: Comments: See Note; NOTES: [facility] Imaging Services [address] [place] [address] Verdana 4d Breast Limited Unilateral MR#: [id number] Acct: [id number] Name: TAMAR DAVIS Rep #: [id number] : 1970 F 45 From: Anil Davison MD PCP: Luiza Dowd DO Status: REG CLI Study: Breast Limited Unilateral Date of Exam: 05/27/15 Exam# [id number] Jose Manuel hilton Dr: Bailey Cummins MD [...] Anil Davison MD at 15:03 EST Tel [phone], Service support [phone], CC: Bailey Cummins MD; Luiza Dowd DO Senior Oracle Soa Developer: Signed 27-May-2015 Unilat Lt Diag Digital AND CAD Result: Comments: See Note; NOTES: [facility] Imaging Services [address] [place] [address] Verdana 4d Unilat Lt Diag Digital AND CAD MR#: [id number] Acct: [id number] Na me: TAMAR ROSA Rep #: [id number] : 1970 F 45 From: Dre Hoffman MD PCP: Luiza Dowd DO Status: REG CLI Study: Unilat Lt Diag Digital AND CAD Date of Exam: 05/27/15 Exam# [id number] O rdering Dr: Bailey Cummins MD MAMMOGRAPHY [...] 15:04 EDT Tel , Servi ce support [phone], CC: Bailey Cummins MD; Luiza Dowd DO Senior Oracle Soa Developer: Signed 27-May-2015 Unilat Lt Diag Digital AND CAD Result: Comments: See Note; NOTES: [facility] Imaging Services [address] [place] [address] Verdana 4d Unilat Lt Diag Digital AND CAD MR#: [id number] Acct: [id number] Na me: TAMAR ROSA Rep #: [id number] : 1970 F 45 From: Dre Hoffman MD PCP: Luiza Dowd DO Status: REG CLI Study: Unilat Lt Diag Digital AND CAD Date of Exam: 05/27/15 Exam# [id number] O rdering Dr: Bailey Cummins MD MAMMOGRAPHY [...] 15:04 EDT Tel , Servi ce support [phone], CC: Bailey Cummins MD; Luiza Dowd DO Senior Oracle Soa Developer: Signed 27-May-2015 Unilat Lt Diag Digital AND CAD Result: Comments: See Note; NOTES: [facility] Imaging Services [address] [place] [address] Verdana 4d Unilat Lt Diag Digital AND CAD MR#: [id number] Acct: [id number] Na me: TAMAR ROSA Rep #: [id number] : 1970 F 45 From: Dre Hoffman MD PCP: Luiza Dowd DO Status: REG CLI Study: Unilat Lt Diag Digital AND CAD Date of Exam: 05/27/15 Exam# [id number] [facility] Dr: Bailey Cummins MD MAMMOGRAPHY - [...] 15:04 EDT Tel , Servi ce support [phone], CC: Bailey Cummins MD; Luiza Dowd DO Senior Oracle Soa Developer: Signed 27-May-2015 Unilat Lt Diag Digital AND CAD Result: Comments: See Note; NOTES: [facility] Imaging Services [address] [place] [address] Verdana 4d Unilat Lt Diag Digital AND CAD MR#: [id number] Acct: [id number] Na me: TAMAR ROSA Rep #: [id number] : 1970 F 45 From: Dre Hoffman MD PCP: Luiza Dowd DO Status: REG CLI Study: Unilat Lt Diag Digital AND CAD Date of Exam: 05/27/15 Exam# [id number] O ering Dr: Bailey Cummins MD MAMMOGRAPHY [...] 15:04 EDT Tel , Servi ce support [phone], CC: Bailey Cummins MD; Luiza Dowd DO Senior Oracle Soa Developer: Signed 27-May-2015 Unilat Lt Diag Digital AND CAD Result: Comments: See Note; NOTES: [facility] Imaging Services [address] [place] [address] Verdana 4d Unilat Lt Diag Digital AND CAD MR#: [id number] Acct: [id number] Na me: TAMAR ROSA Rep #: [id number] : 1970 F 45 From: Dre Hoffman MD PCP: Luiza Dowd DO Status: REG CLI Study: Unilat Lt Diag Digital AND CAD Date of Exam: 05/27/15 Exam# [id number] O [facility] Dr: Bailey Cummins MD MAMMOGRAPHY - UNILATERAL [...] 15:04 EDT Tel , Servi ce support [phone], CC: Bailey Cummins MD; Luiza Dowd DO Senior Oracle Soa Developer: Signed 21-May-2015 Bilat Scrn Digital AND CAD Result: Comments: See Note; NOTES: [facility] Imaging Services [address] [place] [address] Verdana 4d Bilat Scrn Digital AND CAD MR#: [id number] Acct: [id number] Name: TAMAR ROSA Rep #: [id number] : 1970 F 45 From: Dre Hoffman MD PCP: Luiza Dowd DO Status: REG CLI Study: [place] Digital AND CAD Date of Exam: 05/21/15 Exam# [id number] Ordering Dr: Bailey Cummins MD MAMMOGRAPHY - [...] at 14:42 EDT Tel , Service support [phone], CC: Bailey Cummins MD; Luiza Dowd DO Senior Oracle Soa Developer: Signed 02-Sep-2014 Inital Evaluation - PT Result: Comments: See Note; NOTES: [facility] Physical [facility] [address] [place] [address] Fax REHABILITATION SERVICES INITIAL EVALUATION MR#: [id number] Acct: [id number] Name: TAMAR ROSA Rep #: [id number] : 1970 44 From: Carmelita Tucker Referring Dr.: Luiza Dowd DO Status: REG RCR Insurance: [facility] Eval Date: DATE OF SERVICE: 08/26/2014 REFERRING PHYSICIAN: Dr. Dowd. 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 She was referred to [facility] facility for massotherapy evaluation by [...] back. Carmelita Tucker LMT T: YAW JOB: [id number] <Electronically signed by Carmelita Tucker > 09/02/14 1307 CC: DD: Signed For Medicare only, by signing this I certify the plan of care. Physicians Signature Date 20-May-2014 [place] Digital & CAD Result: Comments: See Note; NOTES: [facility] Imaging Services [address] [place] [address] Breast Imaging Report MR#: [id number] Acct: [id number] Name: TAMAR ROSA Rep #: [id number] : 1970 F 44 From: Dontae Durbin PCP: Luiza Dowd DO Status: REG CLI Exam# [id number] Ordering Dr: Bailey Cummins MD MAMMOGRAPHY - [...] at 20:20 EDT Tel , Service support [phone], CC: Bailey Cummins MD; Luiza Dowd DO Senior Oracle Soa Developer: Signed 20-Feb-2014 Spirometry (67971) Result: 05-Aug-2013 PT Discharge Summary Result: Comments: See Note; NOTES: [facility] Physical Therapy [address] [place] [address] Fax REHABILITATION SERVICES DISCHARGE SUMMARY MR#: [id number] Acct: [id number] Name: TAMAR ROSA Rep #: [id number] : 1970 43 From: Lori Christopher Referring [...] the patient from our care at the [facility] facility. Carmelita Christopher, BENI T: NTS JOB: [id number] <Electronically signed by Lori Christopher &#62 ; [...] smoker Vital Signs Date Test Result Details 4-Vkq-072489:07 Temperature 96.8 f Pulse 70 /min Comments: [...] kg/m2 Body Surface Area Calculated 2.15 m2 89-Ccb-271350:23 Pulse 72 /min Comments: Pattern: Regular Respiration [...] kg/m2 Body Surface Area Calculated 2.16 m2 81-Tdp-422100:15 Temperature 97.1 f Comments: Method: Oral Pulse [...] kg/m2 Body Surface Area Calculated 2.16 m2 91-Zia-334762:16 Pulse 76 /min Comments: Pattern: Regular O2 [...] Calculated 2.04 m2 Head Circumference 0.00 cm 52-Ohj-980177:00 Pulse 60 /min Comments: Pattern: Regular Respiration [...] Value Details :43 CBC W/Diff, Automated Comments: [facility] [address] [place], [place], [id number] Absolute Lymph 2.01 {X10_3/ul} (Normal) Range: 0.83-4.51 [...] 4.2-5.4 WBC 9.7 K/mm3 (Normal) Range: 4.4-11.0 2-Tjs-462990:43 Comprehensive Metabolic Profil Comments: [facility] [address] [place], [address] GAP 8 (Normal) Range: 5-15 CO2 28.0 [...] Comments: Please note revised GLUCOSE reference range avbyhqwqi48/02/2018. 0-Get-887575:43 Thyroid Stim Hormone (TSH) Comments: [facility] [address] [place], [address] TSH 3.56 {uIU/mL} (Normal) Range: 0.358-3.74 88-Crp-47921:48 Basic Metabolic Profile (BMP) Comments: [facility] [address] [place], [address] GAP 9 (Normal) Range: 5-15 CO2 27.0 [...] A.D.A. criteria.Please note revised GLUCOSE reference range hdokryjzl83/02/2018. 6-Cpy-521232:02 CBC, Employee Comments: [facility] [address] [place], [place], [address] Absolute Lymph 1.64 {X10_3/ul} (Normal) Range: 0.83-4.51 [...] 4.2-5.4 WBC 7.1 K/mm3 (Normal) Range: 4.4-11.0 9-Ssb-462226:02 Employee Profile Comments: [facility] [address] [place], [place], [address] LDH 148 U/L (Normal) Range: 84-246 VLDL [...] Comments: Please note revised GLUCOSE reference range ypwqlxjgz65/02/2018. 2-Jbu-642236:02 Nicotine Urine Drug Screen Comments: [facility] [address] [place], [place], [address] COT DRG SCREEN Negative (Normal) Comments: Cotinine [...] result, particularly whenpreliminary positive results are used. 5-Nrk-838719:02 Urinalysis, Employee Comments: [facility] [address] [place], [place], [address] LEUK ESTERASE Negative /ul (Normal) OCCULT BLOOD-UR Negative /ul (Normal) NITRITE UR Negative (Normal) UROBILI Normal mg/dL (Normal) PROT DIPSTX Negative mg/dL (Normal) pH UR 7.0 (Normal) Range: 5.0 - 8.0 SP.GR. DIPSTX 1.010 (Normal) Range: 1.002-1.030 KETONE UR Negative mg/dL (Normal) BILIRUBIN URINE Negative mg/dL (Normal) GLUCOSE, UR Normal mg/dL (Normal) CLARITY Clear (Normal) COLOR Yellow (Normal) 96-Dds-798868:15 Hep B Surface Antibodies EMP Comments: [facility] (refer to report for specific site)refer to report for address and phone number Hep B Oleg AB Reactive (Normal) Comments: Non Reactive: Inconsistent with immunity, less than 10 mIU/mL Reactive: Consistent with immunity, greater than 9.9 mIU/mL 29-Wxi-748286:15 Hepatitis B Surface Ag Comments: [facility] (refer to report for specific site)refer to report for address and phone number HB SURF AG Negative (Normal) Comments: Performed at: - [facility] [address] [id number] Director: Alejo Andre PhD, Phone: [phone] 24-Wue-217360:15 Hepatitis C Antibodies Comments: [facility] (refer to report for specific site)refer to report for address and phone number HEP C AB <0.1 {s/co_ratio} (Normal) Range: 0.0-0.9 Comments: Negative: < 0.8 Indeterminate: 0.8 - 0.9 Positive: > 0.9 The CDC recommends that a positive HCV antibody result be followed up with a HCV Nucleic Acid Amplification test (570748). 72-Htr-546528:15 HIV - [facility] Non-Reactive (Normal) Comments: [facility] [address] [place] [address], [id number] 70-Vkv-692284:48 CBC-Complete Blood Cnt No Diff Comments: [facility] [address] [place], [place], [address] MPV 10.7 fL (Normal) Range: 6.2-12.0 PLT [...] (Normal) Range: 4.4-11.0 :07 HgA1C , Office (27846) HgA1C , Office 5.2 % (Normal) Range: 4.6 - 7.1 21-Xeu-808908:32 CBC, Employee Comments: [facility] [address] [place], [place], [address] Absolute Lymph 1.64 {X10_3/ul} (Normal) Range: 0.83-4.51 [...] 4.2-5.4 WBC 7.9 K/mm3 (Normal) Range: 4.4-11.0 99-Zbh-000244:32 Employee Profile Comments: [facility] [address] [place], [place], [address] LDH 104 U/L (Normal) Range: 84-246 VLDL [...] 7-18 GLU 81 mg/dL (Normal) Range: 70-110 65-Bko-800041:32 Microalb:Creat Ratio,Random UR Comments: [facility] [address] [facility] [place], [address] MALB:CREAT 4.0 {mg/g_CRE} (Normal) MICROALBUMIN,UR 10.7 mg/L (Normal) UR CREAT 265.00 mg/dL (Normal) :32 Nicotine Urine Drug Screen Comments: [address] [place], [place], [address] COT DRG SCREEN Negative (Normal) Comments: Cotinine [...] used. :32 Thyroid Stim Hormone (TSH) Comments: [facility] [address] [place], [place], [address] TSH 3.17 {uIU/mL} (Normal) Range: 0.358-3.74 :32 Urinalysis, Employee Comments: How was Urine Obtained? CLEAN [facility] [address] [facility] [address] [place], [place], [address] LEUK ESTERASE 25 /ul (Abnormal) OCCULT BLOOD-UR 10 /ul (Abnormal) NITRITE UR Negative (Normal) UROBILI Normal mg/dL (Normal) PROT DIPSTX Negative mg/dL (Normal) pH UR 5.0 (Normal) Range: 5.0 - 8.0 SP.GR. DIPSTX 1.020 (Normal) Range: 1.002-1.030 KETONE UR Negative mg/dL (Normal) BILIRUBIN URINE Negative mg/dL (Normal) GLUCOSE, UR Normal mg/dL (Normal) CLARITY Sl. Cloudy (Normal) COLOR Yellow (Normal) 40-Ygx-828929:03 URINE OLIVIA CULTURE-LORY COL Comments: PATIENT NOT FASTINGPERFORMED BY: [facility] [address] [facility] [id number] Information: SRC:UR COUNT (78881) Antimicrobial MIHEAD (Normal) Comments: S = Susceptible; [...] mL (Abnormal) Urine Final report Culture,Comprehensive (Abnormal) 84-Tcx-995406:39 Urinalysis, Office (51000) UA - LEUKOCYTE ESTERASE Moderate (Abnormal) UA - NITRITE Negative (Normal) URINE UROBILINGN LORY TIMED Normal mg/dL (Normal) UA - PROTEIN 100 mg/dL (Normal) UA - PH 7.0 (Normal) UA - BLOOD ++ (Abnormal) UA - SPECIFIC GRAVITY 1.010 (Normal) UA - KETONES Negative mg/dL (Normal) UA - BILIRUBIN Negative (Normal) UA - GLUCOSE Negative (Normal) 65-Gys-278274:10 CBC, Employee Comments: [facility] [address] [place], [place], [address] Absolute Lymph 1.56 {X10_3/ul} (Normal) Range: 0.83-4.51 [...] 4.2-5.4 WBC 6.4 K/mm3 (Normal) Range: 4.4-11.0 98-Vgv-885165:10 Employee Profile Comments: [facility] [address], [place], [address] LDH 130 U/L (Normal) Range: 84-246 VLDL [...] 7-18 GLU 76 mg/dL (Normal) Range: 70-110 38-Ttc-322378:10 Nicotine Urine Drug Screen Comments: [facility] [address] [place], [place], [address] COT DRG SCREEN Negative (Normal) Comments: Cotinine [...] result, particularly whenpreliminary positive results are used. 56-Ctb-296577:10 Urinalysis, Employee Comments: [facility] [address] [place], [address] LEUK ESTERASE 25 /ul (Abnormal) OCCULT BLOOD-UR Negative /ul (Normal) NITRITE UR Negative (Normal) UROBILI Normal mg/dL (Normal) PROT DIPSTX Negative mg/dL (Normal) pH UR 6.0 (Normal) Range: 5.0 - 8.0 SP.GR. DIPSTX 1.015 (Normal) Range: 1.002-1.030 KETONE UR Negative mg/dL (Normal) BILIRUBIN URINE Negative mg/dL (Normal) GLUCOSE, UR Normal mg/dL (Normal) CLARITY Clear (Normal) COLOR Yellow (Normal) 8-Uwz-305774:13 CBC, Employee Comments: Test performed at:[facility] [address] [place], [place] [address] Absolute Lymph 1.37 {X10_3/ul} (Normal) Range: 0.83-4.51 [...] 4.2-5.4 WBC 6.2 K/mm3 (Normal) Range: 4.4-11.0 5-Kct-780514:13 Employee Profile Comments: Test performed at:[facility] [address] [place], [place] [address] ; ordered by ina stoll LDH 111 [...] 7-18 GLU 78 mg/dL (Normal) Range: 70-110 3-Qmo-731416:13 Urinalysis, Employee Comments: Test performed at:[facility] [address], [place] [address] LEUK ESTERASE Negative /ul (Normal) OCCULT BLOOD-UR Negative /ul (Normal) NITRITE UR Negative (Normal) UROBILI Normal mg/dL (Normal) PROT DIPSTX Negative mg/dL (Normal) pH UR 6.0 (Normal) Range: 5.0 - 8.0 SP.GR. DIPSTX 1.015 (Normal) Range: 1.002-1.030 KETONE UR Negative mg/dL (Normal) BILIRUBIN URINE Negative mg/dL (Normal) GLUCOSE, UR Normal mg/dL (Normal) CLARITY Clear (Normal) COLOR Yellow (Normal) 0-Chk-457415:05 PAPIG5 Comments: CYTOLOGY INFORMATION:- CLINICAL INFORMATION:- DATE LMP/MENOPAUSE: ABLATION 2011- COLLECTION VIAL: Thin Prep Vial- SPECIAL MACHINE STITCHER SOURCE: CERVICAL/ENDOCERVICAL- COLLECTION TECHNIQUE: BRUSH/SPATULASpecimen Comment: [id number] Comment: No. of containers..01 CYTYC Thin Prep Vial tHPVRFLX Comment (Normal) Comments: The HPV DNA reflex criteria were not met with this specimenresult therefore, no HPV testing was performed.Performed at: [address] [place] [id number] Director: Yassine Mathews MD, Phone: [phone] [facility] Comment (Normal) Comments: The Pap smear [...] system. tPERFORM Comment (Normal) Comments: Ariana Victoria, Spraying Machine Operator (ASCP) tADEQ Comment (Normal) Comments: Satisfactory for [...] CHOL 150 mg/dL (Normal) Comments: <200 mg/dL Molxnmydv464-528 mg/dL Borderline>240 mg/dL High Risk BID 0.08 [...] (Normal) UCLAR Clear (Normal) UCOL Yellow (Normal) 9-Brn-643542:44 Rapid Strep Test, Office (645[address]) Comments: positive Rapid Strep Test, Office Positive (Normal) 46-Ann-25194:40 LQDPAP [id number] Comments: CYTOLOGY INFORMATION:- CLINICAL INFORMATION:- DATE LMP/MENOPAUSE: [id number] LMP- COLLECTION VIAL: Thin Prep Vial- SPECIAL MACHINE STITCHER SOURCE: CERVICAL/ENDOCERVICAL- COLLECTION TECHNIQUE: BRUSH/SPATULA COMM . [...] testing was performed..Performe d at: [facility] - [facility] [id number] Director: Trevor Mathews MD DIAGN Comment (Normal) Comments: NEGATIVE FOR INTRAEPITHELIAL LESION AND MALIGNANCY.Satisfactory for evaluation. Endocervical and/or squamous metaplasticcells (endocervical component) are present.Catina Hill, Spraying Machine Operator (ASCP)T his liquid based ThinPrep(R) pap test was screened withthe use of an image guided system. :09 TSH ([id number]) Comments: PATIENT NOT FASTINGClinical Information: [id number] PERFORMED BY: [facility] [id number] [id number] TSH 2.700 {uIU/mL} (Normal) Range: 0.450-4.500 :32 [...] for patient's is the eGFRmultiplied by 1.212. [facility] Laboratory uses the abbreviated Modification of [...] Disease W/O Kidney Disease>/= 90 Stage One Yisann95 - 89 Stage Two Suspect Decreased GFR30 [...] 2.6-6.0 VLDL 26 mg/dL (Normal) Range: 5-40 47-Luq-50953:32 EMP URINALYSIS BILIRUBIN URINE SeeNote (Normal) Comments: [...] Very High > or = 500 mg/dL 39-Das-038797:45 Upper Respiratory Culture Comments: Clinical Information: SRC:TH PERFORMED BY: [id number] [id number] Result 1 BETAGA (Normal) Comments: Beta hemolytic [...] report (Normal) :31 Rapid Strep Test, Office ([id number]) Rapid Strep Test, Office Negative (Normal) :22 [...] Hypertension Planned Observations CBC W/AUTO DIFF WBC (75222)Indication: Benign essential hypertension On: :24 Request METABOLIC PANEL, COMPREHENSIVE ([id number])Indication: Palpitations On: 2-Ndc-767126:22 Request TSH ([id number])Indication: Palpitations On: 0-Whi-365384:22 Request MICROALBUMIN: CREATININE RATIO ([id number]) AND (64507)Indication: Benign essential hypertension On: 88-Thp-172179:53 Request TSH (THYROID STIMULATING HORMONE) (75119)Indication: Arrhythmia On: 51-Kiz-750232:52 Request Sputum Culture ([id number])Indication: Cough On: 10-Xqg-20858:53 Request OLIVIA CULTURE-OTHER ([id number])Indication: Sore throat On: 5-Ojr-449739:43 Request OLIVIA CULTURE-OTHER ([id number])Indication: Throat pain On: 28-Ond-17013:31 Request Comments: throat cx Triglycerides (97826)Indication: Hyperglyceridemia On: 27-Xuf-943561:00 Request HDL Cholesterol-Direct (81927)Indication: Low HDL (under 40) On: 93-Skq-840559:00 Request Planned Encounters Medical; 1 Week FU - On: 22-Jul-2018 9:00 [facility] Abeba Holt Planned Procedures APPLICATION OF 24 HOUR HOLTER On: 09-Jul-2018 Intent MONITOR ([id number])By: Abeba Holt EXERCISE STRESS TEST ([id number])By: On: 08-Jul-2018 Intent Abeba Holt Holter Moniter ([id number])By: Jonathon, On: 08-Jul-2018 Intent Abeba Comments: 24 Hour EKG (97128)By: Abeba Holt On: 08-Jul-2018 Intent Comments: Sinus Rhythm- HR 68 PFT - CompleteBy: Zuleyma Vegas CNP On: 24-Nov-2016 Intent Spirometry (43870)By: Shasta PHILLIPS, On: 24-Nov-2016 Intent Zuleyma Tamayo Comments: normal Aerosol Treatment ([id number])By: Shasta On: 24-Nov-2016 Intent Zuleyma PHILLIPS ELECTROCARDIOGRAM, COMPLETE (ECG) On: 07-Nov-2016 Intent ([id number])By: Luiza Dowd DO Comments: nsr no acute chg Luiza Dowd DO COMP EYE EXAMINATION, ESTAB PATIENT On: 21-Jun-2016 Intent ([id number])By: Zuleyma Vegas CNP EKG (81135)By: Luiza Dowd DO On: 26-Mar-2015 Intent Luiza Dowd DO Comments: nsr no acute chg Solu -Medrol Injection, 125 mg On: 04-Aug-2013 Intent ([id number])By: Zuleyma Vegas CNP Comments: Lot: [id number]: 12/2015Amt: 125mgRoute: IMSite: RUOQ GlutealGiven by: CINDY Kerr Aerosol Treatment ([id number])By: Shasta On: 04-Aug-2013 Intent Zuleyma PHILLIPS Eprescribed prescriptions On: 04-Aug-2013 Intent (G8553)By: Zuleyma Vegas CNP EKG (85552)By: Luiza Dowd DO On: 14-Aug-2011 Intent Luiza Dowd DO Comments: no acute chg nsr - good Aerosol Treatment (40136)By: Shasta On: 27-Jun-2011 Intent Zuleyma PHILLIPS EKG (59690)By: Abeba Holley On: 14-Oct-2009 Intent CINDY Comments: nsr no acute changes Echo CompleteBy: Noemí FOSS, On: 22-Jun-2009 Intent Luiza Marinelli DO Holter Moniter ([id number])By: Noemí On: 22-Jun-2009 Intent Luiza FOSS DO, Kathleen Comments: 48 hour EKG (40488)By: Luiza Dowd DO On: 22-Jun-2009 Intent Luiza Dowd DO Comments: nsr no acute changesno pvc EKG (17385)By: Luiza Dowd DO On: 30-Sep-2008 Intent Luiza Dowd DO Comments: stable EKG (30081)By: Luiza Dowd DO On: 30-Sep-2007 Intent Luiza Dowd DO Comments: done-awnsr noacute ischemic changes Aerosol Treatment ([id number])By: Shasta On: 11-Jul-2007 Intent Zuleyma PHILLIPS COMP EYE EXAMINATION, ESTAB PATIENT On: 10-Jun-2007 Intent ([id number])By: Sena Lester LPN Comments: VA Crx- 20/30 OD 20/40 OS 20/25 OU EKG (79957)By: Luiza Dowd DO On: 14-Sep-2006 Intent Luiza [...] blood pressure. ??Heart palpitations were more frequent. [employer] them more frequentl y and didn't feel [...] tension (307.81) [facility] JerseyTamar Rosa; a guarantor
--- OUTSIDE RECORDS SUMMARY | 2018-09-01 12:30 | XMS RPT_ITS | Continuity of Care Document ---
:1970 Author Organization [facility] Address [address] [facility] [address] [place] [address] Phone Care Team Providers Name Role Phone [...] days Quantity: 1 {Ointment} Refills: 0 Ordered:10-Jun-2007 Snea Lester LPN Start : 10-Jun-2007 End : [...] Quantity: 20 {Capsule} Refills: 0 Ordered:21-Jun-2016 Slarb SUPERINTENDENT COLLIERY, Elayne Start : 18-May-2016 End : 21-Jun-2016 Discontinued ProAir HFA 108 (90 Base) MCG/ACT Inhalation Aerosol Solution 2 (two) Puff tid prn for 0 days Quantity: 1 {Inhaler} Refills: 3 Ordered:19-Dec-2016 Slarb SUPERINTENDENT COLLIERY, Elayne Start : 24-Nov-2016 End : 19-Dec-2016 Discontinued Zithromax Z-Andrea 250 MG Oral Tablet 1 (one) Tablet TAD for 0 days Quantity: 1 {Package} Refills: 0 Ordered:19-Dec-2016 Slarb SUPERINTENDENT COLLIERY, Elayne Start : 24-Nov-2016 End : 19-Dec-2016 [...] Department Summary Result: Comments: See Note; NOTES: [facility] Medical Records Department [address] [place] [address] Emergency Department Summary 07/05/18 1012 MR#: [id number] Acct: [id number] Name: TAMAR ROSA Rep #: [id number] : 1970 48 From: Ubaldo Owens MD [...] Anxiousness self-reported This note was generated with SystematicBytes dictation software. It may contain incorrect words, [...] pain, or any unexpected problems, contact your [facility] Care Provider. Call Doctors [facility] ([phone]) or report to the closest Emergency Room. Call 911 if necessary. 07/05/18 1017 <Electronically signed by Ubaldo Owens MD> Date ____ Ubaldo Diallo Signature (If Indicated): Date CC: Luiza Noemí 07-Nov-2017 SCREENING MAMM (CAD), BILAT Result: Comments: See Note; NOTES: [facility] Imaging Services [address] [place] [address] SCREENING MAMM (CAD), BILAT MR#: [id number] Acct: [id number] Name: TAMAR ROSA Rep #: [id number] : 1970 F 47 From: Anil Davison MD PCP: Luiza Dowd DO Status: REG CLI Study: SCREENING MAMM (CAD), BILAT Date of Exam: 11/07/17 Exam# [id number] Ordering Dr: Bailey Cummins MD MAMMOGRAPHY - [...] delay biopsy of a clinically suspicious abnormality. [id number] Electronically Signed: Anil Davison MD at 9:08 EDT Tel [phone], Service support , CC: Bailey Cummins MD; Luiza Dowd DO Roll Forger: Signed 04-Sep-2017 Massage Therapy Evaluation Result: Comments: See Note; NOTES: [facility] 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 She [...] Discharge Instruction Result: Comments: See Note; NOTES: [facility] Medical Records Department [address] [place] [address] Discharge Instruction 09/03/172034 MR#: [id number] Acct: [id number] Name: Merline ROSA Rep #: [id number] : 1970 47 From: Lance Gutiérrez DO [...] your Primary Care Provider. Call [facility] ([phone]) or report to the closest Emergency Room. Call 911 if necessa ry. 09/03/172036 <Electronically signed by Lance Gutiérrez DO> Date Lance Gutiérrez DO Cosigner Signature (If Indicated): Date CC: Luiza Dowd DO 03-Sep-2017 Emergency Department Summary Result: Comments: See Note; NOTES: [facility] Medical Records Department [address] [place] [address] Emergency Department Summary 09/03/172031 MR#: [id number] Acct: [id number] Name: TAMAR ROSA Rep #: [id number] : 1970 47 From: Lance Gutiérrez DO [...] healthcare worker] This note was generated with SystematicBytes dictation software. It may contain incorrect words, [...] unexpected problems, contact your Primary Care Provider. [facility] Doctors Registry ([phone]) or report to the closest Emergency Room. Call 911 if necessary. 09/03/172034 <Electronically signed by Lance Gutiérrez DO> Date Lance Gutiérrez DO Cosigner Signature (If Indicated): Date CC: Luiza Dowd DO 23-Jul-2017 Discharge Summary Result: Comments: See Note; NOTES: [facility] Medical Records Department [address] [place] [address] Discharge Summary 07/19/17 1117 MR#: [id number] Acct: [id number] Name: TAMAR ROSA Rep #: [id number] : 1970 47 From: Carmelita Tucker PCP: [...] the patient from our care at the [facility]. 07/23/17 1049 <Electronically signed by Carmelita Tucker > Date Carmelita maxwell Cosigner Signature (if applicable): Date CC: Carmelita Dowd DO Signed 14-Dec-2016 Pulmonary Function Report Comp Result: Comments: See Note; NOTES: [facility] Pulmonary Services/Neurology [address] [place] [address] Pulmonary Function Test (Comp) MR#: [id number] Acct: [id number] Name: LUIS ALBERTO ROSA Rep #: [id number] : 1970 46 From: Lauro Calderon DO Referring Dr: Zuleyma Vegas Status: REG CLI Ordering Dr: Zuleyma Vegas Date: 12/12/16 Location: [facility] Sex: F C DATE OF SERVICE: [...] [place]un[place] C: Referring Provider T: YAW JOB: [id number] 12/14/16 0829 <Electronically signed by Lauro Calderon DO> Date Lauro Calderon DO CC: Zuleyma Vegas; Lauro Calderon D.O.; Luiza Noemí FOSS Date Dictated: 12/13/16846 Date Transcribed: 12/13/16846 Roll Forger: Signed 31-Aug-2016 SCREENING MAMM (CAD), BILAT Result: Comments: See Note; NOTES: [facility] Imaging Services [address] [place] [address] Verdana 4d SCREENING MAMM (CAD), BILAT MR#: [id number] Acct: [id number] Name: TAMAR ROSA Rep #: [id number] : 1970 F 46 From: Anil Davison MD PCP: Luiza Dowd DO Status: REG CLI Study: SCREENING MAMM (CAD), BILAT Date of Exam: 08/31/16 Exam# [id number] Ordering Dr: Bailey Barrientos MD MAMMOGRAPHY - [...] 2015 and May 20, 2014. FINDINGS: Breast Rayne sition: The breasts are heterogeneously dense, which [...] delay biopsy of a clinically suspicious abnormality. [id number] Electronically Signed: Carlos Davison MD at 10:16 EST Tel [phone], Service support [phone], CC: Bailey Cummins MD; Luiza Dowd DO Roll Forger: Signed 03-Sep-2015 Inital Evaluation - PT Result: Comments: See Note; NOTES: [facility] 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 Elayne Kauffman LMT T: YAW JOB: [id number] <Electronic ally signed by Elayne Kauffman > 09/03/15 1032 CC: Signed For Medicare only, by signing this I certify the plan of care. Physicians Signature Date 05-Aug-2015 PT Discharge Summary Result: Comments: See Note; NOTES: [facility] Physical Therapy [address] [place] [address] Fax [facility] DIS[facility]GE SUMMARY MR#: [id number] Acct: [id number] Name: TAMAR ROSA Rep #: [id number] : 1970 45 From: Carmelita Tucekr Referring Dr.: Luiza Dowd DO Status: DIS [...] the patient from our care at the [facility] facility. Carmelita Tucker LMT T: YAW JOB: [id number] <Electronically signed by Carmelita Tucker > 0739 CC: Luiza Dowd DO Signed 27-May-2015 Breast Limited Unilateral Result: Comments: See Note; NOTES: [facility] Imaging Services [address] [place] [address] Kaitlin 4d Breast Limited Unilateral MR#: [id number] Acct: [id number] Name: TAMAR DAVIS Rep #: [id number] : 1970 F 45 From: Anil Davison MD PCP: Luiza Dowd DO Status: REG CLI Study: Breast Limited Unilateral Date of Exam: 05/27/15 Exam# [id number] [facility] Dr: Bailey Cummins MD STUDY: ULTRASOUND BREAST [...] Anil Davison MD at 15:03 EST Tel [phone], Service support [phone], CC: Bailey Cummins MD; Luiza Dowd DO Roll Forger: Signed 27-May-2015 Unilat Lt Diag Digital AND CAD Result: Comments: See Note; NOTES: [facility] Imaging Services [address] [place] [address] Verdana 4d Unilat Lt Diag Digital AND CAD MR#: [id number] Acct: [id number] Na me: TAMAR ROSA Rep #: [id number] : 1970 F 45 From: Dre Hoffman MD PCP: Luiza Dowd DO Status: REG CLI Study: Unilat Lt Diag Digital AND CAD Date of Exam: 05/27/15 Exam# [id number] O rdering Dr: Bailey Cummins MD MAMMOGRAPHY [...] 15:04 EDT Tel , Servi ce support [phone], CC: Bailey Cummins MD; Luiza Dowd DO Roll Forger: Signed 27-May-2015 Unilat Lt Diag Digital AND CAD Result: Comments: See Note; NOTES: [facility] Imaging Services [address] [place] [address] Verdana 4d Unilat Lt Diag Digital AND CAD MR#: [id number] Acct: [id number] Na me: TAMAR ROSA Rep #: [id number] : 1970 F 45 From: Dre Hoffman MD PCP: Luiza Dowd DO Status: REG CLI Study: Unilat Lt Diag Digital AND CAD Date of Exam: 05/27/15 Exam# [id number] O ering Dr: Bailey Cummins MD MAMMOGRAPHY [...] 15:04 EDT Tel , Servi ce support [phone], CC: Bailey Cummins MD; Luiza Dowd DO Roll Forger: Signed 27-May-2015 Unilat Lt Diag Digital AND CAD Result: Comments: See Note; NOTES: [facility] Imaging Services [address] [place] [address] Verdana 4d Unilat Lt Diag Digital AND CAD MR#: [id number] Acct: [id number] Na me: TAMAR ROSA Rep #: [id number] : 1970 F 45 From: Dre Hoffman MD PCP: Luiza Dowd DO Status: REG CLI Study: Unilat Lt Diag Digital AND CAD Date of Exam: 05/27/15 Exam# [id number] O [facility] Dr: Bailey [...] 15:04 EDT Tel , Servi ce support [phone], CC: Bailey Cummins MD; Luiza Dowd DO Roll Forger: Signed 27-May-2015 Unilat Lt Diag Digital AND CAD Result: Comments: See Note; NOTES: [facility] Imaging Services [address] [place] [address] Verdana 4d Unilat Lt Diag Digital AND CAD MR#: [id number] Acct: [id number] Na me: SHELLEYTAMAR Galicia Rep #: [id number] : 1970 F 45 From: Dre Hoffman MD PCP: Luiza Dowd DO Status: REG CLI Study: Unilat Lt Diag Digital AND CAD Date of Exam: 05/27/15 Exam# [id number] O rdering Dr: Bailey Cummins MD MAMMOGRAPHY [...] 15:04 EDT Tel , Servi ce support [phone], CC: Bailey Cummins MD; Luiza Dowd DO Roll Forger: Signed 27-May-2015 Unilat Lt Diag Digital AND CAD Result: Comments: See Note; NOTES: [facility] Imaging Services [address] [place] [address] Verdana 4d Unilat Lt Diag Digital AND CAD MR#: [id number] Acct: [id number] Na me: TAMAR ROSA Rep #: [id number] : 1970 F 45 From: Dre Hoffman MD PCP: Luiza Dowd DO Status: REG CLI Study: Unilat Lt Diag Digital AND CAD Date of Exam: 05/27/15 Exam# [id number] O [facility] Dr: Bailey [...] 15:04 EDT Tel , Servi ce support [phone], CC: Bailey Cummins MD; Luiza Dowd DO Roll Forger: Signed 21-May-2015 Bilat Scrn Digital AND CAD Result: Comments: See Note; NOTES: [facility] Imaging Services [address] [place] [address] Verdana 4d Bilat Scrn Digital AND CAD MR#: [id number] Acct: [id number] Name: TAMAR ROSA Rep #: [id number] : 1970 F 45 From: Dre Hoffman MD PCP: Luiza Dowd DO Status: REG CLI Study: Bilat Scrn Digital AND CAD Date of Exam: 05/21/15 Exam# [id number] Ordering Dr: Bailey Cummins MD MAMMOGRAPHY - [...] at 14:42 EDT Tel , Service support [phone], CC: Bailey Cummins MD; Luiza Dowd DO Roll Forger: Signed 02-Sep-2014 Inital Evaluation - PT Result: Comments: See Note; NOTES: [facility] [address] [place] [address]. [address] [place], [place] [address] Fax REHABILITATION SERVICES INITIAL EVALUATION MR#: [id number] Acct: [id number] Name: TAMAR ROSA Rep #: [id number] : 1970 44 From: Carmelita Tucker Referring Dr.: Luiza Dowd DO Status: REG RCR Insurance: [facility] [employer] Eval Date: DATE OF SERVICE: 08/26/2014 REFERRING PHYSICIAN: Dr. Dowd. 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 She was referred to [facility] facility for massotherapy evaluation by Dr. Dowd [...] back. Carmelita Tucker LMT T: YAW JOB: [id number] <Electronically signed by Carmelita Tucker > 09/02/14 1307 CC: DD: Signed For Medicare only, by signing this I certify the plan of care. Physicians Signature Date 20-May-2014 Bilat Scrn Digital & CAD Result: Comments: See Note; NOTES: [facility] Imaging Services [address] [place] [address] Breast Imaging Report MR#: [id number] Acct: [id number] Name: TAMAR ROSA Rep #: [id number] : 1970 F 44 From: Dontae Durbin PCP: Luiza Dowd DO Status: REG CLI Exam# [id number] Ordering Dr: Bailey Cummins MD MAMMOGRAPHY - [...] at 20:20 EDT Tel , Service support [phone], CC: Bailey Cummins MD; Luiza Dowd DO Roll Forger: Signed 20-Feb-2014 Spirometry (64096) Result: 05-Aug-2013 PT Discharge Summary Result: Comments: See Note; NOTES: [facility] Physical Therapy [address] [place], [place] [address] Fax REHABILITATION SERVICES DISCHARGE SUMMARY MR#: [id number] Acct: [id number] Name: TAMAR ROSA Rep #: [id number] : 1970 43 From: Lori Christopher Referring [...] the patient from our care at the [facility] facility. Carmelita Christopher LMT T: [facility] JOB: [id number] <Electronically signed by Lori Christopher &#62 ; [...] kg/m2 Body Surface Area Calculated 2.15 m2 32-Tck-749488:23 Pulse 72 /min Comments: Pattern: Regular Respiration [...] kg/m2 Body Surface Area Calculated 2.16 m2 53-Nic-752905:15 Temperature 97.1 f Comments: Method: Oral Pulse [...] 0.00 cm Results Date Description Value Details 98-Ujk-39210:48 Basic Metabolic Profile (BMP) Comments: [facility] [address] [place], [place], [address] GAP 9 (Normal) Range: 5-15 CO2 27.0 [...] A.D.A. criteria.Please note revised GLUCOSE reference range fcibujnjm27/02/2018. 0-Tfr-382495:02 CBC, Employee Comments: [facility] [address] [place], [place], [address] Absolute Lymph 1.64 {X10_3/ul} (Normal) Range: 0.83-4.51 [...] 4.2-5.4 WBC 7.1 K/mm3 (Normal) Range: 4.4-11.0 2-Flh-312255:02 Employee Profile Comments: [facility] [address] [place], [address] LDH 148 U/L (Normal) Range: 84-246 VLDL [...] Comments: Please note revised GLUCOSE reference range bslxcoidh99/02/2018. 8-Rev-016790:02 Nicotine Urine Drug Screen Comments: [facility] [address] [place], [place], [address] COT DRG SCREEN Negative (Normal) Comments: Cotinine [...] result, particularly whenpreliminary positive results are used. 5-Udn-087294:02 Urinalysis, Employee Comments: [facility] [address] [place], [place], [address] LEUK ESTERASE Negative /ul (Normal) OCCULT BLOOD-UR Negative /ul (Normal) NITRITE UR Negative (Normal) UROBILI Normal mg/dL (Normal) PROT DIPSTX Negative mg/dL (Normal) pH UR 7.0 (Normal) Range: 5.0 - 8.0 SP.GR. DIPSTX 1.010 (Normal) Range: 1.002-1.030 KETONE UR Negative mg/dL (Normal) BILIRUBIN URINE Negative mg/dL (Normal) GLUCOSE, UR Normal mg/dL (Normal) CLARITY Clear (Normal) COLOR Yellow (Normal) 94-Wow-092179:15 Hep B Surface Antibodies EMP Comments: [facility] (refer to report for specific site)refer to report for address and phone number Hep B Oleg AB Reactive (Normal) Comments: Non Reactive: Inconsistent with immunity, less than 10 mIU/mL Reactive: Consistent with immunity, greater than 9.9 mIU/mL 71-Qzz-325027:15 Hepatitis B Surface Ag Comments: [facility] (refer to report for specific site)refer to report for address and phone number HB SURF AG Negative (Normal) Comments: Performed at: [address] [id number] Director: Alejo Andre PhD, Phone: [phone] 07-Qxo-687233:15 Hepatitis C Antibodies Comments: [facility] (refer to report for specific site)refer to report for address and phone number HEP C AB <0.1 {s/co_ratio} (Normal) Range: 0.0-0.9 Comments: Negative: < 0.8 Indeterminate: 0.8 - 0.9 Positive: > 0.9 The CDC recommends that a positive HCV antibody result be followed up with a HCV Nucleic Acid Amplification test (282319). 59-Agd-258906:15 HIV - [facility] Non-Reactive (Normal) Comments: [facility] [address] [place], [place], [id number] 67-Sca-448397:48 CBC-Complete Blood Cnt No Diff Comments: [facility] [address] [place], [place], [address] MPV 10.7 fL (Normal) Range: 6.2-12.0 PLT [...] (Normal) Range: 4.4-11.0 :07 HgA1C , Office (78422) HgA1C , Office 5.2 % (Normal) Range: 4.6 - 7.1 38-Abc-909317:32 CBC, Employee Comments: [facility] [address] [place], [place], [address] Absolute Lymph 1.64 {X10_3/ul} (Normal) Range: 0.83-4.51 [...] 4.2-5.4 WBC 7.9 K/mm3 (Normal) Range: 4.4-11.0 17-Atf-321210:32 Employee Profile Comments: [facility] [address] [place], [address] LDH 104 U/L (Normal) Range: 84-246 VLDL [...] 7-18 GLU 81 mg/dL (Normal) Range: 70-110 52-Qwt-035082:32 Microalb:Creat Ratio,Random UR Comments: [facility] [address] [place], [address] MALB:CREAT 4.0 {mg/g_CRE} (Normal) MICROALBUMIN,UR 10.7 mg/L (Normal) UR CREAT 265.00 mg/dL (Normal) 97-Nax-394660:32 Nicotine Urine Drug Screen Comments: [facility] [address] [place] [address], [address] COT DRG SCREEN Negative (Normal) Comments: Cotinine [...] result, particularly whenpreliminary positive results are used. 95-Vza-430030:32 Thyroid Stim Hormone (TSH) Comments: [address], [id number] TSH 3.17 {uIU/mL} (Normal) Range: 0.358-3.74 :32 Urinalysis, Employee Comments: How was Urine Obtained? CLEAN [facility] [address] [place] [address], [id number] LEUK ESTERASE 25 /ul (Abnormal) OCCULT BLOOD-UR 10 /ul (Abnormal) NITRITE UR Negative (Normal) UROBILI Normal mg/dL (Normal) PROT DIPSTX Negative mg/dL (Normal) pH UR 5.0 (Normal) Range: 5.0 - 8.0 SP.GR. DIPSTX 1.020 (Normal) Range: 1.002-1.030 KETONE UR Negative mg/dL (Normal) BILIRUBIN URINE Negative mg/dL (Normal) GLUCOSE, UR Normal mg/dL (Normal) CLARITY Sl. Cloudy (Normal) COLOR Yellow (Normal) 69-Apq-785354:03 URINE OLIVIA CULTURE-LORY COL Comments: PATIENT NOT FASTINGPERFORMED BY: [facility] [id number] Information: SRC:UR COUNT (16499) Antimicrobial MIHEAD (Normal) Comments: S = Susceptible; [...] mL (Abnormal) Urine Final report Culture,Comprehensive (Abnormal) 53-Iqu-037266:39 Urinalysis, Office (43593) UA - LEUKOCYTE ESTERASE Moderate (Abnormal) UA - NITRITE Negative (Normal) URINE UROBILINGN LORY TIMED Normal mg/dL (Normal) UA - PROTEIN 100 mg/dL (Normal) UA - PH 7.0 (Normal) UA - BLOOD ++ (Abnormal) UA - SPECIFIC GRAVITY 1.010 (Normal) UA - KETONES Negative mg/dL (Normal) UA - BILIRUBIN Negative (Normal) UA - GLUCOSE Negative (Normal) 53-Xxd-896986:10 CBC, Employee Comments: [facility] [address] [place], [address] Absolute Lymph 1.56 {X10_3/ul} (Normal) Range: 0.83-4.51 [...] 4.2-5.4 WBC 6.4 K/mm3 (Normal) Range: 4.4-11.0 34-Amp-680588:10 Employee Profile Comments: [facility] [address] [place], [place], [address] LDH 130 U/L (Normal) Range: 84-246 VLDL [...] 7-18 GLU 76 mg/dL (Normal) Range: 70-110 80-Xrt-520447:10 Nicotine Urine Drug Screen Comments: [facility] [address] [facility]. [place], [place], [address] COT DRG SCREEN Negative (Normal) Comments: Cotinine [...] result, particularly whenpreliminary positive results are used. 43-Koq-669724:10 Urinalysis, Employee Comments: [facility] [address] [facility]. [place], [place], [address] LEUK ESTERASE 25 /ul (Abnormal) OCCULT BLOOD-UR Negative /ul (Normal) NITRITE UR Negative (Normal) UROBILI Normal mg/dL (Normal) PROT DIPSTX Negative mg/dL (Normal) pH UR 6.0 (Normal) Range: 5.0 - 8.0 SP.GR. DIPSTX 1.015 (Normal) Range: 1.002-1.030 KETONE UR Negative mg/dL (Normal) BILIRUBIN URINE Negative mg/dL (Normal) GLUCOSE, UR Normal mg/dL (Normal) CLARITY Clear (Normal) COLOR Yellow (Normal) 4-Oyv-870137:13 CBC, Employee Comments: Test performed at:[facility] [address] [place] [address] Absolute Lymph 1.37 {X10_3/ul} (Normal) [...] 4.2-5.4 WBC 6.2 K/mm3 (Normal) Range: 4.4-11.0 7-Xaz-038308:13 Employee Profile Comments: Test performed at:[facility] [address] [place], [place] [address] ; ordered by ina stoll LDH 111 [...] 7-18 GLU 78 mg/dL (Normal) Range: 70-110 0-Klx-869668:13 Urinalysis, Employee Comments: Test performed at:[facility] [address] [place] [address] LEUK ESTERASE Negative /ul (Normal) OCCULT BLOOD-UR Negative /ul (Normal) NITRITE UR Negative (Normal) UROBILI Normal mg/dL (Normal) PROT DIPSTX Negative mg/dL (Normal) pH UR 6.0 (Normal) Range: 5.0 - 8.0 SP.GR. DIPSTX 1.015 (Normal) Range: 1.002-1.030 KETONE UR Negative mg/dL (Normal) BILIRUBIN URINE Negative mg/dL (Normal) GLUCOSE, UR Normal mg/dL (Normal) CLARITY Clear (Normal) COLOR Yellow (Normal) 0-Lyk-294438:05 PAPIG5 Comments: CYTOLOGY INFORMATION:- CLINICAL INFORMATION:- DATE LMP/MENOPAUSE: 2011- COLLECTION VIAL: Thin Prep Vial- BED WORKER SOURCE: CERVICAL/ENDOCERVICAL- COLLECTION TECHNIQUE: BRUSH/SPATULASpecimen Comment: [id number] Comment: No. of containers..01 CYTYC Thin Prep Vial tHPVRFLX Comment (Normal) Comments: The HPV DNA reflex criteria were not met with this specimenresult therefore, no HPV testing was performed.Performed at: [address] [id number] Director: Yassine Mathews MD, Phone: [phone] [facility] Comment (Normal) Comments: The Pap smear [...] system. tPERFORM Comment (Normal) Comments: Ariana Victoria, Workers Compensation Coordinator (ASCP) tADEQ Comment (Normal) Comments: Satisfactory for [...] CHOL 150 mg/dL (Normal) Comments: <200 mg/dL Ezcckmtfb906-768 mg/dL Borderline>240 mg/dL High Risk BID 0.08 [...] (Normal) UCLAR Clear (Normal) UCOL Yellow (Normal) 3-Amz-025095:44 Rapid Strep Test, Office (42209) Comments: positive Rapid Strep Test, Office Positive (Normal) 39-Say-32281:40 LQDPAP [id number] Comments: CYTOLOGY INFORMATION:- CLINICAL INFORMATION:- DATE LMP/MENOPAUSE: 124126 LMP- COLLECTION VIAL: Thin Prep Vial- BED WORKER SOURCE: CERVICAL/ENDOCERVICAL- COLLECTION TECHNIQUE: BRUSH/SPATULA COMM . [...] no HPV testing was performed..Performe d at: [facility] [id number] Director: Trevor Mathews MD DIAGN Comment (Normal) Comments: NEGATIVE FOR INTRAEPITHELIAL LESION AND MALIGNANCY.Satisfactory for evaluation. Endocervical and/or squamous metaplasticcells (endocervical component) are present.Catina Hill, Workers Compensation Coordinator (ASCP)T his liquid based ThinPrep(R) pap test was screened withthe use of an image guided system. 92-Lwq-520010:09 TSH (59950) Comments: PATIENT NOT FASTINGClinical Information: [id number] PERFORMED BY: [facility]nb[facility]20 [facility] [id number] TSH 2.700 {uIU/mL} (Normal) Range: 0.450-4.500 36-Niy-40067:32 CBC, EMPLOYEE HCT 39.6 % (Normal) Range: [...] for patient's is the eGFRmultiplied by 1.212. [facility] Laboratory uses the abbreviated Modification [...] Disease W/O Kidney Disease>/= 90 Stage One Timsqj27 - 89 Stage Two Suspect Decreased GFR30 [...] Very High > or = 500 mg/dL 59-Buu-835319:45 Upper Respiratory Culture Comments: Clinical Information: SRC:TH PERFORMED BY: [facility] [id number] [id number] Result 1 BETAGA (Normal) Comments: Beta hemolytic [...] report (Normal) :31 Rapid Strep Test, Office (58050) Rapid Strep Test, Office Negative (Normal) :22 [...] Hypertension Planned Observations CBC W/AUTO DIFF WBC ([id number])Indication: Benign essential hypertension On: 5-Rgk-798992:24 Request METABOLIC PANEL, COMPREHENSIVE ([id number])Indication: Palpitations On: 6-Isx-972293:22 Request TSH ([id number])Indication: Palpitations On: 6-Nub-868821:22 Request MICROALBUMIN: CREATININE RATIO ([id number]) AND ([id number])Indication: Benign essential hypertension On: 34-Qho-459514:53 Request TSH (THYROID STIMULATING HORMONE) ([id number])Indication: Arrhythmia On: 69-Wiu-102722:52 Request Sputum Culture ([id number])Indication: Cough On: 70-Avm-31117:53 Request OLIVIA CULTURE-OTHER ([id number])Indication: Sore throat On: 2-Xog-683983:43 Request OLIVIA CULTURE-OTHER ([id number])Indication: Throat pain On: 81-Cnd-40078:31 Request Comments: throat cx Triglycerides ([id number])Indication: Hyperglyceridemia On: 09-Fdx-138932:00 Request HDL Cholesterol-Direct ([id number])Indication: Low HDL (under 40) On: 38-Vue-770355:00 Request Planned Procedures EXERCISE STRESS TEST ([id number])By: On: 08-Jul-2018 Intent Abeba Holt Holter Moniter ([id number])By: Jonathon On: 08-Jul-2018 Intent Abeba Comments: 24 Hour EKG ([id number])By: Abeba Holt On: 08-Jul-2018 Intent Comments: Sinus Rhythm- HR 68 PFT - CompleteBy: Zuleyma Vegas CNP On: 24-Nov-2016 Intent Spirometry ([id number])By: Shasta PHILLIPS, On: 24-Nov-2016 Intent Zuleyma Tamayo Comments: normal Aerosol Treatment ([id number])By: Shasta On: 24-Nov-2016 Intent Zuleyma PHILLIPS ELECTROCARDIOGRAM, COMPLETE (ECG) On: 07-Nov-2016 Intent ([id number])By: Luiza Dowd DO Comments: nsr no acute chg Luiza Dowd DO COMP EYE EXAMINATION, ESTAB PATIENT On: 21-Jun-2016 Intent ([id number])By: Zuleyma Vegas CNP EKG ([id number])By: Luiza Dowd DO On: 26-Mar-2015 Intent Luiza Dowd DO Comments: nsr no acute chg Solu -Medrol Injection, 125 mg On: 04-Aug-2013 Intent ([id number])By: Zuleyma Vegas CNP Comments: Lot: [id number]: 12/2015Amt: 125mgRoute: IMSite: RUOQ GlutealGiven by: CINDY Kerr Aerosol Treatment ([id number])By: Shasta On: 04-Aug-2013 Intent Zuleyma PHILLIPS Eprescribed prescriptions On: 04-Aug-2013 Intent ([id number])By: Zuleyma Vegas CNP EKG ([id number])By: Luiza Dowd DO On: 14-Aug-2011 Intent Luiza Dowd DO Comments: no acute chg nsr - good Aerosol Treatment ([id number])By: Shasta On: 27-Jun-2011 Intent Zuleyma PHILLIPS EKG ([id number])By: Abeba Holley On: 14-Oct-2009 Intent [employer] Comments: nsr no acute changes Echo CompleteBy: Noemí FOSS, On: 22-Jun-2009 Intent Luiza Marinelli DO Holter Moniter ([id number])By: Noemí On: 22-Jun-2009 Intent Luiza FOSS DO, Kathleen Comments: 48 hour EKG ([id number])By: Luiza Dowd DO On: 22-Jun-2009 Intent Luiza Dowd DO Comments: nsr no acute changesno pvc EKG ([id number])By: Luiza Dowd DO On: 30-Sep-2008 Intent Luiza Dowd DO Comments: stable EKG (54505)By: Luiza Dowd DO On: 30-Sep-2007 Intent Luiza Dowd DO Comments: done-awnsr noacute ischemic changes Aerosol Treatment ([id number])By: Shasta On: 11-Jul-2007 Intent Zuleyma PHILLIPS COMP EYE EXAMINATION, ESTAB PATIENT On: 10-Jun-2007 Intent ([id number])By: Sena Lester LPN Comments: VA Crx- 20/30 OD 20/40 OS 20/25 OU EKG ([id number])By: Luiza Dowd DO On: 14-Sep-2006 Intent Luiza [...] blood pressure. ??Heart palpitations were more frequent. Shepherd them more frequentl y and didn't feel [...] tension (307.81) [facility] Jose Rosa; yassine guarantor
--- OUTSIDE RECORDS SUMMARY | 2018-09-01 12:31 | XMS RPT_ITS | Continuity of Care Document ---
:1970 Author Organization [facility] Address [address] [place] [address] Phone Care Team Providers Name Role Phone [...] Stress Report Result: Comments: See Note; NOTES: [facility] Cardiovascular Services [address] [place] [address] MR#: [id number] Acct: [id number] Name: TAMAR ROSA Frida Rep #: [id number] : 1969 48 From: Sree King MD [...] Dictated: 07/17/18 1348 Date Transcribed: 07/17/18 1348 Shirt Presser: Signed 09-Jul-2018 12 Lead Electrocardiogram Result: Comments: See Note; NOTES: [facility] Cardiovascular Services [address] [place] [address] 12 Lead EKG 07/05/18 0831 MR#: [id number] Acct: [id number] Name: TAAMR ROSA Rep #: [id number] : 1970 48 From: Corona Moore MD [...] normal ECG Confirmed by [employer] [place], CORONA ([id number]), editor sound DEBBY GUTIÉRREZ ([id number]) on 07/09/2018 3:39:04 PM Referred By: Confirmed By:CORONA MOORE MD 07/09/18 1539 Date ____ Corona Moore MD CC: Luiza Dowd DO; Ubaldo Owens MD Signed 05-Jul-2018 Emergency Department Summary Result: Comments: See Note; NOTES: [facility] Medical Records Department [address] [place] [address] Emergency Department Summary 07/05/18 1012 MR#: [id number] Acct: [id number] Name: TAMAR ROSA Rep #: [id number] : 1970 48 From: Ubaldo Owens MD [...] rhythm with occasional premature ventricular complexes noted. IN interval, QRS duration, QT interval and axis [...] Anxiousness self-reported This note was generated with Cozi dictation software. It may contain incorrect words, [...] pain, or any unexpected problems, contact your [facility] Care Provider. Call [facility] ([phone]) or report to the closest Emergency Room. Call 911 if necessary. 07/05/18 1017 <Electronically signed by Ubaldo Owens MD> Date ____ Ubaldo Owens MD Cosigner Signature (If Indicated): Date CC: Luiza Dowd DO 07-Nov-2017 SCREENING MAMM (CAD), BILAT Result: Comments: See Note; NOTES: [facility] Imaging Services [address] [place] [address] SCREENING MAMM (CAD), BILAT MR#: [id number] Acct: [id number] Name: TAMAR ROSA Rep #: [id number] : 1970 F 47 From: Anil Davison MD PCP: Luiza Dowd DO Status: [facility] Study: SCREENING MAMM (CAD), BILAT Date of Exam: 11/07/17 Exam# [id number] Ordering Dr: Bailey Cummins MD MAMMOGRAPHY - [...] delay biopsy of a clinically suspicious abnormality. [id number] Electronically Signed: Anil Davison MD at 9:08 EDT Tel [phone], Service support , CC: Bailey Cummins MD; Luiza Dowd DO Shirt Presser: Signed 04-Sep-2017 Massage Therapy Evaluation Result: Comments: See Note; NOTES: [facility] 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 She was referred [...] Result: Comments: See Note; NOTES: [facility] Medical Records Department [address] [place] [address] Discharge Instruction 09/03/172034 MR#: [id number] Acct: [id number] Name: Merline ROSA Rep #: [id number] : 1970 47 From: Lance Gutiérrez DO [...] your Primary Care Provider. Call [facility] ([phone]) or report to the closest Emergency Room. Call 911 if necessa ry. 09/03/172036 <Electronically signed by Lance Gutiérrez DO> Date Lance Gutiérrez DO Cosigner Signature (If Indicated): Date CC: Luiza Dowd DO 03-Sep-2017 Emergency Department Summary Result: Comments: See Note; NOTES: [facility] Medical Records Department [address] [place] [address] Emergency Department Summary 09/03/172031 MR#: [id number] Acct: [id number] Name: TAMAR ROSA Rep #: [id number] : 1970 47 From: Lance Gutiérrez DO [...] healthcare worker] This note was generated with Cozi dictation software. It may contain incorrect words, [...] contact your Primary Care Provider. [facility] ([phone]) or report to the closest Emergency Room. Call 911 if necessary. 09/03/172034 <Electronically signed by Lance Gutiérrez DO> Date Lance Gutiérrez DO Cosigner Signature (If Indicated): Date CC: Luiza Dowd DO 23-Jul-2017 Discharge Summary Result: Comments: See Note; NOTES: [facility] Medical Records Department [address] [place] [address] Discharge Summary 07/19/17 1117 MR#: [id number] Acct: [id number] Name: TAMAR ROSA Rep #: [id number] : 1970 47 From: Carmelita Tucker PCP: Luiza Dowd DO Status: REG RCR Y Location: [facility] Massage Therapy Discharge Summary: This patient was seen for massotherapy evaluation on: 08/31/16 Diagnosis: Tension Headaches The patient had 10 sessions of massotherapy. The goals for treatment were met. She reported decreased headaches and muscle tension. At this time I am disch arging the patient from our care at the [facility]. 07/23/17 1049 <Electronically signed by Carmelita Tucker > Date Carmelita maxwell Cosigner Signature (if applicable): Date CC: Carmelita Tucker; Luiza Dowd DO Signed 14-Dec-2016 Pulmonary Function Report Comp Result: Comments: See Note; NOTES: [facility] Pulmonary Services/Neurology [address] [place] [address] Pulmonary Function Test (Comp) MR#: [id number] Acct: [id number] Name: LUIS ALBERTO ROSA Rep #: [id number] : 1970 46 From: Lauro Calderon DO Referring Dr: Zuleyma Vegas Status: REG CLI Ordering Dr: Zuleyma Vegas Date: 12/12/16 Location: [facility] Sex: F C DATE OF SERVICE: [...] [place] C: Referring Provider T: YAW JOB: [id number] 12/14/16 0829 <Electronically signed by Lauro Calderon DO> Date Lauro Calderon DO CC: Zuleyma Vegas; Lauro Calderon D.O.; Luiza Dowd DO Date Dictated: 12/13/16846 Date Transcribed: 12/13/16846 Shirt Presser: Signed 31-Aug-2016 SCREENING MAMM (CAD), BILAT Result: Comments: See Note; NOTES: [facility] Imaging Services [address] [place] [address] Verdana 4d SCREENING MAMM (CAD), BILAT MR#: [id number] Acct: [id number] Name: TAMAR ROSA Rep #: [id number] : 1970 F 46 From: Anil Davison MD PCP: Luiza Dowd DO Status: REG CLI Study: SCREENING MAMM (CAD), BILAT Date of Exam: 08/31/16 Exam# [id number] Ordering Dr: Bailey Barrientos MD MAMMOGRAPHY - [...] 2015 and May 20, 2014. FINDINGS: Breast [place] sition: The breasts are heterogeneously dense, which [...] delay biopsy of a clinically suspicious abnormality. [id number] Electronically Signed: Carlos Davison MD at 10:16 EST Tel [phone], Service support [phone], CC: Bailey Cummins MD; Luiza Dowd DO Shirt Presser: Signed 03-Sep-2015 Inital Evaluation - PT Result: Comments: See Note; NOTES: [facility] [address] [place] [address]. 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 Elayne Kauffman LMT T: YAW JOB: [id number] <Electronic ally signed by Elayne Kauffman > 09/03/15 1032 CC: Signed For Medicare only, by signing this I certify the plan of care. Physicians Signature Date 05-Aug-2015 PT Discharge Summary Result: Comments: See Note; NOTES: [facility] [address] [place], [place] [address] Fax REHABILITATION SE RVICES DISCHARGE SUMMARY MR#: [id number] Acct: [id number] Name: TAMAR ROSA Rep #: [id number] : 1970 45 From: Carmelita Tucker Referring [...] the patient from our care at the [facility] facility. Carmelita Tucker LMT T: YAW JOB: [id number] <Electronically signed by Carmelita Tucker > 0739 CC: Luiza Dowd DO Signed 27-May-2015 Breast Limited Unilateral Result: Comments: See Note; NOTES: [facility] Imaging Services [address] [place] [address] Verdana 4d Breast Limited Unilateral MR#: [id number] Acct: [id number] Name: TAMAR DAVIS Rep #: [id number] : 1970 F 45 From: Anil Davison MD PCP: Luiza Dowd DO Status: REG CLI Study: Breast Limited Unilateral Date of Exam: 05/27/15 Exam# [id number] Jose Manuel hilton Dr: Bailey Cummins MD [...] Anil Davison MD at 15:03 EST Tel [phone], Service support [phone], CC: Bailey Cummins MD; Luiza Dowd DO Shirt Presser: Signed 27-May-2015 Unilat Lt Diag Digital AND CAD Result: Comments: See Note; NOTES: [facility] Imaging Services [address] [place] [address] Verdana 4d Unilat Lt Diag Digital AND CAD MR#: [id number] Acct: [id number] Na me: TAMAR ROSA Rep #: [id number] : 1970 F 45 From: Dre Hoffman MD PCP: Luiza Dowd DO Status: REG CLI Study: Unilat Lt Diag Digital AND CAD Date of Exam: 05/27/15 Exam# [id number] O [facility] Dr: Bailey Cummins MD MAMMOGRAPHY - [...] 15:04 EDT Tel , Servi ce support [phone], CC: Bailey Cummins MD; Luiza Dowd DO Shirt Presser: Signed 27-May-2015 Unilat Lt Diag Digital AND CAD Result: Comments: See Note; NOTES: [facility] Imaging Services [address] [place] [address] Verdana 4d Unilat Lt Diag Digital AND CAD MR#: [id number] Acct: [id number] Na me: TAMAR ROSA Rep #: [id number] : 1970 F 45 From: Dre Hoffman MD PCP: Luiza Dowd DO Status: REG CLI Study: Unilat Lt Diag Digital AND CAD Date of Exam: 05/27/15 Exam# [id number] O [facility] Dr: Bailey Cummins MD MAMMOGRAPHY - [...] 15:04 EDT Tel , Servi ce support [phone], CC: Bailey Cummins MD; Luiza Dowd DO Shirt Presser: Signed 27-May-2015 Unilat Lt Diag Digital AND CAD Result: Comments: See Note; NOTES: [facility] Imaging Services [address] [place] [address] Verdana 4d Unilat Lt Diag Digital AND CAD MR#: [id number] Acct: [id number] Na me: TAMAR ROSA Rep #: [id number] : 1970 F 45 From: Dre Hoffman MD PCP: Luiza Dowd DO Status: REG CLI Study: Unilat Lt Diag Digital AND CAD Date of Exam: 05/27/15 Exam# [id number] O [facility] Dr: Bailey Cummins MD MAMMOGRAPHY - [...] 15:04 EDT Tel , Servi ce support [phone], CC: Bailey Cummins MD; Luiza Dowd DO Shirt Presser: Signed 27-May-2015 Unilat Lt Diag Digital AND CAD Result: Comments: See Note; NOTES: [facility] Imaging Services [address] [place] [address] Verdana 4d Unilat Lt Diag Digital AND CAD MR#: [id number] Acct: [id number] Na me: TAMAR ROSA Rep #: [id number] : 1970 F 45 From: Dre Hoffman MD PCP: Luiza Dowd DO Status: [facility] CLI Study: Unilat Lt Diag Digital AND CAD Date of Exam: 05/27/15 Exam# [id number] O rdering Dr: Bailey Cummins MD MAMMOGRAPHY [...] 15:04 EDT Tel , Servi ce support [phone], CC: Bailey Cummins MD; Luiza Dowd DO Shirt Presser: Signed 27-May-2015 Unilat Lt Diag Digital AND CAD Result: Comments: See Note; NOTES: [facility] Imaging Services [address] [place] [address] Verdana 4d Unilat Lt Diag Digital AND CAD MR#: [id number] Acct: [id number] Na me: TAMAR ROSA Rep #: [id number] : 1970 F 45 From: Dre Hoffman MD PCP: Luiza Dowd DO Status: REG CLI Study: Unilat Lt Diag Digital AND CAD Date of Exam: 05/27/15 Exam# [id number] O rdering Dr: Bailey Cummins MD MAMMOGRAPHY [...] 15:04 EDT Tel , Servi ce support [phone], CC: Bailey Cummins MD; Luiza Dowd DO Shirt Presser: Signed 21-May-2015 Bilat Scrn Digital AND CAD Result: Comments: See Note; NOTES: [facility] Imaging Services [address] [place] [address] Verdana 4d Bilat Scrn Digital AND CAD MR#: [id number] Acct: [id number] Name: TAMAR ROSA Rep #: [id number] : 1970 F 45 From: Dre Hoffman MD PCP: Luiza Dowd DO Status: REG CLI Study: Bilat Scrn Digital AND CAD Date of Exam: 05/21/15 Exam# [id number] Ordering Dr: Bailey Cummins MD MAMMOGRAPHY - [...] at 14:42 EDT Tel , Service support [phone], CC: Bailey Cummins MD; Luiza Dowd DO Shirt Presser: Signed 02-Sep-2014 Inital Evaluation - PT Result: Comments: See Note; NOTES: [facility] [address] [place] [address]. [address] [place], [place] [address] Fax REHABILITATION SERVICES INITIAL EVALUATION MR#: [id number] Acct: [id number] Name: TAMAR ROSA Rep #: [id number] : 1970 44 From: Carmelita Tucker Referring Dr.: Luiza Dowd DO Status: REG RCR Insurance: [facility] Eval Date: DATE OF SERVICE: 08/26/2014 REFERRING PHYSICIAN: Dr. Dowd. 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 She was referred to [facility] facility for massotherapy evaluation by [...] back. Carmelita Tucker LMT T: YAW JOB: [id number] <Electronically signed by Carmelita Tucker > 09/02/14 1307 CC: DD: Signed For Medicare only, by signing this I certify the plan of care. Physicians Signature Date 20-May-2014 Bilkonstantin Mcqueenn Digital & CAD Result: Comments: See Note; NOTES: [facility] Imaging Services [address] [place] [address] Breast Imaging Report MR#: [id number] Acct: [id number] Name: TAMAR ROSA Rep #: [id number] : 1970 F 44 From: Dontae Durbin PCP: Luiza Dowd DO Status: REG CLI Exam# [id number] Ordering Dr: Bailey Cummins MD MAMMOGRAPHY - [...] at 20:20 EDT Tel , Service support [phone], CC: Bailey Cummins MD; Luiza Dowd DO Shirt Presser: Signed 20-Feb-2014 Spirometry (94485) Result: 05-Aug-2013 PT Discharge Summary Result: Comments: See Note; NOTES: [facility] [address] [facility] [place] [address] Fax REHABILITATION SERVICES DISCHARGE SUMMARY MR#: [id number] Acct: [id number] Name: TAMAR ROSA Rep #: [id number] : 1970 43 From: Lori Christopher Referring [...] the patient from our care at the [facility] facility. Carmelita Christopher LMT T: NTS JOB: [id number] <Electronically signed by Lori Christopher &#62 ; [...] smoker Vital Signs Date Test Result Details 01-Anx-77304:05 Temperature 97 f Comments: Method: Temporal Pulse [...] kg/m2 Body Surface Area Calculated 2.15 m2 26-Ytf-584305:23 Pulse 72 /min Comments: Pattern: Regular Respiration [...] kg/m2 Body Surface Area Calculated 2.07 m2 15-Mxu-720133:24 Pulse 64 /min Comments: Pattern: Regular Respiration [...] Calculated 2.04 m2 Head Circumference 0.00 cm 92-Qjc-194891:00 Pulse 60 /min Comments: Pattern: Regular Respiration [...] 0.00 cm Results Date Description Value Details 0-Ayg-695411:43 CBC W/Diff, Automated Comments: [facility] [address] [place], [place], [address] Absolute Lymph 2.01 {X10_3/ul} (Normal) Range: 0.83-4.51 [...] 4.2-5.4 WBC 9.7 K/mm3 (Normal) Range: 4.4-11.0 9-Esc-692703:43 Comprehensive Metabolic Profil Comments: [facility] [address] [place], [place], [address] GAP 8 (Normal) Range: 5-15 CO2 28.0 [...] Comments: Please note revised GLUCOSE reference range pxirvdayj63/02/2018. 7-Tdu-995791:43 Thyroid Stim Hormone (TSH) Comments: [facility] [address] [place], [address] TSH 3.56 {uIU/mL} (Normal) Range: 0.358-3.74 54-Eal-08177:48 Basic Metabolic Profile (BMP) Comments: [facility] [address] [place], [address] GAP 9 (Normal) Range: 5-15 CO2 27.0 [...] A.D.A. criteria.Please note revised GLUCOSE reference range yxxxutfpx78/02/2018. 2-Lak-643222:02 CBC, Employee Comments: [facility] [address] [place], [address] Absolute Lymph 1.64 {X10_3/ul} (Normal) Range: 0.83-4.51 [...] 4.2-5.4 WBC 7.1 K/mm3 (Normal) Range: 4.4-11.0 8-Xys-964375:02 Employee Profile Comments: [facility] [address] [place], [place], [address] LDH 148 U/L (Normal) Range: 84-246 VLDL [...] Comments: Please note revised GLUCOSE reference range zcrnygrbd37/02/2018. 5-Fsh-463994:02 Nicotine Urine Drug Screen Comments: [facility] [address] [place], [place], [address] COT DRG SCREEN Negative (Normal) Comments: Cotinine [...] result, particularly whenpreliminary positive results are used. 4-Mkd-930953:02 Urinalysis, Employee Comments: [facility] [address] [place], [place], [address] LEUK ESTERASE Negative /ul (Normal) OCCULT BLOOD-UR Negative /ul (Normal) NITRITE UR Negative (Normal) UROBILI Normal mg/dL (Normal) PROT DIPSTX Negative mg/dL (Normal) pH UR 7.0 (Normal) Range: 5.0 - 8.0 SP.GR. DIPSTX 1.010 (Normal) Range: 1.002-1.030 KETONE UR Negative mg/dL (Normal) BILIRUBIN URINE Negative mg/dL (Normal) GLUCOSE, UR Normal mg/dL (Normal) CLARITY Clear (Normal) COLOR Yellow (Normal) 40-Azj-024706:15 Hep B Surface Antibodies EMP Comments: [facility] (refer to report for specific site)refer to report for address and phone number Hep B Oleg AB Reactive (Normal) Comments: Non Reactive: Inconsistent with immunity, less than 10 mIU/mL Reactive: Consistent with immunity, greater than 9.9 mIU/mL 16-Djz-552904:15 Hepatitis B Surface Ag Comments: [facility] (refer to report for specific site)refer to report for address and phone number HB SURF AG Negative (Normal) Comments: Performed at: [facility] [address] [id number] Director: Alejo Ander PhD, Phone: [phone] 41-Nlz-900632:15 Hepatitis C Antibodies Comments: [facility] (refer to report for specific site)refer to report for address and phone number HEP C AB <0.1 {s/co_ratio} (Normal) Range: 0.0-0.9 Comments: Negative: < 0.8 Indeterminate: 0.8 - 0.9 Positive: > 0.9 The CDC recommends that a positive HCV antibody result be followed up with a HCV Nucleic Acid Amplification test (876860). 22-Ndm-108227:15 HIV - [facility] Non-Reactive (Normal) Comments: [facility] [address] [place], [place], [address] 08-Dnd-505542:48 CBC-Complete Blood Cnt No Diff Comments: [facility] [address] [facility] [address] [place], [place], [address] MPV 10.7 fL (Normal) Range: 6.2-12.0 PLT [...] (Normal) Range: 4.4-11.0 :07 HgA1C , Office (37831) HgA1C , Office 5.2 % (Normal) Range: 4.6 - 7.1 :32 CBC, Employee Comments: [facility] [address] [place], [address] Absolute Lymph 1.64 {X10_3/ul} (Normal) [...] 4.2-5.4 WBC 7.9 K/mm3 (Normal) Range: 4.4-11.0 92-Zul-126927:32 Employee Profile Comments: [facility] [address] [place], [address] LDH 104 U/L (Normal) Range: 84-246 VLDL [...] Range: 70-110 :32 Microalb:Creat Ratio,Random UR Comments: [facility] [address] [facility] [place], [place], [address] MALB:CREAT 4.0 {mg/g_CRE} (Normal) MICROALBUMIN,UR 10.7 mg/L (Normal) UR CREAT 265.00 mg/dL (Normal) :32 Nicotine Urine Drug Screen Comments: [facility] [address] [facility] [place], [place], [address] COT DRG SCREEN Negative (Normal) Comments: Cotinine [...] used. :32 Thyroid Stim Hormone (TSH) Comments: [facility] [address] [place], [place], [address] TSH 3.17 {uIU/mL} (Normal) Range: 0.358-3.74 :32 Urinalysis, Employee Comments: How was Urine Obtained? CLEAN [facility] [address] [place], [place], [address] LEUK ESTERASE 25 /ul (Abnormal) OCCULT BLOOD-UR 10 /ul (Abnormal) NITRITE UR Negative (Normal) UROBILI Normal mg/dL (Normal) PROT DIPSTX Negative mg/dL (Normal) pH UR 5.0 (Normal) Range: 5.0 - 8.0 SP.GR. DIPSTX 1.020 (Normal) Range: 1.002-1.030 KETONE UR Negative mg/dL (Normal) BILIRUBIN URINE Negative mg/dL (Normal) GLUCOSE, UR Normal mg/dL (Normal) CLARITY Sl. Cloudy (Normal) COLOR Yellow (Normal) 02-Cac-968806:03 URINE OLIVIA CULTURE-LORY COL Comments: PATIENT NOT FASTINGPERFORMED BY: [facility] [address] [facility] [id number] Information: SRC:UR COUNT (27563) Antimicrobial MIHEAD (Normal) Comments: S = Susceptible; [...] mL (Abnormal) Urine Final report Culture,Comprehensive (Abnormal) 42-Tlf-839423:39 Urinalysis, Office (02670) UA - LEUKOCYTE ESTERASE Moderate (Abnormal) UA - NITRITE Negative (Normal) URINE UROBILINGN LORY TIMED Normal mg/dL (Normal) UA - PROTEIN 100 mg/dL (Normal) UA - PH 7.0 (Normal) UA - BLOOD ++ (Abnormal) UA - SPECIFIC GRAVITY 1.010 (Normal) UA - KETONES Negative mg/dL (Normal) UA - BILIRUBIN Negative (Normal) UA - GLUCOSE Negative (Normal) 37-Vfj-785311:10 CBC, Employee Comments: [facility] [address] [place], [address] Absolute Lymph 1.56 {X10_3/ul} (Normal) [...] 4.2-5.4 WBC 6.4 K/mm3 (Normal) Range: 4.4-11.0 78-Caw-440114:10 Employee Profile Comments: [facility] [address] [facility] [address] [place], [place], [address] LDH 130 U/L (Normal) Range: 84-246 VLDL [...] 7-18 GLU 76 mg/dL (Normal) Range: 70-110 25-Iim-380471:10 Nicotine Urine Drug Screen Comments: [facility] [address] [place], [place], [address] COT DRG SCREEN Negative (Normal) Comments: Cotinine [...] result, particularly whenpreliminary positive results are used. 07-Saq-399353:10 Urinalysis, Employee Comments: [facility] [address] [place], [address] LEUK ESTERASE 25 /ul (Abnormal) OCCULT BLOOD-UR Negative /ul (Normal) NITRITE UR Negative (Normal) UROBILI Normal mg/dL (Normal) PROT DIPSTX Negative mg/dL (Normal) pH UR 6.0 (Normal) Range: 5.0 - 8.0 SP.GR. DIPSTX 1.015 (Normal) Range: 1.002-1.030 KETONE UR Negative mg/dL (Normal) BILIRUBIN URINE Negative mg/dL (Normal) GLUCOSE, UR Normal mg/dL (Normal) CLARITY Clear (Normal) COLOR Yellow (Normal) 1-Caz-596765:13 CBC, Employee Comments: Test performed at:[facility] [address] [place], [place] [address] Absolute Lymph 1.37 {X10_3/ul} (Normal) Range: 0.83-4.51 [...] 4.2-5.4 WBC 6.2 K/mm3 (Normal) Range: 4.4-11.0 3-Hxb-638279:13 Employee Profile Comments: Test performed at:[facility] [address] [place], [place] [address] ; ordered by ina stoll LDH 111 [...] 7-18 GLU 78 mg/dL (Normal) Range: 70-110 1-Wnv-887150:13 Urinalysis, Employee Comments: Test performed at:[facility] [address] [place], [place] [address] LEUK ESTERASE Negative /ul (Normal) OCCULT BLOOD-UR Negative /ul (Normal) NITRITE UR Negative (Normal) UROBILI Normal mg/dL (Normal) PROT DIPSTX Negative mg/dL (Normal) pH UR 6.0 (Normal) Range: 5.0 - 8.0 SP.GR. DIPSTX 1.015 (Normal) Range: 1.002-1.030 KETONE UR Negative mg/dL (Normal) BILIRUBIN URINE Negative mg/dL (Normal) GLUCOSE, UR Normal mg/dL (Normal) CLARITY Clear (Normal) COLOR Yellow (Normal) 8-Xnx-349229:05 PAPIG5 Comments: CYTOLOGY INFORMATION:- CLINICAL INFORMATION:- DATE LMP/MENOPAUSE: ABLATION 2011- COLLECTION VIAL: Thin Prep Vial- RELATIONS MGR SOURCE: CERVICAL/ENDOCERVICAL- COLLECTION TECHNIQUE: BRUSH/SPATULASpecimen Comment: [id number] Comment: No. of containers..01 CYTYC Thin Prep Vial tHPVRFLX Comment (Normal) Comments: The HPV DNA reflex criteria were not met with this specimenresult therefore, no HPV testing was performed.Performed at: [address] [place] [id number] Director: Yassine Mathews MD, Phone: [phone] tPAPSMR Comment (Normal) Comments: The Pap smear [...] system. tPERFORM Comment (Normal) Comments: Ariana Victoria, News Technical Director (ASCP) tADEQ Comment (Normal) Comments: Satisfactory [...] CHOL 150 mg/dL (Normal) Comments: <200 mg/dL Nzyqrbbwy989-273 mg/dL Borderline>240 mg/dL High Risk BID 0.08 [...] (Normal) UCLAR Clear (Normal) UCOL Yellow (Normal) 9-Bzc-815458:44 Rapid Strep Test, Office (60474) Comments: positive Rapid Strep Test, Office Positive (Normal) 45-Ppj-93430:40 LQDPAP [id number] Comments: CYTOLOGY INFORMATION:- CLINICAL INFORMATION:- DATE LMP/MENOPAUSE: 567126 LMP- COLLECTION VIAL: Thin Prep Vial- RELATIONS MGR SOURCE: CERVICAL/ENDOCERVICAL- COLLECTION TECHNIQUE: BRUSH/SPATULA COMM . [...] was performed..Performe d at: WB - [facility] [address] [id number] Director: Trevor Mathews MD DIAGN Comment (Normal) Comments: NEGATIVE FOR INTRAEPITHELIAL LESION AND MALIGNANCY.Satisfactory for evaluation. Endocervical and/or squamous metaplasticcells (endocervical component) are present.Catina Hill, News Technical Director (ASCP)T his liquid based ThinPrep(R) pap test was screened withthe use of an image guided system. 66-Qig-919668:09 TSH (93963) Comments: PATIENT NOT FASTINGClinical Information: [id number] PERFORMED BY: [facility] [facility] [id number] TSH 2.700 {uIU/mL} (Normal) Range: 0.450-4.500 :32 [...] for patient's is the eGFRmultiplied by 1.212. [facility] Laboratory uses the abbreviated Modification of Diet [...] Disease W/O Kidney Disease>/= 90 Stage One [id number] - 89 Stage Two Suspect Decreased GFR30 [...] 2.6-6.0 VLDL 26 mg/dL (Normal) Range: 5-40 87-Rnp-82651:32 EMP URINALYSIS BILIRUBIN URINE SeeNote (Normal) Comments: [...] Very High > or = 500 mg/dL 91-Lfn-046381:45 Upper Respiratory Culture Comments: Clinical Information: SRC:TH PERFORMED BY: [facility] [id number] Result 1 BETAGA (Normal) Comments: Beta hemolytic [...] report (Normal) :31 Rapid Strep Test, Office (06227) Rapid Strep Test, Office Negative (Normal) :22 [...] Hypertension Planned Observations CBC W/AUTO DIFF WBC (93628)Indication: Benign essential hypertension On: 1-Rlv-182686:24 Request METABOLIC PANEL, COMPREHENSIVE (44239)Indication: Palpitations On: 2-Jey-093445:22 Request TSH (18783)Indication: Palpitations On: 8-Avp-999056:22 Request MICROALBUMIN: CREATININE RATIO (70341) AND (49583)Indication: Benign essential hypertension On: 33-Gpq-078674:53 Request TSH (THYROID STIMULATING HORMONE) (43639)Indication: Arrhythmia On: 69-Guv-292321:52 Request Sputum Culture ([id number])Indication: Cough On: 43-Tjf-92272:53 Request OLIVIA CULTURE-OTHER (86013)Indication: Sore throat On: 1-Drl-009068:43 Request OLIVIA CULTURE-OTHER (43528)Indication: Throat pain On: 26-Nvg-34404:31 Request Comments: throat cx Triglycerides (33863)Indication: Hyperglyceridemia On: 53-Kmi-377742:00 Request HDL Cholesterol-Direct (24031)Indication: Low HDL (under 40) On: 37-Ger-072152:00 Request Planned Procedures APPLICATION OF 24 HOUR HOLTER On: 09-Jul-2018 Intent MONITOR (94975)By: Abeba Holt EXERCISE STRESS TEST (39227)By: On: 08-Jul-2018 Intent Abeba Holt Holter Moniter (95529)By: Jonathon, On: 08-Jul-2018 Intent Abeba Comments: 24 Hour EKG (31407)By: Abeba Holt On: 08-Jul-2018 Intent Comments: Sinus Rhythm- HR 68 PFT - CompleteBy: Zuleyma Vegas CNP On: 24-Nov-2016 Intent Spirometry (53918)By: Shasta PHILLIPS, On: 24-Nov-2016 Intent Zuleyma Tamayo Comments: normal Aerosol Treatment (94343)By: Shasta On: 24-Nov-2016 Intent Zuleyma PHILLIPS ELECTROCARDIOGRAM, COMPLETE (ECG) On: 07-Nov-2016 Intent (12715)By: Luiza Dowd DO Comments: nsr no acute chg Luiza Dowd DO COMP EYE EXAMINATION, ESTAB PATIENT On: 21-Jun-2016 Intent (13461)By: Zuleyma Vegas CNP EKG (57440)By: Luiza Dowd DO On: 26-Mar-2015 Intent Luiza Dowd DO Comments: nsr no acute chg Solu -Medrol Injection, 125 mg On: 04-Aug-2013 Intent (J2930)By: Zuleyma Vegas CNP Comments: Lot: [id number]: 12/2015Amt: 125mgRoute: IMSite: RUOQ GlutealGiven by: CINDY Kerr Aerosol Treatment (21822)By: Shasta On: 04-Aug-2013 Intent Zuleyma PHILLIPS Eprescribed prescriptions On: 04-Aug-2013 Intent (G8553)By: Zuleyma Vegas CNP EKG (95327)By: Luiza Dowd DO On: 14-Aug-2011 Intent Luiza Dowd DO Comments: no acute chg nsr - good Aerosol Treatment (09864)By: Shasta On: 27-Jun-2011 Intent Zuleyma PHILLIPS EKG (62640)By: Abeba Holley On: 14-Oct-2009 Intent CINDY Comments: nsr no acute changes Echo CompleteBy: Noemí FOSS, On: 22-Jun-2009 Intent Luiza Marinelli DO Holter Moniter (52540)By: Noemí On: 22-Jun-2009 Luiza Ruano DO, DO, Kathleen Comments: 48 hour EKG (93033)By: Luiza Dowd DO On: 22-Jun-2009 Intent Luiza Dowd DO Comments: nsr no acute changesno pvc EKG (56100)By: Luiza Dowd DO On: 30-Sep-2008 Intent Luiza Dowd DO Comments: stable EKG (39486)By: Luiza Dowd DO On: 30-Sep-2007 Intent Luiza Dowd DO Comments: done-awnsr noacute ischemic changes Aerosol Treatment (27471)By: Shasta On: 11-Jul-2007 Intent Zuleyma PHILLIPS COMP EYE EXAMINATION, ESTAB PATIENT On: 10-Jun-2007 Intent (52121)By: Sena Lester LPN Comments: VA Crx- 20/30 OD 20/40 OS 20/25 OU EKG (73606)By: Luiza Dowd DO On: 14-Sep-2006 Intent Luiza [...] blood pressure. ??Heart palpitations were more frequent. [place] them more frequently and didn't feel right-so [...] blood pressure. ??Heart palpitations were more frequent. [place] them more frequentl y and didn't feel [...] tension (307.81) [facility] [employer] [place] of [employer] Rosa; a guarantor
--- OUTSIDE RECORDS SUMMARY | 2018-09-01 12:32 | XMS RPT_ITS | Continuity of Care Document ---
:1970 Author Organization [facility] Address [address] [facility] [address] [place] [address] Phone Care Team Providers Name Role Phone [...] days Quantity: 30 {Tablet_ER_24HR} Refills: 0 Ordered:04-Sep-2012 Aebba Holley LPN Start : 27-Jun-2011 End : [...] Stress Report Result: Comments: See Note; NOTES: [facility] Cardiovascular Services [address] [place] [address] MR#: [id number] Acct: [id number] Name: TAMAR ROSA Frida Rep #: [id number] : 1969 48 From: Sree King MD [...] Dictated: 07/17/18 1348 Date Transcribed: 07/17/18 1348 Sap Abap Programmer: Signed 09-Jul-2018 12 Lead Electrocardiogram Result: Comments: See Note; NOTES: [facility] Cardiovascular Services [address] [place] [address] 12 Lead EKG 07/05/18 0831 MR#: [id number] Acct: [id number] Name: TAMAR ROSA Rep #: [id number] : 1970 48 From: Corona Moore MD [...] normal ECG Confirmed by OSCAR HAYS, CORONA ([id number]), news video editor DEBBY GUTIÉRREZ ([id number]) on 07/09/2018 3:39:04 PM Referred By: Confirmed By:CORONA MOORE MD 07/09/18 1539 Date ____ Corona Moore MD CC: Luiza Dowd DO; Ubaldo Owens MD Signed 05-Jul-2018 Emergency Department Summary Result: Comments: See Note; NOTES: [facility] Medical Records Department [address] [place] [address] Emergency Department Summary 07/05/18 1012 MR#: [id number] Acct: [id number] Name: TAMAR ROSA Rep #: [id number] : 1970 48 From: Ubaldo Owens MD [...] unifocal ventricular premature beats were noted susana dena her 1.5-hour stay. Treatment Plan: Information and premature ventricular beats Disposition: Discharged home with spouse in stable condition Impression: Unifocal premature ventricular beats Hyperten kay and known hypertensive patient, asymptomatic Anxiousness self-reported This note was generated with [employer] dictation software. It may contain incorrect words, [...] pain, or any unexpected problems, contact your [facility] Care Provider. Call Doctors Registry ([phone]) or report to the closest Emergency Room. Call 911 if necessary. 07/05/18 1017 <Electronically signed by Ubaldo Owens MD> Date ____ Ubaldo Owens MD Cosigner Signature (If Indicated): Date CC: Luiza Dowd DO 07-Nov-2017 SCREENING MAMM (CAD), BILAT Result: Comments: See Note; NOTES: [facility] Imaging Services [address] [place] [address] SCREENING MAMM (CAD), BILAT MR#: [id number] Acct: [id number] Name: TAMAR ROSA Rep #: [id number] : 1970 F 47 From: Anil Davison MD PCP: Luiza Dowd DO Status: [facility] Study: SCREENING MAMM (CAD), BILAT Date of Exam: 11/07/17 Exam# [id number] Ordering Dr: Bailey Cummins MD MAMMOGRAPHY - [...] delay biopsy of a clinically suspicious abnormality. [id number] Electronically Signed: Anil Davison MD at 9:08 EDT Tel [phone], Service support , CC: Bailey Cummins MD; Luiza Dowd DO Sap Abap Programmer: Signed 04-Sep-2017 Massage Therapy Evaluation Result: Comments: See Note; NOTES: [facility] Physical Therapy [facility] [facility] 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 She was [...] Discharge Instruction Result: Comments: See Note; NOTES: [facility] Medical Records Department [address] [place] [address] Discharge Instruction 09/03/172034 MR#: [id number] Acct: [id number] Name: Merline ROSA Rep #: [id number] : 1970 47 From: Lance Gutiérrez DO [...] your Primary Care Provider. Call [facility] ([phone]) or report to the closest Emergency Room. Call 911 if necessa ry. 09/03/172036 <Electronically signed by Lance Gutiérrez DO> Date Lance Gutiérrez DO Cosigner Signature (If Indicated): Date CC: Luiza Dowd DO 03-Sep-2017 Emergency Department Summary Result: Comments: See Note; NOTES: [facility] Medical Records Department [address] [place] [address] Emergency Department Summary 09/03/172031 MR#: [id number] Acct: [id number] Name: TAMAR ROSA Rep #: [id number] : 1970 47 From: Lance Gutiérrez DO [...] healthcare worker] This note was generated with [employer] dictation software. It may contain incorrect words, [...] problems, contact your Primary Care Provider. [facility] Doctors Registry ([phone]) or report to the closest Emergency Room. Call 911 if necessary. 09/03/172034 <Electronically signed by Lance Gutiérrez DO> Date Lance Gutiérrez DO Cosigner Signature (If Indicated): Date CC: Luiza Dowd DO 23-Jul-2017 Discharge Summary Result: Comments: See Note; NOTES: [facility] Medical Records Department [address] [place] [address] Discharge Summary 07/19/17 1117 MR#: [id number] Acct: [id number] Name: TAMAR ROSA Rep #: [id number] : 1970 47 From: Carmelita Tucker PCP: Luiza Dowd DO Status: REG RCR Y Location: [facility] Massage Therapy Discharge Summary: This patient was seen for massotherapy evaluation on: 08/31/16 Diagnosis: Tension Headaches The patient had 10 sessions of massotherapy. The goals for treatment were met. She reported decreased headaches and muscle tension. At this time I am disch arging the patient from our care at the [facility]. 07/23/17 1049 <Electronically signed by Carmelita Tucker > Date Carmelita maxwell Cosigner Signature (if applicable): Date CC: Carmelita Tucker; Luiza Dowd DO Signed 14-Dec-2016 Pulmonary Function Report Comp Result: Comments: See Note; NOTES: [facility] Pulmonary Services/Neurology [address] [place] [address] Pulmonary Function Test (Comp) MR#: [id number] Acct: [id number] Name: LUIS ALBERTO ROSA Rep #: [id number] : 1970 46 From: Lauro Calderon DO Referring Dr: Zuleyma Vegas Status: REG CLI Ordering Dr: Zuleyma Vegas Date: 12/12/16 Location: [facility] Sex: F C DATE OF [...] [place] C: Referring Provider T: YAW JOB: [id number] 12/14/16 0829 <Electronically signed by Lauro Calderon DO> Date Lauro Calderon DO CC: Zuleyma Vegas; Lauro Calderon D.O.; Luiza Dowd DO Date Dictated: 12/13/16846 Date Transcribed: 12/13/16846 Sap Abap Programmer: Signed 31-Aug-2016 SCREENING MAMM (CAD), BILAT Result: Comments: See Note; NOTES: [facility] Imaging Services [address] [place] [address] Verdana 4d SCREENING MAMM (CAD), BILAT MR#: [id number] Acct: [id number] Name: TAMAR ROSA Rep #: [id number] : 1970 F 46 From: Anil Davison MD PCP: Luiza Dowd DO Status: REG CLI Study: SCREENING MAMM (CAD), BILAT Date of Exam: 08/31/16 Exam# [id number] Ordering Dr: Bailey Barrientos MD MAMMOGRAPHY - [...] 2015 and May 20, 2014. FINDINGS: Breast [place] sition: The breasts are heterogeneously dense, which [...] delay biopsy of a clinically suspicious abnormality. [id number] Electronically Signed: Carlos Davison MD at 10:16 EST Tel [phone], Service support [phone], CC: Bailey Cummins MD; Luiza Dowd DO Sap Abap Programmer: Signed 03-Sep-2015 Inital Evaluation - PT Result: Comments: See Note; NOTES: [facility] Physical Therapy [facility] [address] [place] [address]. 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 Elayne Kauffman LMT T: YAW JOB: [id number] <Electronic ally signed by Elayne Kauffman > 09/03/15 1032 CC: Signed For Medicare only, by signing this I certify the plan of care. Physicians Signature Date 05-Aug-2015 PT Discharge Summary Result: Comments: See Note; NOTES: [facility] Physical Therapy [facility] [address] [place], [place] [address] Fax REHABILITATION SE RVICES DISCHARGE SUMMARY MR#: [id number] Acct: [id number] Name: TAMAR ROSA Rep #: [id number] : 1970 45 From: Carmelita Tucker Referring [...] the patient from our care at the [facility] facility. Carmelita Tucker LMT T: YAW JOB: [id number] <Electronically signed by Carmelita Tucker > 0739 CC: Luiza Dowd DO Signed 27-May-2015 Breast Limited Unilateral Result: Comments: See Note; NOTES: [facility] Imaging Services [address] [place] [address] Verdana 4d Breast Limited Unilateral MR#: [id number] Acct: [id number] Name: TAMAR DAVIS Rep #: [id number] : 1970 F 45 From: Anil Davison MD PCP: Luiza Dowd DO Status: REG CLI Study: Breast Limited Unilateral Date of Exam: 05/27/15 Exam# [id number] Jose Manuel hilton Dr: Bailey Cummins MD [...] Anil Davison MD at 15:03 EST Tel [phone], Service support [phone], CC: Bailey Cummins MD; Luiza Dowd DO Sap Abap Programmer: Signed 27-May-2015 Unilat Lt Diag Digital AND CAD Result: Comments: See Note; NOTES: [facility] Imaging Services [address] [place] [address] Verdana 4d Unilat Lt Diag Digital AND CAD MR#: [id number] Acct: [id number] Na me: TAMAR ROSA Rep #: [id number] : 1970 F 45 From: Dre Hoffman MD PCP: Luiza Dowd DO Status: REG CLI Study: Unilat Lt Diag Digital AND CAD Date of Exam: 05/27/15 Exam# [id number] O [facility] Dr: Bailey Cummins MD MAMMOGRAPHY - [...] 15:04 EDT Tel , Servi ce support [phone], CC: Bailey Cummins MD; Luiza Dowd DO Sap Abap Programmer: Signed 27-May-2015 Unilat Lt Diag Digital AND CAD Result: Comments: See Note; NOTES: [facility] Imaging Services [address] [place] [address] Verdana 4d Unilat Lt Diag Digital AND CAD MR#: [id number] Acct: [id number] Na me: TAMAR ROSA Rep #: [id number] : 1970 F 45 From: Dre Hoffman MD PCP: Luiza Dowd DO Status: REG CLI Study: Unilat Lt Diag Digital AND CAD Date of Exam: 05/27/15 Exam# [id number] O [facility] Dr: Bailey Cummins MD MAMMOGRAPHY - [...] 15:04 EDT Tel , Servi ce support [phone], CC: Bailey Cummins MD; Luiza Dowd DO Sap Abap Programmer: Signed 27-May-2015 Unilat Lt Diag Digital AND CAD Result: Comments: See Note; NOTES: [facility] Imaging Services [address] [place] [address] Verdana 4d Unilat Lt Diag Digital AND CAD MR#: [id number] Acct: [id number] Na me: TAMAR ROSA Rep #: [id number] : 1970 F 45 From: Dre Hoffman MD PCP: Luiza Dowd DO Status: REG CLI Study: Unilat Lt Diag Digital AND CAD Date of Exam: 05/27/15 Exam# [id number] O [facility] Dr: Bailey Cummins MD MAMMOGRAPHY - [...] 15:04 EDT Tel , Servi ce support [phone], CC: Bailey Cummins MD; Luiza Dowd DO Sap Abap Programmer: Signed 27-May-2015 Unilat Lt Diag Digital AND CAD Result: Comments: See Note; NOTES: [facility] Imaging Services [address] [place] [address] Verdana 4d Unilat Lt Diag Digital AND CAD MR#: [id number] Acct: [id number] Na me: TAMAR ROSA Rep #: [id number] : 1970 F 45 From: Dre Hoffman MD PCP: Luiza Dowd DO Status: [facility] CLI Study: Unilat Lt Diag Digital AND CAD Date of Exam: 05/27/15 Exam# [id number] O rdering Dr: Bailey Cummins MD MAMMOGRAPHY [...] 15:04 EDT Tel , Servi ce support [phone], CC: Bailey Cummins MD; Luiza Dowd DO Sap Abap Programmer: Signed 27-May-2015 Unilat Lt Diag Digital AND CAD Result: Comments: See Note; NOTES: [facility] Imaging Services [address] [place] [address] Verdana 4d Unilat Lt Diag Digital AND CAD MR#: [id number] Acct: [id number] Na me: TAMAR ROSA Rep #: [id number] : 1970 F 45 From: Dre Hoffman MD PCP: Luiza Dowd DO Status: REG CLI Study: Unilat Lt Diag Digital AND CAD Date of Exam: 05/27/15 Exam# [id number] O rdering Dr: Bailey Cummins MD MAMMOGRAPHY [...] 15:04 EDT Tel , Servi ce support [phone], CC: Bailey Cummins MD; Luiza Dowd DO Sap Abap Programmer: Signed 21-May-2015 Bilat Scrn Digital AND CAD Result: Comments: See Note; NOTES: [facility] Imaging Services [address] [place] [address] Verdana 4d Bilat Scrn Digital AND CAD MR#: [id number] Acct: [id number] Name: TAMAR ORSA Rep #: [id number] : 1970 F 45 From: Dre oHffman MD PCP: Luiza Dowd DO Status: REG CLI Study: Bilat Scrn Digital AND CAD Date of Exam: 05/21/15 Exam# [id number] Ordering Dr: Bailey Cummins MD MAMMOGRAPHY - [...] at 14:42 EDT Tel , Service support [phone], CC: Bailey Cummins MD; Luiza Dowd DO Sap Abap Programmer: Signed 02-Sep-2014 Inital Evaluation - PT Result: Comments: See Note; NOTES: [facility] Physical Therapy [facility] [address] [place] [address]. [address] [place], [place] [address] Fax REHABILITATION SERVICES INITIAL EVALUATION MR#: [id number] Acct: [id number] Name: TAMAR ROSA Rep #: [id number] : 1970 44 From: Carmelita Tucker Referring Dr.: Luiza Dowd DO Status: REG RCR Insurance: [facility] Eval Date: DATE OF SERVICE: 08/26/2014 [...] back. Carmelita Tucker LMT T: YAW JOB: [id number] <Electronically signed by Carmelita Tucker > 09/02/14 1307 CC: DD: Signed For Medicare only, by signing this I certify the plan of care. Physicians Signature Date 20-May-2014 Bilkonstantin Mcqueenn Digital & CAD Result: Comments: See Note; NOTES: [facility] Imaging Services [address] [place] [address] Breast Imaging Report MR#: [id number] Acct: [id number] Name: TAMAR ROSA Rep #: [id number] : 1970 F 44 From: Dontae Durbin PCP: Luiza Dowd DO Status: REG CLI Exam# [id number] Ordering Dr: Bailey Cummins MD MAMMOGRAPHY - [...] at 20:20 EDT Tel , Service support [phone], CC: Bailey Cummins MD; Luiza Dowd DO Sap Abap Programmer: Signed 20-Feb-2014 Spirometry (95342) Result: 05-Aug-2013 PT Discharge Summary Result: Comments: See Note; NOTES: [facility] [address] [facility] [address] [place] [address] Fax REHABILITATION SERVICES DISCHARGE SUMMARY MR#: [id number] Acct: [id number] Name: TAMAR ROSA Rep #: [id number] : 1970 43 From: Lori Christopher Referring [...] the patient from our care at the [facility] facility. Carmelita Christopher LMT T: NTS JOB: [id number] <Electronically signed by Lori Christopher &#62 ; [...] smoker Vital Signs Date Test Result Details 62-Cei-46136:05 Temperature 97 f Comments: Method: Temporal Pulse [...] kg/m2 Body Surface Area Calculated 2.15 m2 34-Vah-601027:23 Pulse 72 /min Comments: Pattern: Regular Respiration [...] kg/m2 Body Surface Area Calculated 2.07 m2 04-Xkg-358699:24 Pulse 64 /min Comments: Pattern: Regular Respiration [...] Calculated 2.04 m2 Head Circumference 0.00 cm 10-Pjz-158323:00 Pulse 60 /min Comments: Pattern: Regular Respiration [...] 0.00 cm Results Date Description Value Details 4-Mgl-349581:43 CBC W/Diff, Automated Comments: [facility] [address] [place], [place], [address] Absolute Lymph 2.01 {X10_3/ul} (Normal) Range: 0.83-4.51 [...] 4.2-5.4 WBC 9.7 K/mm3 (Normal) Range: 4.4-11.0 1-Tgq-485956:43 Comprehensive Metabolic Profil Comments: [facility] [address] [place], [place], [address] GAP 8 (Normal) Range: 5-15 CO2 28.0 [...] Comments: Please note revised GLUCOSE reference range umuyudnpr81/02/2018. 3-Zhp-696662:43 Thyroid Stim Hormone (TSH) Comments: [facility] [address] [place], [address] TSH 3.56 {uIU/mL} (Normal) Range: 0.358-3.74 93-Pcu-98216:48 Basic Metabolic Profile (BMP) Comments: [facility] [address] [place], [address] GAP 9 (Normal) Range: 5-15 CO2 27.0 [...] A.D.A. criteria.Please note revised GLUCOSE reference range gnxrqdgei80/02/2018. 0-Urp-761249:02 CBC, Employee Comments: [facility] [address] [place], [address] Absolute Lymph 1.64 {X10_3/ul} (Normal) Range: 0.83-4.51 [...] 4.2-5.4 WBC 7.1 K/mm3 (Normal) Range: 4.4-11.0 3-Khz-547274:02 Employee Profile Comments: [facility] [address] [place], [place], [address] LDH 148 U/L (Normal) Range: 84-246 VLDL [...] Please note revised GLUCOSE reference range /02/2018. 3-Zag-749474:02 Nicotine Urine Drug Screen Comments: [facility] [address] [place], [place], [address] COT DRG SCREEN Negative (Normal) Comments: Cotinine [...] result, particularly whenpreliminary positive results are used. 8-Hwe-174860:02 Urinalysis, Employee Comments: [facility] [address] [place], [place], [address] LEUK ESTERASE Negative /ul (Normal) OCCULT BLOOD-UR Negative /ul (Normal) NITRITE UR Negative (Normal) UROBILI Normal mg/dL (Normal) PROT DIPSTX Negative mg/dL (Normal) pH UR 7.0 (Normal) Range: 5.0 - 8.0 SP.GR. DIPSTX 1.010 (Normal) Range: 1.002-1.030 KETONE UR Negative mg/dL (Normal) BILIRUBIN URINE Negative mg/dL (Normal) GLUCOSE, UR Normal mg/dL (Normal) CLARITY Clear (Normal) COLOR Yellow (Normal) 39-Ntn-826036:15 Hep B Surface Antibodies EMP Comments: [facility] (refer to report for specific site)refer to report for address and phone number Hep B Oleg AB Reactive (Normal) Comments: Non Reactive: Inconsistent with immunity, less than 10 mIU/mL Reactive: Consistent with immunity, greater than 9.9 mIU/mL 00-Xib-458549:15 Hepatitis B Surface Ag Comments: [facility] (refer to report for specific site)refer to report for address and phone number HB SURF AG Negative (Normal) Comments: Performed at: [facility] [id number] Director: Alejo Andre PhD, Phone: [phone] 28-Fcx-405047:15 Hepatitis C Antibodies Comments: [facility] (refer to report for specific site)refer to report for address and phone number HEP C AB <0.1 {s/co_ratio} (Normal) Range: 0.0-0.9 Comments: Negative: < 0.8 Indeterminate: 0.8 - 0.9 Positive: > 0.9 The CDC recommends that a positive HCV antibody result be followed up with a HCV Nucleic Acid Amplification test (213617). 85-Lns-068641:15 HIV - [facility] Non-Reactive (Normal) Comments: [facility] [address] [facility] [address] [place], [place], [address] 60-Vsz-239903:48 CBC-Complete Blood Cnt No Diff Comments: [facility] [address] [place], [place], [address] MPV 10.7 fL (Normal) Range: 6.2-12.0 PLT [...] (Normal) Range: 4.4-11.0 :07 HgA1C , Office (70961) HgA1C , Office 5.2 % (Normal) Range: 4.6 - 7.1 :32 CBC, Employee Comments: [facility] [address] [place], [address] Absolute Lymph 1.64 {X10_3/ul} (Normal) [...] 4.2-5.4 WBC 7.9 K/mm3 (Normal) Range: 4.4-11.0 08-Lwc-174845:32 Employee Profile Comments: [facility] [address] [place], [address] LDH 104 U/L (Normal) Range: 84-246 VLDL [...] Range: 70-110 :32 Microalb:Creat Ratio,Random UR Comments: [facility] [address] [place], [place], [address] MALB:CREAT 4.0 {mg/g_CRE} (Normal) MICROALBUMIN,UR 10.7 mg/L (Normal) UR CREAT 265.00 mg/dL (Normal) :32 Nicotine Urine Drug Screen Comments: [facility] [address] [place], [place], [address] COT DRG SCREEN Negative (Normal) Comments: Cotinine [...] :32 Thyroid Stim Hormone (TSH) Comments: [facility] [address] [facility] [address] [place], [place], [address] TSH 3.17 {uIU/mL} (Normal) Range: 0.358-3.74 :32 Urinalysis, Employee Comments: How was Urine Obtained? CLEAN [facility] [address] [place], [place], [address] LEUK ESTERASE 25 /ul (Abnormal) OCCULT BLOOD-UR 10 /ul (Abnormal) NITRITE UR Negative (Normal) UROBILI Normal mg/dL (Normal) PROT DIPSTX Negative mg/dL (Normal) pH UR 5.0 (Normal) Range: 5.0 - 8.0 SP.GR. DIPSTX 1.020 (Normal) Range: 1.002-1.030 KETONE UR Negative mg/dL (Normal) BILIRUBIN URINE Negative mg/dL (Normal) GLUCOSE, UR Normal mg/dL (Normal) CLARITY Sl. Cloudy (Normal) COLOR Yellow (Normal) 48-Syl-088958:03 URINE OLIVIA CULTURE-LORY COL Comments: PATIENT NOT FASTINGPERFORMED BY: [facility] [address] [facility] [id number] Information: SRC:UR COUNT (89535) Antimicrobial MIHEAD (Normal) Comments: S = Susceptible; [...] mL (Abnormal) Urine Final report Culture,Comprehensive (Abnormal) 84-Kdt-511706:39 Urinalysis, Office (62884) UA - LEUKOCYTE ESTERASE Moderate (Abnormal) UA - NITRITE Negative (Normal) URINE UROBILINGN LORY TIMED Normal mg/dL (Normal) UA - PROTEIN 100 mg/dL (Normal) UA - PH 7.0 (Normal) UA - BLOOD ++ (Abnormal) UA - SPECIFIC GRAVITY 1.010 (Normal) UA - KETONES Negative mg/dL (Normal) UA - BILIRUBIN Negative (Normal) UA - GLUCOSE Negative (Normal) 65-Aqg-800248:10 CBC, Employee Comments: [facility] [address] [place], [address] Absolute Lymph 1.56 {X10_3/ul} (Normal) [...] 4.2-5.4 WBC 6.4 K/mm3 (Normal) Range: 4.4-11.0 01-Tgg-790705:10 Employee Profile Comments: [facility] [address] [facility] [address] [place], [place], [address] LDH 130 U/L (Normal) Range: 84-246 VLDL [...] 7-18 GLU 76 mg/dL (Normal) Range: 70-110 56-Ddz-314497:10 Nicotine Urine Drug Screen Comments: [facility] [address] [place], [place], [address] COT DRG SCREEN Negative (Normal) Comments: Cotinine [...] result, particularly whenpreliminary positive results are used. 38-Oki-524814:10 Urinalysis, Employee Comments: [facility] [address] [place], [address] LEUK ESTERASE 25 /ul (Abnormal) OCCULT BLOOD-UR Negative /ul (Normal) NITRITE UR Negative (Normal) UROBILI Normal mg/dL (Normal) PROT DIPSTX Negative mg/dL (Normal) pH UR 6.0 (Normal) Range: 5.0 - 8.0 SP.GR. DIPSTX 1.015 (Normal) Range: 1.002-1.030 KETONE UR Negative mg/dL (Normal) BILIRUBIN URINE Negative mg/dL (Normal) GLUCOSE, UR Normal mg/dL (Normal) CLARITY Clear (Normal) COLOR Yellow (Normal) 2-Kli-021851:13 CBC, Employee Comments: Test performed at:[facility] [address] [place], [place] [address] Absolute Lymph 1.37 {X10_3/ul} (Normal) Range: 0.83-4.51 [...] 4.2-5.4 WBC 6.2 K/mm3 (Normal) Range: 4.4-11.0 8-Ugf-436851:13 Employee Profile Comments: Test performed at:[facility] [address] [place], [place] [address] ; ordered by ina stoll LDH 111 [...] 7-18 GLU 78 mg/dL (Normal) Range: 70-110 6-Zmx-602764:13 Urinalysis, Employee Comments: Test performed at:[facility] [address] [place], [place] [address] LEUK ESTERASE Negative /ul (Normal) OCCULT BLOOD-UR Negative /ul (Normal) NITRITE UR Negative (Normal) UROBILI Normal mg/dL (Normal) PROT DIPSTX Negative mg/dL (Normal) pH UR 6.0 (Normal) Range: 5.0 - 8.0 SP.GR. DIPSTX 1.015 (Normal) Range: 1.002-1.030 KETONE UR Negative mg/dL (Normal) BILIRUBIN URINE Negative mg/dL (Normal) GLUCOSE, UR Normal mg/dL (Normal) CLARITY Clear (Normal) COLOR Yellow (Normal) 7-Tpc-541304:05 PAPIG5 Comments: CYTOLOGY INFORMATION:- CLINICAL INFORMATION:- DATE LMP/MENOPAUSE: ABLATION 2011- COLLECTION VIAL: Thin Prep Vial- HRIS ADMINISTRATOR SOURCE: CERVICAL/ENDOCERVICAL- COLLECTION TECHNIQUE: BRUSH/SPATULASpecimen Comment: [id number] Comment: No. of containers..01 CYTYC Thin Prep Vial tHPVRFLX Comment (Normal) Comments: The HPV DNA reflex criteria were not met with this specimenresult therefore, no HPV testing was performed.Performed at: [address] [place] [id number] Director: Yassine Mathews MD, Phone: [phone] tPAPSMR Comment (Normal) Comments: The Pap smear [...] system. tPERFORM Comment (Normal) Comments: Ariana Victoria, Talent Development Analyst (ASCP) tADEQ Comment (Normal) Comments: Satisfactory for [...] CHOL 150 mg/dL (Normal) Comments: <200 mg/dL Gdccuzfuq178-019 mg/dL Borderline>240 mg/dL High Risk BID 0.08 [...] (Normal) UCLAR Clear (Normal) UCOL Yellow (Normal) 8-Knv-203046:44 Rapid Strep Test, Office (55036) Comments: positive Rapid Strep Test, Office Positive (Normal) 78-Xit-29094:40 LQDPAP [id number] Comments: CYTOLOGY INFORMATION:- CLINICAL INFORMATION:- DATE LMP/MENOPAUSE: 938751 LMP- COLLECTION VIAL: Thin Prep Vial- HRIS ADMINISTRATOR SOURCE: CERVICAL/ENDOCERVICAL- COLLECTION TECHNIQUE: BRUSH/SPATULA COMM . [...] was performed..Performe d at: [facility] - [facility] [address] [id number] Director: Trevor Mathews MD DIAGN Comment (Normal) Comments: NEGATIVE FOR INTRAEPITHELIAL LESION AND MALIGNANCY.Satisfactory for evaluation. Endocervical and/or squamous metaplasticcells (endocervical component) are present.Catina Hill, Talent Development Analyst (ASCP)T his liquid based ThinPrep(R) pap test was screened withthe use of an image guided system. 95-Gmx-456478:09 TSH (66475) Comments: PATIENT NOT FASTINGClinical Information: [id number] PERFORMED BY: [facility] [facility] [id number] TSH 2.700 {uIU/mL} (Normal) Range: 0.450-4.500 :32 [...] for patient's is the eGFRmultiplied by 1.212. [facility] Laboratory uses the abbreviated Modification of [...] Disease W/O Kidney Disease>/= 90 Stage One Ayduly20 - 89 Stage Two Suspect Decreased GFR30 [...] 2.6-6.0 VLDL 26 mg/dL (Normal) Range: 5-40 55-Xre-22266:32 EMP URINALYSIS BILIRUBIN URINE SeeNote (Normal) Comments: [...] Very High > or = 500 mg/dL 57-Ifj-920061:45 Upper Respiratory Culture Comments: Clinical Information: SRC:TH PERFORMED BY: [facility] [id number] Result 1 BETAGA (Normal) Comments: Beta hemolytic [...] report (Normal) :31 Rapid Strep Test, Office (38821) Rapid Strep Test, Office Negative (Normal) :22 [...] Hypertension Planned Observations CBC W/AUTO DIFF WBC (87826)Indication: Benign essential hypertension On: 8-Sqr-843960:24 Request METABOLIC PANEL, COMPREHENSIVE (71727)Indication: Palpitations On: 8-Vhi-020793:22 Request TSH (13513)Indication: Palpitations On: 0-Txp-634190:22 Request MICROALBUMIN: CREATININE RATIO (37354) AND (60378)Indication: Benign essential hypertension On: 23-Kug-949149:53 Request TSH (THYROID STIMULATING HORMONE) (51980)Indication: Arrhythmia On: 27-Pzn-571010:52 Request Sputum Culture (10258)Indication: Cough On: 52-Kgs-54014:53 Request OLIVIA CULTURE-OTHER (29644)Indication: Sore throat On: 3-Axs-965795:43 Request OLIVIA CULTURE-OTHER (96614)Indication: Throat pain On: 45-Oes-00074:31 Request Comments: throat cx Triglycerides (20561)Indication: Hyperglyceridemia On: 76-Iuh-098229:00 Request HDL Cholesterol-Direct (46401)Indication: Low HDL (under 40) On: 26-Vqt-752460:00 Request Planned Procedures APPLICATION OF 24 HOUR HOLTER On: 09-Jul-2018 Intent MONITOR (27442)By: Abeba Holt EXERCISE STRESS TEST (96867)By: On: 08-Jul-2018 Intent Abeba Holt Holter Moniter (43086)By: Jonathon, On: 08-Jul-2018 Intent Abeba Comments: 24 Hour EKG (24817)By: Abeba Holt On: 08-Jul-2018 Intent Comments: Sinus Rhythm- HR 68 PFT - CompleteBy: Zuleyma Vegas CNP On: 24-Nov-2016 Intent Spirometry (30553)By: Shasta PHILLIPS, On: 24-Nov-2016 Intent Zuleyma Tamayo Comments: normal Aerosol Treatment (29153)By: Shasta On: 24-Nov-2016 Intent Zuleyma PHILLIPS ELECTROCARDIOGRAM, COMPLETE (ECG) On: 07-Nov-2016 Intent (55103)By: Luiza Dowd DO Comments: nsr no acute chg Luiza Dowd DO COMP EYE EXAMINATION, ESTAB PATIENT On: 21-Jun-2016 Intent (40931)By: Zuleyma Vegas CNP EKG (46859)By: Luiza Dowd DO On: 26-Mar-2015 Intent Luiza Dowd DO Comments: nsr no acute chg Solu -Medrol Injection, 125 mg On: 04-Aug-2013 Intent (J2930)By: Zuleyma Vegas CNP Comments: Lot: [id number]: 12/2015Amt: 125mgRoute: IMSite: RUOQ GlutealGiven by: CINDY Kerr Aerosol Treatment (30069)By: Shasta On: 04-Aug-2013 Intent Zuleyma PHILLIPS Eprescribed prescriptions On: 04-Aug-2013 Intent (G8553)By: Zuleyma Vegas CNP EKG (54573)By: Luiza Dowd DO On: 14-Aug-2011 Intent Luiza Dowd DO Comments: no acute chg nsr - good Aerosol Treatment (26546)By: Shasta On: 27-Jun-2011 Intent Zuleyma PHILLIPS EKG (12447)By: Abeba Holley On: 14-Oct-2009 Intent CINDY Comments: nsr no acute changes Echo CompleteBy: Noemí FOSS, On: 22-Jun-2009 Intent Luiza Marinelli DO Holter Moniter (73113)By: Noemí On: 22-Jun-2009 Luiza Ruano DO, DO, Kathleen Comments: 48 hour EKG (41530)By: Luiza Dowd DO On: 22-Jun-2009 Intent Luiza Dowd DO Comments: nsr no acute changesno pvc EKG (28868)By: Luiza Dowd DO On: 30-Sep-2008 Intent Luiza Dowd DO Comments: stable EKG (87828)By: Luiza Dowd DO On: 30-Sep-2007 Intent Luiza Dowd DO Comments: done-awnsr noacute ischemic changes Aerosol Treatment (11472)By: Shasta On: 11-Jul-2007 Intent Zuleyma PHILLIPS COMP EYE EXAMINATION, ESTAB PATIENT On: 10-Jun-2007 Intent (44681)By: Sena Lester LPN Comments: VA Crx- 20/30 OD 20/40 OS 20/25 OU EKG (31140)By: Luiza Dowd DO On: 14-Sep-2006 Intent Luiza [...] blood pressure. ??Heart palpitations were more frequent. [place] them more frequently and didn't feel right-so [...] blood pressure. ??Heart palpitations were more frequent. [place] them more frequentl y and didn't feel [...] tension (307.81) [facility] [employer] [place] [employer]; a guarantor
--- OUTSIDE RECORDS SUMMARY | 2018-09-01 12:33 | XMS RPT_ITS | Continuity of Care Document ---
:1970 Author Organization [facility] Address [address] [facility] [address] [place] [address] Phone Care Team Providers Name Role Phone [...] BID for 0 days Refills: 0 Ordered:03-Sep-2008 Aebba Holley LPN Start : 03-Sep-2008 End : [...] Quantity: 20 {Capsule} Refills: 0 Ordered:21-Jun-2016 Elaine AUTOMATIC PAINT SPRAYER OPERATORDarian Matiasa Start : 18-May-2016 End : 21-Jun-2016 Discontinued ProAir HFA 108 (90 Base) MCG/ACT Inhalation Aerosol Solution 2 (two) Puff tid prn for 0 days Quantity: 1 {Inhaler} Refills: 3 Ordered:19-Dec-2016 Slarb AUTOMATIC PAINT SPRAYER OPERATORDariana Start : 24-Nov-2016 End : 19-Dec-2016 Discontinued [...] Lead Electrocardiogram Result: Comments: See Note; NOTES: [facility] Cardiovascular Services [address] [place] [address] 36790 12 Lead EKG 07/05/18 0831 MR#: [id number] Acct: [id number] Name: TAMAR ROSA Rep #: [id number] : 1970 48 From: Corona Moore MD [...] normal ECG Confirmed by [employer]AR [employer], CORONA ([id number]), commercial production editor DEBBY GUTIÉRREZ ([id number]) on 07/09/2018 3:39:04 PM Referred By: Confirmed By:CORONA MOORE MD 07/09/18 1539 Date ____ Corona Moore MD CC: Luiza Dowd DO; Ubaldo Owens MD Signed 05-Jul-2018 Emergency Department Summary Result: Comments: See Note; NOTES: [facility] Medical Records Department [address] [place] [address] Emergency Department Summary 07/05/18 1012 MR#: [id number] Acct: [id number] Name: TAMAR ROSA Rep #: [id number] : 1970 48 From: Ubaldo Owens MD [...] rhythm with occasional premature ventricular complexes noted. [place] interval, QRS duration, QT interval and axis [...] Anxiousness self-reported This note was generated with Core Competence dictation software. It may contain incorrect words, [...] pain, or any unexpected problems, contact your [facility] Care Provider. Call Doctors Registry ([phone]) or report to the closest Emergency Room. Call 911 if necessary. 07/05/18 1017 <Electronically signed by Ubaldo Owens MD> Date ____ Ubaldo Owens MD Cosigner Signature (If Indicated): Date CC: Luiza Dowd DO 07-Nov-2017 SCREENING MAMM (CAD), BILAT Result: Comments: See Note; NOTES: [facility] Imaging Services [address] [place] [address] SCREENING MAMM (CAD), BILAT MR#: [id number] Acct: [id number] Name: TAMAR ROSA Frida Rep #: [id number] : 1970 F 47 From: Anil Davison MD PCP: Luiza Dowd DO Status: REG CLI Study: SCREENING MAMM (CAD), BILAT Date of Exam: 11/07/17 Exam# [id number] Ordering Dr: Bailey Cummins MD MAMMOGRAPHY - [...] delay biopsy of a clinically suspicious abnormality. [id number] Electronically Signed: Anil Davison MD at 9:08 EDT Tel [phone], Service support , CC: Bailey Cummins MD; Luiza Dowd DO Dope Dry House Operator: Signed 04-Sep-2017 Massage Therapy Evaluation Result: Comments: See Note; NOTES: [facility] 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 She was [...] Discharge Instruction Result: Comments: See Note; NOTES: [facility] Medical Records Department [address] [place] [address] Discharge Instruction 09/03/172034 MR#: [id number] Acct: [id number] Name: Merline ROSA Rep #: [id number] : 1970 47 From: Lance Gutiérrez DO [...] your Primary Care Provider. Call [facility] ([phone]) or report to the closest Emergency Room. Call 911 if necessa ry. 09/03/172036 <Electronically signed by Lance Gutiérrez DO> Date Lance Gutiérrez DO Cosigner Signature (If Indicated): Date CC: Luiza Dowd DO 03-Sep-2017 Emergency Department Summary Result: Comments: See Note; NOTES: [facility] Medical Records Department [address] [place] [address] Emergency Department Summary 09/03/172031 MR#: [id number] Acct: [id number] Name: TAMAR ROSA Rep #: [id number] : 1970 47 From: Lance Gutiérrez DO [...] healthcare worker] This note was generated with Core Compet[employer] dictation software. It may contain incorrect words, [...] problems, contact your Primary Care Provider. [facility] Doctors Registry ([phone]) or report to the closest Emergency Room. Call 911 if necessary. 09/03/172034 <Electronically signed by Lance Gutiérrez DO> Date Lance Gutiérrez DO Cosigner Signature (If Indicated): Date CC: Luiza Dowd DO 23-Jul-2017 Discharge Summary Result: Comments: See Note; NOTES: [facility] Medical Records Department [address] [place] [address] Discharge Summary 07/19/17 1117 MR#: [id number] Acct: [id number] Name: TAMAR ROSA Rep #: [id number] : 1970 47 From: Carmelita Tucker PCP: [...] Report Comp Result: Comments: See Note; NOTES: [facility] Pulmonary Services/Neurology [address] [place] [address] Pulmonary Function Test (Comp) MR#: [id number] Acct: [id number] Name: LUIS ALBERTO ROSA Rep #: [id number] : 1970 46 From: Lauro Calderon DO Referring Dr: Zuleyma Vegas Status: REG CLI Ordering Dr: Zuleyma Vegas Date: 12/12/16 Location: [facility] Sex: F C DATE OF SERVICE: 12/12/2016 [...] [place] C: Referring Provider T: YAW JOB: [id number] 12/14/16 0829 <Electronically signed by Lauro Calderon DO> Date Lauro Calderon DO CC: Zuleyma Vegas; Lauro Calderon D.O.; Luiza Dowd DO Date Dictated: 12/13/1647 Date Transcribed: 12/13/16846 Dope Dry House Operator: Signed 31-Aug-2016 SCREENING MAMM (CAD), BILAT Result: Comments: See Note; NOTES: [facility] Imaging Services [address] [place] [address] Verdana 4d SCREENING MAMM (CAD), BILAT MR#: [id number] Acct: [id number] Name: TAMAR ROSA Rep #: [id number] : 1970 F 46 From: Anil Davison MD PCP: Luiza Dowd DO Status: [facility] CLI Study: SCREENING MAMM (CAD), BILAT Date of Exam: 08/31/16 Exam# [id number] Ordering Dr: Bailey Barrientos MD MAMMOGRAPHY - [...] 2015 and May 20, 2014. FINDINGS: Breast Bland sition: The breasts are heterogeneously dense, which [...] delay biopsy of a clinically suspicious abnormality. [id number] Electronically Signed: Carlos Davison MD at 10:16 EST Tel [phone], Service support [phone], CC: Bailey Cummins MD; Luiza Dowd DO Dope Dry House Operator: Signed 03-Sep-2015 Inital Evaluation - PT Result: Comments: See Note; NOTES: [facility] [address] [place] [address]. 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 Elayne Kauffman LMT T: YAW JOB: [id number] <Electronic ally signed by Elayne Kauffman > 09/03/15 1032 CC: Signed For Medicare only, by signing this I certify the plan of care. Physicians Signature Date 05-Aug-2015 PT Discharge Summary Result: Comments: See Note; NOTES: [facility] [address] [place] [address] Fax REHABILITATION SE RVICES DISCHARGE SUMMARY MR#: [id number] Acct: [id number] Name: TAMAR ROSA Rep #: [id number] : 1970 45 From: Carmelita Tucker Referring [...] the patient from our care at the [facility] facility. Carmelita Tucker LMT T: NTS JOB: [id number] <Electronically signed by Carmelita Tucker > 0739 CC: Luiza Dowd DO Signed 27-May-2015 Breast Limited Unilateral Result: Comments: See Note; NOTES: [facility] Imaging Services [address] [place] [address] Verdana 4d Breast Limited Unilateral MR#: [id number] Acct: [id number] Name: TAMAR DAVIS Rep #: [id number] : 1970 F 45 From: Anil Davison MD PCP: Luiza Dowd DO Status: REG CLI Study: Breast Limited Unilateral Date of Exam: 05/27/15 Exam# [id number] Jose Manuel hilton Dr: Bailey Cummins MD [...] Anil Davison MD at 15:03 EST Tel [phone], Service support [phone], CC: Bailey Cummins MD; Luiza Dowd DO Dope Dry House Operator: Signed 27-May-2015 Unilat Lt Diag Digital AND CAD Result: Comments: See Note; NOTES: [facility] Imaging Services [address] [place] [address] Verdana 4d Unilat Lt Diag Digital AND CAD MR#: [id number] Acct: [id number] Na me: TAMAR ROSA Rep #: [id number] : 1970 F 45 From: Dre Hoffman MD PCP: Luiza Dowd DO Status: REG CLI Study: Unilat Lt Diag Digital AND CAD Date of Exam: 05/27/15 Exam# [id number] O rdering Dr: Bailey Cummins MD MAMMOGRAPHY [...] 15:04 EDT Tel , Servi ce support [phone], CC: Bailey Cummins MD; Luiza Dowd DO Dope Dry House Operator: Signed 27-May-2015 Unilat Lt Diag Digital AND CAD Result: Comments: See Note; NOTES: [facility] Imaging Services [address] [place] [address] Verdana 4d Unilat Lt Diag Digital AND CAD MR#: [id number] Acct: [id number] Na me: TAMAR ROSA Rep #: [id number] : 1970 F 45 From: Dre Hoffman MD PCP: Luiza Dowd DO Status: REG CLI Study: Unilat Lt Diag Digital AND CAD Date of Exam: 05/27/15 Exam# [id number] O rdering Dr: Bailey Cummins MD MAMMOGRAPHY [...] 15:04 EDT Tel , Servi ce support [phone], CC: Bailey Cummins MD; Luiza Dowd DO Dope Dry House Operator: Signed 27-May-2015 Unilat Lt Diag Digital AND CAD Result: Comments: See Note; NOTES: [facility] Imaging Services [address] [place] [address] Verdana 4d Unilat Lt Diag Digital AND CAD MR#: [id number] Acct: [id number] Na me: TAMAR ROSA Rep #: [id number] : 1970 F 45 From: Dre Hoffman MD PCP: Luiza Dowd DO Status: REG CLI Study: Unilat Lt Diag Digital AND CAD Date of Exam: 05/27/15 Exam# [id number] [facility] Dr: Bailey Cummins MD MAMMOGRAPHY - [...] 15:04 EDT Tel , Servi ce support [phone], CC: Bailey Cummins MD; Luiza Dowd DO Dope Dry House Operator: Signed 27-May-2015 Unilat Lt Diag Digital AND CAD Result: Comments: See Note; NOTES: [facility] Imaging Services [address] [place] [address] Verdana 4d Unilat Lt Diag Digital AND CAD MR#: [id number] Acct: [id number] Na me: TAMAR ROSA Rep #: [id number] : 1970 F 45 From: Dre Hoffman MD PCP: Luiza Dowd DO Status: REG CLI Study: Unilat Lt Diag Digital AND CAD Date of Exam: 05/27/15 Exam# [id number] O ering Dr: Bailey Cummins MD MAMMOGRAPHY [...] 15:04 EDT Tel , Servi ce support [phone], CC: Bailey Cummins MD; Luiza Dowd DO Dope Dry House Operator: Signed 27-May-2015 Unilat Lt Diag Digital AND CAD Result: Comments: See Note; NOTES: [facility] Imaging Services [address] [place] [address] Verdana 4d Unilat Lt Diag Digital AND CAD MR#: [id number] Acct: [id number] Na me: TAMAR ROSA Rep #: [id number] : 1970 F 45 From: Dre Hoffman MD PCP: Luiza Dowd DO Status: REG CLI Study: Unilat Lt Diag Digital AND CAD Date of Exam: 05/27/15 Exam# [id number] O [facility] Dr: Bailey Cummins [...] 15:04 EDT Tel , Servi ce support [phone], CC: Bailey Cummins MD; Luiza Dowd DO Dope Dry House Operator: Signed 21-May-2015 Bilat Scrn Digital AND CAD Result: Comments: See Note; NOTES: [facility] Imaging Services [address] [place] [address] Verdana 4d Bilat Scrn Digital AND CAD MR#: [id number] Acct: [id number] Name: TAMAR ROSA Rep #: [id number] : 1970 F 45 From: Dre Hoffman MD PCP: Luiza Dowd DO Status: REG CLI Study: [place] Digital AND CAD Date of Exam: 05/21/15 Exam# [id number] Ordering Dr: Bailey Cummins MD MAMMOGRAPHY - [...] at 14:42 EDT Tel , Service support [phone], CC: Bailey Cummins MD; Luiza Dowd DO Dope Dry House Operator: Signed 02-Sep-2014 Inital Evaluation - PT Result: Comments: See Note; NOTES: [facility] [address] [place] [address] Fax REHABILITATION SERVICES INITIAL EVALUATION MR#: [id number] Acct: [id number] Name: TAMAR ROSA Rep #: [id number] : 1970 44 From: Carmelita Tucker Referring Dr.: Luiza Dowd DO Status: REG RCR Insurance: [facility] Eval Date: DATE OF SERVICE: 08/26/2014 REFERRING PHYSICIAN: Dr. Dowd. 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 She was referred to [facility] facility for massotherapy evaluation by Dr. Dowd [...] back. Carmelita Tucker LMT T: YAW JOB: [id number] <Electronically signed by Carmelita Tucker > 09/02/14 1307 CC: DD: Signed For Medicare only, by signing this I certify the plan of care. Physicians Signature Date 20-May-2014 [place] Digital & CAD Result: Comments: See Note; NOTES: [facility] Imaging Services [address] [place] [address] Breast Imaging Report MR#: [id number] Acct: [id number] Name: TAMAR ROSA Rep #: [id number] : 1970 F 44 From: Dontae Durbin PCP: Luiza Dowd DO Status: REG CLI Exam# [id number] Ordering Dr: Bailey Cummins MD MAMMOGRAPHY - [...] at 20:20 EDT Tel , Service support [phone], CC: Bailey uCmmins MD; Luiza Dowd DO Dope Dry House Operator: Signed 20-Feb-2014 Spirometry (43246) Result: 05-Aug-2013 PT Discharge Summary Result: Comments: See Note; NOTES: [facility] [address] [place] [address] Fax REHABILITATION SERVICES DISCHARGE SUMMARY MR#: [id number] Acct: [id number] Name: TAMAR ROSA Rep #: [id number] : 1970 43 From: Lori Christopher Referring [...] the patient from our care at the [facility] facility. Carmelita Christopher, BENI T: NTS JOB: [id number] <Electronically signed by Lori Christopher &#62 ; [...] smoker Vital Signs Date Test Result Details 9-Eif-091360:07 Temperature 96.8 f Pulse 70 /min Comments: [...] kg/m2 Body Surface Area Calculated 2.15 m2 75-Qjw-539947:23 Pulse 72 /min Comments: Pattern: Regular Respiration [...] kg/m2 Body Surface Area Calculated 2.16 m2 59-Igv-259154:15 Temperature 97.1 f Comments: Method: Oral Pulse [...] kg/m2 Body Surface Area Calculated 2.16 m2 49-Las-029686:16 Pulse 76 /min Comments: Pattern: Regular O2 [...] Calculated 2.04 m2 Head Circumference 0.00 cm 09-Uoe-671200:00 Pulse 60 /min Comments: Pattern: Regular Respiration [...] Value Details :43 CBC W/Diff, Automated Comments: [facility] [address] [place], [place], [address] Absolute Lymph 2.01 {X10_3/ul} (Normal) Range: 0.83-4.51 [...] 4.2-5.4 WBC 9.7 K/mm3 (Normal) Range: 4.4-11.0 9-Tpn-484629:43 Comprehensive Metabolic Profil Comments: [facility] [address] [place], [address] GAP 8 (Normal) Range: 5-15 CO2 28.0 [...] Comments: Please note revised GLUCOSE reference range glrqfexba47/02/2018. 2-Csx-725843:43 Thyroid Stim Hormone (TSH) Comments: [facility] [address] [place], [address] TSH 3.56 {uIU/mL} (Normal) Range: 0.358-3.74 96-Cvs-61173:48 Basic Metabolic Profile (BMP) Comments: [facility] [address] [place], [address] GAP 9 (Normal) Range: 5-15 CO2 27.0 [...] A.D.A. criteria.Please note revised GLUCOSE reference range chjrrhyvg44/02/2018. 9-Vlo-599774:02 CBC, Employee Comments: [facility] [address] [place], [place], [address] Absolute Lymph 1.64 {X10_3/ul} (Normal) Range: 0.83-4.51 [...] 4.2-5.4 WBC 7.1 K/mm3 (Normal) Range: 4.4-11.0 7-Ska-483425:02 Employee Profile Comments: [facility] [address] [place], [place], [address] LDH 148 U/L (Normal) Range: 84-246 VLDL [...] Comments: Please note revised GLUCOSE reference range ossronqnl93/02/2018. 7-Fzl-856064:02 Nicotine Urine Drug Screen Comments: [facility] [address] [place], [place], [address] COT DRG SCREEN Negative (Normal) Comments: Cotinine [...] result, particularly whenpreliminary positive results are used. 9-Vuz-715265:02 Urinalysis, Employee Comments: [facility] [address] [place], [place], [address] LEUK ESTERASE Negative /ul (Normal) OCCULT BLOOD-UR Negative /ul (Normal) NITRITE UR Negative (Normal) UROBILI Normal mg/dL (Normal) PROT DIPSTX Negative mg/dL (Normal) pH UR 7.0 (Normal) Range: 5.0 - 8.0 SP.GR. DIPSTX 1.010 (Normal) Range: 1.002-1.030 KETONE UR Negative mg/dL (Normal) BILIRUBIN URINE Negative mg/dL (Normal) GLUCOSE, UR Normal mg/dL (Normal) CLARITY Clear (Normal) COLOR Yellow (Normal) 51-Tug-666301:15 Hep B Surface Antibodies EMP Comments: [facility] (refer to report for specific site)refer to report for address and phone number Hep B Oleg AB Reactive (Normal) Comments: Non Reactive: Inconsistent with immunity, less than 10 mIU/mL Reactive: Consistent with immunity, greater than 9.9 mIU/mL 93-Bbl-965831:15 Hepatitis B Surface Ag Comments: [facility] (refer to report for specific site)refer to report for address and phone number HB SURF AG Negative (Normal) Comments: Performed at: - [facility] [address] [id number] Director: Alejo Andre PhD, Phone: [phone] 91-Khb-579728:15 Hepatitis C Antibodies Comments: [facility] (refer to report for specific site)refer to report for address and phone number HEP C AB <0.1 {s/co_ratio} (Normal) Range: 0.0-0.9 Comments: Negative: < 0.8 Indeterminate: 0.8 - 0.9 Positive: > 0.9 The CDC recommends that a positive HCV antibody result be followed up with a HCV Nucleic Acid Amplification test (668578). 84-Qep-052829:15 HIV - [facility] Non-Reactive (Normal) Comments: [facility] [address] [place] [address], [id number] 49-Ita-687976:48 CBC-Complete Blood Cnt No Diff Comments: [facility] [address] [place], [place], [address] MPV 10.7 fL (Normal) Range: 6.2-12.0 PLT [...] (Normal) Range: 4.4-11.0 :07 HgA1C , Office (03652) HgA1C , Office 5.2 % (Normal) Range: 4.6 - 7.1 31-Kbd-434111:32 CBC, Employee Comments: [facility] [address] [place], [place], [address] Absolute Lymph 1.64 {X10_3/ul} (Normal) Range: 0.83-4.51 [...] 4.2-5.4 WBC 7.9 K/mm3 (Normal) Range: 4.4-11.0 51-Hqg-125933:32 Employee Profile Comments: [facility] [address] [place], [place], [address] LDH 104 U/L (Normal) Range: 84-246 VLDL [...] 7-18 GLU 81 mg/dL (Normal) Range: 70-110 55-Zqc-516140:32 Microalb:Creat Ratio,Random UR Comments: [facility] [address] [facility] [place], [address] MALB:CREAT 4.0 {mg/g_CRE} (Normal) MICROALBUMIN,UR 10.7 mg/L (Normal) UR CREAT 265.00 mg/dL (Normal) :32 Nicotine Urine Drug Screen Comments: [address] [place], [place], [address] COT DRG SCREEN Negative (Normal) Comments: Cotinine [...] used. :32 Thyroid Stim Hormone (TSH) Comments: [facility] [address] [place], [place], [address] TSH 3.17 {uIU/mL} (Normal) Range: 0.358-3.74 :32 Urinalysis, Employee Comments: How was Urine Obtained? CLEAN [facility] [address] [facility] [address] [place], [place], [address] LEUK ESTERASE 25 /ul (Abnormal) OCCULT BLOOD-UR 10 /ul (Abnormal) NITRITE UR Negative (Normal) UROBILI Normal mg/dL (Normal) PROT DIPSTX Negative mg/dL (Normal) pH UR 5.0 (Normal) Range: 5.0 - 8.0 SP.GR. DIPSTX 1.020 (Normal) Range: 1.002-1.030 KETONE UR Negative mg/dL (Normal) BILIRUBIN URINE Negative mg/dL (Normal) GLUCOSE, UR Normal mg/dL (Normal) CLARITY Sl. Cloudy (Normal) COLOR Yellow (Normal) 79-Gqb-895422:03 URINE OLIVIA CULTURE-LORY COL Comments: PATIENT NOT FASTINGPERFORMED BY: [facility] [address] [facility] [id number] Information: SRC:UR COUNT (60935) Antimicrobial MIHEAD (Normal) Comments: S = Susceptible; [...] mL (Abnormal) Urine Final report Culture,Comprehensive (Abnormal) 08-Ibm-958293:39 Urinalysis, Office (78209) UA - LEUKOCYTE ESTERASE Moderate (Abnormal) UA - NITRITE Negative (Normal) URINE UROBILINGN LORY TIMED Normal mg/dL (Normal) UA - PROTEIN 100 mg/dL (Normal) UA - PH 7.0 (Normal) UA - BLOOD ++ (Abnormal) UA - SPECIFIC GRAVITY 1.010 (Normal) UA - KETONES Negative mg/dL (Normal) UA - BILIRUBIN Negative (Normal) UA - GLUCOSE Negative (Normal) 91-Cdh-893111:10 CBC, Employee Comments: [facility] [address] [place], [place], [address] Absolute Lymph 1.56 {X10_3/ul} (Normal) Range: 0.83-4.51 [...] 4.2-5.4 WBC 6.4 K/mm3 (Normal) Range: 4.4-11.0 27-Qpc-470249:10 Employee Profile Comments: [facility] [address] [place], [place], [address] LDH 130 U/L (Normal) Range: 84-246 VLDL [...] 7-18 GLU 76 mg/dL (Normal) Range: 70-110 69-Iix-354821:10 Nicotine Urine Drug Screen Comments: [facility] [address] [place], [place], [address] COT DRG SCREEN Negative (Normal) Comments: Cotinine [...] result, particularly whenpreliminary positive results are used. 90-Nfv-823838:10 Urinalysis, Employee Comments: [facility] [address] [place], [address] LEUK ESTERASE 25 /ul (Abnormal) OCCULT BLOOD-UR Negative /ul (Normal) NITRITE UR Negative (Normal) UROBILI Normal mg/dL (Normal) PROT DIPSTX Negative mg/dL (Normal) pH UR 6.0 (Normal) Range: 5.0 - 8.0 SP.GR. DIPSTX 1.015 (Normal) Range: 1.002-1.030 KETONE UR Negative mg/dL (Normal) BILIRUBIN URINE Negative mg/dL (Normal) GLUCOSE, UR Normal mg/dL (Normal) CLARITY Clear (Normal) COLOR Yellow (Normal) 7-Wqe-274354:13 CBC, Employee Comments: Test performed at:[facility] [address] [place], [place] [address] Absolute Lymph 1.37 {X10_3/ul} (Normal) Range: 0.83-4.51 [...] 4.2-5.4 WBC 6.2 K/mm3 (Normal) Range: 4.4-11.0 2-Ghi-178589:13 Employee Profile Comments: Test performed at:[facility] [address] [place], [place] [address] ; ordered by ina stoll LDH 111 [...] 7-18 GLU 78 mg/dL (Normal) Range: 70-110 6-Fzc-118930:13 Urinalysis, Employee Comments: Test performed at:[facility] [address] [place], [place] [address] LEUK ESTERASE Negative /ul (Normal) OCCULT BLOOD-UR Negative /ul (Normal) NITRITE UR Negative (Normal) UROBILI Normal mg/dL (Normal) PROT DIPSTX Negative mg/dL (Normal) pH UR 6.0 (Normal) Range: 5.0 - 8.0 SP.GR. DIPSTX 1.015 (Normal) Range: 1.002-1.030 KETONE UR Negative mg/dL (Normal) BILIRUBIN URINE Negative mg/dL (Normal) GLUCOSE, UR Normal mg/dL (Normal) CLARITY Clear (Normal) COLOR Yellow (Normal) 2-Wvo-163986:05 PAPIG5 Comments: CYTOLOGY INFORMATION:- CLINICAL INFORMATION:- DATE LMP/MENOPAUSE: ABL[place] 2011- COLLECTION VIAL: Thin Prep Vial- LICENSING SERVICES CLERK SOURCE: CERVICAL/ENDOCERVICAL- COLLECTION TECHNIQUE: BRUSH/SPATULASpecimen Comment: [id number] Comment: No. of containers..01 CYTYC Thin Prep Vial tHPVRFLX Comment (Normal) Comments: The HPV DNA reflex criteria were not met with this specimenresult therefore, no HPV testing was performed.Performed at: [address] [place] [id number] Director: Yassine Mathews MD, Phone: [phone] [facility] Comment (Normal) Comments: The Pap smear [...] system. tPERFORM Comment (Normal) Comments: Ariana Victoria, Marine Extension Agent (ASCP) tADEQ Comment (Normal) Comments: Satisfactory for [...] CHOL 150 mg/dL (Normal) Comments: <200 mg/dL Elhbvzqfh159-797 mg/dL Borderline>240 mg/dL High Risk BID 0.08 [...] (Normal) UCLAR Clear (Normal) UCOL Yellow (Normal) 5-Tps-852468:44 Rapid Strep Test, Office (47245) Comments: positive Rapid Strep Test, Office Positive (Normal) 71-Xaq-65483:40 LQDPAP [id number] Comments: CYTOLOGY INFORMATION:- CLINICAL INFORMATION:- DATE LMP/MENOPAUSE: 353332 LMP- COLLECTION VIAL: Thin Prep Vial- LICENSING SERVICES CLERK SOURCE: CERVICAL/ENDOCERVICAL- COLLECTION TECHNIQUE: BRUSH/SPATULA COMM . [...] testing was performed..Performe d at: [facility] - [facility] [id number] Director: Trevor Mathews MD DIAGN Comment (Normal) Comments: NEGATIVE FOR INTRAEPITHELIAL LESION AND MALIGNANCY.Satisfactory for evaluation. Endocervical and/or squamous metaplasticcells (endocervical component) are present.Catina Hill, Marine Extension Agent (ASCP)T his liquid based ThinPrep(R) pap test was screened withthe use of an image guided system. :09 TSH ([id number]) Comments: PATIENT NOT FASTINGClinical Information: [id number] PERFORMED BY: [facility] [place] [id number] [facility] [id number] TSH 2.700 {uIU/mL} (Normal) Range: 0.450-4.500 :32 [...] for patient's is the eGFRmultiplied by 1.212. [facility] Laboratory uses the abbreviated Modification of [...] Disease W/O Kidney Disease>/= 90 Stage One [id number] - 89 Stage Two Suspect Decreased GFR30 [...] 2.6-6.0 VLDL 26 mg/dL (Normal) Range: 5-40 91-Hls-27314:32 EMP URINALYSIS BILIRUBIN URINE SeeNote (Normal) Comments: [...] Very High > or = 500 mg/dL 47-Zdy-514040:45 Upper Respiratory Culture Comments: Clinical Information: SRC:TH PERFORMED BY: [id number] [id number] Result 1 BETAGA (Normal) Comments: Beta hemolytic [...] report (Normal) :31 Rapid Strep Test, Office ([id number]) Rapid Strep Test, Office Negative (Normal) :22 [...] Hypertension Planned Observations CBC W/AUTO DIFF WBC (11652)Indication: Benign essential hypertension On: :24 Request METABOLIC PANEL, COMPREHENSIVE ([id number])Indication: Palpitations On: 3-Feg-355835:22 Request TSH ([id number])Indication: Palpitations On: 8-Bhv-100454:22 Request MICROALBUMIN: CREATININE RATIO ([id number]) AND ([id number])Indication: Benign essential hypertension On: 31-Jch-545867:53 Request TSH (THYROID STIMULATING HORMONE) ([id number])Indication: Arrhythmia On: 62-Kod-444687:52 Request Sputum Culture ([id number])Indication: Cough On: 46-Jdq-30113:53 Request OLIVIA CULTURE-OTHER ([id number])Indication: Sore throat On: 1-Azi-259246:43 Request OLIVIA CULTURE-OTHER ([id number])Indication: Throat pain On: 38-Uza-29979:31 Request Comments: throat cx Triglycerides ([id number])Indication: Hyperglyceridemia On: 66-Zlg-299263:00 Request HDL Cholesterol-Direct (90266)Indication: Low HDL (under 40) On: 54-Frb-929725:00 Request Planned Encounters Medical; 1 Week FU - On: 22-Jul-2018 9:00 [facility] Abeba Holt Planned Procedures APPLICATION OF 24 HOUR HOLTER On: 09-Jul-2018 Intent MONITOR ([id number])By: Abeba Holt EXERCISE STRESS TEST ([id number])By: On: 08-Jul-2018 Intent Abeba Holt Holter Moniter ([id number])By: Jonathon, On: 08-Jul-2018 Intent Abeba Comments: 24 Hour EKG (65029)By: Abeba Holt On: 08-Jul-2018 Intent Comments: Sinus Rhythm- HR 68 PFT - CompleteBy: Zuleyma Vegas CNP On: 24-Nov-2016 Intent Spirometry ([id number])By: Shasta PHILLIPS, On: 24-Nov-2016 Intent Zuleyma Tamayo Comments: normal Aerosol Treatment ([id number])By: Shasta On: 24-Nov-2016 Intent Zuleyma PHILLIPS ELECTROCARDIOGRAM, COMPLETE (ECG) On: 07-Nov-2016 Intent ([id number])By: Luiza Dowd DO Comments: nsr no acute chg Luiza Dowd DO COMP EYE EXAMINATION, ESTAB PATIENT On: 21-Jun-2016 Intent (13013)By: Zuleyma Vegas CNP EKG ([id number])By: Luiza Dowd DO On: 26-Mar-2015 Intent Luiza Dowd DO Comments: nsr no acute chg Solu -Medrol Injection, 125 mg On: 04-Aug-2013 Intent ([id number])By: Zuleyma Vegas CNP Comments: Lot: [id number]: 12/2015Amt: 125mgRoute: IMSite: RUOQ GlutealGiven by: CINDY Kerr Aerosol Treatment ([id number])By: Shasta On: 04-Aug-2013 Intent Zuleyma PHILLIPS Eprescribed prescriptions On: 04-Aug-2013 Intent ([id number])By: Zuleyma Vegas CNP EKG ([id number])By: Luiza Dowd DO On: 14-Aug-2011 Intent Luiza Dowd DO Comments: no acute chg nsr - good Aerosol Treatment ([id number])By: Shasta On: 27-Jun-2011 Intent Zuleyma PHILLIPS EKG ([id number])By: Abeba Holley On: 14-Oct-2009 Intent CINDY Comments: nsr no acute changes Echo CompleteBy: Noemí FOSS, On: 22-Jun-2009 Intent Luiza Marinelli DO Holter Moniter ([id number])By: Noemí On: 22-Jun-2009 Intent Luiza FOSS DO, Kathleen Comments: 48 hour EKG (30133)By: Luiza Dowd DO On: 22-Jun-2009 Intent Luiza Dowd DO Comments: nsr no acute changesno pvc EKG ([id number])By: Luiza Dowd DO On: 30-Sep-2008 Intent Luiza Dowd DO Comments: stable EKG ([id number])By: Luiza Dowd DO On: 30-Sep-2007 Intent Luiza Dowd DO Comments: done-awnsr noacute ischemic changes Aerosol Treatment ([id number])By: Shasta On: 11-Jul-2007 Intent Zuleyma PHILLIPS COMP EYE EXAMINATION, ESTAB PATIENT On: 10-Jun-2007 Intent ([id number])By: Sena Lester LPN Comments: VA Crx- 20/30 OD 20/40 OS 20/25 OU EKG (07412)By: Luiza Dowd DO On: 14-Sep-2006 Intent Luiza [...] blood pressure. ??Heart palpitations were more frequent. [place] them more frequentl y and didn't feel [...] tension (307.81) [facility] CenterTamar Rosa; a guarantor
--- OUTSIDE RECORDS SUMMARY | 2018-09-01 12:33 | XMS RPT_ITS ---
:1970 Author Organization [place] Support Name Relationship Address Phone PITAOUSER LULY/CODI Unavailable [address] + [place] [address] SHELLEY, DYLON Unavailable [address] + [place] [address] [facility] Unavailable [address] + [place] [address] HUMRICHOUSER, LULY/CODI Unavailable [address] + [place] [address] OPAALICIA, DYLON Unavailable [address] + [place] [address] [facility] Unavailable [address] + [place] [address] HUMRICHOUSER, LULY/CODI Unavailable [address] + [place] [address] OPAALICIA, DYLON Unavailable [address] + [place] [address] [facility] Unavailable [address] + [place] [address] HUMRICHOUSER, LULY/CODI Unavailable [address] + [place] [address] OPATZ, DYLON Unavailable [address] + [place] [address] [facility] Unavailable [address] + [place] [address] HUMRICHOUSER, LULY/CODI Unavailable [address] + [place] [address] OPAALICIA, DYLON Unavailable [address] + [place] [address] [facility] Unavailable [address] + [place] [address] HUMRICHOUSER, LULY/CODI Unavailable [address] + [place] [address] OPATZ, DYLON Unavailable [address] + [place] [address] [facility] Unavailable [address] + [place] [address] HUMRICHOUSER, LULY/CODI Unavailable [address] + [place] [address] OPATZ, DYLON Unavailable [address] + [place] [address] [facility] Unavailable [address] + [place] [address] HUMRICHOUSER, LULY/CODI Unavailable [address] + [place] [address] OPATZ, DYLON Unavailable [address] + [place] [address] [facility] Unavailable [address] + [place] [address] HUMRICHOUSER, LULY/CODI Unavailable [address] + [place] [address] OPATZ, DYLON Unavailable [address] + [place] [address] [facility] Unavailable [address] + [place] [address] HUMRICHOUSER, LULY/OCDI Unavailable [address] + [place] [address] OPATZ, DYLON Unavailable [address] + [place] [address] [facility] Unavailable [address] + [place] [address] HUMRICHOUSER, LULY/CODI Unavailable [address] + [place] [address] OPATZ, DYLON Unavailable [address] + [place] [address] [facility] Unavailable [address] + [place] [address] Care Team Providers Name Role Phone Noemí DO, Luiza Attending Unavailable Noemí DO, Luiza Referring Unavailable Noemí DO, Luiza Consulting Unavailable Sree King Attending Unavailable Abeba Holt HIGH LIFT DRIVER-C Referring Unavailable Sree King Attending Unavailable Jonathon, Abeba HIGH LIFT DRIVER-C Referring Unavailable Noemí, Luiza Attending Unavailable Noemí, Luiza Referring Unavailable Noemí, Luiza Primary Care Unavailable Noemí, Luiza Primary Care Unavailable Ungur, Remus Attending Unavailable Benekos, Bailey Attending Unavailable Benekos, Bailey Attending Unavailable Noemí, Luiza Primary Care Unavailable ASSESSMENT, HEALTH RISK Attending Unavailable ASSESSMENT, HEALTH RISK Referring Unavailable Noemí, Luiza Primary Care Unavailable Noemí, Luiza Primary Care Unavailable Owens, Ubaldo Attending Unavailable Jonathon, Abeba HIGH LIFT DRIVER-C Attending Unavailable Jonathon, Abeba HIGH LIFT DRIVER-C Referring Unavailable Noemí, Luiza Primary Care Unavailable Jonathon, Abeba HIGH LIFT DRIVER-C Attending Unavailable Jonathon, Abeba HIGH LIFT DRIVER-C Referring Unavailable Noemí, Luiza Primary Care Unavailable Jonathon, Abeba HIGH LIFT DRIVER-C Attending Unavailable Jonathon, Abeba HIGH LIFT DRIVER-C Referring Unavailable Noemí, Luiza Primary Care Unavailable PROBLEMS PROBLEMS DATE TYPE CONDITION / CODE ATTENDING STATUS SOURCE 07/26/2018 Unknown G44.209 - Noemí, Active [place] Tension-type [facility] headache, Hospital unspecified, not Repository intractable / G44.209(ICD-10) 08/07/2018 Unknown R00.2 - Sree King Active [place] Palpitations / Community R00.2(ICD-10) Hospital Repository 11/07/2017 Unknown Z12.31 - Encounter Bailey Cummins Active [place] for screening [facility] mammogram for Hospital malignant neoplasm Repository of breast / Z12.31(ICD-10) 09/04/2017 Unknown Z12.4 - Encounter Bailey Cummins Active [place] for screening for Community malignant neoplasm Hospital of cervix / Repository Z12.4(ICD-10) PROCEDURES PROCEDURES No Procedure Records FoundRESULTS RESULTS DISCHARGE SUMMARY Observed: 07/25/2018 Status: F Source: [place] 2:25 PM [facility] HOSPITAL REPOSITORY [facility] Medical Records Department [address] [place] [address] Discharge Summary 07/25/18 1423 MR#: [id number] Acct: [id number] Name: GIO ROSA Rep #: [id number] : 1970 48 From: Carmelita Tucker PCP: Luiza Dowd DO Status: REG RCR Y Location: [facility] Therapy Discharge Summary: Initial Evaluation: 09/04/2017 Diagnosis: Muscle tension/ Headaches No. of Visits: Date of last visit: 07/25/2018 Goals: Decreased frequency and intensity of headaches decreased muscle tension decreased back pain This patient is being discharged from our care at the [facility]. Thank you, Carmelita Tucker, T 07/25/18 1425 <Electronically signed by Carmelita Tucker > Date Carmelita Tucker Cosigner Signature (if applicable): Date CC: Carmelita Tucker; Luiza Dowd DO Signed STRESS REPORT Observed: 07/17/2018 Status: F Source: [place] 1:50 PM [facility] REPOSITORY [facility] Cardiovascular Services [address] [place], [place] [id number] MR#: [id number] Acct: [id number] Name: GIO ROSA Rep #: [id number] : 1970 48 From: Sree King MD [...] MOISE Holt; Luiza Dowd DO Date Dictated: 07/17/188 Date Transcribed: 07/17/181347 Bread Room Hand: Signed 12 LEAD ELECTROCARDIOGRAM Observed: 07/09/2018 Status: F Source: [place] 3:39 PM [facility] REPOSITORY [facility] Cardiovascular Services [address] [place] [address] 12 Lead EKG 07/05/18 0831 MR#: [id number] Acct: [id number] Name: GIO ROSA Rep #: [id number] : 1970 48 From: Corona Moore MD [...] normal ECG Confirmed by [place], CORONA ([id number]), news videotape editor DEBBY GUTIÉRREZ (56) on 07/09/2018 3:39:04 PM Referred By: Confirmed By:CORONA MOORE MD 07/09/18 1539 Date Corona Moore MD CC: Luiza Dowd DO; Ubaldo Owens MD Signed CBC W/DIFF, AUTOMATED Collected: 07/08/2018 Status: F Source: [place] 4:43 PM [facility] REPOSITORY TYPE CODE TESTS RESULT OUT OF [...] Lymph 2.01 Performed By: #### L100.0100 #### [facility] Laboratory [address] [place], [address] COMPREHENSIVE METABOLIC Collected: 07/08/2018 Status: F Source: [place] [facility] 4:43 PM [facility] REPOSITORY TYPE CODE TESTS RESULT OUT OF [...] 8 Performed By: #### L500.4050, L501.9520 #### [facility] Laboratory [address] [place], [address] THYROID STIM HORMONE Collected: 07/08/2018 Status: F Source: [place] (TSH) 4:43 PM [facility] REPOSITORY TYPE CODE TESTS RESULT OUT OF RANGE REFERENCE UNITS LAB L501.9520 0.358-3.74 uIU/mL Normal TSH 3.56 Performed By: #### L500.4050, L501.9520 #### [facility] Laboratory [address] [place], [address] EMERGENCY DEPARTMENT Observed: 07/05/2018 Status: F Source: [place] SUMMARY 10:17 AM [facility] REPOSITORY [facility] Medical Records Department [address] [place] [address] Emergency Department Summary 07/05/18 1012 MR#: [id number] Acct: [id number] Name: GIO ROSA Rep #: [id number] : 1970 48 From: Ubaldo Owens MD [...] rhythm with occasional premature ventricular complexes noted. MD interval, QRS duration, QT interval and axis [...] Anxiousness self-reported This note was generated with [employer] software. It may contain incorrect words, spelling, [...] your Primary Care Provider. Call [facility] ([phone]) or report to the closest Emergency Room. Call 911 if necessary. 07/05/18 1017 <Electronically signed by Ubaldo Owens MD> Date Ubaldo Owens MD Cosigner Signature (If Indicated): Date CC: Luiza Dowd DO BASIC METABOLIC Collected: 07/05/2018 Status: F Source: [place] PROFILE (BMP) 8:48 AM [facility] REPOSITORY TYPE CODE TESTS RESULT OUT OF [...] GAP 9 Performed By: #### L500.2500 #### [facility] Laboratory [address] [place], [place], [id number] CBC, EMPLOYEE Collected: 12/11/2017 Status: F Source: [place] 10:02 AM [facility] REPOSITORY TYPE CODE TESTS RESULT OUT OF [...] Lymph 1.64 Performed By: #### L100.0200 #### [facility] Laboratory [facility] [place], [place], [address] URINALYSIS, EMPLOYEE Collected: 12/11/2017 Status: F Source: [place] 10:02 AM [facility] REPOSITORY TYPE CODE TESTS RESULT OUT OF [...] ESTERASE Negative Performed By: #### L400.0100 #### [facility] Laboratory [address] [place], [address] EMPLOYEE PROFILE Collected: 12/11/2017 Status: F Source: [place] 10:02 AM [facility] REPOSITORY TYPE CODE TESTS RESULT OUT OF [...] LDH 148 Performed By: #### L500.2900 #### [facility] [address] [facility] [place], [place], [address] NICOTINE URINE DRUG Collected: 12/11/2017 Status: F Source: [place] SCREEN 10:02 AM [facility] REPOSITORY TYPE CODE TESTS RESULT OUT OF [...] of Nicotine. Performed By: #### L505.6240 #### [facility] Laboratory [address] [facility] [place], [address] SCREENING MAMM (CAD), Observed: 11/07/2017 Status: F Source: [place] BIL 7:27 AM [facility] HOSPITAL REPOSITORY [facility] Imaging Services [address] [place] [address] SCREENING MAMM (CAD), BILAT MR#: [id number] Acct: [id number] Name: GIO ROSA Rep #: [id number] : 1970 F 47 From: Anil Davison MD PCP: Luiza Dowd DO Status: REG CLI Study: SCREENING MAMM (CAD), BILAT Date of Exam: 11/07/17 Exam# [id number] Ordering Dr: Bailey Cummins MD MAMMOGRAPHY - [...] delay biopsy of a clinically suspicious abnormality. [id number] Electronically Signed: Anil Davison MD at 9:08 EDT Tel [phone], Service support , CC: Bailey Cummins MD; Luiza Dowd DO Bread Room Hand: Signed MASSAGE THERAPY Observed: 09/04/2017 Status: F Source: [place] EVALUATION 12:58 PM [facility] REPOSITORY [facility] Physical Therapy [facility] 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 She was [...] > 09/04/17 1258 CC: Luiza Dowd DO Signed For Medicare only, by signing this I certify the plan of care. Physicians Signature Date PAP I-G W/RFX HRHPV Collected: 09/04/2017 Status: F Source: [place] 9:00 AM [facility] REPOSITORY Order Comment: CYTOLOGY INFORMATION: - CLINICAL INFORMATION: - DATE LMP/MENOPAUSE: 2011 LMP - COLLECTION VIAL: Thin Prep Vial - HARNESS AND BAG INSPECTOR SOURCE: CERVICAL/ENDOCERVICAL - COLLECTION TECHNIQUE: BRUSH/SPATULA Specimen Comment: [id number] Specimen Comment: No. of containers..01 ThinPrep Vial TYPE CODE TESTS RESULT OUT OF RANGE REFERENCE UNITS LAB L7400.0800 . Normal DIAGN Comment Result Comment: NEGATIVE FOR INTRAEPITHELIAL LESION AND MALIGNANCY. LAB L7400.0900 . Normal ADEQ Comment Result Comment: Satisfactory for evaluation. Endocervical and/or squamous metaplastic cells (endocervical component) are present. LAB L7400.1400 . Normal PERFORM Comment Result Comment: Olayinka Cordero, [employer] (ASCP) LAB L7400.2575 . Normal TEST METHOD [...] no HPV testing was performed. Performed at: - [facility] [id number] [employer] Operator: Claudette Soto MD, Phone: [phone] Performed By: #### L7400.0350 #### [facility] (refer to report for specific site) refer to report for address and phone number DISCHARGE INSTRUCTION Observed: 09/03/2017 Status: F Source: [place] 8:37 PM [facility] REPOSITORY [facility] Medical Records Department [address] [place] [address] Discharge Instruction 09/03/172034 MR#: [id number] Acct: [id number] Name: GIO ROSA Rep #: [id number] : 1970 47 From: Lacne Gutiérrez DO [...] your Primary Care Provider. Call [facility] ([phone]) or report to the closest Emergency Room. Call 911 if necessary. 09/03/172036 <Electronically signed by Lance Gutiérrez DO> Date Lance Gutiérrez DO Cosigner Signature (If Indicated): Date CC: Luiza Dowd DO EMERGENCY DEPARTMENT Observed: 09/03/2017 Status: F Source: [place] SUMMARY 8:35 PM [facility] REPOSITORY [facility] Medical Records Department [address] [place] [address] Emergency Department Summary 09/03/172031 MR#: [id number] Acct: [id number] Name: GIO ORSA Rep #: [id number] : 1970 47 From: Lance Gutiérrez DO [...] healthcare worker] This note was generated with [employer] dictation software. It may contain incorrect words, [...] your Primary Care Provider. Call [facility] ([phone]) or report to the closest Emergency Room. Call 911 if necessary. 09/03/172034 <Electronically signed by Lance Gutiérrez DO> Date Lance Gutiérrez DO Cosigner Signature (If Indicated): Date CC: Luiza Dowd DO HIV - [facility] Collected: 09/03/2017 Status: F Source: [place] 8:15 PM [facility] REPOSITORY TYPE CODE TESTS RESULT OUT OF RANGE REFERENCE UNITS LAB L3890.6005 Nonreactive Normal HIV - [facility] Non-Reactive Performed By: #### L3890.6005 #### [facility] Laboratory [address] [place], [place], [address] HEPATITIS B SURFACE Collected: 09/03/2017 Status: F Source: [place] AG 8:15 PM [facility] REPOSITORY TYPE CODE TESTS RESULT OUT OF RANGE REFERENCE UNITS LAB L3100.0400 Negative Normal HB Negative SURF AG Result Comment: Performed at: - [facility] [id number] [employer] Operator: Alejo Andre PhD, Phone: [phone] Performed By: #### L3100.0390, L3100.0537, L3100.0625 #### [facility] (refer to report for specific site) refer to report for address and phone number HEP B SURFACE Collected: 09/03/2017 Status: F Source: [place] ANTIBODIES EMP 8:15 PM [facility] REPOSITORY TYPE CODE TESTS RESULT OUT OF [...] 09/03/2017 Status: F Source: [place] 8:15 PM [facility] REPOSITORY TYPE CODE TESTS RESULT OUT OF RANGE REFERENCE UNITS LAB L3100.0650 0.0-0.9 s/co ratio Normal HEP C AB <0.1 Result Comment: Negative: < 0.8 Indeterminate: 0.8 - 0.9 Positive: > 0.9 The CDC recommends that a positive HCV antibody result be followed up with a HCV Nucleic Acid Amplification test (050814). Performed By: #### L3100.0390, L3100.0537, L3100.0625 #### [facility] (refer to report for specific site) refer to report for address and phone number ALLERGIES ALLERGIES DATE TYPE / CODE NAME / CODE REACTION SEVERITY SOURCE 09/03/2017 Drug codeine/F006 Nausea Unknown [facility] Allergy/4160 348914([facility] 64721(SNOMED M) Repository CT) ENCOUNTERS ENCOUNTERS ADMIT/DISCHARGE ACCOUNT ADMITTING ENCOUNTER LOCATION SOURCE NUMBER CLASS 07/25/2018/ [id number] Ambulatory [place] 8 7 [facility] ing:MASS Repository 07/17/2018 [id number] Ambulatory BMSBuilding:W [place] 2 [facility] Repository 07/17/2018 [id number] Ambulatory [place] 4 [facility] ing:CVS Repository 07/16/2018 [id number] Ambulatory BMSBuilding:W [place] 2 [facility] Repository 07/16/2018 [id number] Ambulatory [place] [address] [facility] Hospital ing:PSN Repository 07/09/2018 6866 Ambulatory Building:[facility] [place] Practices Repository 07/08/2018 [id number] Ambulatory [place] [address] [facility] Hospital ing:MTLAB Repository 07/05/2018/ [id number] Emergency [place] [address] [facility] Hospital ing:ED Repository 12/11/2017 [id number] Ambulatory [place] [address] [facility] Hospital ing:MTLAB Repository 11/07/2017 [id number] Ambulatory [place] [address] [facility] Hospital ing:OPBI Repository 09/04/2017 [id number] Ambulatory [place] [address] [facility] Hospital ing:LABSPEC Repository 09/03/2017 [id number] Ambulatory [place] [address] [facility] Hospital ing:EDREF Repository PAYERS PAYERS ENCOUNTER GUARANTOR PAYER SUBSCRIBER SOURCE 07/25/2018 GIO [id number] Primary Insurance:[facility] GIO Yung [facility] OPAALICIADOB: [facility] [id number] Hospital [address]Yxi: (330) Number: Repository [phone] () [id number] Date:7260-78-07BX [address] [address], [place] [address]MY: CHECK WEBSITE 07/25/2018 Secondary NOT GIVENUNK [place] Insurance:SELF PAY [facility] Number: Effective Repository Date:2017-08-23 07/17/2018 GIO M [id number] Primary Insurance:[facility] GIO Galicia [facility] OPADOB: [facility] [id number] Hospital [address]Ihv: (330) Number: Repository [phone] () [id number] Date:4080-92-65QH [address] [address], [place] [address]XV: CHECK WEBSITE 07/17/2018 Secondary NOT GIVENUNK [place] Insurance:SELF PAY [facility] Number: Effective Repository Date:2018-07-17 07/17/2018 GIO Frida [id number] Primary Insurance:[facility]IO [facility] [id number] Hospital [address]Ayg: (330) Number: Repository [phone] () [id number] Date:4828-30-95PC [address] [address], [place] [address]GW: CHECK WEBSITE 07/17/2018 Secondary NOT GIVENUNK [place] Insurance:SELF PAY [facility] Number: Effective Repository Date:2018-07-09 07/16/2018 GIO Frdia [id number] Primary Insurance:[facility] GIO Yung [facility] OPADOB: [facility] [id number] Hospital [address]Ycu: (330) Number: Repository [phone] () [id number] Date:1291-49-67CP [address] [address]RN, [place] [address]OU: CHECK WEBSITE 07/16/2018 Secondary NOT GIVENUNK [place] Insurance:SELF PAY [facility] Number: Effective Repository Date:2018-07-16 07/16/2018 GIO Galicia [id number] Primary Insurance:[facility] OPATZDOB: [facility] [id number] Hospital [address]Lcr: (330) Number: Repository [phone] (HP) [id number] Date:7548-27-50CZ [address] [address]NFEJZ[place]FB, [place] [address]SR: CHECK WEBSITE 07/16/2018 [facility]SELF [facility] Number: Effective Repository Date:2018-07-09 07/09/2018 Gio Galicia Primary Gio Galicia OHIP Practices OpatzDOB: Insurance:Medical OpatzDOB: Repository [facility] [id number] Brooke Number: [place], [place] [id number] [place], [place] [address]Wmi: (330) Date:2572-11-67Uaio [address]Hgb: Name:[facility] [phone] (HP) (HP)Tel: [phone], [place] [phone] () [id number]: 07/09/2018 Secondary Gio Galicia OHIP Practices Insurance:CBCA/CCH, OpatzDOB: Repository [facility] Number: [id number] [facility] Date:2005-08-06 - [place], [place] 5531-99-04Yjwq [address]Lcb: Name:[facility] [address], [place] [address] (HP) [address]KR: 07/08/2018 GIO Galicia [id number] Primary Insurance:[facility] GIO Yung [facility] OPATZDOB: [facility] [id number] Hospital [address]Kqz: (330) Number: Repository [phone] (HP) [id number] Date:4882-91-82TZ [address] [address]IJDMTHLLV, [place] [address]JL: CHECK WEBSITE 07/08/2018 Secondary NOT GIVENUNK [place] Insurance:SELF PAY [facility] Number: Effective Repository Date:2018-07-08 07/05/2018 GIO Galicia [id number] Primary Insurance:[facility] OPADOB: [facility] [id number] Hospital [address]Nru: (330) Number: Repository [phone] () [id number] Date:3286-84-96UC [address] [address]WSFZGKTB[place], [place] [address]FR: CHECK WEBSITE 07/05/2018 Secondary NOT GIVENUNK [place] Insurance:SELF PAY [facility] Number: Effective Repository Date:2018-07-05 12/11/2017 Gio Galicia [id number] Primary NOT GIVENUNK [place] Saba Insurance:SELF PAY [facility] [address]Hud: Number: Effective Repository [phone] Date:2017-12-11 () 11/07/2017 Gio Galicia [id number] Primary Insurance:[facility]icia [facility] [id number] Hospital [address]Eiw: Number: Repository [phone] [id number] () Date:6044-91-67QI [address] [address]KPQYIGDXU, [place] [address]EC: CHECK WEBSITE 11/07/2017 Secondary NOT GIVENUNK [place] Insurance:SELF PAY [facility] Number: Effective Repository Date:2017-09-27 09/04/2017 Gio Galicia [id number] Primary Insurance:[facility] Gio Galicia [facility] [id number] Hospital [address]Zxu: Number: Repository [phone] [id number] (HP) Date:7675-73-10FF [address] [address]EUGCELKXH, [place] [address]LR: CHECK WEBSITE 09/04/2017 Secondary NOT GIVENUNK [place] Insurance:SELF PAY [facility] Number: Effective Repository Date:2017-09-04 09/03/2017 Gio Galicia [id number] Primary NOT GIVENUNK [place] Saba Insurance:SELF PAY [facility] Cecile [facility] [address]Peu: Number: Effective Repository [phone] Date:2017-09-03 ()
== END ==
PROVIDERS: Family Provider Internal Medicine; PCP Internal Medicine; Referring Provider Nurse Practitioner Gerontology; Visit Provider Nurse Practitioner Gerontology
DX: R00.2 Palpitations (principal)
CPT/HCPCS: 93225; 93226

== ENCOUNTER → 2018-07-17 11:26 | Outpatient (CLI) | payer OTHER, SELFPAY ==
[2018-07-05 08:29] VITALS: BMI 41.1
--- NOTE | 2018-07-17 13:48 | STRESSREP ---
Stress Test Report Treadmill EKG results: Resting EKG: Normal sinus rhythm, normal axis, normal intervals, poor R wave progression across the precordium which may be secondary to lead misplacement. Treadmill EKG: The patient exercise according to a Juancarlos protocol for 3 minutes and 54 seconds achieving a maximum workload of 5.60 mets. Patient's heart rate was originally 64 beats a minute and kamari to maximum of 151 bpm which represents 87% of the maximal age-predicted heart rate. Resting blood pressure was 164/100, and kamari to maximum of 220/70. Exercise was stopped due to target heart rate achieved and dyspnea. During exercise the patient's heart rate increased as expected. During exercise the patient had subtle upsloping ST segment depression along the inferior lateral leads at peak exercise which resolved by about 1 minute into recovery. No arrhythmias noted. No anginal symptoms noted. Conclusions: Normal adequate treadmill EKG. Negative for ischemia by EKG criteria. No anginal symptoms noted. No arrhythmias noted. Baseline hypertension with hypertensive blood pressure response to exercise. Below average exercise capacity for age. Patient tolerated the procedure well. No complications.
--- OUTSIDE RECORDS SUMMARY | 2018-09-02 14:40 | XMS RPT_ITS ---
:1970 Author Organization [place] Support Name Relationship Address Phone PITAOUSER LULY/CODI Unavailable [address] + [place] [address] SHELLEY, DYLON Unavailable [address] + [place] [address] [facility] Unavailable [address] + [place] [address] HUMRICHOUSER, LULY/CODI Unavailable [address] + [place] [address] OPAALICIA, DYLON Unavailable [address] + [place] [address] [facility] Unavailable [address] + [place] [address] HUMRICHOUSER, LULY/CODI Unavailable [address] + [place] [address] OPAALICIA, DYLON Unavailable [address] + [place] [address] [facility] Unavailable [address] + [place] [address] HUMRICHOUSER, LULY/CODI Unavailable [address] + [place] [address] OPATZ, DYLON Unavailable [address] + [place] [address] [facility] Unavailable [address] + [place] [address] HUMRICHOUSER, LULY/CODI Unavailable [address] + [place] [address] OPAALICIA, DYLON Unavailable [address] + [place] [address] [facility] Unavailable [address] + [place] [address] HUMRICHOUSER, LULY/CODI Unavailable [address] + [place] [address] OPATZ, DYLON Unavailable [address] + [place] [address] [facility] Unavailable [address] + [place] [address] HUMRICHOUSER, LULY/CODI Unavailable [address] + [place] [address] OPATZ, DYLON Unavailable [address] + [place] [address] [facility] Unavailable [address] + [place] [address] HUMRICHOUSER, LULY/CODI Unavailable [address] + [place] [address] OPATZ, DYLON Unavailable [address] + [place] [address] [facility] Unavailable [address] + [place] [address] HUMRICHOUSER, LULY/CODI Unavailable [address] + [place] [address] OPATZ, DYLON Unavailable [address] + [place] [address] [facility] Unavailable [address] + [place] [address] HUMRICHOUSER, LULY/CODI Unavailable [address] + [place] [address] OPATZ, DYLON Unavailable [address] + [place] [address] [facility] Unavailable [address] + [place] [address] HUMRICHOUSER, LULY/CODI Unavailable [address] + [place] [address] OPATZ, DYLON Unavailable [address] + [place] [address] [facility] Unavailable [address] + [place] [address] Care Team Providers Name Role Phone Noemí DO, Luiza Attending Unavailable Noemí DO, Luiza Referring Unavailable Noemí DO, Luiza Consulting Unavailable Sree King Attending Unavailable Abeba Holt ROLLER SKATE REPAIRER-C Referring Unavailable Sree King Attending Unavailable Jonathon, Abeba ROLLER SKATE REPAIRER-C Referring Unavailable Noemí, Luiza Attending Unavailable Noemí, Luiza Referring Unavailable Noemí, Luiza Primary Care Unavailable Noemí, Luiza Primary Care Unavailable Ungur, Remus Attending Unavailable Benekos, Bailey Attending Unavailable Benekos, Bailey Attending Unavailable Noemí, Luiza Primary Care Unavailable ASSESSMENT, HEALTH RISK Attending Unavailable ASSESSMENT, HEALTH RISK Referring Unavailable Noemí, Luiza Primary Care Unavailable Noemí, Luiza Primary Care Unavailable Owens, Ubaldo Attending Unavailable Jonathon, Abeba ROLLER SKATE REPAIRER-C Attending Unavailable Jonathon, Abeba ROLLER SKATE REPAIRER-C Referring Unavailable Noemí, Luiza Primary Care Unavailable Jonathon, Abeba ROLLER SKATE REPAIRER-C Attending Unavailable Jonathon, Abeba ROLLER SKATE REPAIRER-C Referring Unavailable Noemí, Luiza Primary Care Unavailable Jonathon, Abeba ROLLER SKATE REPAIRER-C Attending Unavailable Jonathon, Abeba ROLLER SKATE REPAIRER-C Referring Unavailable Noemí, Luiza Primary Care Unavailable PROBLEMS PROBLEMS DATE TYPE CONDITION / CODE ATTENDING STATUS SOURCE 07/26/2018 Unknown G44.209 - Noemí, Active [place] Tension-type [facility] headache, Hospital unspecified, not Repository intractable / G44.209(ICD-10) 08/07/2018 Unknown R00.2 - Sree King Active [place] Palpitations / Community R00.2(ICD-10) Hospital Repository 11/07/2017 Unknown Z12.31 - Encounter Bailey Cummins Active [place] for screening [facility] mammogram for Hospital malignant neoplasm Repository of breast / Z12.31(ICD-10) 09/04/2017 Unknown Z12.4 - Encounter Bailey Cummins Active [place] for screening for Community malignant neoplasm Hospital of cervix / Repository Z12.4(ICD-10) PROCEDURES PROCEDURES No Procedure Records FoundRESULTS RESULTS DISCHARGE SUMMARY Observed: 07/25/2018 Status: F Source: [place] 2:25 PM [facility] REPOSITORY [facility] Medical Records Department [address] [place] [address] Discharge Summary 07/25/18 1423 MR#: [id number] Acct: [id number] Name: GIO ROSA Rep #: [id number] : 1970 48 From: Carmelita Tucker PCP: Luiza Dowd DO Status: REG RCR Y Location: [facility] Therapy Discharge Summary: Initial Evaluation: 09/04/2017 Diagnosis: Muscle tension/ Headaches No. of Visits: Date of last visit: 07/25/2018 Goals: Decreased frequency and intensity of headaches decreased muscle tension decreased back pain This patient [facility]. Thank you, Carmelita Tucker, T 07/25/18 1425 <Electronically signed by Carmelita Tucker > Date Carmelita Tucker Cosigner Signature (if applicable): Date CC: Carmelita Tucker; Luiza Dowd DO Signed STRESS REPORT Observed: 07/17/2018 Status: F Source: [place] 1:50 PM [facility] Cardiovascular Services [address] [place], [place] [address] MR#: [id number] Acct: [id number] Name: GIO ROSA Rep #: [id number] : 1970 48 From: Sree King MD [...] DO Date Dictated: 07/17/188 Date Transcribed: 07/17/181347 Service Shop Foreman: Signed 12 LEAD ELECTROCARDIOGRAM Observed: 07/09/2018 Status: F Source: [place] 3:39 PM [facility] Cardiovascular Services [address] [place] [address] 12 Lead EKG 07/05/18 0831 MR#: [id number] Acct: [id number] Name: GIO ROSA Rep #: [id number] : 1970 48 From: Corona Moore MD [...] normal ECG Confirmed by [place], CORONA ([id number]), pictures editor DEBBY GUTIÉRREZ (56) on 07/09/2018 3:39:04 PM Referred By: Confirmed By:CORONA MOORE MD 07/09/18 1539 Date Corona Moore MD CC: Luiza Dowd DO; Ubaldo Owens MD Signed CBC W/DIFF, AUTOMATED Collected: 07/08/2018 Status: F Source: [place] 4:43 PM [facility] TYPE CODE TESTS RESULT OUT OF [...] Lymph 2.01 Performed By: #### L100.0100 #### [facility] [address] [place], [address] COMPREHENSIVE METABOLIC Collected: 07/08/2018 Status: F Source: [place] [facility] 4:43 PM [facility] TYPE CODE TESTS RESULT OUT OF [...] 8 Performed By: #### L500.4050, L501.9520 #### [facility] [address], [address] THYROID STIM HORMONE Collected: 07/08/2018 Status: F Source: [place] (TSH) 4:43 PM [facility] TYPE CODE TESTS RESULT OUT OF RANGE REFERENCE UNITS LAB L501.9520 0.358-3.74 uIU/mL Normal TSH 3.56 Performed By: #### L500.4050, L501.9520 #### [facility] [address] [place], [address] EMERGENCY DEPARTMENT Observed: 07/05/2018 Status: F Source: [place] SUMMARY 10:17 AM [facility] Medical Records Department [address] [place] [address] Emergency Department Summary 07/05/18 1012 MR#: [id number] Acct: [id number] Name: GIO ROSA Rep #: [id number] : 1970 48 From: Ubaldo Owens MD [...] rhythm with occasional premature ventricular complexes noted. AR interval, QRS duration, QT interval and axis [...] Anxiousness self-reported This note was generated with 360Learningation software. It may contain incorrect words, spelling, [...] your Primary Care Provider. Call [facility] ([phone]) or report to the closest Emergency Room. Call 911 if necessary. 07/05/18 1017 <Electronically signed by Ubaldo Owens MD> Date Ubaldo Owens MD Cosigner Signature (If Indicated): Date CC: Luiza Dowd DO BASIC METABOLIC Collected: 07/05/2018 Status: F Source: [place] PROFILE (BMP) 8:48 AM [facility] TYPE CODE TESTS RESULT OUT OF [...] GAP 9 Performed By: #### L500.2500 #### [facility] [address] [place], [place], [address] CBC, EMPLOYEE Collected: 12/11/2017 Status: F Source: [place] 10:02 AM [facility] TYPE CODE TESTS RESULT OUT OF [...] Lymph 1.64 Performed By: #### L100.0200 #### [facility] Laboratory [facility] [facility] [place], [place], [address] URINALYSIS, EMPLOYEE Collected: 12/11/2017 Status: F Source: [place] 10:02 AM [facility] TYPE CODE TESTS RESULT OUT OF [...] ESTERASE Negative Performed By: #### L400.0100 #### [facility] [address] [place], [address] EMPLOYEE PROFILE Collected: 12/11/2017 Status: F Source: [place] 10:02 AM [facility] TYPE CODE TESTS RESULT OUT OF [...] LDH 148 Performed By: #### L500.2900 #### [facility] [address] [facility] [place], [place], [address] NICOTINE URINE DRUG Collected: 12/11/2017 Status: F Source: [place] SCREEN 10:02 AM [facility] TYPE CODE TESTS RESULT OUT OF [...] of Nicotine. Performed By: #### L505.6240 #### [facility] [address] [facility] [place], [address] SCREENING MAMM (CAD), Observed: 11/07/2017 Status: F Source: [place] BIL 7:27 AM [facility] REPOSITORY [facility] Imaging Services [address] [place] [address] SCREENING MAMM (CAD), BILAT MR#: [id number] Acct: [id number] Name: GIO ROSA Rep #: [id number] : 1970 F 47 From: Anil Davison MD PCP: Luiza Dowd DO Status: REG CLI Study: SCREENING MAMM (CAD), BILAT Date of Exam: 11/07/17 Exam# [id number] Ordering Dr: Bailey Cummins MD MAMMOGRAPHY - [...] delay biopsy of a clinically suspicious abnormality. [id number] Electronically Signed: Anil Dav[place] MD at 9:08 EDT Tel [phone], Service support , CC: Bailey Cummins MD; Luiza Dowd DO Service Shop Foreman: Signed MASSAGE THERAPY Observed: 09/04/2017 Status: F Source: [place] EVALUATION 12:58 PM [facility] Physical Therapy [facility] 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 She [...] Source: [place] 9:00 AM [facility] Order Comment: CYTOLOGY INFORMATION: - CLINICAL INFORMATION: - DATE LMP/MENOPAUSE: 2011 LMP - COLLECTION VIAL: Thin Prep Vial - SUPERINTENDENT FACTORY SOURCE: CERVICAL/ENDOCERVICAL - COLLECTION TECHNIQUE: BRUSH/SPATULA Specimen Comment: [id number] Specimen Comment: No. of containers..01 ThinPrep Vial TYPE CODE TESTS RESULT OUT OF RANGE REFERENCE UNITS LAB L7400.0800 . Normal DIAGN Comment Result Comment: NEGATIVE FOR INTRAEPITHELIAL LESION AND MALIGNANCY. LAB L7400.0900 . Normal ADEQ Comment Result Comment: Satisfactory for evaluation. Endocervical and/or squamous metaplastic cells (endocervical component) are present. LAB L7400.1400 . Normal PERFORM Comment Result Comment: Olayinka Cordero, Radio Board Operator Announcer (ASCP) LAB L7400.2575 . Normal TEST METHOD [...] HPV testing was performed. Performed at: - [facility] [id number] Loss Prevention/Safety District Manager: Claudette Soto MD, Phone: [phone] Performed By: #### L7400.0350 #### [facility] (refer to report for specific site) refer to report for address and phone number DISCHARGE INSTRUCTION Observed: 09/03/2017 Status: F Source: [place] 8:37 PM [facility] Medical Records Department [address] [place] [address] Discharge Instruction 09/03/172034 MR#: [id number] Acct: [id number] Name: GIO ROSA Rep #: [id number] : 1970 47 From: Lance Gutiérrez DO [...] your Primary Care Provider. Call [facility] ([phone]) or report to the closest Emergency Room. Call 911 if necessary. 09/03/172036 <Electronically signed by Lance Gutiérrez DO> Date Lance Gutiérrez DO Cosigner Signature (If Indicated): Date CC: Luiza Dowd DO EMERGENCY DEPARTMENT Observed: 09/03/2017 Status: F Source: [place] SUMMARY 8:35 PM [facility] Medical Records Department [address] [place] [address] Emergency Department Summary 09/03/172031 MR#: [id number] Acct: [id number] Name: GIO ROSA Rep #: [id number] : 1970 47 From: Lance Gutiérrez DO [...] healthcare worker] This note was generated with [employer] dictation software. It may contain incorrect words, [...] your Primary Care Provider. Call [facility] ([phone]) or report to the closest Emergency Room. Call 911 if necessary. 09/03/172034 <Electronically signed by Lance Gutiérrez DO> Date Lance Gutiérrez DO Cosigner Signature (If Indicated): Date CC: Luiza Dowd DO HIV - [facility] Collected: 09/03/2017 Status: F Source: [place] 8:15 PM [facility] TYPE CODE TESTS RESULT OUT OF RANGE REFERENCE UNITS LAB L3890.6005 Nonreactive Normal HIV - [facility] [employer] Non-Reactive Performed By: #### L3890.6005 #### [facility] [address] [place], [place], [address] HEPATITIS B SURFACE Collected: 09/03/2017 Status: F Source: [place] AG 8:15 PM [facility] TYPE CODE TESTS RESULT OUT OF RANGE REFERENCE UNITS LAB L3100.0400 Negative Normal HB Negative SURF AG Result Comment: Performed at: - [facility] [id number] Loss Prevention/Safety District Manager: Alejo Andre PhD, Phone: [phone] Performed By: #### L3100.0390, L3100.0537, L3100.0625 #### [facility] (refer to report for specific site) refer to report for address and phone number HEP B SURFACE Collected: 09/03/2017 Status: F Source: [place] ANTIBODIES EMP 8:15 PM [facility] TYPE CODE TESTS RESULT OUT OF [...] Source: [place] 8:15 PM [facility] TYPE CODE TESTS RESULT OUT OF RANGE REFERENCE UNITS LAB L3100.0650 0.0-0.9 s/co ratio Normal HEP C AB <0.1 Result Comment: Negative: < 0.8 Indeterminate: 0.8 - 0.9 Positive: > 0.9 The CDC recommends that a positive HCV antibody result be followed up with a HCV Nucleic Acid Amplification test (961188). Performed By: #### L3100.0390, L3100.0537, L3100.0625 #### [facility] (refer to report for specific site) refer to report for address and phone number ALLERGIES ALLERGIES DATE TYPE / CODE NAME / CODE REACTION SEVERITY SOURCE 09/03/2017 Drug codeine/F006 Nausea Unknown [facility] Allergy/4160 408893([facility] [address](SNOMED M) Repository CT) ENCOUNTERS ENCOUNTERS ADMIT/DISCHARGE ACCOUNT ADMITTING ENCOUNTER LOCATION SOURCE NUMBER CLASS 07/25/2018/ [id number] Ambulatory [place] 8 7 [facility] ing:MASS Repository 07/17/2018 [id number] Ambulatory BMSBuilding:W [place] 2 [facility] Repository 07/17/2018 [id number] Ambulatory [place] 4 [facility] ing:[facility] Repository 07/16/2018 [id number] Ambulatory BMSBuilding:W [place] 2 [facility] Repository 07/16/2018 [id number] Ambulatory [place] 5 [facility] Hospital ing:PSN Repository 07/09/2018 6866 Ambulatory Building:[facility] [place] Practices Repository 07/08/2018 [id number] Ambulatory [place] 3 [facility] Hospital ing:MTLAB Repository 07/05/2018/ [id number] Emergency [place] 8 4 [facility] Hospital ing:ED Repository 12/11/2017 [id number] Ambulatory [place] 4 [facility] Hospital ing:MTLAB Repository 11/07/2017 [id number] Ambulatory [place] 9 [facility] Hospital ing:OPBI Repository 09/04/2017 [id number] Ambulatory [place] 3 [facility] Hospital ing:LABSPEC Repository 09/03/2017 [id number] Ambulatory [place] 5 [facility] Hospital ing:EDREF Repository PAYERS PAYERS ENCOUNTER GUARANTOR PAYER SUBSCRIBER SOURCE 07/25/2018 GIO [id number] Primary Insurance:[facility] GIO [facility]ung [facility] OPAALICIADOB: [facility] [id number] Hospital [address]Ypx: (330) Number: Repository [phone] () [id number] Date:0332-90-52CX [address] [address], [place] [address]AH: CHECK WEBSITE 07/25/2018 Secondary NOT GIVENUNK Stone Insurance:SELF PAY [facility] Number: Effective Repository Date:2017-08-23 07/17/2018 GIO M [id number] Primary Insurance:[facility] GIO Galicia [facility] OPADOB: [facility] [id number] Hospital [address]Jul: (330) Number: Repository [phone] () [id number] Date:5701-65-95SJ [address] [address], [place] [address]SA: CHECK WEBSITE 07/17/2018 Secondary NOT GIVENUNK Stone Insurance:SELF PAY [facility] Number: Effective Repository Date:2018-07-17 07/17/2018 GIO Frida [id number] Primary Insurance:[facility] [id number] Hospital [address]Imb: (330) Number: Repository [phone] () [id number] Date:3099-34-44SD [address] [address], [place] [address]MC: CHECK WEBSITE 07/17/2018 Secondary NOT GIVENUNK Stone Insurance:SELF PAY [facility] Hospital Number: Effective Repository Date:2018-07-09 07/16/2018 GIO Frida [id number] Primary Insurance:[facility] GIO [facility] OPADOB: [facility] [id number] Hospital [address]Ejo: (330) Number: Repository [phone] () [id number] Date:1999-17-05GY [address] [address], [place] [address]ZS: CHECK WEBSITE 07/16/2018 Secondary NOT GIVENUNK [place] Insurance:SELF PAY [facility] Number: Effective Repository Date:2018-07-16 07/16/2018 GIO Galicia [id number] Primary Insurance:[facility] OPATZDOB: [facility] [id number] Hospital [address]Tpr: (330) Number: Repository [phone] (HP) [id number] Date:7324-30-04ZP [address] [address], [place] [address]AB: CHECK WEBSITE 07/16/2018 Secondary [facility] Insurance:SELF PAY [facility] Number: Effective Repository Date:2018-07-09 07/09/2018 Gio Galicia Primary Gio Galicia OHIP Practices OpatzDOB: Insurance:Medical OpatzDOB: Repository [facility] [id number] Brooke Number: [place], [place] [id number] [place], [place] [address]Xsi: (330) Date:4423-34-11Doeg [address]Lsl: Name:[facility] [phone] (HP) (HP)Tel: [phone]) [phone], [place] [phone] () [id number]: 07/09/2018 Secondary Gio Galicia OHIP Practices Insurance:CBCA/CCH, OpatzDOB: Repository [facility] Number: [id number] [facility] Date:2005-08-06 - [place], [place] 8492-79-34Geie [address]Guk: Name:[facility] [address], [place] [address] (HP) [address]SX: 07/08/2018 GIO Galicia [id number] Primary Insurance:[facility] GIO [facility]ung [facility] OPATZDOB: [facility] [id number] Hospital [address]Zzq: (330) Number: Repository [phone] (HP) [id number] Date:2736-68-11TP [address] [address], [place] [address]ST: CHECK WEBSITE 07/08/2018 Secondary NOT GIVENUNK [place] Insurance:SELF PAY [facility] Number: Effective Repository Date:2018-07-08 07/05/2018 GIO Galicia [id number] Primary Insurance:[facility] OPADOB: [facility] [id number] Hospital [address]Uhu: (330) Number: Repository [phone] () [id number] Date:0234-22-88LF [address] [address]ZX[place]RZ[place], [place] [address]XB: CHECK WEBSITE 07/05/2018 Secondary NOT GIVENUNK Stone Insurance:SELF PAY [facility] Number: Effective Repository Date:2018-07-05 12/11/2017 Gio Galicia [id number] Primary NOT GIVENUNK [place] Saba Insurance:SELF PAY [facility] [address]Uoa: Number: Effective Repository [phone] Date:2017-12-11 () 11/07/2017 Gio Galicia [id number] Primary Insurance:[facility] [id number] Hospital [address]Wue: Number: Repository [phone] [id number] -3 () Date:0292-94-01XI [address] [address]SBWAPXRIP, [place] [address]JB: CHECK WEBSITE 11/07/2017 Secondary NOT GIVENUNK [place] Insurance:SELF PAY [facility] Number: Effective Repository Date:2017-09-27 09/04/2017 Gio Galicia [id number] Primary Insurance:[facility] Gio Galicia [facility] [id number] Hospital [address]Bco: Number: Repository [phone] [id number] (HP) Date:4352-78-00ZL [address] [address]WFSCLCBOB, [place] [address]SG: CHECK WEBSITE 09/04/2017 Secondary NOT GIVENUNK Stone Insurance:SELF PAY [facility] Number: Effective Repository Date:2017-09-04 09/03/2017 Gio Galicia [id number] Primary NOT GIVENUNK [place] Saba Insurance:SELF PAY [facility] [address]Cor: Number: Effective Repository [phone] Date:2017-09-03 ()
== END ==
PROVIDERS: Family Provider Internal Medicine; PCP Internal Medicine; Referring Provider Nurse Practitioner Gerontology; Visit Provider Nurse Practitioner Gerontology
DX: R00.2 Palpitations (principal)
CPT/HCPCS: 93017

== ENCOUNTER 2018-07-25 13:15 | Outpatient (RCR) | payer OTHER, SELFPAY ==
--- NOTE | 2017-09-04 12:49 | MASS.EVAL ---
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 She was referred for massotherapy evaluation with a diagnosis of tension HAs. She reports the issue is chronic. Stress and work are contributing factors. Activities of daily living are not affected. She also reports occasional low back pain. Medications: Bystolic, Dexilart, FLonase, Asmanex Goals: Decrease RICH Decrease Muscle Tension Decrease Back Pain Her first treatment consisted of a one hour massage to the upper body focusing on the neck shoulders and back. The patient did have significant muscle tension throughout the upper body as well as knots in the trapezius and rhomboids. She responded well to treatment and reported a decrease in tension and muscle ache after therapy. I plan to see her 1 time per month or as needed for a total of 10 one hour sessions of massage. Carmelita Tucker LMT
--- NOTE | 2017-09-04 12:57 | MASS.EVAL_ITS ---
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 She was referred for massotherapy evaluation with a diagnosis of tension HAs. She reports the issue is chronic. Stress and work are contributing factors. Activities of daily living are not affected. She also reports occasional low back pain. Medications: Bystolic, Dexilart, FLonase, Asmanex Goals: Decrease RICH Decrease Muscle Tension Decrease Back Pain Her first treatment consisted of a one hour massage to the upper body focusing on the neck shoulders and back. The patient did have significant muscle tension throughout the upper body as well as knots in the trapezius and rhomboids. She responded well to treatment and reported a decrease in tension and muscle ache after therapy. I plan to see her 1 time per month or as needed for a total of 10 one hour sessions of massage. Carmelita Tucker LMT
--- NOTE | 2018-07-25 14:23 | MASS.DISCH ---
Massage Therapy Discharge Summary: Initial Evaluation: 09/04/2017 Diagnosis: Muscle tension/ Headaches No. of Visits: Date of last visit: 07/25/2018 Goals: Decreased frequency and intensity of headaches decreased muscle tension decreased back pain This patient is being discharged from our care at the [facility]. Thank you, Carmelita Tucker LMT
== END 2018-07-25 19:00 | disposition home or self-care (01) ==
LOC: MASS 13:15
PROVIDERS: Family Provider Internal Medicine; PCP Internal Medicine; Visit Provider Internal Medicine
DX: G44.209 Tension-type headache, unspecified, not intractable (principal)
CPT/HCPCS: 97124

== ENCOUNTER → 2018-12-11 11:46 | Outpatient (CLI) | payer OTHER, SELFPAY ==
[2018-12-11 11:22] VITALS: BMI 42.9
--- NOTE | 2018-12-11 11:48 | RAD_ITS ---
STUDY: X-RAY - LUMBAR SPINE REASON FOR EXAM: Female, 48 years old. Lower back pain TECHNIQUE: 3 view(s) of the lumbar spine were obtained. COMPARISON: None FINDINGS: Normal vertebral body height and alignment. Preserved lordosis. No significant scoliosis. Minimal disc narrowing and endplate degenerative changes are present at L1-L2, L5-S1. Mild facet arthropathy L4-5, L5-S1. Kam-lumbarization of S1. Transitional lumbosacral vertebral anatomy. RAD/Lumbar Spine 2 or 3 Views IMPRESSION: Transitional lumbosacral vertebral anatomy, low lumbar facet arthropathy, minimal disc degeneration as noted above. No fracture or traumatic subluxation. Electronically Signed: Carmelo Jaramillo MD at 16:03 EDT Tel , Service support ,
== END ==
PROVIDERS: Family Provider Internal Medicine; PCP Internal Medicine; Referring Provider Chiropractor; Visit Provider Chiropractor
DX: M99.03 Segmental and somatic dysfunction of lumbar region (principal)
CPT/HCPCS: 72100

== ENCOUNTER → 2019-01-14 10:15 | Outpatient (CLI) | payer OTHER, SELFPAY ==
[2018-12-11 11:22] VITALS: BMI 42.9
[2018-12-25 11:54] VITALS: BMI 42.9
--- NOTE | 2019-01-14 10:17 | BI_ITS ---
MAMMOGRAPHY - BILATERAL SCREENING REASON FOR EXAM: Female, 48 years old. Routine annual screening examination. PERTINENT HISTORY: Mother with breast cancer. TECHNIQUE: Digital bilateral breast shun (3D mammographic acquisition) in the CC and MLO projections. 2-D mediolateral oblique (MLO) and craniocaudad (CC) views of both breasts were obtained. CAD: Full Field Digital Mammography with Computer Added Detection was performed. COMPARISON: Comparison is made with prior study dated November 07, 2017 and August 31, 2016. FINDINGS: Breast Composition: The breasts are heterogeneously dense, which may obscure small masses. There are no dominant masses or suspicious calcifications. No other significant abnormalities are identified. There has been no significant change since the prior study. BI/SCREEN MAMM (CAD) W/SHUN BILAT IMPRESSION: Stable bilateral screening mammogram. Yearly follow-up mammogram recommended. (A) ASSESSMENT CATEGORY: BIRADS Category 1: Negative. A letter regarding these results will be sent to the patient by the facility within 30 days. Approximately 10% of breast cancers are not detected by mammography. A normal mammogram should not delay biopsy of a clinically suspicious abnormality. [id number] Electronically Signed: Anil Davison, at 11:35 EDT , Service support ,
== END ==
PROVIDERS: Family Provider Internal Medicine; PCP Internal Medicine; Referring Provider Obstetrics & Gynecology; Visit Provider Obstetrics & Gynecology
DX: Z12.31 Encounter for screening mammogram for malignant neoplasm of breast (principal)
CPT/HCPCS: 77063; 77067

== ENCOUNTER 2019-01-24 10:00 | Outpatient (RCR) | payer OTHER, SELFPAY ==
[2018-12-25 11:54] VITALS: BMI 42.9
--- NOTE | 2019-01-13 10:40 | HP.PTEVAL ---
Patient's Visit Information TAMAR ROSA is a 48 year old F referred to Physical Therapy by MOISE Post with a diagnosis of BACK PAIN WITH LEFT SIDED SCIATICA. Date of Evaluation: 01/10/19 Physical Therapist: Emmanuel Paniagua PT, Cert MDT, OCS - Visit Plan Frequency: 2x /Week Duration: 4 Weeks Plan: POSTURAL EX'S,DLS,MYA EX'S ,MODALTIES NEEDED - Subjective Findings: This 48 y/o female presents to physical therapy with back pain with left side sciatica. Symptoms incidous onset since October. Pateint has had lumbar pain radiating symptoms in hams to calf. Symptoms described as ache/sharp pain in hams -calf. Agrravating with walking,sitting,standing,bending . Alleviating factors with predisone,meloxicam. Patient tried chiropractor,massage. Patient occasionally has pins/needles. Coughing/sneezing +. Bowel/bladder good .Patient symptoms affect sleeping. Symptoms affects ability to perform job demands and housework tasks. Patient symptoms affect QOL and function. 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 GAIT: reciprocal pattern. NEURO: c/o pins/needling hams,parathesia ,reflexes L3-4,L4-5,L5-S1. MMT: quads/hams /hams 4/5 ,ankle 5/5. LUMBAR ROM: flexion min ,min loss ,side glides min loss. SYMMTRIES: align. FLEXABLITY: hams min tight - Special Tests L/S Slump test left side: Negative L/S Slump test right side: Negative L/S Left Straight Leg Raise: Negative L/S Right Straight Leg Raise: Negative Lumbar Standing: Flexion - Mechanical Response: No effect Lumbar Standing: Flexion - Symptoms During Testing: Increases Lumbar Standing: Flexion - Symptoms After Testing: Worse Lumbar Standing: Extension - Mechanical Response: No effect Lumbar Standing: Extension - Symptoms During Testing: Increases Lumbar Standing: Extension - Symptoms After Testing: Worse Lumbar Standing: Right Side Glides - Mechanical Response: No effect Lumbar Standing: Right Side [place] - Symptoms During Testing: No effect Lumbar Standing: Right Side [place] - Symptoms After Testing: No effect Lumbar Standing: Left Side [place] - Mechanical Response: No effect Lumbar Standing: Left Side [place] - Symptoms During Testing: Increases Lumbar Standing: Left Side [place] - Symptoms After Testing: Worse Lumbar Lying: Flexion - Mechanical Response: No effect Lumbar Lying: Flexion - Symptoms During Testing: No effect Lumbar Lying: Flexion - Symptoms After Testing: No effect Lumbar Lying: Extension - Mechanical Response: No effect Lumbar Lying: Extension - Symptoms During Testing: Decreases Lumbar Lying: Extension - Symptoms After Testing: Better - Goals Goal 1:: Independant with HEP. Goal Time Frame: 4-6 Weeks Goal 2:: Independant with posture/body mechanics Goal Time Frame: 4-6 Weeks Goal 3:: Decrease lumbar pain by 50% or greater to imporove function. Goal Time Frame: 4-6 Weeks Goal 4:: Pateint to improve lumbar ROM for function of recovery. Goal Time Frame: 4-6 Weeks Goal 5:: Patient improve back owsesrty score by 5 points or greater to QOL. Goal Time Frame: 4-6 Weeks - Rehabilitation Potential Physical Therapy Diagnosis: This patient has derranagement below knee with possible disc involvement with pain ,ROM impairs function and standing ,walking siiting and job demands. Rehabilitation Potential: Good - Anticipated Interventions Patient/Client Instruction: Educate patient on: Condition, Plan of Care For the Purpose of:: To decrease pain, To increase ROM, To improve muscle performance and motor function, To increase tolerance to activity/condition/position, To improve ability of physical actions for home/community/work/leisure, To improve health of tissue, To decrease soft tissue restriction, To increase flexibility/ROM, To reduce risk of recurrence, To prevent re-injury, To improve ability to perform tasks related to life management Therapeutic Exercise to Include: Strength training, Postural training, Flexibilty training, Active ROM, Dynamic Lumbar Stabilization, Mya Exercises For the Purpose of:: To decrease pain, To increase ROM, To improve muscle performance and motor function, To improve ability to perform ADL's, To increase tolerance to activity/condition/position, To improve ability of physical actions for home/community/work/leisure, To improve health of tissue, To decrease soft tissue restriction, To increase flexibility/ROM, To prevent re-injury, To improve ability to perform tasks related to life management TENS: Yes IF ES: Yes Cryotherapy (ice pack, ice massage): Yes Thermo therapy (hot pack): Yes Ultrasound (thermal/non thermal): Yes For the Purpose of:: To decrease pain, To increase ROM, To improve nutrient delivery to tissue, To increase oxygenation perfusion, To improve health of tissue, To decrease soft tissue restriction Thank you for the opportunity to evaluate your patient. For Medicare and Medicare HMO plans, please review the plan of care and approve it. It will need to be FAXED BACK to us at [phone] for Medicare purposes. For Medicare only, by signing this I certify the plan of care. Please let me know if there are questions or concerns regarding this plan of care. Physician Signature: Date:
--- NOTE | 2019-05-27 09:34 | HP.PTDCNRP_ITS ---
HP - Discharge Summary (1) - Patient Information TAMAR ROSA was seen in my office for initial evaluation on 01/10/19. The following Plan of Care was established for this patient: Initial Frequency: 2x /Week Initial Duration: 4 Weeks - Anticipated Interventions Patient/Client Instruction: Educate patient on: Condition, Plan of Care For the Purpose of:: To decrease pain, To increase ROM, To improve muscle performance and motor function, To increase tolerance to activity/condition/position, To improve ability of physical actions for home/community/work/leisure, To improve health of tissue, To decrease soft tiss ue restriction, To increase flexibility/ROM, To reduce risk of recurrence, To prevent re-injury, To improve ability to perform tasks related to life management Therapeutic Exercise to Include: Strength training, Postural training, Flexibilty training, Active ROM, Dynamic Lumbar Stabilization, Mario Exercises For the Purpose of:: To decrease pain, To increase ROM, To improve muscle performance and motor function, To improve ability to perform ADL's, To increase tolerance to activity/condition/position, To improve ability of physical actions for home/community/work/leisure, To improve health of tissue, To decrease soft tissue restriction, To increase flexibility/ROM, To prevent re-injury, To improve ability to perform tasks related to life management TENS: Yes IF ES: Yes Cryotherapy (ice pack, ice massage): Yes Thermo therapy (hot pack): Yes Ultrasound (thermal/non thermal): Yes For the Purpose of:: To decrease pain, To increase ROM, To improve nutrient delivery to tissue, To increase oxygenation perfusion, To improve health of tissue, To decrease soft tissue restriction This patient was last seen in our office . Pertinent comments regarding their Physical therapy will appear below: Patient intially seen for PT fot lumbar pain,but was d/c due to back surgery. At this point I will be discontinuing this patient from physical therapy. I would be happy to see this patient again in the future if found appropriate by the physician. Thank you! Emmanuel Paniagua, PT, Cert MDT, OCS
== END 2019-01-24 19:00 | disposition home or self-care (01) ==
LOC: PT 10:00
PROVIDERS: Family Provider Internal Medicine; PCP Internal Medicine; Referring Provider Nurse Practitioner Gerontology; Visit Provider Nurse Practitioner Gerontology
DX: M54.32 Sciatica, left side (principal)
CPT/HCPCS: 97014; 97032; 97035; 97110; 97162; G0283

== ENCOUNTER → 2019-01-29 10:14 | Outpatient (CLI) | payer OTHER, SELFPAY ==
[2018-12-25 11:54] VITALS: BMI 42.9
--- NOTE | 2019-01-29 10:20 | MRI_ITS ---
HISTORY: Left leg pain and numbness/radiculopathy COMPARISON: Lumbar radiographs 12/11/2018. TECHNIQUE: Multisequence multiplanar MR imaging of the lumbar spine was performed per department protocol without IV gadolinium. # of images incl. paperwork: 127 FINDINGS: Without the benefit of complete thoracolumbar radiographs, it cannot be assessed with certainty as to whether there is a transitional lumbosacral anatomy. For the purposes of this dictation, the last disc space will be referred to as the L5-S1 level. Normal lumbar alignment. No acute fracture or subluxation. Lumbar vertebral bodies are normal in height. Mild anterior marginal osteophytes at L1 and L2 and minimal spurring at L4 and L5. No focal marrow signal abnormality to suggest a pathologic process. The conus is identified opposite the T12 level and is normal in morphology and signal characteristics. Mild disc space narrowing at L1-L2. Remaining disc spaces are adequate in height. No significant disc desiccation. T12-L1: No disc bulge or disc protrusion. No canal or neural foraminal stenosis. L1-2: A 1-2 mm broad-based disc protrusion with 1 mm effacement of the ventral thecal sac. No canal or foraminal stenosis. L2-3: No disc bulge or disc protrusion. No canal or neural foraminal stenosis. L3-4: No disc bulge or disc protrusion. No canal or neural foraminal stenosis. Mild bilateral facet joint arthropathy. L4-5: Mild asymmetric to the left circumferential disc bulge. Severe facet joint arthropathy with what most likely represents a left synovial cyst measuring 6 x 5 mm exerting moderate mass-effect upon the left posterolateral aspect of the thecal sac and resulting in mild canal stenosis and moderate effacement of surrounding subjacent nerve roots including the traversing left L5 nerve root. No neural foraminal stenosis. L5-S1: No disc bulge or disc protrusion. No canal or neural foraminal stenosis. Moderate bilateral facet joint arthropathy. Paravertebral soft tissues show no gross signal abnormalities. MRI/Spine Lumbar (Routine) IMPRESSION: 1. Note that there might be a transitional lumbosacral anatomy which cannot be definitively evaluated without thoracolumbar radiographs. For the purposes of this exam, the last disc space is referred to L5-S1, please see saved image for reference. 2. Mild canal stenosis and moderate left posterolateral thecal sac effacement which appears to be secondary to a synovial cyst measuring 6 x 5 mm resulting in moderate effacement of nerve roots including the traversing left L5 nerve root. 3. Remaining levels of lumbar spine without canal or foraminal stenosis. at 1928 Reported and signed by: Jong Aden MD Electronically Signed: Jong Aden MD at 19:27 EDT Tel , Service support ,
== END ==
PROVIDERS: Family Provider Internal Medicine; PCP Internal Medicine; Referring Provider Internal Medicine; Visit Provider Internal Medicine
DX: M54.32 Sciatica, left side (principal)
CPT/HCPCS: 72148

== ENCOUNTER 2019-04-03 09:30 | Outpatient (RCR) | payer OTHER, SELFPAY ==
[2018-12-25 11:54] VITALS: BMI 42.9
--- NOTE | 2019-03-04 12:55 | HP.PTEVAL ---
Patient's Visit Information TAMAR ROSA is a 48 year old F referred to Physical Therapy by MOISE Sharma with a diagnosis of SYNOVIAL CYST OF LUMBAR FACET JOINT. S/P SURGERY. Date of Evaluation: 03/04/19 Physical Therapist: Joanne Robb, PT, Cert MDT - Visit Plan Frequency: 2-3x /Week Duration: 4-6 Weeks Plan: BEGIN LUMBAR ISOMETRICS. ADVANCE ROM TOLERATED AFTER 3 WEEKS. WEAN FROM LUMBAR BRACE TOLERATED. OK TO START LUMBAR ROM (INITIALLY IN LYING WITH SKTC, LTR) MAR 20 2019. POSTURE CORRECTION/STRENGTHENING, INSTRUCTION IN APPROPRIATE BODY MECHANICS AND ACTIVITY MODIFICATIONS. DLS STARTING WITH A NEUTRAL SPINE. JOSE LE ROM, STRETCHING AND STRENGTHENING. HEP INSTRUCTION. - Subjective Findings: DIAGNOSIS: S/P LEFT L4L5 UNILATERAL LAMINECTOMY WITH PARTIAL FACETECTOMY AND FACET CYST EXCISION ON 02/12/19. 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 TURNING PATIENTS, PUSHING BEDS ETC. TENTATIVE RTW DATE APR 14 2019. Disability: NO. Present symptoms: SOME INCISIONAL PAIN. JUST IN THE LAST WEEK ACTIVITY HAS PICKED UP AND DECREASED USE OF BRACE UPPER BACK IS SORE AND SOME HEADACHES. LEFT LEG IS STILL WEAK AND STILL HAS SOME TINGLING IN LEFT LATERAL LEG AND ACROSS THE TOP OF HER FOOT. LEFT BUTTOCK IS ALSO INTERMITTENTLY SORE AND TIGHT. Present since: OCTOBER 2018. Pain Scale: WORST 2/10, LEAST 0/10. Currently: 1/10. Commenced as a result of: NO APPARENT REASON. DID HAVE TO LIFT 15 YEAR OLD SON DUE TO INJURY AND NOTICED THEN. Symptoms at onset: SCIATIC PAIN - DOWN THROUGH LEFT BUTTOCK. Worse: DRIVING, PROLONGED STANDING, PROLONGED WALKING, HAVING BRACE OFF. Better: TYLONOL, ICE, LYING DOWN AND RESTING. Disturbed sleep: NO. Previous history/Previous treatment: UNREMARKABLE. DID TRY PT HERE AT [facility] FOR ABOUT 5 VISITS IN JANUARY BUT WASN'T ABLE TO DO MUCH. TRIED PREDNISONE. TRIED CHIROPRACTIC VISITS X [address] MARTINEZ - ALSO DID NOT HELP. Coughing/sneezing/straining: NO. Gait: TIME LIMITED. DISCOMFORT ON LEFT AND LIMPING ON LEFT BUT GETTING BETTER. MORE OF A WEAK FEELING NOW. NOT SHARP OR SHOOTING PAIN LIKE BEFORE. Difficulty initiating urinatin: NO. Accidents: NO. Unexplained weight loss: NO. Imaging: MRI - CYST IN LUMBAR SPINE. ALSO SOME ARTHRITIS. PMH: HTN, ASTHMA. Recent major surgery: JOSE KNEE SURGERY. PLOF (Prior Level of Function): UNLIMITED - Objective Sitting/Standing Posture: POOR. SLOUCHED. NO RELEVENT LATERAL SHIFT. Active Correction of posture: NE. Other Observations: INDEP GAIT INTO PT WEARING BACK BRACE AND NO GROSS DEVIATIONS NOTED. PATIENT WAS OBSERVED BENDING SEVERAL TIMES DURING SESSION BEFORE CUEING TO AVOID BENDING. Motor deficit: JOSE LE'S GROSSLY 5/5 WITH MMT'IING EXCEPT RIGHT HIP 4/5 AND LEFT HIP 4-/5. Sensory deficit: DECREASED LIGHT TOUCH OF LEFT THIGH AND LATERAL LEG AND FOOT BUT HYPERSENSATIVITY OF MEDIAL LEG AND TOP OF FOOT. ROM deficit: TIGHT LEFT LE HS AND GASTROC SOLEUS COMPLEX'S. Reflexes: UNABLE TO ELICIT JOSE LE DTR'S. Dural Signs: POSITIVE LLE. Lumbar mvmt loss: NT. Core strength: POOR. Palpation: INCISION LOOKS GOOD WITHOUT ANY SIGNS OF INFECTION. - Goals Goal 1:: DECREASE C/O BACK AND LLE SX'S. Goal Time Frame: 4-6 Weeks Goal 2:: IMPORVE LIFTING, PUSHING, PULLING, WALKING, STANDING, SOCIAL LIFE, TRAVEL AND WORK/HOMEMAKING FUNCTION Goal Time Frame: 4-6 Weeks Goal 3:: INSTRUCT IN PROPHYLAXIS Goal Time Frame: 4-6 Weeks - Rehabilitation Potential Rehabilitation Potential: Good - Anticipated Interventions Patient/Client Instruction: Educate patient on: Condition, Plan of Care, Risk Factors, Benefits of Fitness Program For the Purpose of:: To improve self management Therapeutic Exercise to Include: Strength training, Body mechanics, Postural training, Flexibilty training, In an aquatic setting, Dynamic Lumbar Stabilization Comment: PATIENT MAY BE A GOOD CANDIDATE FOR AQUATIC THERAPY BUT WILL TRY LAND FIRST. SHE MAY BENEFIT FROM THE DESENSITIZATION IN ADDITION TO THE BOUENCY IN THE WATER. For the Purpose of:: To decrease pain, To increase ROM, To improve muscle performance and motor function, To increase tolerance to activity/condition/position, To improve ability of physical actions for home/community/work/leisure Thank you for the opportunity to evaluate your patient. For Medicare and Medicare HMO plans, please review the plan of care and approve it. It will need to be FAXED BACK to us at [phone] for Medicare purposes. For Medicare only, by signing this I certify the plan of care. Please let me know if there are questions or concerns regarding this plan of care. Physician Signature: Date:
--- NOTE | 2019-04-03 10:47 | HP.PTDCSUM ---
HP - PT D/C Summary It has been my pleasure to treat TAMAR ROSA under orders from Luiza Kingsley, NIKAC, for the diagnosis of SYNOVIAL CYST OF LUMBAR FACET JOINT. S/P SURGERY for a total of 9 visit(s). Discharge Date: Please see the following information for a summary of their discharge status. - Subjective Subjective: PATIENT REPORTS SHE DOESN'T HAVE ANY BACK PAIN ANYMORE. A LITTLE BIT OF MILD LEFT BUTTOCK TIGHTNESS OCCASSIONALLY - NONE FOR A COUPLE DAYS. RTW DATE APR 09 2019. PATIENT REPORTS SHE WANTS TO TRY TO GO BACK NEXT WEEK BUT SHE IS ANTICIPATING BEING TIRED NO MATTER WHEN SHE GOES BACK. - Pain LB Pain Intensity (Out of 10): 0 - Overall Improvement % Improvement: 95 - Objective Objective/Function: UPON EXAM TODAY PATIENT HAS GOOD LUMBAR ROM AND GOOD JOSE LE ROM AND STRENGTH. JOSE LE DURAL SIGNS ARE NEGATIVE. JOSE LE LIGHT TOUCH SENSATION IS INTACT AND SYMMETRICAL. SHE HAS WEANED OUT OF HER BACK BRACE AND IS INDEP WITH A HEP, PROPER POSTURE CONTROL AND PROPER BODY MECHANICS. ALL GOALS HAVE BEEN MET AND SHE IS APPROPRIATE FOR DISCHARGE FROM [facility] PHYS[facility] THERAPY AT THIS TIME. PATIENT IS AGREEABLE TO DISCHARGE AND RETURN TO WORK. - Goals Goal 1:: DECREASE C/O BACK AND LLE SX'S. Goal Progress: Goal Met Goal 2:: IMPORVE LIFTING, PUSHING, PULLING, WALKING, STANDING, SOCIAL LIFE, TRAVEL AND WORK/HOMEMAKING FUNCTION Goal Progress: Goal Met Goal 3:: INSTRUCT IN PROPHYLAXIS Goal Progress: Goal Met - Plan Plan: D/C TO HOME PROGRAM. - D/C Information If there are questions or concerns regarding this patient's physical therapy, please feel free to call me at [phone]. Thank you for the referral of this patient. Sincerely, Joanne Robb, PT, Cert MDT
== END 2019-04-03 19:00 | disposition home or self-care (01) ==
LOC: PT 09:30
PROVIDERS: Family Provider Internal Medicine; PCP Internal Medicine; Referring Provider Nurse Practitioner Acute Care; Visit Provider Nurse Practitioner Acute Care
DX: M71.38 Other bursal cyst, other site (principal)
CPT/HCPCS: 97110; 97161; 97530

== ENCOUNTER → 2019-06-10 11:05 | Outpatient (CLI) | payer OTHER, SELFPAY ==
[2019-05-28 06:18] VITALS: BMI 44.4
== END ==
PROVIDERS: Family Provider Internal Medicine; PCP Internal Medicine; Referring Provider Internal Medicine Critical Care Medicine; Visit Provider Internal Medicine Critical Care Medicine
DX: G47.10 Hypersomnia, unspecified (principal)
CPT/HCPCS: 95806

== ENCOUNTER 2019-07-21 12:15 | Outpatient (RCR) | payer OTHER, SELFPAY ==
--- NOTE | 2019-07-23 06:54 | DS.PCM_ITS ---
Massage Therapy Discharge Summary: Initial Evaluation Date: 09/05/2018 Diagnosis: Muscle twnsion and headaches No. of Visits: Date of last visit: 07/21/2019 Goals: The patients goals of decreased headaches, decreased muscle tension and stress relief were met. This patient is being discharged from our care at the [facility]. Thank you, Carmelita Tucker LMT
== END 2019-07-21 19:00 | disposition home or self-care (01) ==
LOC: MASS 12:15
PROVIDERS: Family Provider Internal Medicine; PCP Internal Medicine; Referring Provider Internal Medicine; Visit Provider Internal Medicine
DX: M62.89 Other specified disorders of muscle (principal); R51 Headache
CPT/HCPCS: 97124

== ENCOUNTER → 2019-08-07 21:09 | Outpatient (CLI) | payer OTHER, SELFPAY ==
[2019-05-28 06:18] VITALS: BMI 44.4
== END ==
PROVIDERS: Family Provider Internal Medicine; PCP Internal Medicine; Referring Provider Nurse Practitioner Acute Care; Visit Provider Nurse Practitioner Acute Care
DX: G47.33 Obstructive sleep apnea (adult) (pediatric) (principal)
CPT/HCPCS: 95811

== ENCOUNTER → 2020-02-25 08:42 | Outpatient (CLI) | payer OTHER, SELFPAY ==
[2019-12-24 05:52] VITALS: BMI 46.1
--- NOTE | 2020-02-25 08:43 | BI_ITS ---
MAMMOGRAPHY - BILATERAL SCREENING 3-D TOMOSYNTHESIS REASON FOR EXAM: Female, 49 years old. Routine screening PERTINENT HISTORY: BILAT SCREENING - FAM HX OF MOTHER @ AGE 60 - RT AXILLARY SKIN TAGS MARKED. TECHNIQUE: 2-D mammograms and 3-D Tomosynthesis of the breast (s) were performed. CAD was performed. COMPARISON: 01/14/2019 FINDINGS: The breast composition is heterogeneously dense that can obscure small breast masses. Scattered benign calcifications are seen. No dense spiculated masses or suspicious microcalcifications are identified. No architectural distortion is identified. There is no skin thickening or retraction. There has been no significant change since the prior study. BI/SCREEN MAMM (CAD) W/SHUN BILAT IMPRESSION: No mammographic signs of malignancy. Routine yearly mammograms recommended. ASSESSMENT CATEGORY: BIRADS Category 2: Benign. A letter regarding these results will be sent to the patient by the facility within 30 days. FOLLOW UP RECOMMENDATION: Yearly follow up mammogram recommended. (A) Approximately 10% of breast cancers are not detected by mammography. A normal mammogram should not delay biopsy of a clinically suspicious abnormality. Electronically Signed: Jesse Taylor MD at 9:49 EDT , Service support ,
== END ==
PROVIDERS: PCP Internal Medicine; Referring Provider Internal Medicine; Visit Provider Internal Medicine
DX: Z12.31 Encounter for screening mammogram for malignant neoplasm of breast (principal); Z80.3 Family history of malignant neoplasm of breast
CPT/HCPCS: 77063; 77067

== ENCOUNTER 2020-07-12 13:30 | Outpatient (RCR) | payer OTHER, SELFPAY ==
[2019-05-28 06:18] VITALS: BMI 44.4
--- NOTE | 2019-09-02 12:07 | MASS.EVAL ---
Massage Therapy Evaluation: Initial Evaluation Date: 08/27/2019 /Age: 08 1970, 49 Diagnosis: Muscle Tension & Headaches Goals: Decrease frequency and intensity of headaches Decrease muscle tension Decrease back pain and fatigue Assessment: This patient is a good candidate for massage. We have had success treating her symptoms in the past. Plan: To be seen one time per month or PRN for a total of 10 treatments.
--- NOTE | 2020-07-26 12:04 | MASS.DISCH ---
Massage Therapy Discharge Summary: Initial Evaluation Date: 08/27/2019 Diagnosis: Muscle Tension & Headaches No. of Visits: 7 Date of last visit: 07/12/2020 This patient is being discharged from our care at the [facility]. Thank you, Carmelita Tucker LMT
== END 2020-07-12 19:00 | disposition home or self-care (01) ==
LOC: MASS 13:30
PROVIDERS: Family Provider Internal Medicine; PCP Internal Medicine; Visit Provider Internal Medicine
DX: M62.9 Disorder of muscle, unspecified (principal); G44.209 Tension-type headache, unspecified, not intractable
CPT/HCPCS: 97124

== ENCOUNTER → 2021-03-30 10:31 | Outpatient (CLI) | payer OTHER, SELFPAY ==
[2021-01-05 07:50] VITALS: BMI 48.0
--- NOTE | 2021-03-30 10:33 | BI_ITS ---
MAMMOGRAPHY - BILATERAL SCREENING REASON FOR EXAM: Female, 51 years old. Routine annual screening examination. PERTINENT HISTORY: Mother with breast cancer. TECHNIQUE: Digital bilateral breast shun (3D mammographic acquisition) in the CC and MLO projections. 2-D mediolateral oblique (MLO) and craniocaudad (CC) views of both breasts were obtained. CAD: Full Field Digital Mammography with Computer Added Detection was performed. COMPARISON: Comparison is made with prior study dated 02/25/2020 and 01/14/2019. FINDINGS: Breast Composition: The breasts are heterogeneously dense, which may obscure small masses. There are no dominant masses or suspicious calcifications. Stable benign-appearing bilateral axillary nodes. No other significant abnormalities are identified. There has been no significant change since the prior study. BI/SCRN MAMM (CAD)W/SHUN BILAT IMPRESSION: Stable bilateral screening mammogram. Yearly follow-up mammogram recommended. (A) ASSESSMENT CATEGORY: BIRADS Category 2: Benign. A letter regarding these results will be sent to the patient by the facility within 30 days. Approximately 10% of breast cancers are not detected by mammography. A normal mammogram should not delay biopsy of a clinically suspicious abnormality. [id number] Electronically Signed: Anil Davison MD at 12:01 EDT , Service support ,
== END ==
PROVIDERS: PCP Internal Medicine; Referring Provider Internal Medicine; Visit Provider Internal Medicine
DX: Z12.31 Encounter for screening mammogram for malignant neoplasm of breast (principal); Z80.3 Family history of malignant neoplasm of breast
CPT/HCPCS: 77063; 77067

== ENCOUNTER 2021-07-25 11:00 | Outpatient (RCR) | payer OTHER, SELFPAY ==
[2019-12-24 05:52] VITALS: BMI 46.1
--- NOTE | 2020-08-23 15:55 | MASS.EVAL ---
Massage Therapy Evaluation: Initial Evaluation Date: 08/23/2020 /Age: 08 1970, 50 Diagnosis: Sciatica Goals: Decrease back pain Decrease muscle tension Manage headaches Assessment: Gio is a good candidate for massage at this time. We have had success treating her symptoms in the past. Plan: To be seen one time per month or PRN for a total of 10 one hour sessions.
--- NOTE | 2021-07-25 14:43 | MASS.DISCH ---
Massage Therapy Discharge Summary: Initial Evaluation Date: 08/23/20 Diagnosis: Sciatica No. of Visits: 10 Date of last visit: 07/25/21 This patient is being discharged from our care at the [facility]. Thank you, Carmelita Tucker LMT
== END 2021-07-25 19:00 | disposition home or self-care (01) ==
LOC: MASS 11:00
PROVIDERS: PCP Internal Medicine; Referring Provider Internal Medicine; Visit Provider Internal Medicine
DX: M54.32 Sciatica, left side (principal)
CPT/HCPCS: 97124

== ENCOUNTER → 2022-04-04 | Outpatient (CLI) | payer OTHER, SELFPAY ==
--- NOTE | 2022-04-04 09:17 | BI_ITS ---
MAMMOGRAPHY - BILATERAL SCREENING REASON FOR EXAM: Female, 52 years old. Routine annual screening examination. PERTINENT HISTORY: Mother with breast cancer. TECHNIQUE: Digital bilateral breast shun (3D mammographic acquisition) in the CC and MLO projections. 2-D mediolateral oblique (MLO) and craniocaudad (CC) views of both breasts were obtained. CAD: Full Field Digital Mammography with Computer Added Detection was performed. COMPARISON: Comparison is made with prior study dated 03/30/2021 and 02/25/2020. FINDINGS: Breast Composition: The breasts are heterogeneously dense, which may obscure small masses. There are no dominant masses or suspicious calcifications. Stable benign-appearing bilateral axillary lymph nodes. No other significant abnormalities are identified. There has been no significant change since the prior study. BI/SCRN MAMM (CAD)W/SHUN BILAT IMPRESSION: Stable bilateral screening mammogram. Yearly follow-up mammogram recommended. (A) ASSESSMENT CATEGORY: BIRADS Category 2: Benign. A letter regarding these results will be sent to the patient by the facility within 30 days. Approximately 10% of breast cancers are not detected by mammography. A normal mammogram should not delay biopsy of a clinically suspicious abnormality. [id number] Electronically Signed: Anil Davison MD at 10:21 EDT ,
== END | disposition home or self-care (01) ==
LOC: OPBI 09:13
PROVIDERS: PCP Internal Medicine; Visit Provider Internal Medicine
DX: Z12.31 Encounter for screening mammogram for malignant neoplasm of breast (principal); Z80.3 Family history of malignant neoplasm of breast
CPT/HCPCS: 77063; 77067

== ENCOUNTER → 2022-04-28 | Outpatient (CLI) | payer OTHER, SELFPAY ==
--- NOTE | 2022-04-28 11:51 | RAD_ITS ---
INDICATION: PAIN EXAMINATION/TECHNIQUE: X-RAY - RIGHT XR Knee 1 or 2 Views 2 VIEWS COMPARISON: None. FINDINGS: Moderate to severe narrowing of the medial joint space, mild narrowing of the lateral joint space. Degenerative changes with subtle osteophyte formation is seen. No evidence of cortical irregularity or lucency to suggest a fracture, no evidence of lytic or sclerotic bone lesion is seen. Quadriceps and patellar tendons are unremarkable. There is a subtle soft tissue density measuring approximately 1.8 cm visualized in the soft tissues along the posterior aspect of the distal femur above the popliteal fossa. RAD/Knee 1 or 2 Views IMPRESSION: Degenerative changes, no evidence of acute osseous abnormality is seen. Electronically Signed: Maikel Winkler MD at 13:43 EDT ,
== END | disposition home or self-care (01) ==
LOC: MTRAD 11:50
PROVIDERS: PCP Internal Medicine; Referring Provider Internal Medicine; Visit Provider Internal Medicine
DX: M17.11 Unilateral primary osteoarthritis, right knee (principal)
CPT/HCPCS: 73560

== ENCOUNTER → 2022-05-31 | Outpatient (CLI) | payer OTHER, SELFPAY ==
[2022-05-31 12:13] LABS: Creatinine, Serum 0.74 mg/dL (0.55-1.02); EST Glomerular Filtration Rate 88 mL/min (>60); Est Glom Filt Rate - Afr Amer 106 mL/min (>60)
== END | disposition home or self-care (01) ==
LOC: MTLAB 11:02
PROVIDERS: PCP Internal Medicine; Referring Provider Student in an Organized Health Care Education/Training Program; Visit Provider Student in an Organized Health Care Education/Training Program
DX: N28.9 Disorder of kidney and ureter, unspecified (principal)
CPT/HCPCS: 36415; 82565

== ENCOUNTER → 2022-06-05 | Outpatient (CLI) | payer OTHER, SELFPAY ==
--- NOTE | 2022-06-05 07:25 | MRI_ITS ---
EXAM: MR RIGHT LOWER EXTREMITY WITHOUT AND WITH INTRAVENOUS CONTRAST, KNEE CLINICAL INDICATION: ABNRMAL FINDINGS ON DIAGNOSTIC IMAGES OF LIMBS, KNEE PAIN TECHNIQUE: Multiplanar and multisequence MR images of the right knee without and with intravenous contrast. This report was created using [employer] report MyPublisher technology. CONTRAST: IV 25ml clariscan COMPARISON: None. FINDINGS: BONES/JOINTS: No significant concerning marrow signal alterations. Moderate tricompartmental osteoarthrosis. EXTENSOR MECHANISM: Extensor mechanism is intact. MEDIAL MENISCUS: Longitudinal horizontal oblique tearing of the posterior horn of the medial meniscus. No other meniscus tear. LATERAL MENISCUS: Unremarkable. MEDIAL CAPSULE/SUPPORTING STRUCTURES: Unremarkable. Intact. LATERAL CAPSULE/SUPPORTING STRUCTURES: Unremarkable. Lateral collateral ligamentous complex, inclusive of the popliteal tendon, are intact. ANTERIOR CRUCIATE LIGAMENT: Cruciate ligaments are intact. POSTERIOR CRUCIATE LIGAMENT: See above. MUSCLES: Muscles are unremarkable. CARTILAGE: Unremarkable. Intact. FLUID: Moderate suprapatellar joint effusion without synovitis or intra-articular ossific bodies. No Martin''s cyst or other masses or fluid collections. OTHER SOFT TISSUES: See above. OTHER FINDINGS: No unusual enhancement. Neurovascular structures are unremarkable. MRI/Lower Ext Joint Only W/WO Cont IMPRESSION: 1. Longitudinal horizontal oblique tearing of the posterior horn of the medial meniscus. No other meniscus tear. 2. Moderate tricompartmental osteoarthrosis with moderate size suprapatellar joint effusion. Electronically Signed: Paramjit Fink MD at 17:34 EDT Reading Location ID and State: [facility] / [place] Tel , Service support ,
== END | disposition home or self-care (01) ==
PROVIDERS: PCP Internal Medicine; Referring Provider Student in an Organized Health Care Education/Training Program; Visit Provider Student in an Organized Health Care Education/Training Program
DX: M17.11 Unilateral primary osteoarthritis, right knee (principal); S83.241A Other tear of medial meniscus, current injury, right knee, initial encounter; X58.XXXA Exposure to other specified factors, initial encounter
CPT/HCPCS: 73723; A9575

== ENCOUNTER 2022-06-19 06:09 | Day surgery (SDC) | payer OTHER, SELFPAY ==
--- NOTE | 2022-06-19 | ESO_PTH ---
PATIENT: TAMAR ROSA LOC: EN U#:[id number] AGE/SX: 52/F ROOM: RE06/19/[address]: Dr. Pedro Caicedo DO : 1970 BED: DIS: 06/19/2022 SPEC #: [id number] RECD: 06/19/22 14:11 STATUS: ARELY RESakshi #: [id number] ARNEL: 06/19/22 00:[address]: Pedro Caicedo DEPT: SURGICAL PATHOLOGY RECD BY: mD Hu ENTERED: 06/19/22 14:11 SP TYPE: SYDNEY BARNETT DR: Dr. Luiza Dowd DO Tissues: A - Esophagus, NOS B - Duodenum, NOS Procedures: Special Stain Group II Surgery Specimen Level IV Alcian Blue/PAS (control) HEADER OPERATION: Colonoscopy EGD ([facility] [place]) PRE-OP DIAGNOSIS: Screening and GERD TISSUE SUBMITTED: A. Distal esophageal biopsy, B. Duodenum biopsy MICROSCOPIC DIAGNOSIS A. Distal esophageal biopsy: Fragments of gastroesophageal mucosa with mild chronic inflammation. Intestinal metaplasia (goblet cell metaplasia) not identified. See comment. B. Duodenum biopsy: Fragments of duodenal mucosa, no pathologic diagnosis. /KYLE 06/20/22 COMMENT A. Alcian blue/PAS stain with matched control is used in the evaluation of the specimen. MICROSCOPIC DESCRIPTION Slides are reviewed. GROSS DESCRIPTION A. Received is one container labeled with the patient name and designated distal esophageal. The specimen consists of multiple irregular fragments of light cedillo soft tissue that in aggregate measure 0.5 x 0.5 x 0.1 cm. The specimen is totally submitted in one cassette. B. Received is one container labeled with the patient name and designated duodenum. The specimen consists of multiple irregular fragments of light cedillo soft tissue that in aggregate measure 0.6 x 0.5 x 0.1 cm. The specimen is totally submitted in one cassette. /KYLE:jm 06/19/22 TC:3 CPT:09393 x2, 96388
[2022-06-19 06:29] VITALS: BP 154/94; PULSE 70; RESP 18; TEMP 35.9; O2SAT 98; BMI 47.7
[2022-06-19] MEDS: Lactated Ringers 1,000 ML 15 ML IV (06:44)
--- NOTE | 2022-06-19 06:46 | PCM.HP.BLA ---
History and Physical Date of Admission: 06/19/22 TAMAR ROSA, is a 51 F who presents to the office today for GERD. Her acid reflux is effectively managed with omeprazole 20 mg daily. She has never had an EGD or a colonoscopy. She denies nausea, vomiting, dysphagia, abd pain, diarrhea, constipation, melena, hematochezia. 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 Will schedule her for EGD to evaluate for Hooper's. She will also get a screening colonoscopy. F/u 2 wks after for discussion of biopsy results. I have examined the patient and the H&P has been reviewed. There are no clinical changes since date of exam.
[2022-06-19 07:20] VITALS: BP 101/57; BP 154/94; PULSE 60; RESP 18; TEMP 36.2; O2SAT 95
--- NOTE | 2022-06-19 07:22 | OP.EGD_ITS ---
Patient Name: Gio Kennedy Procedure Date: 06/19/2022 6:27 AM Date of : 1970 Age: 52 Procedure: Upper GI endoscopy Indications: Heartburn, Esophageal reflux, Failure to respond to medical treatment Providers: Pedro Caicedo DO Medicines: Monitored Anesthesia Care Patient Profile: This is a 52 year old female. Refer to note in patient chart for documentation of history and physical. Patient has symptoms of chronic heartburn. Complications: No immediate complications. Procedure: Pre-Anesthesia Assessment: - Prior to the procedure, a History and Physical was performed, and patient medications and allergies were reviewed. The risks and benefits of the procedure and the sedation options and risks were discussed with the patient. All questions were answered and informed consent was obtained. Patient identification and proposed procedure were verified by the physician in the pre-procedure area. Mental Status Examination: alert and oriented. Airway Examination: normal oropharyngeal airway and neck mobility. Respiratory Examination: clear to auscultation. CV Examination: normal. Prophylactic Antibiotics: The patient does not require prophylactic antibiotics. Prior Anticoagulants: The patient has taken no previous anticoagulant or antiplatelet agents. After reviewing the risks and benefits, the patient was deemed in satisfactory condition to undergo the procedure. The anesthesia plan was to use monitored anesthesia care (MAC). Immediately prior to administration of medications, the patient was re-assessed for adequacy to receive sedatives. The heart rate, respiratory rate, oxygen saturations, blood pressure, adequacy of pulmonary ventilation, and response to care were monitored throughout the procedure. The physical status of the patient was re-assessed after the procedure. After obtaining informed consent, the endoscope was passed under direct vision. Throughout the procedure, the patient's blood pressure, pulse, and oxygen saturations were monitored continuously. The Colonoscope was introduced through the mouth, and advanced to the second part of duodenum. The upper GI endoscopy was accomplished without difficulty. The patient tolerated the procedure well. Scope In: 6:55:52 AM Scope Out: 7:00:20 AM Total Procedure Duration Time 0 hours 4 minutes 28 seconds Findings: The Z-line was irregular and was found 38 cm from the incisors. Biopsies were taken with a cold forceps for histology. Verification of patient identification for the specimen was done. Estimated blood loss was minimal. No gross lesions were noted in the entire examined stomach. Three 2 mm sessile polyps were found in the gastric fundus. Patchy mild inflammation characterized by congestion (edema) was found in the duodenal bulb. Biopsies were taken with a cold forceps for histology. Verification of patient identification for the specimen was done. Estimated blood loss was minimal. Impression: - Z-line irregular, 38 cm from the incisors. Biopsied. - No gross lesions in the stomach. - Three gastric polyps. - Duodenitis. Biopsied. Recommendation: - Discharge patient to home. - Resume previous diet. - Continue present medications. - Await pathology results. Procedure Code(s): --- Professional --- 37911, Esophagogastroduodenoscopy, flexible, transoral; with biopsy, single or multiple CPT copyright 2017 [employer]. All rights reserved. The codes documented in this report are preliminary and upon forestry aid technician review may be revised to meet current compliance requirements. Pedro Caicedo DO 06/19/2022 7:21:53 AM This report has been signed electronically. Number of Addenda: 0 Note Initiated On: 06/19/2022 6:27 AM
--- NOTE | 2022-06-19 07:23 | OP.CCLET_ITS ---
06/19/2022 Luiza Dowd [address] [place] [address] Re : Upper GI endoscopy procedure for Gio Kennedy Dear Dr. Dodw This procedure was performed on Sunday, June 19, 2022. My impressions and recommendations are as follows: Impressions : - Z-line irregular, 38 cm from the incisors. Biopsied. - No gross lesions in the stomach. - Three gastric polyps. - Duodenitis. Biopsied. Recommendations : - Discharge patient to home. - Resume previous diet. - Continue present medications. - Await pathology results. My findings are described in the full procedure note, which is enclosed. If I can be of further assistance, please feel free to contact me at . Sincerely, Pedro Ciacedo, 06/19/2022 7:21:53 AM This report has been signed electronically.
[2022-06-19 07:25] VITALS: BP 103/56; BP 154/94; PULSE 58; RESP 18; O2SAT 95
--- NOTE | 2022-06-19 07:27 | OP.COLON_ITS ---
Patient Name: Gio Kennedy Procedure Date: 06/19/2022 7:00 AM Date of : 1970 Age: 52 Procedure: Colonoscopy Indications: Screening for colorectal malignant neoplasm Providers: Pedro Caicedo DO Medicines: Monitored Anesthesia Care Patient Profile: This is a 52 year old female. Refer to note in patient chart for documentation of history and physical. Patient has symptoms of chronic heartburn. Last Colonoscopy: none. The patient's first colonoscopy is today. Complications: No immediate complications. Procedure: Pre-Anesthesia Assessment: - Prior to the procedure, a History and Physical was performed, and patient medications and allergies were reviewed. The risks and benefits of the procedure and the sedation options and risks were discussed with the patient. All questions were answered and informed consent was obtained. Patient identification and proposed procedure were verified by the physician in the pre-procedure area. Mental Status Examination: alert and oriented. Airway Examination: normal oropharyngeal airway and neck mobility. Respiratory Examination: clear to auscultation. CV Examination: normal. Prophylactic Antibiotics: The patient does not require prophylactic antibiotics. Prior Anticoagulants: The patient has taken no previous anticoagulant or antiplatelet agents. After reviewing the risks and benefits, the patient was deemed in satisfactory condition to undergo the procedure. The anesthesia plan was to use monitored anesthesia care (MAC). Immediately prior to administration of medications, the patient was re-assessed for adequacy to receive sedatives. The heart rate, respiratory rate, oxygen saturations, blood pressure, adequacy of pulmonary ventilation, and response to care were monitored throughout the procedure. The physical status of the patient was re-assessed after the procedure. After I obtained informed consent, the scope was passed under direct vision. Throughout the procedure, the patient's blood pressure, pulse, and oxygen saturations were monitored continuously. The Colonoscope was introduced through the anus and advanced to the cecum, identified by appendiceal orifice and ileocecal valve. The colonoscopy was performed without difficulty. The patient tolerated the procedure well. The quality of the bowel preparation was good. Moderate Sedation: Moderate (conscious) sedation was personally administered by an anesthesia professional. The following parameters were monitored: oxygen saturation, heart rate, blood pressure, and response to care. Scope In: 7:01:39 AM Scope Withdrawal Time 0 hours 8 minutes 30 seconds Scope Out: 7:14:11 AM Total Procedure Duration Time 0 hours 12 minutes 32 seconds Findings: The perianal and digital rectal examinations were normal. The colon (entire examined portion) appeared normal. No additional abnormalities were found on retroflexion. Impression: - The entire examined colon is normal. - No specimens collected. Recommendation: - Discharge patient to home. - Resume previous diet. - Continue present medications. - Repeat colonoscopy in 10 years for screening purposes. Procedure Code(s): --- Professional --- G0121, Colorectal cancer screening; colonoscopy on individual not meeting criteria for high risk CPT copyright 2017 [employer]. All rights reserved. The codes documented in this report are preliminary and upon yardmaster review may be revised to meet current compliance requirements. Pedro Caicedo DO 06/19/2022 7:27:12 AM This report has been signed electronically. Number of Addenda: 0 Note Initiated On: 06/19/2022 7:00 AM
--- NOTE | 2022-06-19 07:28 | OP.CCLET_ITS ---
06/19/2022 Luiza Dowd [address] [place] [address] Re : Colonoscopy procedure for Gio Kennedy Dear Dr. Dowd This procedure was performed on Sunday, June 19, 2022. My impressions and recommendations are as follows: Impressions : - The entire examined colon is normal. - No specimens collected. Recommendations : - Discharge patient to home. - Resume previous diet. - Continue present medications. - Repeat colonoscopy in 10 years for screening purposes. My findings are described in the full procedure note, which is enclosed. If I can be of further assistance, please feel free to contact me at . Sincerely, Pedro Caicedo, 06/19/2022 7:27:12 AM This report has been signed electronically.
[2022-06-19 07:30] VITALS: BP 100/53; BP 154/94; PULSE 55; RESP 18; O2SAT 95
[2022-06-19 07:35] VITALS: BP 107/58; BP 154/94; PULSE 57; RESP 18; TEMP 36.4; O2SAT 95
[2022-06-19 07:55] VITALS: BP 154/94
== END 2022-06-19 08:05 | disposition home or self-care (01) ==
LOC: EN 06:09 → AC 06:10
PROVIDERS: PCP Internal Medicine; Referring Provider Internal Medicine; Visit Provider Internal Medicine Gastroenterology
PROC: 0DJD8ZZ Inspection of Lower Intestinal Tract, Via Natural or Artificial Opening Endoscopic (ICD-10-PCS; CPT 45378; principal; 2022-06-19 07:10)
DX: Z12.11 Encounter for screening for malignant neoplasm of colon (principal); Z68.42 Body mass index [BMI] 45.0-49.9, adult; K21.00 Gastro-esophageal reflux disease with esophagitis, without bleeding; K29.80 Duodenitis without bleeding; K31.89 Other diseases of stomach and duodenum; K31.7 Polyp of stomach and duodenum; E66.9 Obesity, unspecified; I10 Essential (primary) hypertension; G47.33 Obstructive sleep apnea (adult) (pediatric); M99.03 Segmental and somatic dysfunction of lumbar region; M99.05 Segmental and somatic dysfunction of pelvic region; M99.02 Segmental and somatic dysfunction of thoracic region; F41.9 Anxiety disorder, unspecified; Z79.899 Other long term (current) drug therapy
CPT/HCPCS: 43239; G0121; 88305; 88313; J7120; J2405

== ENCOUNTER → 2022-07-05 | Outpatient (CLI) | payer OTHER, SELFPAY ==
--- NOTE | 2022-07-05 10:21 | RAD_ITS ---
STUDY: X-RAY CHEST REASON FOR EXAM: Female, 52 years old. Cough TECHNIQUE: PA and lateral views of the chest. COMPARISON: None. FINDINGS: The lungs are clear and expanded. There is no demonstrated pleural abnormality. Normal size heart. Normal mediastinum and helga. Normal visualized pulmonary arteries. There is atherosclerotic tortuosity of the aortic arch and descending thoracic aorta. There are diffuse degenerative changes of the visualized thoracic spine. Normal visualized ribs, clavicles, and shoulders. There is no demonstrated abnormality of the visualized soft tissue structures of the upper abdomen. RAD/Chest PA and Lateral IMPRESSION: No acute abnormality is seen. Electronically Signed: Anil Davison MD at 10:49 EST ,
== END | disposition home or self-care (01) ==
LOC: MTRAD 10:18
PROVIDERS: PCP Internal Medicine; Referring Provider Physician Assistant; Visit Provider Physician Assistant
DX: R05.9 Cough, unspecified (principal)
CPT/HCPCS: 71046

== ENCOUNTER → 2023-04-03 | Outpatient (CLI) | payer OTHER, SELFPAY ==
[2023-04-03 16:07] LABS: Microalbumin,Random Urine 8.2 mg/L (NO RANGE EST.); Microalbumin:Creatinine Ratio 4.2 mg/g CRE (<30 mg/g CRE)
[2023-04-03 16:25] LABS: Vitamin D,25 Hydroxy 23.7 ng/mL
== END | disposition home or self-care (01) ==
PROVIDERS: PCP Internal Medicine; Referring Provider Internal Medicine; Visit Provider Internal Medicine
DX: E55.9 Vitamin D deficiency, unspecified (principal); I10 Essential (primary) hypertension
CPT/HCPCS: 36415; 82043; 82306; 82570

== ENCOUNTER → 2023-05-21 | Outpatient (CLI) | payer OTHER, SELFPAY ==
--- NOTE | 2023-05-21 10:19 | BI_ITS ---
MAMMOGRAPHY - BILATERAL SCREENING 3-D TOMOSYNTHESIS REASON FOR EXAM: Female, 53 years old. Screening Mammo PERTINENT HISTORY: No significant family history. TECHNIQUE: 2-D mammograms and 3-D Tomosynthesis of the breast (s) were performed. CAD was performed. COMPARISON: 04/04/2022 FINDINGS: The breast composition is heterogeneously dense that can obscure small breast masses. Scattered benign calcifications are seen. No dense spiculated masses or suspicious microcalcifications are identified. No architectural distortion is identified. There is no skin thickening or retraction. There has been no significant change since the prior study. BI/SCRN MAMM (CAD)W/SHUN BILAT IMPRESSION: No mammographic signs of malignancy. Routine yearly mammograms recommended. ASSESSMENT CATEGORY: BIRADS Category 1: Negative. A letter regarding these results will be sent to the patient by the facility within 30 days. FOLLOW UP RECOMMENDATION: Yearly follow up mammogram recommended. (A) Approximately 10% of breast cancers are not detected by mammography. A normal mammogram should not delay biopsy of a clinically suspicious abnormality. Electronically Signed: Carmelo Quintana MD at 11:26 EDT ,
== END | disposition home or self-care (01) ==
LOC: OPBI 10:17
PROVIDERS: PCP Internal Medicine; Referring Provider Internal Medicine; Visit Provider Internal Medicine
DX: Z12.31 Encounter for screening mammogram for malignant neoplasm of breast (principal)
CPT/HCPCS: 77063; 77067

== ENCOUNTER 2023-10-02 09:30 | Outpatient (RCR) | payer OTHER, SELFPAY ==
--- NOTE | 2023-08-13 11:05 | HP.PTEVAL ---
Patient's Visit Information Visit Information Visit Information: TAMAR ROSA is a 53 year old F referred to Physical Therapy by Dr. Jong Mendiola DO with a diagnosis of B knee OA. Date of Evaluation: 08/13/23 Physical Therapist: Taran Hall, PT, ATC Visit Plan Frequency: 2-3x /Week Duration: 4-6 Weeks Plan: B knee stretching and strengthening (primary focus on quads), core strengthening, balance and proprio, nustep, and HEP Subjective Subjective: Pt reports her B knee pain has been progressively worsening over the past couple years. Pt notes she had to have a lateral release surgery performed on B knees when she was in high school. Pt notes she had a problem with her patellas dislocating when she was in high school. Pt reports she had an MRI performed on her R knee last year which revealed a torn meniscus. Pt reports she had an x-ray performed on her L knee which showed OA. 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 Pt reports her knees swell up a lot by the end of her work shift. Pt notes she feels like she lacks flexibility and stability in her knees. Pt reports she has stairs at home that she has to negotiate one step at a time. Pt denies sleep difficulty at this time. Pt denies tingling or numbness in her LE's at this time. Pt reports prolonged ambulation, such as walking her dog, she is limited with at this time secondary to pain. B knees will occasionally lock up on her. No giving out Pain B knees: Pain Intensity (Out of 10): 1 Pain Intensity Range: 7 Objective Objective: Neuro: B LE sensation is WNL to light touch. Girth at joint line: R knee 51.5 cm, L knee 50 cm ROM: L knee= 0-103 degrees: R knee= 0-8-105 MMT: L knee flex= 44, ext= 37 #F; R knee flex= 41, ext= 35 #F 6 min walk test: Pt was limited to 3 min and 48 seconds secondary to B knee pain. Pt was able to ambulate 680 feet. Balance/Special Test Scores Lower Extremity Functional Score: 41 Goals Goal 1:: Increase B knee ext x 10-15 #F to aid with stair negotiation Goal Time Frame: 4-6 Weeks Goal 2:: Increase B knee flexion ROM x 10 degrees to aid with work requirements Goal Time Frame: 4-6 Weeks Goal 3:: Decrease B knee pain x 50% to aid with ambulation tolerance Goal Time Frame: 4-6 Weeks Goal 4:: Pt will be able to finish the 6 min walk test and ambulate greater than 1000 feet without being limited by pain Goal Time Frame: 4-6 Weeks Goal 5:: I with HEP Rehabilitation Potential Physical Therapy Diagnosis: Pt has B knee pain, weakness, and limited ROM secondary to degenerative changes in B knees Rehabilitation Potential: Good Anticipated Interventions Patient/Client Instruction: Educate patient on: Condition and Plan of Care For the Purpose of:: To improve self management Therapeutic Exercise to Include: Strength training, Endurance training, Balance training, Flexibilty training, Gait and locomotor training and Dynamic Lumbar Stabilization For the Purpose of:: To improve self management Text: Thank you for the opportunity to evaluate your patient. For Medicare and Medicare HMO plans, please review the plan of care and approve it. It will need to be FAXED BACK to us at [phone] for Medicare purposes. For Medicare only, by signing this I certify the plan of care. Please let me know if there are questions or concerns regarding this plan of care. Physician Signature: Date:
--- NOTE | 2023-09-06 12:04 | HP.PTREVAL ---
Re-Evaluation Intro: Dr. Jong Mendiola, DO, It has been my pleasure to treat TAMAR ROSA over the last 7 visits for B knee OA. Please see the progress note below for an update on the physical therapy plan of care! Subjective Subjective: Pt reports she is still very sore after working multiple days in a row Objective Objective/Function: B knee pain ranges from 3-6/10 at worst ROM: L knee flex= 102, R knee flex= 100 degrees MMT: L knee ext= 52 #F, R knee ext= 49 #F 6 min walk test: Pt is able to ambulate 640 feet in 3 min until having to stop secondary to R hip pain Pt is showing excellent progress at this time Plan Plan Plan: Cont 2 x's per week x 4 weeks consisting of B knee stretching and strengthening (primary focus on quads), core strengthening, balance and proprio, nustep, and HEP Balance/Gait/Functional tests Balance/Special Test Scores Lower Extremity Functional Score: 52 Goals Goals Goal 1:: Increase B knee ext x 10-15 #F to aid with stair negotiation Goal Time Frame: 4-6 Weeks Goal Progress: Goal Met Goal 2:: Increase B knee flexion ROM x 10 degrees to aid with work requirements Goal Time Frame: 4-6 Weeks Goal Progress: Progressing Goal 3:: Decrease B knee pain x 50% to aid with ambulation tolerance Goal Time Frame: 4-6 Weeks Goal Progress: Progressing Goal 4:: Pt will be able to finish the 6 min walk test and ambulate greater than 1000 feet without being limited by pain Goal Time Frame: 4-6 Weeks Goal Progress: Progressing Goal 5:: I with HEP Goal Time Frame: 4-6 Weeks Goal Progress: Progressing Anticipated Interventions Anticipated Interventions Patient/Client Instruction: Educate patient on: Condition and Plan of Care For the Purpose of:: To improve self management Therapeutic Exercise to Include: Strength training, Endurance training, Balance training, Flexibilty training, Gait and locomotor training and Dynamic Lumbar Stabilization For the Purpose of:: To improve self management Re-Evaluation Ending Re-evaluation ending: Please do not hesitate to contact me at [phone] by phone or if you have questions or concerns regarding this new plan of care! Sincerely, Taran Hall, PT, ATC
--- NOTE | 2023-10-05 13:44 | HP.PTDCSUM ---
Discharge Summary D/C summary: It has been my pleasure to treat TAMAR ROSA referred by Dr. Jong Mendiola DO, with the diagnosis of B knee OA for a total of 15 visit(s). Discharge Date: Please see the following information for a summary of their discharge status. Subjective Subjective: Pt to get MRI today. Pt reports her pain has decreased and increased throughout, but no significant change at this time. Pain B knees: Pain Intensity (Out of 10): 2 Overall Improvement % Improvement: 50 Objective Objective/Function: B knee pain ranges from 2-5/10 B knee extension MMT: 38 #F ea B knee flex ROM: 104 degrees 6 min walk test: Unable to finish today (ambulated 1020 feet in 5:16) Goals Goal 1:: Increase B knee ext x 10-15 #F to aid with stair negotiation Goal Progress: Goal Met Goal 2:: Increase B knee flexion ROM x 10 degrees to aid with work requirements Goal Progress: Progressing Goal 3:: Decrease B knee pain x 50% to aid with ambulation tolerance Goal Progress: Not Progressing Goal 4:: Pt will be able to finish the 6 min walk test and ambulate greater than 1000 feet without being limited by pain Goal Progress: Progressing Goal 5:: I with HEP Goal Progress: Goal Met Plan Plan: Discontinue secondary to lack of progress D/C Information d/c sentence: If there are questions or concerns regarding this patient's physical therapy, please feel free to call me at [phone]. Thank you for the referral of this patient. Sincerely, Taran Hall, PT, ATC Balance/Gait/Functional tests Balance/Special Test Scores Lower Extremity Functional Score: 44 Improvement % Improvement: 50
== END 2023-10-02 19:00 | disposition home or self-care (01) ==
LOC: PT 09:30
PROVIDERS: PCP Internal Medicine; Visit Provider Orthopaedic Surgery
DX: M17.0 Bilateral primary osteoarthritis of knee (principal); S83.241D Other tear of medial meniscus, current injury, right knee, subsequent encounter
CPT/HCPCS: 97014; 97110; 97161; G0283

== ENCOUNTER → 2023-10-05 | Outpatient (CLI) | payer OTHER, SELFPAY ==
--- NOTE | 2023-10-05 16:23 | MRI_ITS ---
EXAM: MR RIGHT LOWER EXTREMITY WITHOUT INTRAVENOUS CONTRAST, KNEE CLINICAL INDICATION: MEDIAL MENISCUS, CURRENT INJURY TECHNIQUE: Multiplanar and multisequence MR images of the right knee without intravenous contrast. COMPARISON: MRI right knee, 06/05/2022 and right knee radiographs, 04/28/2022. FINDINGS: BONES/JOINTS: Marginal osteophytes of the medial weightbearing compartment with minimal adjacent marrow edema. EXTENSOR MECHANISM: No significant abnormality. MEDIAL MENISCUS: Complex tear involving the posterior horn and body of the medial meniscus with mild extrusion of the medial meniscus. LATERAL MENISCUS: No significant abnormality. MEDIAL CAPSULE/SUPPORTING STRUCTURES: Thickening of the MCL without discrete MCL tear indicating strain. LATERAL CAPSULE/SUPPORTING STRUCTURES: No significant abnormality. Lateral collateral ligamentous complex, inclusive of the popliteal tendon, are intact. ANTERIOR CRUCIATE LIGAMENT: No significant abnormality. Intact. POSTERIOR CRUCIATE LIGAMENT: No significant abnormality. Intact. MUSCLES: No significant abnormality. CARTILAGE: Chondral signal abnormality without focal chondral loss in the lateral weightbearing compartment. Chondral thinning and full-thickness chondral loss in the medial femoral condyle. Fraying of the peripheral margin of the lateral retropatellar articular cartilage. FLUID: Large knee joint effusion. OTHER SOFT TISSUES: No periarticular soft tissue edema. MRI/Lower Ext Joint Only (Routine) IMPRESSION: 1. Complex tear involving the posterior horn and body of the medial meniscus with mild extrusion of the medial meniscus. The tear appears slightly more conspicuous/progressed since prior exam. 2. Tricompartmental chondromalacia/osteoarthritis greatest affecting the medial weightbearing compartment. 3. Either chronic injury and/or strain of the MCL. 4. Large knee joint effusion. Electronically Signed: Jose Alfonso DO at 16:45 EST ,
== END | disposition home or self-care (01) ==
LOC: MRI 16:19
PROVIDERS: PCP Internal Medicine; Referring Provider Orthopaedic Surgery; Visit Provider Orthopaedic Surgery
DX: S83.241A Other tear of medial meniscus, current injury, right knee, initial encounter (principal); X58.XXXA Exposure to other specified factors, initial encounter
CPT/HCPCS: 73721

== ENCOUNTER → 2023-12-13 | Outpatient (CLI) | payer OTHER, SELFPAY ==
--- NOTE | 2023-12-13 10:48 | RAD_ITS ---
STUDY: X-RAY - RIGHT KNEE REASON FOR EXAM: Female, 53 years old. PAIN TECHNIQUE: 3 views of the right knee. COMPARISON: Right knee radiographs dated 04/28/2022. FINDINGS: Normal visualized distal femur. Normal visualized proximal tibia and fibula. Normal proximal tibiofibular articulation. There is no demonstrated fracture. There is severe degenerative arthrosis of the medial femorotibial compartment with severe joint space narrowing. There is mild degenerative arthrosis of the lateral femorotibial compartment. There is mild degenerative arthrosis of the patellofemoral articulation. There is a moderate joint effusion. The soft tissue structures are unremarkable. RAD/Knee 3 Views IMPRESSION: Tricompartment degenerative arthrosis, most severe in the medial femorotibial compartment. Moderate joint effusion. No demonstrated acute fracture. Electronically Signed: Jay Ventura MD at 14:15 EDT ,
== END | disposition home or self-care (01) ==
LOC: MTRAD 10:47
PROVIDERS: PCP Internal Medicine; Referring Provider Student in an Organized Health Care Education/Training Program; Visit Provider Student in an Organized Health Care Education/Training Program
DX: M17.11 Unilateral primary osteoarthritis, right knee (principal)
CPT/HCPCS: 73562

== ENCOUNTER → 2023-12-17 | Outpatient (CLI) | payer OTHER, SELFPAY ==
--- NOTE | 2023-12-17 11:45 | RAD_ITS ---
INDICATION: Postlaminectomy syndrome, not elsewhere classified EXAMINATION/TECHNIQUE: X-RAY - XR Spine Lumbar Min 4 Views COMPARISON: No relevant prior comparison study available FINDINGS: VERTEBRAE: Preserved vertebral body height. No fracture. Minimal anterolisthesis of L4 over L5. Preservation of the normal lumbar lordosis. No substantial scoliosis. DISCS: Mild narrowing of multiple intervertebral disc spaces. Mild endplate spondylosis. INCLUDED ABDOMEN: Included bowel gas pattern is non-obstructive. RAD/L/S Spine Min 4 Views IMPRESSION: Mild degenerative changes. Electronically Signed: Hi Scott MD at 14:35 EDT ,
== END | disposition home or self-care (01) ==
LOC: RAD 11:35
PROVIDERS: PCP Internal Medicine; Referring Provider Anesthesiology Pain Medicine; Visit Provider Anesthesiology Pain Medicine
DX: M96.1 Postlaminectomy syndrome, not elsewhere classified (principal)
CPT/HCPCS: 72110

== ENCOUNTER → 2024-01-03 | Outpatient (CLI) | payer OTHER, SELFPAY ==
[2024-01-08 12:09] LABS: HPV APTIMA, High Risk Negative (Negative)
== END | disposition home or self-care (01) ==
LOC: LABSPEC 14:50
PROVIDERS: PCP Internal Medicine; Referring Provider Nurse Practitioner Family; Visit Provider Nurse Practitioner Family
DX: Z12.4 Encounter for screening for malignant neoplasm of cervix (principal)
CPT/HCPCS: 87624; 88175; G0145

== ENCOUNTER → 2024-05-22 | Outpatient (CLI) | payer OTHER, SELFPAY ==
--- NOTE | 2024-05-22 10:43 | BI_ITS ---
MAMMOGRAPHY - BILATERAL SCREENING 3-D TOMOSYNTHESIS REASON FOR EXAM: Female, 54 years old. SCREENING PERTINENT HISTORY: No significant family history. TECHNIQUE: 2-D mammograms and 3-D Tomosynthesis of the breast (s) were performed. CAD was performed. COMPARISON: 05/21/2023 FINDINGS: The breast composition is heterogeneously dense that can obscure small breast masses. Scattered benign calcifications are seen. No dense spiculated masses or suspicious microcalcifications are identified. No architectural distortion is identified. There is no skin thickening or retraction. There has been no significant change since the prior study. BI/SCRN MAMM (CAD)W/SHUN BILAT IMPRESSION: No mammographic signs of malignancy. Routine yearly mammograms recommended. ASSESSMENT CATEGORY: BIRADS Category 1: Negative. A letter regarding these results will be sent to the patient by the facility within 30 days. FOLLOW UP RECOMMENDATION: Yearly follow up mammogram recommended. (A) Approximately 10% of breast cancers are not detected by mammography. A normal mammogram should not delay biopsy of a clinically suspicious abnormality. Electronically Signed: Carmelo Quintana MD at 13:17 EDT ,
== END | disposition home or self-care (01) ==
LOC: OPBI 10:41
PROVIDERS: PCP Internal Medicine; Referring Provider Internal Medicine; Visit Provider Internal Medicine
DX: Z12.31 Encounter for screening mammogram for malignant neoplasm of breast (principal)
CPT/HCPCS: 77063; 77067

== ENCOUNTER 2024-06-11 13:36 | Emergency (ER) | payer OTHER, SELFPAY ==
[2024-06-11 13:37] VITALS: BP 157/96; PULSE 79; RESP 16; TEMP 36.8; O2SAT 99; BMI 51.5
[2024-06-11 14:32] VITALS: BP 152/104; PULSE 63; RESP 16; TEMP 36.5; O2SAT 96
== END 2024-06-11 14:41 | disposition home or self-care (01) ==
LOC: ED 14:26
PROVIDERS: Emergency Provider Surgery; PCP Internal Medicine; Visit Provider Surgery
DX: Z04.3 Encounter for examination and observation following other accident (principal)
CPT/HCPCS: 99282

== ENCOUNTER → 2024-09-02 | Outpatient (CLI) | payer OTHER, SELFPAY ==
[2024-09-02 12:29] LABS: Hemoglobin A1c 5.6 % (3.8-5.6)
[2024-09-02 12:59] LABS: Cholesterol 283 mg/dL (200); Free T3 1.2 pg/mL (2.18-3.98); High Density Lipoprotein 48 mg/dL; T4 Free Direct 0.25 ng/dL (0.76-1.46); Triglycerides 188 mg/dL; Very Low Density Lipoprotein 38 mg/dL (5-40)
== END | disposition home or self-care (01) ==
LOC: MTLAB 10:52
PROVIDERS: PCP Internal Medicine; Referring Provider Internal Medicine; Visit Provider Internal Medicine
DX: E78.2 Mixed hyperlipidemia (principal); E88.810 Metabolic syndrome
CPT/HCPCS: 36415; 80061; 83036; 84439; 84443; 84481

== ENCOUNTER → 2024-10-27 | Outpatient (CLI) | payer OTHER, SELFPAY ==
[2024-10-29 08:09] LABS: Thyroid Peroxidase AB 210 IU/mL (0-34)
== END | disposition home or self-care (01) ==
LOC: MTLAB 11:26
PROVIDERS: PCP Internal Medicine; Referring Provider Internal Medicine; Visit Provider Internal Medicine
DX: E03.9 Hypothyroidism, unspecified (principal)
CPT/HCPCS: 36415; 84439; 84443; 86376

== ENCOUNTER → 2024-12-17 | Outpatient (CLI) | payer OTHER, SELFPAY ==
[2024-12-17 15:30] LABS: Absolute Neutrophil Count 4.6 X10^3/uL (2.0-7.7); Basophil# 0.07 X10^3/uL; Eosinophils% 1.4 % (0-5); Hematocrit 38.6 % (37-47); Lymphocyte % 27.4 % (19-41); Mean Corp Hgb Conc 31.1 g/dL (32-36); Mean Corpuscular Hgb 27.2 pg (27.0-32.0); Mean Corpuscular Volume 87.5 fL (81-99); Monocyte# 0.47 X10^3/uL; Monocyte% 6.4 % (0-10); NRBC Flagged by Analyzer 0 % (0-5); Neutrophil # 4.63 X10^3/uL (2.7-7.7); Neutrophil % 63.5 % (47-70); Platelet Count 363 K/mm3 (150-450); RBC Distribution Width CV 14.3 % (11.6-14.6); RBC Distribution Width SD 45.5 fl (35.1-43.9); Red Blood Count 4.41 M/mm3 (4.2-5.4); White Blood Count 7.3 K/mm3 (4.4-11.0)
[2024-12-17 16:58] LABS: ALB/GLOB Ratio 1.3 RATIO (0.9-2.4); AST(SGOT) 19 U/L (<=31); Alanine Aminotransfer ALT/SGPT 16 U/L (<=34); Albumin, Serum 4.3 g/dL (3.5-5.0); Alkaline Phosphatase 100 U/L (35-104); Anion Gap 10 (5-15); BUN 16 mg/dL (4-19); BUN/Creat Ratio 18.9 RATIO (10-20); Calcium,Total 9.6 mg/dL (7.6-11.0); Carbon Dioxide 27.2 mmol/L (21.0-32.0); Chloride 103 mmol/L (98-108); Cholesterol 197 mg/dL (<=200); Creatinine, Serum 0.82 mg/dL (0.70-1.20); EST Glomerular Filtration Rate 86 (>60); Globulin 3.2 g/dL (2.2-4.2); Glucose 84 mg/dL (70-99); High Density Lipoprotein 37 mg/dL; Low Density Lipoprotein Calc. 125 mg/dL; Potassium 4.9 mmol/L (3.3-5.1); Protein, Total 7.5 g/dL (5.9-8.4); Sodium Level 140 mmol/L (133-145); Total Bilirubin 0.23 mg/dL (0.00-1.30); Triglycerides 176 mg/dL; Very Low Density Lipoprotein 35 mg/dL (5-40)
[2024-12-17 17:24] LABS: Hemoglobin A1c 6.1 % (<=5.6)
== END | disposition home or self-care (01) ==
LOC: MTLAB 11:18
PROVIDERS: PCP Internal Medicine; Referring Provider Internal Medicine; Visit Provider Internal Medicine
DX: E88.810 Metabolic syndrome (principal); I10 Essential (primary) hypertension; E78.2 Mixed hyperlipidemia; E03.9 Hypothyroidism, unspecified
CPT/HCPCS: 36415; 80053; 80061; 83036; 84443; 85025

== ENCOUNTER → 2025-02-09 | Outpatient (CLI) | payer OTHER, SELFPAY | END | disposition home or self-care (01) | LOC: MTLAB 11:35 | PROVIDERS: PCP Internal Medicine; Referring Provider Internal Medicine; Visit Provider Internal Medicine | DX: R94.6 Abnormal results of thyroid function studies (principal) | CPT/HCPCS: 36415; 84443 ==

== ENCOUNTER → 2025-03-23 | Outpatient (CLI) | payer OTHER, SELFPAY | END | disposition home or self-care (01) | LOC: MTLAB 09:54 | PROVIDERS: PCP Internal Medicine; Referring Provider Internal Medicine; Visit Provider Internal Medicine | DX: R94.6 Abnormal results of thyroid function studies (principal); R73.09 Other abnormal glucose | CPT/HCPCS: 36415; 83036; 84443 ==

== ENCOUNTER → 2025-05-28 | Outpatient (CLI) | payer OTHER, SELFPAY | END | disposition home or self-care (01) | LOC: OPBI 08:32 | PROVIDERS: PCP Internal Medicine; Referring Provider Nurse Practitioner Women's Health; Visit Provider Nurse Practitioner Women's Health | DX: Z12.31 Encounter for screening mammogram for malignant neoplasm of breast (principal) | CPT/HCPCS: 77063; 77067 ==